=== PATIENT | female | born 1960 | race Caucasian/White ===

== ENCOUNTER 2019-11-20 07:00 | Outpatient (RCR) | payer OTHER, SELFPAY ==
--- NOTE | 2019-10-24 08:01 | PTOPEVAL ---
PHYSICAL THERAPY EVALUATION AND PLAN OF CARE 10-24-2019 The PT evaluation was completed for the diagnosis of L shoulder/bicep tendonitis. The plan of treatment is for 1-2 x/week for 4 weeks. Thank you for referring Mrs. Mars to [facility]. Please review, sign, date and return this plan of care OSVALDO. I agree with and certify that the following plan of care is medically necessary. Referring Physician Date Attending Provider: Joey Wilder MD *PT Outpatient Evaluation Start: 10/24/19 07:07 Document 10/24/19 07:00 JESUS (Rec: 10/24/19 07:55 JESUS [id number]) Assessment Status Evaluation Outpatient Past Medical History Neurological History Hx Other Neurological Disorders Yes: vertigo Cardiovascular History Hx Hypertension Yes: med control Hx Other Cardiac Disorders Yes: Mitchell Parkinson syndrome Respiratory History Hx Respiratory Disorders No Significant History Gastrointestinal History Hx Gastrointestinal Disorders No Significant History Genitourinary History Hx Genitourinary Disorders No Significant History Musculoskeletal History Hx Back Pain Yes: have had injections Hx Joint Replacement Yes: L TKR Hx Other Musculoskeletal Disorders Yes: surgical repair of hammertoe B Hematological History Hx Anemia Yes: take iron Endocrine History Hx Diabetes Yes: med control HEENT History Hx Other HEENT Disorders Yes: wear glasses Integumentary History Hx Skin Disorders No Significant History Evaluation Information Problem Diagnosis L shoulder tendonitis Onset Jul 2019 Subjective Information gradual increase in shoulder Query Text:As Reported By Patient/ pain, no trauma or injury to Family shoulder; also have stiff neck; had injection 10-14-19, has helped with less pain and more motion Diagnostic Tests X-Rays For This Problem Yes: per pt- negative Previous Treatments Previous Treatments For This Problem no treatment for shoulder Prior Level of Function Activity Level (Last 3 Months) 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
--- NOTE | 2019-11-20 07:33 | PTOPEVAL ---
PHYSICAL THERAPY DISCHARGE 11-20-2019 Mrs. Mars has received 9 Physical Therapy sessions, from October 24 to today for the diagnosis of L shoulder tendonitis. Jenna has improved since evaluation: decreased pain in L shoulder; increased cervical and L shoulder ROM and strength; indep with home exercises and good posture awareness. The goals have been achieved, therefore, she will be discharged from PT services. Thank you for referring this patient to [facility]. Please review, sign, date and return this discharge summary OSVALDO. I agree with and certify that the following plan of care is medically necessary. Referring Physician Date Attending Provider: Jeoy Wilder MD *PT Outpatient Discharge Document 11/20/19 07:09 JESUS (Rec: 11/20/19 07:33 JESUS [id number]) Subjective Information Jenna reports: therapy has Query Text:As Reported By Patient/ helped shoulder--have more Family range of movement and not as much pain; doing exercises and agrees to discharge from PT services. Pain Assessment Pain Scale Pain Scale Used Numeric (1 - 10) Self Report Pain Assessment Left Shoulder(s) Reported Pain Level 0 Pain Frequency Acute Current Pain Intensity 0 Lowest Pain Intensity 0 Greatest Pain Intensity 2 Pain Level Goal 0 Other Pain Aggravating Factors lifting and carrying heavy things with L arm only Pain Relief Interventions Used By Inactivity/Rest Patient Other Alleviating Interventions rub front of shoulder; take arthritis tylenol for overall body pain Additional Pain Comments doing all home & work tasks; can lie on L side 5-10 min; Pain Score Pain Score 0: Self Report Cervical and Lumbar ROM Cervical ROM Cervical ROM Comments cervical rotation to R pain with end range of motion; WNL ~ 70' cervical rotation R and L; Upper Extremity Muscle Strength Testing General Upper Extremity Strength Gross Upper Extremity Strength Comments B UE Lift box floor/waist: 23# x 3 reps; with correct technique standing L shoulder- full ROM: flex 5# x 10; abduction 5# x 10 reps; elbow flex 5# x 10 reps; doing shoulder exercises at home, bought a foam roller; cont to do HEP; have yellow and red theraband for strengthening Palpation Assessment
== END 2019-11-20 09:48 | disposition home or self-care (01) ==
LOC: ANHPT 07:00
PROVIDERS: Visit Provider Orthopaedic Surgery
DX: M75.82 Other shoulder lesions, left shoulder (principal); M25.512 Pain in left shoulder
CPT/HCPCS: 97110; 97140; 97161

== ENCOUNTER 2019-12-17 09:46 | Outpatient (CLI) | payer OTHER, SELFPAY ==
[2019-12-17 10:16] LABS: Total Protein Urine Random 48 mg/dL
[2019-12-17 10:18] LABS: Albumin Level 4.7 g/dL (3.5-5.1); Blood Urea Nitrogen 29 mg/dL (7-17); Calcium 9.7 mg/dL (8.4-10.2); Carbon Dioxide 22 mmol/L (22-30); Chloride 99 mmol/L (98-107); Estimated Glomerular Filt Rate 38; Glucose 150 mg/dL (65-105); Phosphorus 3.7 mg/dL (2.5-4.5); Potassium 4.9 mmol/L (3.4-5.0); Sodium 138 mmol/L (137-145)
== END 2019-12-17 09:47 | disposition home or self-care (01) ==
LOC: ANHLAB 09:48
PROVIDERS: Visit Provider Internal Medicine Nephrology
DX: N18.3 Chronic kidney disease, stage 3 (moderate) (principal); I10 Essential (primary) hypertension
CPT/HCPCS: 36415; 80069; 82570; 84156

== ENCOUNTER 2020-01-03 07:07 | Outpatient (CLI) | payer OTHER, SELFPAY ==
[2020-01-03 07:49] LABS: Albumin Level 4.5 g/dL (3.5-5.1); Blood Urea Nitrogen 27 mg/dL (7-17); Calcium 9.9 mg/dL (8.4-10.2); Carbon Dioxide 25 mmol/L (22-30); Chloride 103 mmol/L (98-107); Estimated Glomerular Filt Rate 35; Glucose 259 mg/dL (65-105); Phosphorus 3.8 mg/dL (2.5-4.5); Potassium 4.6 mmol/L (3.4-5.0); Sodium 135 mmol/L (137-145)
== END 2020-01-03 07:08 | disposition home or self-care (01) ==
PROVIDERS: Visit Provider Internal Medicine Nephrology
DX: N18.3 Chronic kidney disease, stage 3 (moderate) (principal)
CPT/HCPCS: 36415; 80069

== ENCOUNTER 2020-01-21 08:17 | Outpatient (CLI) | payer OTHER, SELFPAY ==
--- NOTE | 2020-01-21 | EST_ITS ---
Patient Info Name: Jenna Mars Age: 59 years : 1960 Gender: Female Ht: 64 in Wt: 190 lbs BSA: 2.01 m2 Exam Date: 01/21/2020 8:59 AM Exam Location: [facility] Patient Status: Outpatient Admit Date: 01/21/2020 Staff Ordering Physician: Kevin Metcalf MD Legal Writing Professor: Jadon Choi RDCS, RT Attending Provider: CARLITOS COTTO Referring Physician: Dixon DOMINGUEZ; Exercise Technologist: Jadon Choi RDCS, RT Nurse: [facility] Sheth AN[facility], [facility] Exam Type: CA stress echo Study Info Indications I10 - Essential (primary) hypertension Treadmill exercise stress echocardiogram is performed. Summary 1. Inconclusive stress test for ischemia. Patient was unable to achieve target heart rate. 2. Patient complained of midsternal burning at peak exercise. 3. No ischemic EKG changes with exercise. 4. Normal left ventricular function at rest with improvement of LV contractility with exercise and no focal wall motion abnormalities at this level of exercise. Ejection fraction 60% at rest. 5. Mildly thickened mitral valve with redundant chordae. Stress Echo Findings Left Ventricle Normal left venticular systolic function with no regional wall motion abnormalities noted at rest. Overall global left ventricular systolic function Improved post stress. Left Ventricle Left ventricular chamber dimension is normal. Left ventricular systolic function is Empty with an estimated ejection fraction of Empty. There is no increased left ventricular wall thickness. Left ventricular septal wall motion is normal. The left ventricular diastolic function is normal. Right Ventricle Right ventricular chamber dimension is normal. Right ventricular systolic function is normal. Left Atria Left atrial chamber dimension is normal. Right Atria Right atrial chamber dimension is normal. Aortic Valve The aortic valve is trileaflet. There is no aortic valve sclerosis. There is no aortic valve stenosis. There is no aortic valve regurgitation. Pulmonary Valve The pulmonic valve is normal. There is no pulmonic valve stenosis. There is no pulmonic regurgitation. Mitral Valve The mitral valve has normal leaflets. There is no mitral valve stenosis. There is no mitral valve regurgitation. Tricuspid Valve The tricuspid valve leaflets are normal. There is no significant tricuspid valve stenosis. There is no tricuspid valve regurgitation. No pulmonary hypertension, estimated pulmonary arterial systolic pressure is Empty. Pericardium The pericardium appears normal. There is no pericardial effusion. Inferior Vena Cava Normal inferior vena cava with <50% collapse upon inspiration consistent with Empty right atrial pressure, Empty. Aorta The aortic root size at the sinus of Valsalva is normal. The prox ascending aorta size is normal. Protocol: Priyank Stress ECG Details Stage: REST Duration (min): 6 min : 20 sec Speed (mph): 0.0 Grade (%): 0 HR (bpm): 70 SBP (mmHg): 138 DBP (mmHg): 95 METS: --- Stage: REST Duration (min): 33 min : 37 sec Speed (mph): 0.0 Grade (%): 0 HR (bpm): 66 SBP (mmHg): 138 DBP (mmHg): 95 METS: --- Stage: STAGE 1 Duration (min): 1 min : 0 sec Speed (mph): 1.7 Grade (%): 10 HR (bpm): 82 SBP (mmHg): 138 DBP (mmHg):
== END 2020-01-21 08:18 | disposition home or self-care (01) ==
PROVIDERS: Visit Provider Internal Medicine Cardiovascular Disease
DX: E11.59 Type 2 diabetes mellitus with other circulatory complications (principal); I10 Essential (primary) hypertension; I49.3 Ventricular premature depolarization
CPT/HCPCS: 93351

== ENCOUNTER 2020-03-22 07:33 | Outpatient (CLI) | payer OTHER, SELFPAY ==
[2020-03-22 08:37] LABS: Albumin Level 4.5 g/dL (3.5-5.1); Blood Urea Nitrogen 31 mg/dL (7-17); Calcium 9.8 mg/dL (8.4-10.2); Carbon Dioxide 24 mmol/L (22-30); Chloride 97 mmol/L (98-107); Estimated Glomerular Filt Rate 31; Glucose 160 mg/dL (65-105); Phosphorus 4.8 mg/dL (2.5-4.5); Potassium 4.5 mmol/L (3.4-5.0); Sodium 131 mmol/L (137-145)
[2020-03-22 08:53] LABS: Parathyroid Intact 17.9 pg/mL (7.5-53.5)
[2020-03-22 09:23] LABS: Vitamin D 25 Hydroxy 60.9 ng/mL
[2020-03-22 09:32] LABS: Creatinine Urine 47.9 mg/dL; Total Protein Urine Random 26 mg/dL
== END 2020-03-22 07:34 | disposition home or self-care (01) ==
PROVIDERS: Referring Provider Family Medicine; Visit Provider Internal Medicine Nephrology
DX: N18.3 Chronic kidney disease, stage 3 (moderate) (principal)
CPT/HCPCS: 36415; 80069; 82306; 82570; 83970; 84156

== ENCOUNTER 2020-04-08 12:24 | Outpatient (CLI) | payer OTHER, SELFPAY ==
[2020-04-08 13:00] LABS: Albumin Level 4.7 g/dL (3.5-5.1); Blood Urea Nitrogen 36 mg/dL (7-17); Calcium 9.5 mg/dL (8.4-10.2); Carbon Dioxide 24 mmol/L (22-30); Chloride 102 mmol/L (98-107); Estimated Glomerular Filt Rate 33; Glucose 249 mg/dL (65-105); Phosphorus 3.7 mg/dL (2.5-4.5); Potassium 4.4 mmol/L (3.4-5.0); Sodium 136 mmol/L (137-145)
== END 2020-04-08 12:25 | disposition home or self-care (01) ==
PROVIDERS: Visit Provider Internal Medicine Nephrology
DX: N18.3 Chronic kidney disease, stage 3 (moderate) (principal)
CPT/HCPCS: 36415; 80069

== ENCOUNTER 2020-05-20 15:02 | Outpatient (CLI) | payer OTHER, SELFPAY ==
--- NOTE | ~2020-05-20 | US_ITS ---
EXAMINATION: US carotid duplex BI DATE: 05/20/2020 15:48 INDICATION: Left carotid bruit TECHNIQUE: Grayscale, color Doppler, and pulsed Doppler images of the cervical carotid arteries were obtained. The degree of vessel stenosis is placed in one of the following categories: normal, <50%, 5 0-69%, >=70% but less than near-occlusion, near-occlusion, or total occlusion. Note that percent sten osis relative to normal distal artery lumen diameter is indirectly measured from velocity measurement s as described by Roe, et al. Radiology 2003; 229:340-346. Notes: Normal: Peak systolic velocity <125 centimeters/sec and no plaque <50%. Peak systolic velocity <125 ( EDV <40; ICA/CCA PSV ratio <2.0; used these factors only a tandem lesions or low cardiac output or co ntralateral disease) 50-69 %: PSV 125-230 (EDV 40-100; ratio 2-4) >= 70% but less than near occlusion: PSV greater than 230 (EDV > 100; ratio> 4.0) Near Occlusion: PSV that is variable; markedly narrowed lumen Occlusion: Absent flow on color/spectral Doppler and no lumen on correa scale. COMPARISON: None. FINDINGS: RIGHT: The right common carotid artery (CCA) peak systolic velocity (PSV) is 64 cm/s. The right internal car otid artery (ICA) PSV is 76 cm/s. The right ICA end-diastolic velocity (EDV) is 23 cm/s. The right IC A/CCA PSV ratio is 1.2. The external carotid artery (ECA) PSV is 54 cm/s. There is antegrade flow in the right vertebral artery. LEFT: The left CCA PSV is 80 cm/s. The left ICA PSV is 65 cm/s. The left ICA EDV is 23 cm/s. The left ICA/C CA PSV ratio is 0.8. The ECA PSV is 46 cm/s. There is antegrade flow in the left vertebral artery. IMPRESSION: 1. Less than 50% stenosis in the right internal carotid artery by sonographic criteria. 2. Less than 50% stenosis in the left internal carotid artery by sonographic criteria. Reviewed, dictated and finalized at location A. IMPRESSION: 1. Less than 50% stenosis in the right internal carotid artery by sonographic orly graham. 2. Less than 50% stenosis in the left internal carotid artery by sonographic bertin thomas.
== END 2020-05-20 15:03 | disposition home or self-care (01) ==
LOC: ANHIMG 15:03
PROVIDERS: Visit Provider Internal Medicine Cardiovascular Disease
DX: R09.89 Other specified symptoms and signs involving the circulatory and respiratory systems (principal); I65.23 Occlusion and stenosis of bilateral carotid arteries
CPT/HCPCS: 93880

== ENCOUNTER 2020-06-01 07:33 | Outpatient (CLI) | payer OTHER, SELFPAY ==
--- NOTE | 2020-06-01 | ECHO_ITS ---
Patient Info Name: Jenna Mars Age: 59 years : 1960 Gender: Female Ht: 64 in Wt: 193 lbs BSA: 2.02 m2 HR: 70 bpm BP: 190 / 99 mmHg Heart Rhythm: Sinus Rhythm Technical Quality: Good Exam Date: 06/01/2020 7:55 AM Exam Location: [facility] Patient Status: Outpatient Admit Date: 06/01/2020 Staff Ordering Physician: Kevin Metcalf MD Placement Coordinator: Jadon Choi RDCS, RT Attending Provider: Kevin Metcalf MD Referring Physician: Dixon DOMINGUEZ; Exam Type: CA echo doppler color flow Study Info Indications I35.0 - Nonrheumatic aortic (valve) stenosis Complete two-dimensional, color flow and Doppler transthoracic echocardiogram is performed. Summary 1. Left ventricular chamber dimension is normal. 2. Left ventricular systolic function is normal, estimated at 65-70%. 3. There is mildly increased left ventricular wall thickness. 4. Left ventricular septal wall motion is normal. 5. The left ventricular diastolic function is grade II diastolic dysfunction. 6. Global longitudinal strain is normal at -17 %. 7. Left atrial chamber dimension is mildly enlarged. 8. There is mild aortic valve stenosis with a peak velocity of 214 cm/s, mean gradient of 8 mmHg, and aortic valve area of 1.2 cm2. 9. There is moderate aortic valve sclerosis. 10. There is moderate mitral valve regurgitation. 11. There is mild tricuspid valve regurgitation. 12. Mild pulmonary hypertension, estimated pulmonary arterial systolic pressure is 36 mmHg. 13. The aortic valve gradients are no different than previous. The LVOT is measured differently from previous echo thus resulting in the difference and a calculated ELVIS. If visibly looks like a mildly stenotic valve. Left Ventricle Left ventricular chamber dimension is normal. Left ventricular systolic function is normal, estimated at 65-70%. There is mildly increased left ventricular wall thickness. Left ventricular septal wall motion is normal. The left ventricular diastolic function is grade II diastolic dysfunction. Global longitudinal strain is normal at -17 %. Right Ventricle Right ventricular chamber dimension is normal. Right ventricular systolic function is normal. Left Atria Left atrial chamber dimension is mildly enlarged. Right Atria Right atrial chamber dimension is normal. Atrial Septum Intact interatrial septum visualized by color flow imaging. Aortic Valve The aortic valve is trileaflet. There is moderate aortic valve sclerosis. There is mild aortic valve stenosis with a peak velocity of 214 cm/s, mean gradient of 8 mmHg, and aortic valve area of 1.2 cm2. There is trace aortic valve regurgitation. The aortic valve gradients are no different than previous. The LVOT is measured differently from previous echo thus resulting in the difference and a calculated ELVIS. If visibly looks like a mildly stenotic valve. Pulmonic Valve The pulmonic valve is normal. There is no pulmonic valve stenosis. There is trace pulmonic regurgitation. Mitral Valve The mitral valve has thickened leaflets. There is no mitral valve stenosis. There is moderate mitral valve regurgitation. Tricuspid Valve The tricuspid valve leaflets are normal. There is no significant tricuspid valve stenosis. There is mild tricuspid valve regurgitation. Mild pulmonary hypertension, estimated pulmonary arterial systolic pressure is 36 mmHg. Pericardium/Pleural The pericardium appears normal. There is no pericardial effusion.
--- NOTE | 2020-06-01 | EST_ITS ---
Patient Info Name: Jenna Mars Age: 59 years : 1960 Gender: Female Ht: 64 in Wt: 193 lbs BSA: 2.02 m2 Exam Date: 06/01/2020 10:11 AM Exam Location: [facility] Stress Patient Status: Outpatient Admit Date: 06/01/2020 Staff Ordering Physician: Kevin Metcalf MD Attending Provider: Kevin Metcalf MD Exercise Technologist: Roselia Joe RDCS Exam Type: CA stress jerome w NM Study Info Indications E11.69 - HYPERLIPIDEMIA ASSOCIATED WITH TYPE 2 DIABETES MELLITUS A regadenoson stress test was performed. Summary 1. Please correlate with nuclear medicine images, reported separately. 2. No abnormal ST-T wave changes with lexiscan. Protocol: Lexiscan Stress ECG Details Stage: REST Duration (min): 2 min : 9 sec HR (bpm): 66 SBP (mmHg): 156 DBP (mmHg): 88 Stage: REST Duration (min): 12 min : 3 sec HR (bpm): 69 SBP (mmHg): 156 DBP (mmHg): 88 Stage: STAGE 1 Duration (min): 1 min : 0 sec HR (bpm): 81 SBP (mmHg): 156 DBP (mmHg): 88 Stage: RECOVERY Duration (min): 1 min : 0 sec HR (bpm): 89 SBP (mmHg): 135 DBP (mmHg): 51 Stage: RECOVERY Duration (min): 2 min : 0 sec HR (bpm): 89 SBP (mmHg): 135 DBP (mmHg): 51 Stage: RECOVERY Duration (min): 3 min : 0 sec HR (bpm): 88 SBP (mmHg): 141 DBP (mmHg): 56 Stage: RECOVERY Duration (min): 4 min : 0 sec HR (bpm): 89 SBP (mmHg): 141 DBP (mmHg): 56 Stage: RECOVERY Duration (min): 5 min : 0 sec HR (bpm): 87 SBP (mmHg): 141 DBP (mmHg): 56 Stage: RECOVERY Duration (min): 6 min : 0 sec HR (bpm): 87 SBP (mmHg): 141 DBP (mmHg): 56 Stage: RECOVERY Duration (min): 7 min : 0 sec HR (bpm): 84 SBP (mmHg): 159 DBP (mmHg): 78 Stage: RECOVERY Duration (min): 7 min : 6 sec HR (bpm): 86 SBP (mmHg): 159 DBP (mmHg): 78 Rest HR: 69 bpm Peak HR: 92 bpm Rest Sys BP: 156 mmHg Peak Sys BP: 159 mmHg Max Pred HR: 159 bpm % Max Pred HR: 58 % Target HR: 135 bpm Max RPP: 14,628 bpm*mmHg Target HR Summary: Hemodynamic response to exercise was normal BP Response: Normal blood pressure response Termination Reason: Completed protocol Cardiac Symptoms: None Total Time: 1 min : 0 sec Rest [place] BP: 88 mmHg Peak [place] BP: 78 mmHg Total Dose: 0.4 mg Resting ECG Normal sinus rhythm. IVCD. Stress ECG No abnormal ST/T wave changes with exercise. Arrhythmias Occasional PVCs. Report Signatures
--- NOTE | ~2020-06-01 | NM_ITS ---
EXAMINATION: NM jerome stress w perfusion DATE: 06/01/2020 11:54 INDICATION: Hyperlipidemia. Nontraumatic cardiac valve stenosis. Hypertension. PVC. TECHNIQUE: Rest images were obtained following intravenous administration of 9 mCi Tc99m tetrofosmin (Myoview). The patient was infused intravenously with Lexiscan (Regadenoson). Then, 27.5 mCi Tc99m te trofosmin (Myoview) was administered intravenously, and stress images were obtained. Data was reconst ructed into short axis and horizontal and vertical long axis SPECT images. Gated SPECT images were al so obtained. COMPARISON: None. FINDINGS: There is no definite reversible or fixed perfusion abnormality to suggest ischemia or infar ction. There is normal left ventricular chamber size, wall motion and ejection fraction. Left ventr icular ejection fraction measures 70%. IMPRESSION: 1. Normal myocardial perfusion at rest and during stress. 2. Left ventricular ejection fraction measuring 70%. Reviewed, dictated and finalized at location A.
== END 2020-06-01 07:34 | disposition home or self-care (01) ==
LOC: ANHCARD 07:36
PROVIDERS: Visit Provider Internal Medicine Cardiovascular Disease
DX: I35.0 Nonrheumatic aortic (valve) stenosis (principal); E11.65 Type 2 diabetes mellitus with hyperglycemia; E78.5 Hyperlipidemia, unspecified; E11.59 Type 2 diabetes mellitus with other circulatory complications; I49.3 Ventricular premature depolarization; I70.1 Atherosclerosis of renal artery
CPT/HCPCS: 78452; 93017; 93306; A9502; J2785

== ENCOUNTER 2020-06-17 08:21 | Outpatient (CLI) | payer OTHER, SELFPAY ==
--- NOTE | ~2020-06-17 | XR_ITS ---
EXAMINATION: XR knee RT 3V DATE: 06/17/2020 08:45 INDICATION: Right knee pain. TECHNIQUE: 3 views of right knee on 4 radiographs were obtained. COMPARISON: None. FINDINGS: Bone alignment is normal. No fracture. There is moderate osteoarthritis of medial compartme nt and mild osteoarthritis of lateral and patellofemoral compartments. There is chondrocalcinosis of the menisci. There is a small knee joint effusion. IMPRESSION: 1. Moderate right knee osteoarthritis. 2. Small right knee joint effusion. Reviewed, dictated and finalized at location B.
[2020-06-17 09:28] LABS: Hematocrit 34.7 % (37.0-47.0); Hemoglobin 11.5 g/dL (12.0-15.0); Mean Corpuscular HGB Conc 33.1 g/dl (32-36); Mean Corpuscular Hemoglobin 30.3 pg (26-34); Mean Corpuscular Volume 91.6 fl (80-100); Mean Platelet Volume 9.5 fl (7.4-10.4); Platelet Count Result 410 k/mm3 (150-375); Red Blood Count 3.79 M/mm3 (4.2-5.4); Red Cell Distribution Width 12.8 % (11.5-14.5); White Blood Count 7.6 K/mm3 (4.5-10.0)
[2020-06-17 09:45] LABS: Albumin Level 4.6 g/dL (3.5-5.1); Anion Gap 12 mmol/L (8-16); Blood Urea Nitrogen 31 mg/dL (7-17); Calcium 9.5 mg/dL (8.4-10.2); Carbon Dioxide 21 mmol/L (22-30); Chloride 101 mmol/L (98-107); Estimated Glomerular Filt Rate 35; Glucose 315 mg/dL (65-105); Phosphorus 4.2 mg/dL (2.5-4.5); Potassium 4.9 mmol/L (3.4-5.0); Sodium 134 mmol/L (137-145)
[2020-06-17 09:54] LABS: Parathyroid Intact 20.1 pg/mL (7.5-53.5)
[2020-06-17 10:23] LABS: Creatinine Urine 92.1 mg/dL; Total Protein Urine Random 39 mg/dL
== END 2020-06-17 08:22 | disposition home or self-care (01) ==
LOC: ANHLAB 08:23
PROVIDERS: Visit Provider Internal Medicine Nephrology
DX: N18.3 Chronic kidney disease, stage 3 (moderate) (principal); M17.11 Unilateral primary osteoarthritis, right knee; M25.461 Effusion, right knee
CPT/HCPCS: 36415; 73562; 80069; 82306; 82570; 83970; 84156; 85027

== ENCOUNTER 2020-07-07 16:03 | Outpatient (CLI) | payer OTHER, SELFPAY ==
[2020-07-07 16:26] LABS: Hemoglobin A1C 7.1 % (<5.7)
== END 2020-07-07 16:04 | disposition home or self-care (01) ==
LOC: ANHLAB 16:05
PROVIDERS: Visit Provider Family Medicine
DX: E13.40 Other specified diabetes mellitus with diabetic neuropathy, unspecified (principal)
CPT/HCPCS: 36415; 83036

== ENCOUNTER 2020-08-12 11:00 | Outpatient (RCR) | payer OTHER, SELFPAY ==
--- NOTE | 2020-07-07 16:09 | PTOPEVAL ---
Thank you for referring Jenna Mars to [facility].? The patient is scheduled to be seen for therapy? ____x/week for ___ weeks. Please review, sign, date and return this plan of care OSVALDO. I agree with and certify that the following plan of care is medically necessary. Referring Physician Date Admitting Provider: Attending Provider: Joey Wilder MD Referring Provider: *PT Outpatient Evaluation Start: 07/07/20 14:34 Freq: Status: Active Protocol: Document 07/07/20 14:51 LAY (Rec: 07/07/20 16:07 LAY [id number]) Therapy Assessment Status Assessment Status Assessment Status Evaluation Outpatient Past Medical History Past Medical History Source of Past Medical History Recalled from Previous Visit, Confirmed with Patient/Family Neurological History Hx Other Neurological Disorders Yes: vertigo Cardiovascular History Hx Hypertension Yes: med control Hx Other Cardiac Disorders Yes: Mitchell Parkinson syndrome Respiratory History Hx Respiratory Disorders No Significant History Gastrointestinal History Hx Cholecystectomy Yes Genitourinary History Hx Genitourinary Disorders No Significant History Musculoskeletal History Hx Back Pain Yes: have had injections Hx Joint Replacement Yes: L TKR Hx Other Musculoskeletal Disorders Yes: surgical repair of hammertoe B Hematological History Hx Anemia Yes: take iron Endocrine History Hx Diabetes Yes: med control HEENT History Hx Other HEENT Disorders Yes: wear glasses Integumentary History Hx Skin Disorders No Significant History Reproductive History Hx Hysterectomy Yes: 1997 Evaluation Information Problem Diagnosis right primary OA Onset 4-6months Subjective Information Began to have medial and Query Text:As Reported By Patient/ lateral knee joint pain, will Family also have a shooting pain in knee, lots of cracks, pops,etc . Had injection yesterday - feels significantly better. Occasionally pain will awaken her from sleep. Usually painful in morning. Avoided stairs - worked in draw station - to avoid increase walking Pain Assessment Timing of Pain Assessment Timing of Pain Assessment Assessment Pain Scale Pain Scale Used Numeric (1 - 10) Self Report Pain Assessment Right Knee(s) Reported Pain Level 3 Pain Description Aching,Dull,Sharp Lowest Michell
--- NOTE | 2020-07-07 16:24 | PTOPEVAL ---
INITIAL PHYSICAL THERAPY EVALUATION and PLAN OF CARE Thank you for referring Jenna Masr to [facility].? Jenna is scheduled to be seen for physical therapy? 2x/week for 5 weeks. Please review, sign, date and return this plan of care OSVALDO. I agree with and certify that the following plan of care is medically necessary. Referring Physician Date Admitting Provider: Attending Provider: Joey Wilder MD Referring Provider: *PT Outpatient Evaluation Start: 07/07/20 14:34 Freq: Status: Active Protocol: Document 07/07/20 14:51 LAY (Rec: 07/07/20 16:07 LAY [id number]) Therapy Assessment Status Assessment Status Assessment Status Evaluation Outpatient Past Medical History Past Medical History Source of Past Medical History Recalled from Previous Visit, Confirmed with Patient/Family Neurological History Hx Other Neurological Disorders Yes: vertigo Cardiovascular History Hx Hypercholesterolemia Yes Hx Hypertension Yes: med control Hx Other Cardiac Disorders Yes: Mitchell Parkinson syndrome Respiratory History Hx Respiratory Disorders No Significant History Gastrointestinal History Hx Cholecystectomy Yes Genitourinary History Hx Genitourinary Disorders No Significant History Musculoskeletal History Hx Back Pain Yes: have had injections Hx Joint Replacement Yes: L TKR Hx Other Musculoskeletal Disorders Yes: surgical repair of hammertoe B Hematological History Hx Anemia Yes: take iron Endocrine History Hx Diabetes Yes: med control HEENT History Hx Other HEENT Disorders Yes: wear glasses Integumentary History Hx Skin Disorders No Significant History Reproductive History Hx Hysterectomy Yes: 1997 Evaluation Information Problem Diagnosis right primary OA Onset ~4-6months Subjective Information Began to have medial and Query Text:As Reported By Patient/ lateral knee joint pain, will Family also have a shooting pain in knee, lots of cracks, pops,etc . Had injection yesterday - feels significantly better. Occasionally pain will awaken her from sleep. Usually painful in morning. 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
--- NOTE | 2020-08-12 17:08 | PTOPEVAL ---
PHYSICAL THERAPY DISCHARGE SUMMARY Thank you for referring Jenna Mars to [facility].? Jenna has been seen in PT x 11 visits. Goals have been met - she is to continue with her HEP. She is ready for discharge from PT. I agree with Jenna's discharge from PT. Referring Physician Date Admitting Provider: Attending Provider: Joey Wilder MD Referring Provider: *PT Outpatient Evaluation Start: 07/07/20 14:34 Freq: Status: Active Protocol: Document 08/12/20 11:05 LAY (Rec: 08/12/20 12:00 LAY [id number]) Therapy Assessment Status Assessment Status Assessment Status Discharge Evaluation Information Problem Subjective Information Jenna states that she feels Query Text:As Reported By Patient/ the shot is wearing off - Family beginning to feel more knee pain. Will have episodes of catching/pop sensation - sharp pain for awhile - then will go back to 3/10 baseline pain. KinesioTaping really helps. Level ground ambulation has improved ~35%, stair ambulation at least 50% improvement. Does HEP on a regular basis - does take 1 day off per week. Pain Assessment Timing of Pain Assessment Timing of Pain Assessment Assessment Pain Scale Pain Scale Used Numeric (1 - 10) Self Report Pain Assessment Right Knee(s) Reported Pain Level 3 Lowest Pain Intensity 3 Greatest Pain Intensity 5 Pain Score Pain Score 3: Self Report Interventions Used Interventions Used By Clinicians Exercise Lower Extremity Range of Motion Knee Range of Motion Right Knee Flexion Range of Motion - Passive 130 Knee Range of Motion Comments 2 deg hyperextension Lower Extremity Muscle Strength Testing Hip Strength Bilateral Hip Strength Comments R hip abduction - 4+/5 Muscle Length Testing Muscle Length Testing Left Hamstring Length 10 Query Text:(90 - 90 Position) Right Hamstring Length 15 Query Text:(90 - 90 Position) Muscle Length Testing Comments gastroc - with knee extended 10 deg bilat General Exercise General Exercises Side Right,Bilateral Exercise Location LE Exercise Type Active,Stretching Exercise Description - discussed using foam at home Query Text:Record Sets, Reps, to continue to work on Resistance, and Position balance - standing green theraband hip
== END 2020-08-13 12:20 | disposition home or self-care (01) ==
LOC: ANHPT 11:00
PROVIDERS: Visit Provider Orthopaedic Surgery
DX: M17.11 Unilateral primary osteoarthritis, right knee (principal)
CPT/HCPCS: 97014; 97110; 97161; G0283

== ENCOUNTER 2020-09-17 09:08 | Outpatient (CLI) | payer OTHER, SELFPAY ==
[2020-09-17 09:48] LABS: Alanine Aminotransferase 28 U/L (4-35); Albumin Level 4.3 g/dL (3.5-5.1); Anion Gap 12 mmol/L (8-16); Blood Urea Nitrogen 29 mg/dL (7-17); Calcium 9.5 mg/dL (8.4-10.2); Carbon Dioxide 25 mmol/L (22-30); Chloride 100 mmol/L (98-107); Cholesterol 159 mg/dL (0-200); Estimated Glomerular Filt Rate 42; Glucose 195 mg/dL (65-105); HDL Direct 35 mg/dL; Hemoglobin 11.5 g/dL (12.0-15.0); Mean Corpuscular HGB Conc 32.9 g/dl (32-36); Mean Corpuscular Hemoglobin 29.8 pg (26-34); Mean Corpuscular Volume 90.7 fl (80-100); Mean Platelet Volume 9.6 fl (7.4-10.4); Phosphorus 3.5 mg/dL (2.5-4.5); Platelet Count Result 395 k/mm3 (150-375); Potassium 4.6 mmol/L (3.4-5.0); Red Blood Count 3.86 M/mm3 (4.2-5.4); Red Cell Distribution Width 12.9 % (11.5-14.5); Sodium 137 mmol/L (137-145); Triglycerides 219 mg/dL (<150); White Blood Count 8.1 K/mm3 (4.5-10.0)
[2020-09-17 09:58] LABS: LDL Cholesterol Direct 92 mg/dL; Parathyroid Intact 16.6 pg/mL (7.5-53.5)
[2020-09-17 10:25] LABS: Vitamin D 25 Hydroxy 57.1 ng/mL
== END 2020-09-17 09:09 | disposition home or self-care (01) ==
PROVIDERS: PCP Family Medicine; Referring Provider Family Medicine; Visit Provider Internal Medicine Nephrology
DX: N18.30 Chronic kidney disease, stage 3 unspecified (principal); I12.9 Hypertensive chronic kidney disease with stage 1 through stage 4 chronic kidney disease, or unspecified chronic kidney disease; E78.5 Hyperlipidemia, unspecified
CPT/HCPCS: 36415; 80061; 80069; 82306; 83970; 84460; 85027

== ENCOUNTER 2020-09-24 07:05 | Outpatient (NON) | payer OTHER, SELFPAY ==
[2020-09-24 19:10] LABS: SARS-CoV-2 RNA PCR Negative
== END 2020-09-24 07:06 ==
LOC: ANHCOVIDDT 07:19
PROVIDERS: PCP Family Medicine; Visit Provider Physician Assistant
DX: J02.9 Acute pharyngitis, unspecified (principal); Z20.828 Contact with and (suspected) exposure to other viral communicable diseases
CPT/HCPCS: 87635; C9803; U0003

== ENCOUNTER 2020-09-29 07:45 | Outpatient (CLI) | payer OTHER, SELFPAY ==
--- NOTE | ~2020-09-29 | CT_ITS ---
EXAMINATION: CTA abdomen DATE: 09/29/2020 08:19 INDICATION: Hypertension. Renal artery stenosis. TECHNIQUE: Computed tomographic angiography (CTA) of the abdomen was performed with 100 mL Omnipaque- 350 intravenous contrast. Automated exposure control and iterative reconstruction technique were empl oyed. The dose-length product was 357.92 mGy-cm. Maximum intensity projection 3D-reconstructions of t he aorta and other arteries were constructed by the technologist on a separate workstation. COMPARISON: CT abdomen 09/08/2019 FINDINGS: The visualized portions of the lung bases demonstrates mild atelectasis. No pleural effusio n. The heart size is normal. No pericardial effusion. The liver is normal. There are changes of anisha cystectomy. The spleen, pancreas, and adrenal glands are normal. There is cortical thinning of the ki dneys. There are cysts in the kidneys measuring up to 1.5 cm on the right. There are no dilated loops of bowel. There are no pathologically enlarged lymph nodes. There is no free intraperitoneal fluid. There is mild aortic atherosclerosis. There is moderate stenosis of celiac axis. There is no signific ant stenosis of superior mesenteric artery or inferior mesenteric artery. There is moderate stenosis of mid right renal artery. There is no significant stenosis of left renal artery. There is mild chron ic anterior wedging of T11, T12, and L1 vertebral bodies. There is severe degenerative disc disease a t T11-T12. There are chronic bilateral L5 pars defects. IMPRESSION: 1. Moderate stenosis of mid right renal artery. Reviewed, dictated and finalized at location B. 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
== END 2020-09-29 07:46 | disposition home or self-care (01) ==
PROVIDERS: PCP Family Medicine; Visit Provider Internal Medicine Nephrology
DX: I70.1 Atherosclerosis of renal artery (principal); I10 Essential (primary) hypertension
CPT/HCPCS: 74175; Q9967

== ENCOUNTER 2020-12-20 09:54 | Outpatient (CLI) | payer OTHER, SELFPAY ==
[2020-12-20 20:00] LABS: Albumin Level 4.5 g/dL (3.5-5.1); Anion Gap 11 mmol/L (8-16); Blood Urea Nitrogen 27 mg/dL (7-17); Calcium 10.4 mg/dL (8.4-10.2); Carbon Dioxide 24 mmol/L (22-30); Chloride 99 mmol/L (98-107); Estimated Glomerular Filt Rate 38; Glucose 161 mg/dL (65-105); Phosphorus 4.2 mg/dL (2.5-4.5); Potassium 4.7 mmol/L (3.4-5.0); Sodium 134 mmol/L (137-145)
[2020-12-20 20:03] LABS: Creatinine Urine 86.2 mg/dL; Total Protein Urine Random 17 mg/dL
== END 2020-12-20 09:55 | disposition home or self-care (01) ==
PROVIDERS: PCP Family Medicine; Referring Provider Internal Medicine Cardiovascular Disease; Visit Provider Internal Medicine Nephrology
DX: N18.31 Chronic kidney disease, stage 3a (principal)
CPT/HCPCS: 36415; 80069; 82570; 84156

== ENCOUNTER 2020-12-28 08:48 | Outpatient (CLI) | payer OTHER, SELFPAY | END 2020-12-28 08:49 | disposition home or self-care (01) | LOC: ANHCOVIDVC 08:48 | PROVIDERS: PCP Family Medicine | DX: Z23 Encounter for immunization (principal) | CPT/HCPCS: 0001A; 91300 ==

== ENCOUNTER 2021-01-12 08:05 | Outpatient (CLI) | payer OTHER, SELFPAY ==
--- NOTE | 2021-01-12 08:54 | ECG_ITS ---
Measurements Intervals [place] Rate: 67 P: 58 AL: 240 QRS: 6 QRSD: 113 T: 37 QT: 413 QTc: 439 Interpretive Statements SINUS RHYTHM WITH FIRST DEGREE AV BLOCK INTRAVENTRICULAR CONDUCTION DELAY VOLTAGE CRITERIA FOR LVH ABNORMAL ECG Electronically Signed On 01-12-2021 9:17:11 CDT by Grant Ribera D.O.
[2021-01-12 09:25] LABS: Basophils Percent Auto 0.5 % (0.2-1.2); Eosinophils Absolute Auto 0.1 K/mm3 (0-0.3); Hematocrit 36.7 % (37.0-47.0); Hemoglobin 12.1 g/dL (12.0-15.0); Immature Granulocyte Absolute 0.06 K/mm3 (0.00-0.031); Immature Granulocyte Percent A 0.7 % (0-0.5); Lymphocytes Absolute Auto 2.22 K/mm3 (0.9-3.2); Lymphocytes Percent Auto 25.2 % (18.3-44.2); Mean Corpuscular Volume 91.1 fl (80-100); Mean Platelet Volume 9.3 fl (7.4-10.4); Monocytes Absolute Auto 0.8 K/mm3 (0.1-0.6); Monocytes Percent Auto 9.1 % (2.6-8.5); Neutrophils Absolute Auto 5.6 K/mm3 (1.3-6.7); Neutrophils Percent Auto 63.5 % (45.5-73.1); Platelet Count Result 431 k/mm3 (150-375); Red Blood Count 4.03 M/mm3 (4.2-5.4); Red Cell Distribution Width 12.7 % (11.5-14.5); White Blood Count 8.8 K/mm3 (4.5-10.0)
[2021-01-12 09:37] LABS: Urine Cotinine NEGATIVE
[2021-01-12 10:02] LABS: Hemoglobin A1C 7.5 % (<5.7)
== END 2021-01-12 08:06 | disposition home or self-care (01) ==
LOC: ANHSURGERY 08:08
PROVIDERS: PCP Family Medicine; Visit Provider Orthopaedic Surgery
DX: M17.11 Unilateral primary osteoarthritis, right knee (principal); Z01.818 Encounter for other preprocedural examination; I44.0 Atrioventricular block, first degree; I45.9 Conduction disorder, unspecified
CPT/HCPCS: 80307; 83036; 85025; 86850; 86900; 86901; 87081; 93005

== ENCOUNTER 2021-01-18 08:47 | Outpatient (CLI) | payer OTHER, SELFPAY | END 2021-01-18 08:48 | disposition home or self-care (01) | LOC: ANHCOVIDVC 08:47 | PROVIDERS: PCP Family Medicine | DX: Z23 Encounter for immunization (principal) | CPT/HCPCS: 0002A; 91300 ==

== ENCOUNTER → 2021-01-21 05:01 | Outpatient (CLI) | payer OTHER, SELFPAY ==
[2021-01-21 19:22] LABS: SARS-CoV-2 RNA PCR Negative
== END ==
PROVIDERS: PCP Family Medicine; Visit Provider Orthopaedic Surgery
DX: Z01.812 Encounter for preprocedural laboratory examination (principal); Z20.822 Contact with and (suspected) exposure to COVID-19
CPT/HCPCS: C9803; U0003; U0005

== ENCOUNTER 2021-01-24 01:35 | Day surgery (SDC) | payer OTHER, SELFPAY ==
[2021-01-12 08:16] VITALS: BMI 34.0
[2021-01-12 08:56] VITALS: BP 178/81; PULSE 72; RESP 16; TEMP 36.7; O2SAT 100
[2021-01-24] VITALS (14 sets, daily range): BP systolic 120–166; BP diastolic 50–70; PULSE 71–93; RESP 10–19; TEMP 36.4–37.2; O2SAT 92–100; BMI 33.3
--- NOTE | ~2021-01-24 | XR_ITS ---
EXAMINATION: XR knee RT 2V DATE: 01/24/2021 10:19 INDICATION: Postoperative evaluation following right total knee arthroplasty. TECHNIQUE: Anteroposterior and lateral views of the right knee were obtained. COMPARISON: 06/17/2020 FINDINGS: Right total knee arthroplasty with patellar resurfacing appears well seated and in near anatomic alig nment. No fractures identified. Expected postoperative subcutaneous and intra-articular gas. IMPRESSION: 1. Right total knee arthroplasty, negative for postoperative purposes. Reviewed, dictated and finalized at location B.
[2021-01-24 06:45] LABS: Glucose Point of Care 162 (65-105)
[2021-01-24] MEDS: LACTATED RINGERS 1,000 ML 30 ML IV CONT ×2 (06:45→10:05)
[2021-01-24] MEDS: ACETAMINOPHEN 500 MG TABLET 1000 MG PO ×2 (06:51→18:54)
[2021-01-24] MEDS: TRANEXAMIC ACID 1,000MG/ISO100 1,000 MG/100 ML BAG 200 MG IVPB (06:51)
--- NOTE | 2021-01-24 07:11 | WPDANESEPPF ---
Anes - Initial Pre Proc Eval Procedure: Operation Date: 01/24/21 07:30 Proposed Procedures p Right Total Knee Arthroplasty - Joey Wilder MD Date/Time: 01/24/21 07:11 Surgeon: Joey Wilder MD Pre Op Diagnosis: Right Knee OA Patient Data Age: 60 Gender: F Height: 5 ft 4 in Weight: 90 kg Last Vital Signs Temp 36.7 C 01/12/21 08:56 Pulse 72 01/12/21 08:56 Resp 16 01/12/21 08:56 BP 178/81 H 01/12/21 08:56 Pulse Ox 100 01/12/21 08:56 Allergies Allergy/AdvReac Type Severity Reaction Status Date / Time amoxicillin Allergy Unknown Rash Verified 01/12/21 08:17 diclofenac Allergy Unknown LIP Verified 01/12/21 08:18 SWELLING dicloxacillin Allergy Unknown lips swell Verified 01/12/21 08:17 lisinopril Allergy Unknown Cough Verified 01/12/21 08:18 naproxen Allergy Unknown LIP Verified 01/12/21 08:18 SWELLING Penicillins Allergy Unknown HIVES Verified 01/12/21 08:17 piroxicam [Feldene] Allergy Unknown lips swell Verified 01/12/21 08:17 Home Medications Medication Instructions Recorded Confirmed Type blood sugar diagnostic #100 each 11/04/19 01/24/21 Rx glyburide 5 mg tablet 5 mg PO DAILY #90 tablet 11/04/19 01/24/21 Rx solifenacin 5 mg tablet 5 mg PO DAILY #90 tablet 11/04/19 01/24/21 Rx acetaminophen 650 mg 650 mg PO Q8H 07/06/20 01/24/21 History tablet,extended release aspirin 325 mg tablet 325 mg PO DAILY 07/06/20 01/24/21 History diphenhydramine HCl 25 mg tablet 50 mg PO Q6H PRN 07/06/20 01/24/21 History famotidine 20 mg tablet 20 mg PO BID 07/06/20 01/24/21 History multivitamin 1 tablet PO DAILY 07/06/20 01/24/21 History irbesartan 300 mg tablet 300 mg PO DAILY #90 tablet 07/13/20 01/24/21 Rx hydralazine 100 mg tablet 100 mg PO TID #90 tablet 07/20/20 01/24/21 Rx fenofibrate micronized 134 mg 134 mg PO QPM #90 cap 08/25/20 01/24/21 Rx capsule amlodipine 5 mg tablet 5 mg PO DAILY 10/27/20 01/24/21 History metformin 1,000 mg tablet See Rx Instructions .ROUTE 11/29/20 01/24/21 Rx .COMPLEX #180 tablet canagliflozin 300 mg tablet 300 mg PO DAILY #30 tablet 12/29/20 01/24/21 Rx semaglutide 1 mg/dose (4 mg/3 mL) 1 mg SUBCUT WEEKLY #3 ml 12/29/20 01/24/21 Rx subcutaneous pen injector cholecalciferol (vitamin D3) 25 mcg PO DAILY 01/12/21 01/24/21 History estradiol 0.5 mg PO DAILY 01/12/21 01/24/21 History ferrous gluconate 225 mg PO BID 01/12/21 01/24/21 History glucos sul [id number]-[id number]-Mn 1 cap PO BID 01/12/21 01/24/21 History [Glucosamine Chondroitin] magnesium 250 mg PO HS 01/12/21 01/24/21 History nebivolol [Bystolic] 5 mg PO DAILY 01/12/21 01/24/21 History pravastatin 40 mg PO HS 01/12/21 01/24/21 History spironolactone 25 mg PO DAILY 01/12/21 01/24/21 History rivaroxaban 10 mg tablet 10 mg PO DAILY #14 tablet 01/18/21 01/24/21 Rx Laboratory Tests 01/24/21 06:29 POC Capillary Glucose 162 mg/dl H mg/dl (65-105) Patient hx anesthesia problems: none Family hx anesthesia problems: none PMFSH Past Medical History Medical History BMI 33.0-33.9,adult Essential (primary) hypertension Hemoglobin A1C between 7% and 9% indicating borderline diabetic control last A1c 7.5 Mixed hyperlipidemia due to type 2 diabetes mellitus Osteoarthritis of right knee Other specified diabetes mellitus with diabetic neuropathy, unspecified Renal insufficiency WPW (Wezjs-Golhfvvgz-Sziki syndrome) Surgical History Surgical History History of knee replacement left total knee, august 2018, Dr. [place] Family History Family History Father Diabetes mellitus Family history of cardiovascular disease Acute myocardial infarction Mother Depression Family history of cardiovascular disease Acute myocardial infarction, Onset Age: 76 Family history of chronic obstructive pulmonary disease Chanel
--- NOTE | 2021-01-24 07:16 | WPDHPUPDATE1 ---
History and Physical Update Update Date/Time: 01/24/21 07:16 History and Physical has been reviewed, including an updated exam of the patient. There are NO changes in the patient's condition. Risks, benefits, and alternatives have been discussed and questions answered. Patient agrees to proceed with procedure.
--- NOTE | 2021-01-24 07:36 | WPDANESPNB ---
Anes - Peripheral Nerve Block Date/Time: 01/24/21 07:36 I have discussed with the patient/family/POA the placement of a peripheral nerve block for post-operative pain management, including associated risks, benefits, complications, and side effects. Alternative methods of post-operative analgesia were detailed. Questions were solicited and answers provided to the satisfaction of the patient/family/POA. Time-Out: A pre-procedural Time-Out was completed immediately before starting the procedure and confirmed: Patient Identification, Site, Procedure, Patient Position and the Availability of Requisite Equipment. Clinical Indications: Acute post-operative pain management requested by the operative surgeon. Nerve Block Insertion Note Anes-nerve block: adductor canal right Patient position: supine Skin prep: chlorhexidine Needle: 22 gauge, stimulating, insulated echogenic needle. Needle length: 80 mm Technique: ultrasound Injectate: bupivacaine 0.5% with epi 5 mcg/ml (30ml) Observations: tolerated well Complications: none Procedure start time:: 721 Procedure end time:: 729
[2021-01-24] MEDS: TRANEXAMIC ACID 1,000 MG/10 ML AMPUL 1000 MG TOPICAL (08:10)
[2021-01-24] MEDS: BUPIVACAINE/EPINEPHRINE 0.25% 50 ML VIAL INFILTRATE (08:11)
--- NOTE | 2021-01-24 10:10 | P.OP_ITS ---
Procedure Note - Detailed Date of procedure: 01/24/21 Pre-op diagnosis: Right Knee OA Post-op diagnosis: same Procedure performed: Right total knee replacement Description of procedure: The patient was identified and proper site identified. In the preop holding area the anesthesia team performed a right lower extremity sub sartorial block after which the patient was taken to the operating room and transferred to the OR table positioning supine taking care to pad the torso and extremities. After general anesthetic induction and intubation a nonsterile tourniquet was placed high on the right thigh. The right lower extremity was prepped and draped in the usual sterile fashion. The extremity was exsanguinated and with the knee flexed tourniquet was inflated to 300 mmHg remaining up for approximately 65 minutes. An anterior midline incision was made and a modified medial parapatellar approach was used. Infra and suprapatellar fat pads were excised. Patella was resected leaving 15 mm thickness and prepared for the 31 round three peg component. Using the intramedullary guide the distal femur was cut in the proper orientation for the size 65 femoral component. Using the extramedullary guide the tibia was cut pe rpendicular to the long axis protecting collateral ligaments and popliteal structures. It was sized to a 67. Flexion and extension gaps were balanced. Trial reduction was undertaken and the weight-bearing line was noted to passed through the center of the joint. Proximal tibia was drilled and punched in the proper orientation for the real component. Trial components were removed. The bone surfaces were washed with pulsatile lavage and dried. The real components were cemented simultaneously. The knee was held in extension and the patella held clamped until the cement had cured. Excess cement was removed from the joint. After trialing it was determined that the 12 mm insert gave full range of motion from 0-115 degrees of flexion and the patella tracked in the femoral groove with no lift-off. After final lavage the joint the real size 12 insert was placed and secured with a locking bar. A Betadine and saline wash was placed into the wound and allowed to sit for approximately 3 minutes and then evacuated. Periarticular tissues were infiltrated with 60 cc of the arthroplasty solution. 1 g of tranexamic acid was left in the wound. The extensor mechanism was repaired with #2 Vicryl suture and 0 looped PDS suture. Subcu was reapproximated with #2 Vicryl, three 0 Monocryl, and two 0 strata fix with tissue adhesive for the skin. A sterile dressing was applied. she tolerated the procedure well, was awakened and extubated, transferred to the bed and was taken to recovery area in stable condition. There were no known intraoperative complications. Perioperative antibiotics were administered. Anesthesia: GLMA and regional Surgeon: Joey Wilder MD Stacking Machine Operator: Thalia Trejo Estimated blood loss (mL): 100 Tourniquet time (min): 65 Drains: No Packing: No Pathology: none sent Complications: No immediate complications Condition: stable Disposition: PACU
[2021-01-24] MEDS: fentaNYL CITRATE INJ (*CRX) 100 MCG/2 ML VIAL 25 MCG IV PUSH ×7 (10:18→11:05)
[2021-01-24 10:41] LABS: Glucose Point of Care 225 (65-105)
[2021-01-24] MEDS: ONDANSETRON INJ 4 MG/2 ML VIAL IV PUSH (10:50)
--- NOTE | 2021-01-24 11:16 | ADMGEN ---
This patient, Jenna Mars, was admitted to -. Patient/family oriented to hospital policies and general routines including ID bracelet, bed and alarms, visiting hours, pain management, procedures, bathroom and other care routines, personal items, smoking policy, room service/diet, and visiting hours. Information on how to activate the Rapid Response Team has been discussed. Patient/Family are encouraged to report perceived risks to care and to ask questions if they do not understand what they are told or what they should do.
[2021-01-24] MEDS: oxyCODONE HCL (*CRX) 5 MG TAB IR PO ×6 (11:38→22:40)
[2021-01-24] MEDS: SODIUM CHLORIDE 0.9% IV 1,000 ML 125 ML IV CONT (11:39)
[2021-01-24] MEDS: CANAGLIFLOZIN 100 MG TABLET 300 MG PO (13:56)
[2021-01-24] MEDS: glyBURIDE 5 MG TABLET PO (13:56)
[2021-01-24] MEDS: hydrALAZINE HCL 50 MG TABLET 100 MG PO ×2 (13:56→20:04)
[2021-01-24] MEDS: DOCUSATE SODIUM 100 MG CAPSULE PO (18:10)
[2021-01-24] MEDS: FAMOTIDINE 20 MG TABLET PO (18:11)
[2021-01-24] MEDS: BENZOCAINE/MENTHOL (*BKC) 18 EA LOZENGE 1 LOZENGE PO (19:35)
[2021-01-24] MEDS: PRAVASTATIN SODIUM 20 MG TABLET 40 MG PO (20:03)
[2021-01-24] MEDS: metFORMIN HCL 500 MG TABLET 1000 MG PO (20:03)
[2021-01-24] MEDS: MAGNESIUM 13.5 MG TABLET (250 MG MAG GLUCONATE) PO (20:03)
[2021-01-25] MEDS: oxyCODONE HCL (*CRX) 5 MG TAB IR PO ×7 (00:15→11:58)
[2021-01-25] MEDS: BENZOCAINE/MENTHOL (*BKC) 18 EA LOZENGE 1 LOZENGE PO (00:36)
[2021-01-25 01:57] VITALS: BP 154/66; PULSE 85; RESP 18; TEMP 36.8; O2SAT 96
[2021-01-25] MEDS: ACETAMINOPHEN 500 MG TABLET 1000 MG PO ×2 (02:08→10:52)
[2021-01-25] MEDS: hydrALAZINE HCL 50 MG TABLET 100 MG PO (05:17)
[2021-01-25 05:44] LABS: Basophils Percent Auto 0.3 % (0.2-1.2); Hematocrit 32.3 % (37.0-47.0); Hemoglobin 10.8 g/dL (12.0-15.0); Immature Granulocyte Absolute 0.08 K/mm3 (0.00-0.031); Immature Granulocyte Percent A 0.5 % (0-0.5); Lymphocytes Absolute Auto 2.33 K/mm3 (0.9-3.2); Lymphocytes Percent Auto 14.7 % (18.3-44.2); Mean Corpuscular HGB Conc 33.4 g/dl (32-36); Mean Corpuscular Hemoglobin 29.9 pg (26-34); Mean Corpuscular Volume 89.5 fl (80-100); Mean Platelet Volume 9.3 fl (7.4-10.4); Monocytes Absolute Auto 1.8 K/mm3 (0.1-0.6); Monocytes Percent Auto 11.4 % (2.6-8.5); Neutrophils Absolute Auto 11.6 K/mm3 (1.3-6.7); Neutrophils Percent Auto 73.1 % (45.5-73.1); Platelet Count Result 422 k/mm3 (150-375); Red Blood Count 3.61 M/mm3 (4.2-5.4); Red Cell Distribution Width 12.5 % (11.5-14.5); White Blood Count 15.8 K/mm3 (4.5-10.0)
[2021-01-25 05:49] LABS: Anion Gap 12 mmol/L (8-16); Blood Urea Nitrogen 22 mg/dL (7-17); Calcium 9.2 mg/dL (8.4-10.2); Carbon Dioxide 23 mmol/L (22-30); Chloride 102 mmol/L (98-107); Estimated CRCL calculation 33 ml/min; Estimated Glomerular Filt Rate 30; Glucose 121 mg/dL (65-105); Potassium 4.4 mmol/L (3.4-5.0); Sodium 137 mmol/L (137-145)
[2021-01-25 06:56] VITALS: BP 156/63; PULSE 80; RESP 16; TEMP 36.5; O2SAT 96
--- NOTE | 2021-01-25 07:35 | PM.DS ---
DS: Admitting Diagnosis Admitting Diagnosis Admitting Diagnosis: Osteoarthritis right knee DS: Discharge Diagnosis Discharge Diagnosis (1) History of knee replacement: Qualifiers: Laterality: right Qualified Code(s): Z96.651 - Presence of right artificial knee joint Code(s): Z96.659 - Presence of unspecified artificial knee joint Status: Acute Assessment and Plan: 60-year-old female who is postop day one right total knee replacement. Overall did well. Going to be discharged home today after therapy. DS: Summary Hospital Course Reason for hospitalization: Observation following outpatient procedure. Hospital Course: Postoperatively the patient was admitted to the floor. Therapy was begun. Did well overnight and will be discharged home today. He GFR dropped a little bit however this has happened to her in the past. She was encouraged to make sure she stays well hydrated. Blood sugar overnight was reasonable. Status at Discharge Functional status at discharge: uses cane/walker Time Spent with Patient Time attestation: Total time spent providing and/or coordinating discharge services: Exam Const: General: cooperative, comfortable and no acute distress Nutritional Appearance: obese (BMI 33.4) GI: Inspection: obesity (Nondistended) Extrem: Other: Right knee wound dressing dry. Minimal swelling. No bruising appreciated nor any erythema. Grossly motor and sensory function right lower extremity is intact. Calves negative. DS: Data Data Completed and Pending Labs on day of discharge: Labs from last 24 hours 01/25/21 01/25/21 01/24/21 05:18 05:18 10:11 WBC 15.8 H RBC 3.61 L Hgb 10.8 L Hct 32.3 L MCV 89.5 MCH 29.9 MCHC 33.4 RDW 12.5 Plt Count 422 H MPV 9.3 Immature Gran % (Auto) 0.5 Neut % (Auto) 73.1 Lymph % (Auto) 14.7 L [place] % (Auto) 11.4 H Eos % (Auto) 0.0 Baso % (Auto) 0.3 Lymph # (Auto) 2.33 [place] # (Auto) 1.8 H Eos # (Auto) 0.0 Baso # (Auto) 0.0 Abs Immat Gran (auto) 0.08 H Absolute Neuts (auto) 11.6 H Absolute Nucleated RBC 0.0 Nucleated RBC % 0.0 Sodium 137 Potassium 4.4 Chloride 102 Carbon Dioxide 23 Anion Gap 12 BUN 22 H Creatinine 1.70 H Estim Creat Clear Calc 33 Estimated GFR 30 L Glucose 121 H POC Capillary Glucose 225 H Calcium 9.2 Discharge Plan Discharge Patient Disposition: Home, Self-Care Discharge Instructions: 3 times daily for 20 minutes each time, reclining in bed with ice packs over the incision and a pillow underneath the calf of the affected leg, not under the knee. Your wound is glued so it is okay to get into the shower and get the wound wet in two days. Be sure to read through all the information that came from a my office and the hospital. Most of the answers you will need can be found that material. Call the office with any questions that you cannot find answers to, or concerns you may have. After the Xarelto is completed, start taking one coated 325 mg aspirin daily and do this for four more weeks. Please call [facility] at as soon as possible to verify your follow-up appointment to be seen in to weeks. Also, call the office with any orthopedic/surgical related questions prior to follow-up. Be sure to get up and move around several times daily but do not overdo it. Take the arthritis formula Tylenol 650 mg tablet on an 8 hour schedule. A good 8 hour schedule is: 6:00 a.m., 2:00 p.m., 10:00 p.m. you may take the prescribed pain medication along with the Tylenol; it is not to be taken instead of the Tylenol. I would like for you to take the Tylenol on a schedule for 2-3 weeks. After the first pain medicine prescription has been completed, please call the office for a tramadol prescription. Drink plenty of fluid to stay hydrated. This will help your kidney function as well as nausea. Patient I
--- NOTE | 2021-01-25 07:38 | P.PNAN_ITS ---
Anes - Prog Note Post-Op Date/Time: 01/25/21 07:38 Cardiovascular status: normal Respiratory status: normal Airway patency: baseline Mental status: baseline Post-Op hydration status: normal Vital Signs: Last Vital Signs Temp 36.5 C 01/25/21 06:56 Pulse 80 01/25/21 06:56 Resp 16 01/25/21 06:56 BP 156/63 H 01/25/21 06:56 Pulse Ox 96 01/25/21 06:56 Pain Score (VAS): Patient describes self reported pain scale of 8-9/10 which subsides to 6/10 with PRN pain meds. Patient resting in bed at time of assessment, appears comfortable. I/O: Intake & Output 01/24/21 01/24/21 01/25/21 15:59 23:59 07:59 Intake Total 450 1690 250 Output Total 600 Balance 450 1090 250 Laboratory Tests 01/25/21 05:18 01/25/21 05:18 01/24/21 01/25/21 01/25/21 10:11 05:18 05:18 WBC 15.8 H RBC 3.61 L Hgb 10.8 L Hct 32.3 L MCV 89.5 MCH 29.9 MCHC 33.4 RDW 12.5 Plt Count 422 H MPV 9.3 Immature Gran % (Auto) 0.5 Neut % (Auto) 73.1 Lymph % (Auto) 14.7 L [place] % (Auto) 11.4 H Eos % (Auto) 0.0 Baso % (Auto) 0.3 Lymph # (Auto) 2.33 [place] # (Auto) 1.8 H Eos # (Auto) 0.0 Baso # (Auto) 0.0 Abs Immat Gran (auto) 0.08 H Absolute Neuts (auto) 11.6 H Absolute Nucleated RBC 0.0 Nucleated RBC % 0.0 Sodium 137 Potassium 4.4 Chloride 102 Carbon Dioxide 23 Anion Gap 12 BUN 22 H Creatinine 1.70 H Estim Creat Clear Calc 33 Estimated GFR 30 L Glucose 121 H POC Capillary Glucose 225 H Calcium 9.2 Post-procedural complaints: none Patient Feedback: Patient satisfied with anesthetic care.
[2021-01-25 07:55] LABS: Glucose Point of Care 140 (65-105)
--- NOTE | 2021-01-25 08:45 | PCOTNOTE ---
Attempted to see patient for OT, patient declined any ADL or functional mobility needs and declined OT. Patient verbalized she has been through this type of procedure before and is familiar with OT concepts related to her surgery. Patient not seen by OT for this reason.
[2021-01-25] MEDS: metFORMIN HCL 500 MG TABLET 1000 MG PO (09:01)
[2021-01-25] MEDS: CHOLECALCIFEROL 1,000 UNITS TABLET 1000 UNITS PO (09:02)
[2021-01-25] MEDS: DOCUSATE SODIUM 100 MG CAPSULE PO (09:02)
[2021-01-25] MEDS: FAMOTIDINE 20 MG TABLET PO (09:02)
[2021-01-25] MEDS: glyBURIDE 5 MG TABLET PO (09:02)
[2021-01-25] MEDS: CANAGLIFLOZIN 100 MG TABLET 300 MG PO (09:02)
[2021-01-25 09:03] VITALS: PULSE 84
[2021-01-25] MEDS: RIVAROXABAN 10 MG TABLET PO (09:03)
[2021-01-25] MEDS: MULTIVITAMINS THERAPEUTIC TAB (*BKC) 1 TABLET PO (09:03)
[2021-01-25] MEDS: SPIRONOLACTONE 25 MG TABLET PO (09:03)
[2021-01-25] MEDS: IRBESARTAN 150 MG TABLET 300 MG PO (09:03)
[2021-01-25] MEDS: SOLIFENACIN 5 MG TABLET PO (09:03)
[2021-01-25] MEDS: NEBIVOLOL HCL 5 MG TABLET PO (09:03)
[2021-01-25 10:00] VITALS: BP 173/80; PULSE 84; RESP 16; TEMP 36.3; O2SAT 99
== END 2021-01-25 12:30 | disposition home or self-care (01) ==
LOC: ANHSURGERY 05:48 → ANH2MED 11:18
PROVIDERS: PCP Family Medicine; Visit Provider Orthopaedic Surgery
PROC: (CPT 27447; principal; 2021-01-24 07:30)
DX: M17.11 Unilateral primary osteoarthritis, right knee (principal); I10 Essential (primary) hypertension; E11.9 Type 2 diabetes mellitus without complications; E78.2 Mixed hyperlipidemia; E11.40 Type 2 diabetes mellitus with diabetic neuropathy, unspecified; I45.6 Pre-excitation syndrome; N28.9 Disorder of kidney and ureter, unspecified; G89.18 Other acute postprocedural pain; Z79.84 Long term (current) use of oral hypoglycemic drugs; Z79.82 Long term (current) use of aspirin; Z79.01 Long term (current) use of anticoagulants; E66.9 Obesity, unspecified; Z68.33 Body mass index [BMI] 33.0-33.9, adult
CPT/HCPCS: 27447; 64447; 36415; 73560; 80048; 85025; 97110; 97116; 97161; 97165; A9270; C1713; C1776; J1100; J1170; J2250; J2370; J2405; J2704; J3010; J3370; J7030; J7120

== ENCOUNTER 2021-03-16 09:50 | Outpatient (CLI) | payer OTHER, SELFPAY ==
--- NOTE | ~2021-03-16 | XR_ITS ---
EXAMINATION: XR knee RT 3V DATE: 03/16/2021 10:05 INDICATION: Right knee arthroplasty. Postop. TECHNIQUE: 3 views of right knee were obtained. COMPARISON: Right knee radiographs 01/24/2021 FINDINGS: There is a total right knee arthroplasty with patellar resurfacing in near-anatomic alignme nt. No periprosthetic lucency to suggest loosening or infection. No fracture. There is a small knee j oint effusion. IMPRESSION: 1. Total right knee arthroplasty in near-anatomic alignment. 2. Small right knee joint effusion. Reviewed, dictated and finalized at location B.
== END 2021-03-16 09:51 | disposition home or self-care (01) ==
PROVIDERS: PCP Family Medicine; Visit Provider Orthopaedic Surgery
DX: Z96.651 Presence of right artificial knee joint (principal); M25.461 Effusion, right knee
CPT/HCPCS: 73562

== ENCOUNTER 2021-04-06 11:00 | Outpatient (RCR) | payer OTHER, SELFPAY ==
--- NOTE | 2021-01-31 12:00 | PTOPEVAL ---
Thank you for referring Jenna Mars to [facility].? The patient is scheduled to be seen for therapy? 2 x/week for 5 weeks. Please review, sign, date and return this plan of care OSVALDO. I agree with and certify that the following plan of care is medically necessary. Referring Physician Date Attending Provider: Joey Wilder MD Physical Therapy Evaluation Diagnosis right TKR Onset 01/24/21 Cause OA of knee Additional Evaluation Detail She fell down the steps 2 1/2 yrs ago. She is not working. Subjective Information She reports limitations with Query Text:As Reported By Patient/ all daily activities of Family standing, walking and getting out of the chair or lower surfaces. She is limited with her ability to perform daily task, steps and ADL's. She reports limitations with right knee motion with increased swelling. Prior to surgery she was able to perform binding folder machine, community mobility, negotiating steps. She did not use a AD. Pain Assessment Timing of Pain Assessment Timing of Pain Assessment Re-assessment Pain Scale Pain Scale Used Numeric (1 - 10) Self Report Pain Assessment Right Knee(s) Reported Pain Level 6 Pain Description Aching,Incisional,Soreness, Tender on Palpation,Tightness Pain Frequency Acute,Continuous Lowest Pain Intensity 4 Greatest Pain Intensity 8 Pain Aggravating Factors ADL's,Bending,Exercise/ Activity,Stair Climbing, Walking,Weight Bearing/ Standing Pain Score Pain Score 6: Self Report Interventions Used Interventions Used By Clinicians Education,Exercise,Ice Pain Relief Interventions Used By Exercise,Medication Patient Lower Extremity Range of Motion Knee Range of Motion Left Knee Flexion Range of Motion - Active 120 Knee Extension Range of Motion - Active 0 Query Text: Right Knee Flexion Range of Motion - Active 50 Knee Flexion Range of Motion - Passive 73 Knee Extension Range of Motion - Active -10 Query Text: Knee Range of Motion Limitations Edema,Muscle Weakness,Pain, Soft Tissue Restriction Lower Extremity Muscle Strength Testing Hip Strength Left Hip Flexion Strength
--- NOTE | 2021-03-03 12:00 | PTOPEVAL ---
Thank you for referring Jenna Mars to [facility].? Jenna has received 10 therapy visits to address knee limitations following knee surgery. She is progressing towards her therapy goals. See summary below for objective measures. The patient is scheduled to be seen for therapy? 2x//week for 4 weeks. Please review, sign, date and return this plan of care OSVALDO. I agree with and certify that the following plan of care is medically necessary. Referring Physician Date Attending Provider: Joey Wilder MD Physical Therapy Progress Note Diagnosis right TKR Onset 01/24/21 Cause OA of knee Additional Evaluation Detail She fell down the steps 2 1/2 yrs ago. She is not working. Subjective Information She reports her knee pain has Query Text:As Reported By Patient/ increased activities. She Family reports limitations with heavier task at home, getting off lower surfaces, walking longer distance, prolonged standing. She has been walking with her quad cane at home/community. She is able to get in/out of bed without assisting the leg motion with her hands. She reports improved knee swelling of with improved right knee motion. Pain Assessment Self Report Pain Assessment Right Knee(s) Reported Pain Level 3 Pain Description Aching,Sharp,Shooting,Tender on Palpation Pain Frequency Acute Lowest Pain Intensity 1 Greatest Pain Intensity 6 Lower Extremity Range of Motion Knee Range of Motion Right Knee Flexion Range of Motion - Active 114 Knee Extension Range of Motion - Active -5 Knee Range of Motion Limitations Edema,Pain Lower Extremity Muscle Strength Testing Hip Strength Left Hip Flexion Strength 4 Good Hip Extension Strength 3+ Fair + Hip Abduction Strength 3 Fair Hip Adduction Strength 3 Fair Right Hip Flexion Strength 4- Good - Hip Extension Strength 3 Fair Hip Abduction Strength 3 Fair Hip Adduction Strength 3 Fair Knee Strength Left Knee Flexion Strength 4+ Good + Knee Extension Strength 5 Normal Knee Strength Comments hamstring tested supine Right Knee Flexion Strength 3+ Fair + Knee Extension Strength 4- Good - Palpation Assessment Palpation mild tenderness of right knee
--- NOTE | 2021-04-06 11:47 | PTOPEVAL ---
Thank you for referring Jenna Mars to [facility].? Pt has received 18 therapy visits to address knee limitations following TKR. She has achieved her therapy goals at this time and demonstrates indep with her HEP. Will DC skilled therapy services at this time. Please review, sign, date and return this plan of care OSVALDO. I agree with and certify that the following plan of care is medically necessary. Referring Physician Date Attending Provider: Joey Wilder MD Physical Therapy Discharge Note Diagnosis right TKR Onset 01/24/21 Cause OA of knee Additional Evaluation Detail She fell down the steps 2 1/2 yrs ago. Subjective Information She reports improved tolerance Query Text:As Reported By Patient/ with standing, walking and Family daily activities. She is able to walk 2 blocks without limitations. She is able to get off lower surfaces with improved tolerance. She is tolerating steps better. She reports improved knee swelling of with improved right knee motion. Reports she is performing her HEP without difficulty. Pain Assessment Self Report Pain Assessment Right Knee(s) Reported Pain Level 0 Pain Frequency Intermittent Lowest Pain Intensity 0 Greatest Pain Intensity 3 Pain Aggravating Factors Walking Lower Extremity Range of Motion Knee Range of Motion Right Knee Flexion Range of Motion - Active 122 Knee Extension Range of Motion - Active -4 Lower Extremity Muscle Strength Testing Right Hip Flexion Strength 4+ Good + Hip Extension Strength 3+ Fair + Hip Abduction Strength 3+ Fair + Hip Adduction Strength 3 Fair Knee Strength Right Knee Flexion Strength 4+ Good + Knee Extension Strength 4+ Good + Extremity Circumference Assessment Location Right Body Part Knee Site Descriptor (De Graff) tibial tuberosity Circumference (cm) 46 Noninvolved Side Circumference (cm) 46 Stair Climbing Assessment Stair Climbing Assistive Devices None,Railings Number of Steps Climbed (Steps) 4 Number of Repetitions (Repetitions) 3 Technique Alternating Steps Stair Climbing Direction Both Up and Down Stair Climbing Ability Independent Stair Climbing Comments improved LE control with reciprical pattern without pain. General Exercise Exercise Description reviewed HEP with progression
== END 2021-04-18 10:17 | disposition home or self-care (01) ==
LOC: ANHPT 11:00
PROVIDERS: PCP Family Medicine; Visit Provider Orthopaedic Surgery
DX: Z96.651 Presence of right artificial knee joint (principal)
CPT/HCPCS: 29581; 97014; 97016; 97110; 97140; 97162; 97530; G0283

== ENCOUNTER 2021-05-10 10:59 | Outpatient (CLI) | payer OTHER, SELFPAY ==
[2021-05-10 11:38] LABS: Basophils Percent Auto 0.5 % (0.2-1.2); Eosinophils Absolute Auto 0.1 K/mm3 (0-0.3); Hematocrit 37.4 % (37.0-47.0); Hemoglobin 12.2 g/dL (12.0-15.0); Immature Granulocyte Absolute 0.07 K/mm3 (0.00-0.031); Lymphocytes Absolute Auto 1.83 K/mm3 (0.9-3.2); Lymphocytes Percent Auto 25.1 % (18.3-44.2); Mean Corpuscular HGB Conc 32.6 g/dl (32-36); Mean Corpuscular Hemoglobin 28.8 pg (26-34); Mean Corpuscular Volume 88.4 fl (80-100); Mean Platelet Volume 9.2 fl (7.4-10.4); Monocytes Absolute Auto 0.8 K/mm3 (0.1-0.6); Monocytes Percent Auto 10.9 % (2.6-8.5); Neutrophils Absolute Auto 4.5 K/mm3 (1.3-6.7); Neutrophils Percent Auto 61.5 % (45.5-73.1); Platelet Count Result 431 k/mm3 (150-375); Red Blood Count 4.23 M/mm3 (4.2-5.4); Red Cell Distribution Width 13.8 % (11.5-14.5); White Blood Count 7.3 K/mm3 (4.5-10.0)
[2021-05-10 11:48] LABS: Hemoglobin A1C 7.4 % (<5.7)
[2021-05-10 11:55] LABS: Alanine Aminotransferase 37 U/L (4-35); Albumin Level 4.9 g/dL (3.5-5.1); Alkaline Phosphatase 45 U/L (38-126); Anion Gap 12 mmol/L (8-16); Aspartate Amino Transferase 39 U/L (14-36); Bilirubin,Total 0.4 mg/dL (0.2-1.3); Blood Urea Nitrogen 35 mg/dL (7-17); Calcium 10.8 mg/dL (8.4-10.2); Carbon Dioxide 27 mmol/L (22-30); Chloride 99 mmol/L (98-107); Estimated Glomerular Filt Rate 29; Glucose 183 mg/dL (65-110); Potassium 4.4 mmol/L (3.4-5.0); Sodium 138 mmol/L (137-145)
== END 2021-05-10 11:00 | disposition home or self-care (01) ==
PROVIDERS: PCP Family Medicine; Referring Provider Internal Medicine Nephrology; Visit Provider Family Medicine
DX: R60.9 Edema, unspecified (principal); R00.2 Palpitations; I10 Essential (primary) hypertension; E11.9 Type 2 diabetes mellitus without complications; Z79.899 Other long term (current) drug therapy
CPT/HCPCS: 36415; 80053; 83036; 85025

== ENCOUNTER 2021-05-30 08:53 | Outpatient (CLI) | payer OTHER, SELFPAY ==
[2021-05-30 10:45] LABS: Albumin Level 4.3 g/dL (3.5-5.1); Anion Gap 12 mmol/L (8-16); Blood Urea Nitrogen 26 mg/dL (7-17); Calcium 9.8 mg/dL (8.4-10.2); Carbon Dioxide 21 mmol/L (22-30); Chloride 96 mmol/L (98-107); Estimated Glomerular Filt Rate 35; Glucose 183 mg/dL (65-110); Phosphorus 3.7 mg/dL (2.5-4.5); Potassium 4.5 mmol/L (3.4-5.0); Sodium 129 mmol/L (137-145)
[2021-05-30 11:22] LABS: Sodium Urine Random 43 meq/L
== END 2021-05-30 08:54 | disposition home or self-care (01) ==
PROVIDERS: PCP Family Medicine; Visit Provider Internal Medicine Nephrology
DX: N18.32 Chronic kidney disease, stage 3b (principal)
CPT/HCPCS: 36415; 80069; 82570; 84300

== ENCOUNTER 2021-06-08 12:40 | Outpatient (CLI) | payer OTHER, SELFPAY ==
--- NOTE | 2021-06-08 | ECHO_ITS ---
Patient Info Name: Jenna Mars Age: 60 years : 1960 Gender: Female Ht: 64 in Wt: 184 lbs BSA: 1.97 m2 HR: 76 bpm BP: 139 / 78 mmHg Heart Rhythm: Sinus Rhythm Exam Date: 06/08/2021 1:07 PM Exam Location: [facility] Patient Status: Outpatient Admit Date: 06/08/2021 Staff Ordering Physician: Kevin Metcalf MD Manufacturing Controls Engineer: Jadon Choi RDCS, RT Attending Provider: Kevin Metcalf MD Referring Physician: Dixon DOMINGUEZ; Exam Type: CA echo doppler color flow Study Info Indications I35.0 - Nonrheumatic aortic (valve) stenosis Complete two-dimensional, color flow and Doppler transthoracic echocardiogram is performed. Strain analysis performed. Summary 1. Complete two-dimensional, color flow and Doppler transthoracic echocardiogram is performed. 2. Normal left ventricular size with moderate concentric hypertrophy. Good systolic function of all segments, ejection fraction 65-70%, with no focal wall motion abnormalities. Global longitudinal strain was mildly diminished at -16% consistent a degree of systolic dysfunction. Grade 2 diastolic dysfunction is present. 3. Mild to moderate aortic stenosis. Moderately calcified aortic valve with a peak velocity of 2.2 m/sec, mean gradient of 10 mmHg and a calculated valve area 1.1 cm2 by Doppler, 1.2 cm2 by planimetry. 4. Mild mitral regurgitation. 5. Mild pulmonary hypertension, RVSP 37 mmHg. 6. Normal sinus rhythm. Left Ventricular Outflow Tract Name Value Normal LVOT 2D LVOT Diameter 2.0 cm LVOT Doppler LVOT Peak Gradient 2 mmHg LVOT Mean Gradient 1 mmHg LVOT VTI 20 cm LVOT VTI/AV VTI Ratio 0.4 LVOT Stroke Volume 60 ml LVOT CO 4.0 l/min LVOT CI 2.0 l/min/m2 Mitral Valve Name Value Normal MV Doppler MV Decel [place] 441 cm/s2 MV PHT 75 ms MV Area (PHT) 2.9 cm2 4.0-5.0 MV Diastolic Function MV E Peak Velocity 114 cm/s MV A Peak Velocity 103 cm/s MV E/A 1.1 MV Decel Time 259 ms MV Annular TDI MV E/e' (Septal) 19.2 <=8.0 MV E/e' (Lateral) 10.1 <=8.0 MV E/e' (Average) 14.6 Tricuspid Valve Name Value Normal
== END 2021-06-08 12:41 | disposition home or self-care (01) ==
PROVIDERS: PCP Family Medicine; Visit Provider Internal Medicine Cardiovascular Disease
DX: I08.3 Combined rheumatic disorders of mitral, aortic and tricuspid valves (principal)
CPT/HCPCS: 93306

== ENCOUNTER 2021-07-05 07:39 | Outpatient (CLI) | payer OTHER, SELFPAY ==
[2021-07-05 08:12] LABS: Hematocrit 36.1 % (37.0-47.0); Hemoglobin 11.8 g/dL (12.0-15.0); Mean Corpuscular HGB Conc 32.7 g/dl (32-36); Mean Corpuscular Hemoglobin 29.4 pg (26-34); Mean Corpuscular Volume 89.8 fl (80-100); Mean Platelet Volume 9.2 fl (7.4-10.4); Platelet Count Result 427 k/mm3 (150-375); Red Blood Count 4.02 M/mm3 (4.2-5.4); Red Cell Distribution Width 13.2 % (11.5-14.5); White Blood Count 8.2 K/mm3 (4.5-10.0)
[2021-07-05 08:25] LABS: Albumin Level 4.7 g/dL (3.5-5.1); Anion Gap 14 mmol/L (8-16); Blood Urea Nitrogen 31 mg/dL (7-17); Calcium 9.9 mg/dL (8.4-10.2); Carbon Dioxide 23 mmol/L (22-30); Chloride 100 mmol/L (98-107); Estimated Glomerular Filt Rate 38; Glucose 171 mg/dL (65-110); Phosphorus 4.1 mg/dL (2.5-4.5); Potassium 4.7 mmol/L (3.4-5.0); Sodium 137 mmol/L (137-145)
[2021-07-05 08:34] LABS: Creatinine Urine 79.3 mg/dL; Total Protein Urine Random 14 mg/dL; Ur Ttl Prot Creatinine Ratio 0.18 mg/mg (0-0.20)
[2021-07-05 08:35] LABS: Parathyroid Intact 27.1 pg/mL (7.5-53.5)
== END 2021-07-05 07:40 | disposition home or self-care (01) ==
PROVIDERS: PCP Family Medicine; Referring Provider Internal Medicine Cardiovascular Disease; Visit Provider Internal Medicine Nephrology
DX: I12.9 Hypertensive chronic kidney disease with stage 1 through stage 4 chronic kidney disease, or unspecified chronic kidney disease (principal); N18.32 Chronic kidney disease, stage 3b
CPT/HCPCS: 36415; 80069; 82570; 83970; 84156; 85027

== ENCOUNTER 2021-07-11 13:40 | Outpatient (CLI) | payer OTHER, SELFPAY ==
--- NOTE | ~2021-07-11 | MR_ITS ---
EXAMINATION: MR cervical spine wo con DATE: 07/11/2021 14:51 INDICATION: Neck pain. TECHNIQUE: Magnetic resonance imaging (MRI) of the cervical spine was performed without intravenous c ontrast. Sequences included sagittal T2-weighted FSE, sagittal T2-weighted FS FSE, sagittal T1-weight ed FSE, axial MERGE, and axial T2-weighted FSE. COMPARISON: None FINDINGS: There is 6 degrees levocurvature of cervical spine. There is 2 mm anterolisthesis of C4 on C5 and 3 mm anterolisthesis of C5 on C6. There is 2 mm retrolisthesis of C6 on C7. Vertebral body hei ghts are normal. There is mildly decreased disc height at C5-C6 and severely decreased disc height at C6-C7. The spinal cord signal intensity is normal. The following disc levels are specifically discus sed: C2-C3: There is a central protrusion. There is mild left uncovertebral joint osteoarthritis. There is severe bilateral facet joint osteoarthritis. There is no neural foraminal stenosis. There is no cent ral canal stenosis. C3-C4: The disc does not extend beyond the endplate margin. There is mild bilateral uncovertebral bertha nt osteoarthritis. There is mild right and moderate left facet joint osteoarthritis. There is mild le ft neural foraminal stenosis. There is no central canal stenosis. C4-C5: The disc is bulging. There is moderate bilateral uncovertebral joint osteoarthritis. There is severe bilateral facet joint osteoarthritis. There is mild bilateral neural foraminal stenosis. There is mild central canal stenosis with ventral indentation of the spinal cord. C5-C6: The disc is bulging. There is severe bilateral uncovertebral joint osteoarthritis. There is se mercedes right and moderate left facet joint osteoarthritis. There is mild bilateral neural foraminal berta nosis. There is mild central canal stenosis with ventral indentation of the spinal cord. C6-C7: The disc is bulging. There is severe bilateral uncovertebral joint osteoarthritis. There is se mercedes bilateral facet joint osteoarthritis. There is mild bilateral neural foraminal stenosis. There i s mild central canal stenosis with ventral indentation of the spinal cord. C7-T1: The disc does not extend beyond the endplate margin. There is no uncovertebral joint osteoarth ritis. There is mild right and severe left facet joint osteoarthritis. There is mild bilateral neural foraminal stenosis. There is no central canal stenosis. IMPRESSION: 1. Severe cervical spondylosis. Reviewed, dictated and finalized at location A.
--- NOTE | ~2021-07-11 | MR_ITS ---
EXAMINATION: MR lumbar spine wo con DATE: 07/11/2021 14:51 INDICATION: Lumbar radiculopathy. TECHNIQUE: Magnetic resonance imaging (MRI) of the lumbar spine was performed without intravenous con trast. Sequences included sagittal T2-weighted FSE, sagittal T2-weighted FS FSE, sagittal T1-weighted FSE, and axial T2-weighted FSE. COMPARISON: Lumbar spine MRI 01/02/2008, chest 2 views 07/19/2019 FINDINGS: There is 5 degrees dextrocurvature of lumbar spine. There are chronic bilateral L5 pars def ects. There is 5 mm anterolisthesis of L5 on S1. There are Schmorl's nodes at multiple levels. There is mild chronic height loss of T11, T12, L1, and L5 vertebral bodies. There is severely decreased dis c height at T11-T12, moderately decreased disc height at T12-L1 and L1-L2, and severely decreased dis c height at L5-S1 with endplate remodeling. The distal spinal cord signal intensity is normal. The co nus medullaris is at T12-L1. The following disc levels are specifically discussed: L1-L2: The disc is bulging. There is mild bilateral facet joint osteoarthritis. There is no neural fo raminal stenosis. There is mild central canal stenosis. L2-L3: The disc does not extend beyond the endplate margins. There is mild right and moderate left fa cet joint osteoarthritis. There is no neural foraminal stenosis. There is no central canal stenosis. L3-L4: The disc is mildly bulging. There is mild bilateral facet joint osteoarthritis. There is mild bilateral neural foraminal stenosis. There is no central canal stenosis. L4-L5: The disc is bulging and has an annular fissure. There is severe bilateral facet joint osteoart hritis. There is mild bilateral neural foraminal stenosis. There is mild central canal stenosis. L5-S1: The disc is bulging and has an annular fissure. There is severe bilateral facet joint osteoart hritis. There is moderate bilateral neural foraminal stenosis. There is mild central canal stenosis. IMPRESSION: 1. Severe lumbar spondylosis, worsened from 01/02/2008. 2. Chronic bilateral L5 pars defects with grade 1 anterolisthesis of L5 on S1. Reviewed, dictated and finalized at location A.
== END 2021-07-11 13:41 | disposition home or self-care (01) ==
PROVIDERS: PCP Family Medicine; Visit Provider Nurse Practitioner Family
DX: M47.26 Other spondylosis with radiculopathy, lumbar region (principal); M47.892 Other spondylosis, cervical region
CPT/HCPCS: 72141; 72148

== ENCOUNTER → 2021-09-16 00:46 | Outpatient (CLI) | payer OTHER, SELFPAY ==
[2021-09-16 17:10] LABS: SARS-CoV-2 RNA PCR Negative
== END ==
PROVIDERS: PCP Family Medicine; Visit Provider Family Medicine
DX: R05.9 Cough, unspecified (principal); R19.7 Diarrhea, unspecified; J02.9 Acute pharyngitis, unspecified; J34.89 Other specified disorders of nose and nasal sinuses; Z20.822 Contact with and (suspected) exposure to COVID-19
CPT/HCPCS: C9803; U0003; U0005

== ENCOUNTER 2021-10-18 09:43 | Outpatient (CLI) | payer OTHER, SELFPAY ==
[2021-10-18 10:26] LABS: Creatinine Urine 68.5 mg/dL; Total Protein Urine Random 13 mg/dL; Ur Ttl Prot Creatinine Ratio 0.19 mg/mg (0-0.20)
[2021-10-18 10:31] LABS: Basophils Absolute Auto 0.1 K/mm3 (0.0-0.1); Basophils Percent Auto 0.6 % (0.2-1.2); Eosinophils Absolute Auto 0.1 K/mm3 (0-0.3); Eosinophils Percent Auto 1.1 % (0-4.4); Immature Granulocyte Absolute 0.12 K/mm3 (0.00-0.031); Immature Granulocyte Percent A 1.3 % (0-0.5); Lymphocytes Absolute Auto 2.16 K/mm3 (0.9-3.2); Lymphocytes Percent Auto 23.2 % (18.3-44.2); Mean Corpuscular HGB Conc 32.4 g/dl (32-36); Mean Corpuscular Hemoglobin 29.6 pg (26-34); Mean Corpuscular Volume 91.4 fl (80-100); Mean Platelet Volume 9.8 fl (7.4-10.4); Monocytes Absolute Auto 0.8 K/mm3 (0.1-0.6); Monocytes Percent Auto 8.3 % (2.6-8.5); Neutrophils Absolute Auto 6.1 K/mm3 (1.3-6.7); Neutrophils Percent Auto 65.5 % (45.5-73.1); Platelet Count Result 417 k/mm3 (150-375); Red Blood Count 3.72 M/mm3 (4.2-5.4); Red Cell Distribution Width 12.9 % (11.5-14.5); White Blood Count 9.3 K/mm3 (4.5-10.0)
[2021-10-18 10:32] LABS: Albumin Level 4.5 g/dL (3.5-5.1); Anion Gap 6 mmol/L (8-16); Blood Urea Nitrogen 25 mg/dL (7-17); Calcium 9.4 mg/dL (8.4-10.2); Carbon Dioxide 24 mmol/L (22-30); Chloride 100 mmol/L (98-107); Estimated Glomerular Filt Rate 42; Glucose 145 mg/dL (65-110); Hemoglobin A1C 8.5 % (<5.7); Sodium 130 mmol/L (137-145)
[2021-10-18 10:33] LABS: Alanine Aminotransferase 31 U/L (4-35); Albumin Level 4.5 g/dL (3.5-5.1); Alkaline Phosphatase 45 U/L (38-126); Anion Gap 7 mmol/L (8-16); Aspartate Amino Transferase 36 U/L (14-36); Bilirubin,Total 0.3 mg/dL (0.2-1.3); Blood Urea Nitrogen 25 mg/dL (7-17); Calcium 9.4 mg/dL (8.4-10.2); Carbon Dioxide 24 mmol/L (22-30); Chloride 100 mmol/L (98-107); Estimated Glomerular Filt Rate 42; Glucose 144 mg/dL (65-110); Potassium 4.1 mmol/L (3.4-5.0); Sodium 131 mmol/L (137-145)
[2021-10-18 12:02] LABS: Parathyroid Intact 19.8 pg/mL (7.5-53.5)
== END 2021-10-18 09:44 | disposition home or self-care (01) ==
PROVIDERS: PCP Family Medicine; Referring Provider Internal Medicine Nephrology; Visit Provider Family Medicine
DX: R60.9 Edema, unspecified (principal); E11.9 Type 2 diabetes mellitus without complications; E66.9 Obesity, unspecified; I35.0 Nonrheumatic aortic (valve) stenosis; Z79.899 Other long term (current) drug therapy; I12.9 Hypertensive chronic kidney disease with stage 1 through stage 4 chronic kidney disease, or unspecified chronic kidney disease; N18.32 Chronic kidney disease, stage 3b
CPT/HCPCS: 36415; 80053; 80069; 82570; 83036; 83970; 84156; 85025

== ENCOUNTER 2021-10-26 12:00 | Outpatient (CLI) | payer OTHER, SELFPAY ==
--- NOTE | ~2021-10-26 | XR_ITS ---
XR ankle RT 2V DATE: 10/26/2021 12:11 INDICATION: Right ankle pain TECHNIQUE: AP and lateral views COMPARISON: None FINDINGS: Mild plantar calcaneal enthesopathy. No fracture or dislocation of the ankle or disruption of the ankle mortise. No periosteal reaction or bone destruction. IMPRESSION: Mild plantar calcaneal enthesopathy Reviewed, dictated and finalized at location A. SAFETY SPECIALIST
== END 2021-10-26 12:01 | disposition home or self-care (01) ==
PROVIDERS: PCP Family Medicine; Visit Provider Family Medicine
DX: M25.571 Pain in right ankle and joints of right foot (principal); M77.31 Calcaneal spur, right foot
CPT/HCPCS: 73600

== ENCOUNTER 2021-12-13 12:23 | Emergency (ER) | payer OTHER, SELFPAY ==
--- NOTE | 2021-12-13 12:29 | ED.URI ---
HPI - URI/Sore Throat General Chief Complaint: Upper Respiratory Infection Stated Complaint: flu symptoms Time Seen by Provider: 12/13/21 12:29 Source: patient, family and RN notes reviewed History of Present Illness HPI Narrative: Patient is 60-year-old female presents the urgent care with her with complaints of sore throat, ear pain, cough and sinus congestion. Patient states that it started yesterday and she recently got back from [place]. States that she is use Benadryl, Tylenol, Sudafed without much symptom relief. Patient denies any known fevers, nausea, vomiting. Denies of any ill contacts. Patient has had the COVID vaccine and has not had COVID. No one else in the home has been ill. No other acute complaints. No acute distress noted. Patient read the plan of care. Some parts of this dictation were generated by voice recognition software and may contain typographical and/or grammatical inaccuracies. Related Data Home Medications Medication Instructions Recorded Confirmed acetaminophen 650 mg 650 mg PO Q8H 07/06/20 12/13/21 tablet,extended release aspirin 325 mg tablet 325 mg PO DAILY 07/06/20 12/13/21 diphenhydramine HCl 25 mg tablet 50 mg PO Q6H PRN 07/06/20 12/13/21 multivitamin 1 tablet PO DAILY 07/06/20 12/13/21 amlodipine 5 mg tablet 5 mg PO DAILY 10/27/20 12/13/21 Glucosamine Chondroitin 1 cap PO BID 01/12/21 12/13/21 cholecalciferol (vitamin D3) 25 mcg PO DAILY 01/12/21 12/13/21 ferrous gluconate 225 mg PO BID 01/12/21 12/13/21 magnesium 250 mg PO HS 01/12/21 12/13/21 Allergies Allergy/AdvReac Type Severity Reaction Status Date / Time amoxicillin Allergy Unknown Rash Verified 12/13/21 12:45 diclofenac Allergy Unknown LIP Verified 12/13/21 12:45 SWELLING dicloxacillin Allergy Unknown lips swell Verified 12/13/21 12:45 lisinopril Allergy Unknown Cough Verified 12/13/21 12:45 naproxen Allergy Unknown LIP Verified 12/13/21 12:45 SWELLING Penicillins Allergy Unknown HIVES Verified 12/13/21 12:45 piroxicam [Feldene] Allergy Unknown lips swell Verified 12/13/21 12:45 Review of Systems Review of Systems: CONSTITUTIONAL: Denies fever, chills, or sweats. EYES: Denies visual changes, redness, or discharge. ENT: Reports of rhinorrhea, sore throat, sinus congestion and otalgia CARDIOVASCULAR: Denies chest pain, palpitations, or edema. RESPIRATORY: Reports of cough without dyspnea GASTROINTESTINAL: Denies abdominal pain, nausea, vomiting, or diarrhea. GENITOURINARY: Denies dysuria or hematuria. SKIN: Denies rash or itching. MUSCULOSKELETAL: Denies back pain, joint pain, or myalgia. NEUROLOGIC: Denies headache, numbness, or weakness. All other systems reviewed are negative, except as documented in HPI. [facility] Past Medical History Medical History BMI 33.0-33.9,adult Essential (primary) hypertension Hemoglobin A1C between 7% and 9% indicating borderline diabetic control last A1c 7.5 Mixed hyperlipidemia due to type 2 diabetes mellitus Other specified diabetes mellitus with diabetic neuropathy, unspecified Renal insufficiency WPW (Rgnaw-Xfrcuiqqi-Jrepm syndrome) Surgical History Surgical History History of knee replacement left total knee, august 2018 Right total knee January 2021 Family History Family History Father Diabetes mellitus Family history of cardiovascular disease Acute myocardial infarction Mother Depression Family history of cardiovascular disease Acute myocardial infarction, Onset Age: 76 Family history of chronic obstructive pulmonary disease Social History Social History (Updated 10/31/21 @ 13:37 by Nancy Jaffe CMA) Additional smoking assessment comments: DENIES ANY FORM OF TOBACCO USE Alcohol intake: never Substance use: current Substance use type: does not use Spiritual care concern
[2021-12-13 12:37] VITALS: BP 150/67; PULSE 76; RESP 18; TEMP 37.2; O2SAT 98
== END 2021-12-13 13:15 | disposition home or self-care (01) ==
PROVIDERS: Emergency Provider Nurse Practitioner Family; PCP Family Medicine
DX: J40 Bronchitis, not specified as acute or chronic (principal); J32.9 Chronic sinusitis, unspecified; I10 Essential (primary) hypertension; E78.2 Mixed hyperlipidemia; E11.9 Type 2 diabetes mellitus without complications; I45.6 Pre-excitation syndrome; Z96.653 Presence of artificial knee joint, bilateral
CPT/HCPCS: 87081; 87804; 87880; 99213; G0463

== ENCOUNTER 2022-02-04 06:49 | Outpatient (CLI) | payer OTHER, SELFPAY ==
[2022-02-04 07:39] LABS: Basophils Absolute Auto 0.1 K/mm3 (0.0-0.1); Basophils Percent Auto 0.8 % (0.2-1.2); Eosinophils Absolute Auto 0.1 K/mm3 (0-0.3); Eosinophils Percent Auto 1.2 % (0-4.4); Hematocrit 34.8 % (37.0-47.0); Hemoglobin 11.4 g/dL (12.0-15.0); Immature Granulocyte Absolute 0.05 K/mm3 (0.00-0.031); Immature Granulocyte Percent A 0.7 % (0-0.5); Lymphocytes Absolute Auto 1.83 K/mm3 (0.9-3.2); Lymphocytes Percent Auto 25.3 % (18.3-44.2); Mean Corpuscular HGB Conc 32.8 g/dl (32-36); Mean Corpuscular Hemoglobin 29.7 pg (26-34); Mean Corpuscular Volume 90.6 fl (80-100); Monocytes Absolute Auto 0.9 K/mm3 (0.1-0.6); Monocytes Percent Auto 12.2 % (2.6-8.5); Neutrophils Absolute Auto 4.3 K/mm3 (1.3-6.7); Neutrophils Percent Auto 59.8 % (45.5-73.1); Platelet Count Result 380 k/mm3 (150-375); Red Blood Count 3.84 M/mm3 (4.2-5.4); Red Cell Distribution Width 13.1 % (11.5-14.5); White Blood Count 7.2 K/mm3 (4.5-10.0)
[2022-02-04 07:44] LABS: Hemoglobin A1C 8.5 % (<5.7)
[2022-02-04 07:46] LABS: Alanine Aminotransferase 22 U/L (4-35); Albumin Level 4.5 g/dL (3.5-5.1); Alkaline Phosphatase 40 U/L (38-126); Anion Gap 7 mmol/L (8-16); Aspartate Amino Transferase 26 U/L (14-36); Bilirubin,Total 0.2 mg/dL (0.2-1.3); Blood Urea Nitrogen 35 mg/dL (7-17); Carbon Dioxide 25 mmol/L (22-30); Chloride 103 mmol/L (98-107); Cholesterol 142 mg/dL (0-200); Estimated Glomerular Filt Rate 41; Glucose 187 mg/dL (65-110); HDL Direct 30 mg/dL; Potassium 4.4 mmol/L (3.4-5.0); Sodium 135 mmol/L (137-145); Triglycerides 207 mg/dL (<150)
[2022-02-04 07:57] LABS: LDL Cholesterol Direct 82 mg/dL
[2022-02-04 08:45] LABS: Iron 57 ug/dL (37-170)
[2022-02-04 08:58] LABS: Percent Iron Saturation 12 % (20-50)
== END 2022-02-04 06:50 | disposition home or self-care (01) ==
LOC: ANHLAB 06:53
PROVIDERS: PCP Family Medicine; Referring Provider Internal Medicine Cardiovascular Disease; Visit Provider Physician Assistant
DX: D50.8 Other iron deficiency anemias (principal); E13.21 Other specified diabetes mellitus with diabetic nephropathy; E66.09 Other obesity due to excess calories; E87.1 Hypo-osmolality and hyponatremia; I10 Essential (primary) hypertension; Z68.32 Body mass index [BMI] 32.0-32.9, adult; Z79.899 Other long term (current) drug therapy
CPT/HCPCS: 36415; 80053; 80061; 82728; 83036; 83540; 83550; 84443; 85025

== ENCOUNTER 2022-02-06 08:18 | Outpatient (CLI) | payer OTHER, SELFPAY ==
[2022-02-09 15:01] LABS: Microalbumin, Urine 42.2 mcg/min (<20); Microalbumin, Urine 60.8 mg/24 h (<30)
== END 2022-02-06 08:19 | disposition home or self-care (01) ==
LOC: ANHLAB 08:23
PROVIDERS: PCP Family Medicine; Visit Provider Physician Assistant
DX: E87.1 Hypo-osmolality and hyponatremia (principal); E66.9 Obesity, unspecified; E13.21 Other specified diabetes mellitus with diabetic nephropathy; E66.09 Other obesity due to excess calories; Z68.32 Body mass index [BMI] 32.0-32.9, adult; D50.8 Other iron deficiency anemias; I10 Essential (primary) hypertension; Z79.899 Other long term (current) drug therapy
CPT/HCPCS: 82043

== ENCOUNTER 2022-03-21 09:50 | Outpatient (CLI) | payer OTHER, SELFPAY ==
--- NOTE | ~2022-03-21 | XR_ITS ---
XR knee RT min 4V 03/21/2022 10:39 Indication: Right knee pain Procedure: 4 views right knee Comparison: 03/16/2021 Findings: There is a right total knee arthroplasty. Prosthesis well seated. No fracture or traumatic malalignment. No significant joint effusion. Impression: 1: No acute bone or joint abnormality. Reviewed, dictated and finalized at location A. Impression: 1: No acute bone or joint abnormality.
--- NOTE | ~2022-03-21 | XR_ITS ---
XR knee LT min 4V 03/21/2022 10:39 Indication: Left knee pain Procedure: 4 views left knee Comparison: 09/29/2020 Findings: There is a left total knee arthroplasty. Prosthesis well seated without evidence for loosen ing. No fracture or traumatic malalignment. No significant joint effusion. No foreign bodies. Impression: 1: No acute bone or joint abnormality. Reviewed, dictated and finalized at location A. Impression: 1: No acute bone or joint abnormality.
== END 2022-03-21 09:51 | disposition home or self-care (01) ==
PROVIDERS: PCP Family Medicine; Visit Provider Orthopaedic Surgery
DX: Z96.659 Presence of unspecified artificial knee joint (principal); Z96.652 Presence of left artificial knee joint
CPT/HCPCS: 73564

== ENCOUNTER 2022-04-06 12:06 | Outpatient (CLI) | payer OTHER, SELFPAY ==
[2022-04-06 12:44] LABS: Basophils Percent Auto 0.6 % (0.2-1.2); Eosinophils Absolute Auto 0.1 K/mm3 (0-0.3); Eosinophils Percent Auto 0.8 % (0-4.4); Hematocrit 51.5 % (37.0-47.0); Hemoglobin 16.8 g/dL (12.0-15.0); Immature Granulocyte Absolute 0.04 K/mm3 (0.00-0.031); Immature Granulocyte Percent A 0.6 % (0-0.5); Lymphocytes Absolute Auto 1.59 K/mm3 (0.9-3.2); Lymphocytes Percent Auto 25.1 % (18.3-44.2); Mean Corpuscular HGB Conc 32.6 g/dl (32-36); Mean Corpuscular Hemoglobin 29.3 pg (26-34); Mean Corpuscular Volume 89.7 fl (80-100); Mean Platelet Volume 9.5 fl (7.4-10.4); Monocytes Absolute Auto 0.4 K/mm3 (0.1-0.6); Monocytes Percent Auto 6.8 % (2.6-8.5); Neutrophils Absolute Auto 4.2 K/mm3 (1.3-6.7); Neutrophils Percent Auto 66.1 % (45.5-73.1); Platelet Count Result 303 k/mm3 (150-375); Red Blood Count 5.74 M/mm3 (4.2-5.4); Red Cell Distribution Width 12.9 % (11.5-14.5); White Blood Count 6.3 K/mm3 (4.5-10.0)
[2022-04-06 12:47] LABS: Blood Urea Nitrogen 34 mg/dL (8-26); Carbon Dioxide 25 mmol/L (22-30); Chloride 104 mmol/L (98-109); Estimated Glomerular Filt Rate 30; Glucose 163 mg/dL (70-105); Ionized Calcium (POC) 1.32 mmol/L (1.11-1.31); Sodium 138 mmol/L (138-146)
[2022-04-06 20:18] LABS: Iron 84 ug/dL (37-170)
[2022-04-06 20:24] LABS: Alanine Aminotransferase 34 U/L (6-35); Albumin Level 5.1 g/dL (3.5-5.1); Alkaline Phosphatase 54 U/L (38-126); Anion Gap 13 mmol/L (8-16); Aspartate Amino Transferase 35 U/L (14-36); Bilirubin,Total < 0.1 mg/dL (0.2-1.3); Blood Urea Nitrogen 36 mg/dL (7-17); Calcium 10.5 mg/dL (8.4-10.2); Carbon Dioxide 23 mmol/L (22-30); Chloride 103 mmol/L (98-107); Estimated Glomerular Filt Rate 33; Glucose 158 mg/dL (65-110); Sodium 139 mmol/L (137-145)
[2022-04-06 20:27] LABS: Percent Iron Saturation 15 % (20-50)
[2022-04-06 21:30] LABS: Folic Acid > 20.0 ng/mL (2.76->20)
== END 2022-04-06 12:07 | disposition home or self-care (01) ==
LOC: ANHLAB 12:08
PROVIDERS: PCP Family Medicine; Visit Provider Internal Medicine Hematology & Oncology
DX: D64.9 Anemia, unspecified (principal)
CPT/HCPCS: 36415; 80047; 80053; 82607; 82728; 82746; 83540; 83550; 85025

== ENCOUNTER 2022-04-20 08:53 | Outpatient (CLI) | payer OTHER, SELFPAY ==
[2022-04-20 18:25] LABS: Hematocrit 35.8 % (37.0-47.0); Hemoglobin 11.2 g/dL (12.0-15.0); Mean Corpuscular HGB Conc 31.3 g/dl (32-36); Mean Corpuscular Hemoglobin 29.6 pg (26-34); Mean Corpuscular Volume 94.5 fl (80-100); Platelet Count Result 423 k/mm3 (150-375); Red Blood Count 3.79 M/mm3 (4.2-5.4); Red Cell Distribution Width 13.1 % (11.5-14.5); White Blood Count 6.1 K/mm3 (4.5-10.0)
[2022-04-20 18:27] LABS: Albumin Level 4.5 g/dL (3.5-5.1); Anion Gap 9 mmol/L (8-16); Blood Urea Nitrogen 32 mg/dL (7-17); Calcium 9.4 mg/dL (8.4-10.2); Carbon Dioxide 23 mmol/L (22-30); Chloride 103 mmol/L (98-107); Estimated Glomerular Filt Rate 35; Glucose 329 mg/dL (65-110); Phosphorus 4.4 mg/dL (2.5-4.5); Potassium 4.7 mmol/L (3.4-5.0); Sodium 135 mmol/L (137-145)
[2022-04-20 18:34] LABS: Creatinine Urine 49.7 mg/dL; Total Protein Urine Random 11 mg/dL; Ur Ttl Prot Creatinine Ratio 0.22 mg/mg (0-0.20)
[2022-04-20 18:37] LABS: Parathyroid Intact 15.2 pg/mL (7.5-53.5)
== END 2022-04-20 08:54 | disposition home or self-care (01) ==
LOC: ANHBWCLAB 08:55
PROVIDERS: PCP Family Medicine; Visit Provider Internal Medicine Nephrology
DX: N18.32 Chronic kidney disease, stage 3b (principal)
CPT/HCPCS: 36415; 80069; 82570; 83970; 84156; 85027

== ENCOUNTER 2022-06-06 11:09 | Outpatient (CLI) | payer OTHER, SELFPAY ==
[2022-06-06 11:43] LABS: Basophils Percent Auto 0.5 % (0.2-1.2); Eosinophils Absolute Auto 0.1 K/mm3 (0-0.3); Eosinophils Percent Auto 0.9 % (0-4.4); Hematocrit 35.1 % (37.0-47.0); Hemoglobin 11.3 g/dL (12.0-15.0); Immature Granulocyte Absolute 0.07 K/mm3 (0.00-0.031); Immature Granulocyte Percent A 0.9 % (0-0.5); Lymphocytes Absolute Auto 1.93 K/mm3 (0.9-3.2); Lymphocytes Percent Auto 24.8 % (18.3-44.2); Mean Corpuscular HGB Conc 32.2 g/dl (32-36); Mean Corpuscular Hemoglobin 29.1 pg (26-34); Mean Corpuscular Volume 90.5 fl (80-100); Mean Platelet Volume 9.5 fl (7.4-10.4); Monocytes Absolute Auto 0.7 K/mm3 (0.1-0.6); Monocytes Percent Auto 9.1 % (2.6-8.5); Neutrophils Percent Auto 63.8 % (45.5-73.1); Platelet Count Result 409 k/mm3 (150-375); Red Blood Count 3.88 M/mm3 (4.2-5.4); Red Cell Distribution Width 12.9 % (11.5-14.5); White Blood Count 7.8 K/mm3 (4.5-10.0)
[2022-06-06 11:54] LABS: Alanine Aminotransferase 27 U/L (6-35); Albumin Level 4.7 g/dL (3.5-5.1); Alkaline Phosphatase 37 U/L (38-126); Anion Gap 12 mmol/L (8-16); Aspartate Amino Transferase 31 U/L (14-36); Bilirubin,Total 0.3 mg/dL (0.2-1.3); Blood Urea Nitrogen 33 mg/dL (7-17); Calcium 9.9 mg/dL (8.4-10.2); Carbon Dioxide 24 mmol/L (22-30); Chloride 100 mmol/L (98-107); Cholesterol 169 mg/dL (0-200); Estimated Glomerular Filt Rate 38; Glucose 281 mg/dL (65-110); HDL Direct 40 mg/dL; Potassium 4.4 mmol/L (3.4-5.0); Sodium 136 mmol/L (137-145); Triglycerides 197 mg/dL (<150)
[2022-06-06 12:05] LABS: LDL Cholesterol Direct 89 mg/dL
[2022-06-06 12:21] LABS: Hemoglobin A1C 8.7 % (<5.7)
== END 2022-06-06 11:10 | disposition home or self-care (01) ==
PROVIDERS: PCP Family Medicine; Visit Provider Physician Assistant
DX: D50.8 Other iron deficiency anemias (principal); E11.9 Type 2 diabetes mellitus without complications; E66.09 Other obesity due to excess calories; I10 Essential (primary) hypertension; Z68.32 Body mass index [BMI] 32.0-32.9, adult; Z79.899 Other long term (current) drug therapy
CPT/HCPCS: 36415; 80053; 80061; 83036; 84443; 85025

== ENCOUNTER 2022-06-12 10:14 | Outpatient (CLI) | payer OTHER, SELFPAY ==
[2022-06-12 19:37] LABS: Hematocrit 36.4 % (37.0-47.0); Hemoglobin 11.6 g/dL (12.0-15.0); Mean Corpuscular HGB Conc 31.9 g/dl (32-36); Mean Corpuscular Hemoglobin 29.4 pg (26-34); Mean Corpuscular Volume 92.2 fl (80-100); Mean Platelet Volume 10.1 fl (7.4-10.4); Platelet Count Result 391 k/mm3 (150-375); Red Blood Count 3.95 M/mm3 (4.2-5.4); White Blood Count 5.1 K/mm3 (4.5-10.0)
[2022-06-12 19:59] LABS: Iron 67 ug/dL (37-170)
[2022-06-12 20:07] LABS: Alanine Aminotransferase 43 U/L (6-35); Albumin Level 4.6 g/dL (3.5-5.1); Alkaline Phosphatase 47 U/L (38-126); Anion Gap 14 mmol/L (8-16); Aspartate Amino Transferase 41 U/L (14-36); Bilirubin,Total 0.3 mg/dL (0.2-1.3); Blood Urea Nitrogen 30 mg/dL (7-17); Calcium 9.8 mg/dL (8.4-10.2); Carbon Dioxide 24 mmol/L (22-30); Chloride 96 mmol/L (98-107); Estimated Glomerular Filt Rate 38; Glucose 314 mg/dL (65-110); Potassium 4.1 mmol/L (3.4-5.0); Sodium 134 mmol/L (137-145)
[2022-06-12 20:12] LABS: Percent Iron Saturation 14 % (20-50)
[2022-06-12 21:20] LABS: Folic Acid > 20.0 ng/mL (2.76->20)
== END 2022-06-12 10:15 | disposition home or self-care (01) ==
PROVIDERS: PCP Family Medicine; Visit Provider Internal Medicine Hematology & Oncology
DX: D64.9 Anemia, unspecified (principal)
CPT/HCPCS: 36415; 80053; 82607; 82728; 82746; 83540; 83550; 85027

== ENCOUNTER 2022-07-06 07:40 | Outpatient (CLI) | payer OTHER, SELFPAY ==
--- NOTE | 2022-07-06 | ECHO_ITS ---
Patient Info Name: Jenna Mars Age: 61 years : 1960 Gender: Female Ht: 64 in Wt: 189 lbs BSA: 2.00 m2 HR: 83 bpm BP: 160 / 85 mmHg Heart Rhythm: Sinus Rhythm Technical Quality: Good Exam Date: 07/06/2022 8:07 AM Exam Location: [facility] Patient Status: Outpatient Admit Date: 07/06/2022 Staff Ordering Physician: Kevin Metcalf MD [employer] Marine Engineer: Roselia Joe RDCS Attending Provider: Kevin Metcalf MD Referring Physician: Dixon DOIMNGUEZ; Exam Type: CA echo doppler color flow Study Info Indications I35.0 - Nonrheumatic aortic (valve) stenosis I27.0 - Primary pulmonary hypertension Complete two-dimensional, color flow and Doppler transthoracic echocardiogram is performed. Summary 1. Complete two-dimensional, color flow and Doppler transthoracic echocardiogram is performed. 2. Normal left venticular systolic function with no regional wall motion abnormalities. 3. There is mild tethering of the anterior leaflet motion. 4. There is mild aortic valve stenosis with a peak velocity of 248 cm/s, mean gradient of 13 mmHg, and aortic valve area of 1.7 cm2. Left Ventricle Normal left venticular systolic function with no regional wall motion abnormalities. Left ventricular chamber dimension is normal. Left ventricular systolic function is normal, estimated at >70%. There is no increased left ventricular wall thickness. Right Ventricle Right ventricular chamber dimension is normal. Right ventricular systolic function is normal. Left Atria Left atrial chamber dimension is normal. Right Atria Right atrial chamber dimension is normal. Atrial Septum Intact interatrial septum visualized by color flow imaging. Aortic Valve The aortic valve is not well visualized. There is mild aortic valve stenosis with a peak velocity of 248 cm/s, mean gradient of 13 mmHg, and aortic valve area of 1.7 cm2. There is no aortic valve regurgitation. There is mild aortic valve calcification. Pulmonic Valve The pulmonic valve is not well visualized. Mitral Valve There is mild tethering of the anterior leaflet motion. There is no mitral valve stenosis. There is mild mitral valve regurgitation. The mitral valve annulus is mildly calcified. Tricuspid Valve The tricuspid valve leaflets are not well visualized. There is no significant tricuspid valve stenosis. There is trace tricuspid valve regurgitation. Pericardium/Pleural There is no pericardial effusion. Inferior Vena Cava Normal inferior vena cava with >50% collapse upon inspiration consistent with Empty right atrial pressure, 3 mmHg. Aorta The aortic root size at the sinus of Valsalva is normal. The prox ascending aorta size is normal. Left Ventricular Outflow Tract Name Value Normal LVOT 2D LVOT Diameter 2.0 cm LVOT Doppler LVOT Peak Gradient 3 mmHg LVOT Mean Gradient 2 mmHg LVOT VTI 34 cm LVOT VTI/AV VTI Ratio 0.6 LVOT Stroke Volume 107 ml LVOT CO
== END 2022-07-06 07:41 | disposition home or self-care (01) ==
LOC: ANHCARD 07:41
PROVIDERS: PCP Family Medicine; Visit Provider Internal Medicine Cardiovascular Disease
DX: I35.0 Nonrheumatic aortic (valve) stenosis (principal); E11.59 Type 2 diabetes mellitus with other circulatory complications; I15.2 Hypertension secondary to endocrine disorders
CPT/HCPCS: 93306

== ENCOUNTER 2022-09-02 08:40 | Inpatient (IN) | payer OTHER, SELFPAY ==
[2022-09-02] VITALS (27 sets, daily range): BP systolic 109–138; BP diastolic 52–94; PULSE 81–89; RESP 13–26; TEMP 36.1–36.8; O2SAT 99–100; BMI 31.6
--- NOTE | ~2022-09-02 | CT_ITS ---
EXAMINATION: CT abdomen pelvis wo con DATE: 09/02/2022 11:13 INDICATION: Upper abdominal pain TECHNIQUE: Computed tomography (CT) of the abdomen and pelvis was performed without intravenous contr ast. The dose-length product (DLP) was 639.76 mGy-cm. Automated exposure control and iterative recons truction technique were employed. COMPARISON: 09/29/2020 FINDINGS: The lung bases are clear. The heart size is normal. The gallbladder is surgically absent. T he liver, spleen, pancreas, and adrenal glands are normal. There is a 1.3 cm cyst of the right kidney . The left kidney is unremarkable. The stomach is mildly distended. No pathologically enlarged abdomi nal or pelvic lymph nodes are identified. There is no free intraperitoneal gas or evidence of bowel o bstruction. There is liquid stool throughout the colon to the level of the rectum. There are bilatera l L5 pars defects with chronic grade 1 anterolisthesis of L5 on S1. There is calcified atherosclerosi s of the aorta and many of the other arteries. IMPRESSION: 1. Liquid stool throughout the colon suggestive of diarrhea. Mild distention of the stomach. Reviewed, dictated and finalized at location A. ANCE DIRECTOR
--- NOTE | 2022-09-02 09:18 | ED.NAVMDI ---
HPI - Nausea/Vomiting/Diarrhea General Chief complaint: Nausea/Vomiting/Diarrhea Stated complaint: Diarrhea, decreased PO intake, weakness, fall Time Seen by Provider: 09/02/22 09:02 History of Present Illness HPI Narrative: 61-year-old female history of chronic kidney disease aortic stenosis, anemia presents to the emergency room for evaluation of generalized weakness and diarrhea for 1 week. Patient reports multiple nonmelanotic nonbloody loose stools for 7 days. Patient also reports a new onset of upper abdominal pain. Patient reports she has been, increasingly weak which caused her to fall last night. Patient denies any injury associated with the fall. Patient states that she has been able to maintain oral hydration. Related Data Home Medications Medication Instructions Recorded Confirmed acetaminophen 650 mg 650 mg PO Q8H 07/06/20 06/13/22 tablet,extended release (Tylenol Arthritis Pain) aspirin 325 mg tablet 325 mg PO DAILY 07/06/20 06/13/22 diphenhydramine HCl 25 mg tablet 50 mg PO Q6H PRN Insomnia 07/06/20 06/13/22 (Diphen) multivitamin (Daily Multi-Vitamin 1 tablet PO DAILY 07/06/20 06/13/22 tablet) amlodipine 5 mg tablet 5 mg PO DAILY 10/27/20 06/13/22 cholecalciferol (vitamin D3) 25 25 mcg PO DAILY 01/12/21 06/13/22 mcg (1,000 unit) tablet ferrous gluconate 225 mg (27 mg 225 mg PO BID 01/12/21 06/13/22 iron) tablet glucosamine sulf dipot 1 cap PO BID 01/12/21 06/13/22 chlr,msm,chond 550 mg-C 30 mg-katie 1 mg capsule (Glucosamine Chondroitin) magnesium 250 mg tablet 250 mg PO HS 01/12/21 06/13/22 fenofibrate micronized 134 mg 134 mg PO QPM 03/22/22 06/13/22 capsule omeprazole 20 mg capsule,delayed 20 mg PO DAILY 03/22/22 06/13/22 release Allergies Allergy/AdvReac Type Severity Reaction Status Date / Time amoxicillin Allergy Unknown Rash Verified 06/09/22 14:28 diclofenac Allergy Unknown LIP Verified 06/09/22 14:28 SWELLING dicloxacillin Allergy Unknown lips swell Verified 06/09/22 14:28 lisinopril Allergy Unknown Cough Verified 06/09/22 14:28 naproxen Allergy Unknown LIP Verified 06/09/22 14:28 SWELLING Penicillins Allergy Unknown HIVES Verified 06/09/22 14:28 piroxicam [Feldene] Allergy Unknown lips swell Verified 06/09/22 14:28 Review of Systems Review of Systems: CONSTITUTIONAL: Denies fever, chills, or sweats. EYES: Denies visual changes, redness, or discharge. ENT: Denies rhinorrhea, congestion, sore throat, or otalgia. CARDIOVASCULAR: Denies chest pain, palpitations, or edema. RESPIRATORY: Denies cough or dyspnea. GASTROINTESTINAL: Upper abdominal pain, diarrhea GENITOURINARY: Denies dysuria or hematuria. SKIN: Denies rash or itching. MUSCULOSKELETAL: Denies back pain, joint pain, or myalgia. NEUROLOGIC: Denies headache, numbness, dizziness, or weakness. PSYCHIATRIC: Denies anxiety or depression. [facility] Past Medical History Medical History BMI 33.0-33.9,adult Essential (primary) hypertension Hemoglobin A1C between 7% and 9% indicating borderline diabetic control last A1c 7.5 Mixed hyperlipidemia due to type 2 diabetes mellitus Other specified diabetes mellitus with diabetic neuropathy, unspecified Renal insufficiency WPW (Enudq-Qqsgbhmoo-Odexj syndrome) Surgical History Surgical History History of knee replacement left total knee, august 2018 Right total knee January 2021 Family History Family History Father Diabetes mellitus Family history of cardiovascular disease Acute myocardial infarction Mother Depression Family history of cardiovascular disease Acute myocardial infarction, Onset Age: 76 Family history of chronic obstructive pulmonary disease Social History Social History Smoking status: Never smoker Additi
[2022-09-02 09:51] LABS: Hematocrit 44.6 % (37.0-47.0); Hemoglobin 14.4 g/dL (12.0-15.0); Mean Corpuscular HGB Conc 32.3 g/dl (32-36); Mean Corpuscular Hemoglobin 29.7 pg (26-34); Mean Platelet Volume 9.3 fl (7.4-10.4); Platelet Count Result 581 k/mm3 (150-375); Red Blood Count 4.85 M/mm3 (4.2-5.4); Red Cell Distribution Width 13.5 % (11.5-14.5); White Blood Count 12.8 K/mm3 (4.5-10.0)
[2022-09-02 10:02] LABS: Alanine Aminotransferase 17 U/L (6-35); Albumin Level 4.2 g/dL (3.5-5.1); Alkaline Phosphatase 62 U/L (38-126); Anion Gap 16 mmol/L (8-16); Aspartate Amino Transferase 17 U/L (14-36); Bilirubin,Total 0.2 mg/dL (0.2-1.3); Blood Urea Nitrogen 47 mg/dL (7-17); Calcium 8.3 mg/dL (8.4-10.2); Carbon Dioxide 12 mmol/L (22-30); Chloride 106 mmol/L (98-107); Estimated CRCL calculation 20 ml/min; Estimated Glomerular Filt Rate 17; Glucose 255 mg/dL (65-110); Lipase 185 U/L (23-300); Potassium 5.1 mmol/L (3.4-5.0); Sodium 134 mmol/L (137-145)
[2022-09-02] MEDS: SODIUM CHLORIDE 0.9% IV 1,000 ML 999 ML IV CONT (10:02)
[2022-09-02] MEDS: DICYCLOMINE HCL INJ 20 MG/2 ML VIAL IM (10:02)
[2022-09-02 10:28] LABS: Influenza A QL RT-PCR Negative (Negative); Influenza B QL RT-PCR Negative (Negative); RSV RNA, RT-PCR Negative (Negative); SARS-CoV-2 RNA PCR Negative
[2022-09-02 10:31] LABS: Band Neutrophils Percent 12 % (0-6); Eosinophils Absolute Manual 0.76 K/mm3 (0.02-0.5); Eosinophils Percent Manual 6 % (0-4); Lymphocytes Absolute Manual 2.04 K/mm3 (1.1-4.5); Monocytes Absolute Manual 0.64 K/mm3 (0.1-0.90); Monocytes Percent Manual 5 % (3-9); Neutrophils Absolute Manual 9.34 K/mm3 (1.7-7.2); Neutrophils Percent Manual 61 % (46-73); Total Cells Counted 100
[2022-09-02 10:32] LABS: Platelet Estimate Increased (Adequate)
[2022-09-02 10:33] LABS: Poikilocytosis 1+ (NORMAL); Schistocytes None Seen (NORMAL)
[2022-09-02] MEDS: SODIUM CHLORIDE 0.9% IV 1,000 ML 125 ML IV CONT ×2 (11:03→15:11)
[2022-09-02 11:07] LABS: Toxigenic C. Diff NEGATIVE (NEGATIVE)
[2022-09-02 13:18] LABS: Appearance Urine Clear (Clear); Bilirubin Urine 1+ (Negative); Blood Urine Negative (Negative); Color Urine Yellow (Yellow); Glucose Urine UA Negative (Negative); Ketones Urine Trace mg/dL (Negative); Leukocyte Esterase Ur Negative LEU/UL (Negative); Nitrate Urine Negative (Negative); Protein Urine Negative (Negative); Urobilinogen Urine 0.2 mg/dL (<2.0)
[2022-09-02 13:24] LABS: Bacteria Urine Trace /hpf; Hyaline Casts Urine 20-29 /lpf; Mucus Urine Rare /lpf; Squamous Epithelial Cell Urine Few /hpf (Few); WBC Urine 0-3 /hpf
[2022-09-02 13:27] LABS: Add Urine Microscopic? YES
--- NOTE | 2022-09-02 13:47 | ECG_ITS ---
Measurements Intervals [place] Rate: 81 P: 55 OK: 206 QRS: 20 QRSD: 95 T: 56 QT: 372 QTc: 432 Interpretive Statements SINUS RHYTHM BORDERLINE AV CONDUCTION DELAY BASELINE WANDER- I, II, AVR, AVL, AVF, V4 BORDERLINE ECG COMPARED TO ECG 01/12/2021 09:39:23 NO SIGNIFICANT CHANGES Electronically Signed On 09-02-2022 15:02:51 UTILITY MAINTENANCE WORKER by Grant Ribera D.O.
--- NOTE | 2022-09-02 14:30 | ADMGEN ---
This patient, Jenna Mars, was admitted to Medical Room 261-01. Patient/family oriented to hospital policies and general routines including ID bracelet, bed and alarms, visiting hours, pain management, procedures, bathroom and other care routines, personal items, smoking policy, room service/diet, and visiting hours. Information on how to activate the Rapid Response Team has been discussed. Patient/Family are encouraged to report perceived risks to care and to ask questions if they do not understand what they are told or what they should do.
[2022-09-02] MEDS: ENOXAPARIN 30 MG/0.3 ML SYRINGE SUB-Q (15:10)
--- NOTE | 2022-09-02 16:15 | PM.IMHP ---
H&P: HPI History of Present Illness Date/Time: 09/02/22 16:15 Chief Complaint: Weakness and diarrhea. Narrative: This is a pleasant 61-year-old female with chronic kidney disease, type 2 diabetes mellitus, hypertension, hyperlipidemia, aortic stenosis, Uumvt-Kofxjndbs-Enovo syndrome, and GERD who presented to the emergency department from home for evaluation of weakness and diarrhea. She has had diarrhea off and on for nearly a month however it has gotten much worse in the past week or so. She is having nonbloody, watery stools almost every hour for the past 5 days and she has lost 5 pounds in the last 1 week. The last few days she has not eaten much to see if that would help the diarrhea but unfortunately it has not. Imodium did not slow down the stools either. Her stools are urgent and last evening while she was racing to the bathroom she tripped and fell forward, striking her head on the toilet. Luckily she sustained no injuries or loss of consciousness. She reports that the fall was purely mechanical but she goes on to say that she has gotten increasingly more weak due to the diarrhea though she does not think she fell because of weakness. Yesterday she started to have some nausea and she had an episode of emesis after having soup for dinner. Since that time she has had some burning discomfort in the epigastrium but that seems to be improving and in fact she is hungry at the time of my evaluation. She typically suffers from constipation though she is not on a bowel regimen at home. She and her were in [place] last week but he has not had similar symptoms and she has no known sick contacts. She denies recent antibiotic use. She has not had fever, chills, or sweats. Aside from burning in the epigastrium she has not had any abdominal pain. In ER her vital signs were normal on arrival. Labs showed leukocytosis with a white blood cell count of 12.8 with 12 bands noted on manual differential. BUN and creatinine were both elevated from baseline at 47 and 2.80 respectively and she had some electrolyte abnormalities including a sodium of 134 and a potassium of 5.1. Serum bicarb was 12 with an anion gap of 16. Urine microscopy showed 20 to 29 hyaline casts with a specific gravity of 1.020. CT of the abdomen and pelvis showed liquid stool throughout the colon mild distention of the stomach. She is currently being hydrated with IV fluids and she has been started on empiric antibiotics. Review of Systems Review of Systems: Twelve systems were reviewed. No fever, chills, or sweats. No cold or flu symptoms. No joint pain or rashes. She had hives last week on her neck and chest and those improved within a day or 2 with Benadryl. Hives are not necessarily new for her. She has noticed a decrease in urine output. She has not had any urinary symptoms. Her glucose has been running higher the last couple of days which is frustrating to her as she has not been eating much. Except as documented, all other systems were reviewed and are negative. [facility] Past Medical History Medical History (Updated 09/02/22 @ 13:42 by Keyona Almazan PA-C) Chronic anemia Chronic kidney disease, stage 3 Diabetic peripheral neuropathy Essential hypertension Gastroesophageal reflux disease Mixed hyperlipidemia Nonrheumatic aortic valve stenosis Osteoarthritis Overactive bladder Type 2 diabetes mellitus Vitamin B12 deficiency Yljhc-Nexmwaxhu-Dzbwi syndrome Surgical History Surgical History (Updated 09/02/22 @ 13:38 by Keyona Almazan PA-C) History of arthroplasty of left knee (08/2018) History of arthroplasty of right knee (01/2021) History of arthroscopy of left knee (01/2018) History of hammertoe correction (08/2007) History of hysterectomy History of laparoscopic cholecystectomy (01/2009) History of tubal ligation (1987) Family History Family History Father Diabetes mellitus Family history of cardiovascu
[2022-09-02 16:27] LABS: Anion Gap 12 mmol/L (8-16); Blood Urea Nitrogen 48 mg/dL (7-17); Calcium 7.5 mg/dL (8.4-10.2); Carbon Dioxide 13 mmol/L (22-30); Chloride 110 mmol/L (98-107); Estimated CRCL calculation 25 ml/min; Estimated Glomerular Filt Rate 23; Glucose 147 mg/dL (65-110); Magnesium 1.5 mg/dL (1.6-2.3); Phosphorus 3.9 mg/dL (2.5-4.5); Potassium 4.4 mmol/L (3.4-5.0); Sodium 135 mmol/L (137-145)
[2022-09-02 16:34] LABS: Glucose Point of Care 156 mg/dl (65-105)
[2022-09-02] MEDS: LACTATED RINGERS 1,000 ML 100 ML IV CONT (17:09)
[2022-09-02] MEDS: metroNIDAZOLE 500 MG/ISO 100ML 500 MG/100 ML BAG 100 MG IVPB ×2 (17:09→21:10)
[2022-09-02] MEDS: MAGNESIUM SULF 2 GM/WATER 50ML 2 GM/50 ML BAG IVPB (19:56)
[2022-09-02 21:20] LABS: Glucose Point of Care 117 mg/dl (65-105)
[2022-09-02 23:36] LABS: Anion Gap 11 mmol/L (8-16); Blood Urea Nitrogen 41 mg/dL (7-17); Calcium 7.7 mg/dL (8.4-10.2); Carbon Dioxide 10 mmol/L (22-30); Chloride 113 mmol/L (98-107); Estimated CRCL calculation 29 ml/min; Estimated Glomerular Filt Rate 27; Glucose 97 mg/dL (65-110); Magnesium 2.4 mg/dL (1.6-2.3); Potassium 4.3 mmol/L (3.4-5.0); Sodium 134 mmol/L (137-145)
[2022-09-03 00:21] LABS: Fractional Inspired Oxygen 21 %; HCO3 VBG 12.4 mEq/l (24.0-30.0); PO2 VBG 103.3 mmHg (35.0-45.0)
[2022-09-03 00:24] LABS: pH VBG 7.235 (7.300-7.400)
[2022-09-03 00:25] LABS: Device ROOM AIR
[2022-09-03] MEDS: SODIUM BICARBONATE 8.4% 150 MEQ in DEXTROSE 5% 1,000 ML 950 ML 100 MEQ IV CONT ×2 (01:03→12:58)
[2022-09-03] MEDS: SODIUM BICARBONATE 8.4% 50 MEQ/50 ML SYRINGE IV PUSH ×2 (01:05→01:08)
[2022-09-03] MEDS: metroNIDAZOLE 500 MG/ISO 100ML 500 MG/100 ML BAG 100 MG IVPB ×4 (02:34→20:39)
[2022-09-03] MEDS: hydrALAZINE HCL 50 MG TABLET 100 MG PO ×3 (05:11→20:39)
[2022-09-03 05:39] VITALS: BP 141/64; PULSE 90; RESP 20; TEMP 36.9; O2SAT 99
[2022-09-03 05:42] LABS: Hematocrit 37.3 % (37.0-47.0); Hemoglobin 12.4 g/dL (12.0-15.0); Mean Corpuscular HGB Conc 33.2 g/dl (32-36); Mean Corpuscular Hemoglobin 30.1 pg (26-34); Mean Corpuscular Volume 90.5 fl (80-100); Mean Platelet Volume 9.5 fl (7.4-10.4); Platelet Count Result 428 k/mm3 (150-375); Red Blood Count 4.12 M/mm3 (4.2-5.4); Red Cell Distribution Width 13.6 % (11.5-14.5); White Blood Count 8.6 K/mm3 (4.5-10.0)
[2022-09-03 05:53] LABS: Alanine Aminotransferase 14 U/L (6-35); Albumin Level 3.4 g/dL (3.5-5.1); Alkaline Phosphatase 56 U/L (38-126); Anion Gap 15 mmol/L (8-16); Aspartate Amino Transferase 18 U/L (14-36); Bilirubin,Total 0.1 mg/dL (0.2-1.3); Blood Urea Nitrogen 36 mg/dL (7-17); Calcium 7.9 mg/dL (8.4-10.2); Carbon Dioxide 16 mmol/L (22-30); Chloride 107 mmol/L (98-107); Estimated CRCL calculation 30 ml/min; Estimated Glomerular Filt Rate 28; Glucose 174 mg/dL (65-110); Phosphorus 3.4 mg/dL (2.5-4.5); Sodium 138 mmol/L (137-145)
[2022-09-03 06:35] LABS: Band Neutrophils Percent 5 % (0-6); Eosinophils Absolute Manual 0.68 K/mm3 (0.02-0.5); Eosinophils Percent Manual 8 % (0-4); Metamyelocytes Percent 1 %; Monocytes Absolute Manual 0.34 K/mm3 (0.1-0.90); Monocytes Percent Manual 4 % (3-9); Neutrophils Absolute Manual 5.07 K/mm3 (1.7-7.2); Neutrophils Percent Manual 54 % (46-73); Platelet Estimate Increased (Adequate); Schistocytes None Seen (NORMAL); Total Cells Counted 100
[2022-09-03 06:39] LABS: Atypical Lymphocytes Present
[2022-09-03] MEDS: VITAMIN B COMPLEX CAPSULE 1 CAP PO (08:14)
[2022-09-03] MEDS: MULTIVITAMINS THERAPEUTIC TAB (*BKC) 1 TABLET PO (08:15)
[2022-09-03] MEDS: amLODIPine BESYLATE 5 MG TABLET PO (08:15)
[2022-09-03] MEDS: ASPIRIN 325 MG TABLET PO (08:15)
[2022-09-03] MEDS: PANTOPRAZOLE 40 MG TABLET PO (08:15)
[2022-09-03] MEDS: CHOLECALCIFEROL 1,000 UNITS TABLET 1000 UNITS PO (08:15)
[2022-09-03] MEDS: SOLIFENACIN 5 MG TABLET BY MOUTH (08:15)
[2022-09-03 08:16] VITALS: PULSE 84
[2022-09-03] MEDS: estradioL 1 MG TABLET BY MOUTH (08:16)
[2022-09-03] MEDS: NEBIVOLOL HCL 5 MG TABLET 10 MG PO (08:16)
[2022-09-03 09:29] LABS: Glucose Point of Care 203 mg/dl (65-105)
[2022-09-03] MEDS: INSULIN ASPART (*BKC) 100 UNITS/ML SUB-Q ×2 (09:59→12:00)
[2022-09-03 11:40] LABS: Glucose Point of Care 207 mg/dl (65-105)
--- NOTE | 2022-09-03 12:26 | PHAR ---
HOME MEDICATIONS VERIFIED BY PHARMACY: FENOFIBRATE 134MG CAPSULES TAKE 1 CAP PO QPM RX#[id number] IRON 27MG (FERROUS GLUCONATE)
--- NOTE | 2022-09-03 13:03 | WPDGICN ---
Assessment and Plan Assessment and plan (1) Diarrhea: Code(s): R19.7 - Diarrhea, unspecified Status: Acute Assessment and Plan: for few weeks but worsened lately will do colonoscopy with biopsies, assess if ibd, microscopic colitis, etc pending stool samples get esr, crp and serology for celiac disease (2) Acute on chronic renal failure: Code(s): N17.9 - Acute kidney failure, unspecified; N18.9 - Chronic kidney disease, unspecified Status: Acute Assessment and Plan: from diarrhea and dehydration better with medical treatment (3) Metabolic acidosis: Code(s): E87.20 - Acidosis, unspecified Status: Acute Assessment and Plan: monitor, from diarrhea (4) Dehydration: Code(s): E86.0 - Dehydration Status: Acute Assessment and Plan: improving with fluid hydration GI Consult Note Consult date/time: 09/03/22 13:03 Reason for consult: diarrhea, dehydration HPI: Jenan Mars is a 61 year old female with chronic kidney disease, type 2 diabetes mellitus, hypertension, hyperlipidemia, aortic stenosis, Nvevc-Vqmhtehsh-Qoftg syndrome, and GERD who came to the emergency department from home for evaluation of weakness and diarrhea. She has been dealing with diarrhea for about 1 month but lately much frequent and several times a day, lost about 5 lbs, Imodium and liquid diet did not slow down the diarrhea, also had some urgency. She has been feeling weaker and tired and even had a fall. Denies fever, chills, or sweats. ER showed leukocytosis with a white blood cell count of 12.8 with 12 bands noted on manual differential. BUN and creatinine were both elevated from baseline at 47 and 2.80, sodium of 134 and a potassium of 5.1. Serum bicarb was 12 with an anion gap of 16, normal liver enzymes. CT of the abdomen and pelvis showed liquid stool throughout the colon mild distention of the stomach. Started on fluids and empirically on abx. Stool studies pending but c diff negative. Had colonoscopy but years ago. Review of Systems Review of Systems: CONSTITUTIONAL: Denies fever, chills, or sweats. + weight loss EYES: Denies visual changes, redness, or discharge. ENT: Denies rhinorrhea, congestion, sore throat, or otalgia. CARDIOVASCULAR: Denies chest pain, palpitations, or edema. RESPIRATORY: Denies cough or dyspnea. GASTROINTESTINAL: Upper abdominal pain, diarrhea GENITOURINARY: Denies dysuria or hematuria. SKIN: Denies rash or itching. MUSCULOSKELETAL: Denies back pain, joint pain, or myalgia. NEUROLOGIC: Denies headache, numbness, dizziness, + generalized weakness. PSYCHIATRIC: Denies anxiety or depression. [facility] Past Medical History Medical History (Updated 09/02/22 @ 13:42 by Keyona Almazan PA-C) Chronic anemia Chronic kidney disease, stage 3 Diabetic peripheral neuropathy Essential hypertension Gastroesophageal reflux disease Mixed hyperlipidemia Nonrheumatic aortic valve stenosis Osteoarthritis Overactive bladder Type 2 diabetes mellitus Vitamin B12 deficiency Anmpl-Hkxvxadiz-Rouqh syndrome Surgical History Surgical History (Updated 09/02/22 @ 13:38 by Keyona Almazan PA-C) History of arthroplasty of left knee (08/2018) History of arthroplasty of right knee (01/2021) History of arthroscopy of left knee (01/2018) History of hammertoe correction (08/2007) History of hysterectomy History of laparoscopic cholecystectomy (01/2009) History of tubal ligation (1987) Family History Family History Father Diabetes mellitus Family history of cardiovascular disease Acute myocardial infarction Mother Depression Family history of cardiovascular disease Acute myocardial infarction, Onset Age: 76 Family history of chronic obstructive pulmonary disease Social History Social History (Updated 09/02/22 @ 13:39 by Keyona Almazan PA-C) Social History: Surrogate medical decision maker:
--- NOTE | 2022-09-03 13:28 | PM.CNNEP ---
Assessment and Plan Assessment and plan (1) MEREDITH (acute kidney injury): Code(s): N17.9 - Acute kidney failure, unspecified Status: Acute Assessment and Plan: presumably due to volume depletion and diminished oral intake use of ARB therapy and spironolactone may be contributing factors - these medications are on hold improvement already noted with IVF resuscitation follow trend of repeat labs and UOP (2) Stage 3b chronic kidney disease: Code(s): N18.32 - Chronic kidney disease, stage 3b Status: Chronic Assessment and Plan: baseline creatinine runs ~ 1.3 - 1.7mg/dl in the last few years presumably secondary to HTN, DM, vascular disease, and age. (3) Metabolic acidosis: Code(s): E87.20 - Acidosis, unspecified Status: Acute Assessment and Plan: due to MEREDITH/ARF and ongoing diarrhea improvement with use of bicarbonate IVFs follow trend (4) Diarrhea: Code(s): R19.7 - Diarrhea, unspecified Status: Acute Assessment and Plan: etiology? medication related versus infection (?) Gastroenterology recommendations noted - colonoscopy tomorrow (5) Essential hypertension: Code(s): I10 - Essential (primary) hypertension Status: Chronic Assessment and Plan: reasonable control at this time follow trend of hemodynamics (6) Type 2 diabetes mellitus: Code(s): E11.9 - Type 2 diabetes mellitus without complications Status: Acute Assessment and Plan: follow accucheks glycemic control Will continue to follow. History of Present Illness Reason for Consult Consult date: 09/03/22 Reason for consult: acute renal failure (on chronic kidney disease) Chief Complaint Chief complaint: MEREDITH History of Present Illness Narrative: The patient is a 61-year-old female with a past medical history as outlined below who presented to [facility] Emergency room for further evaluation of weakness in association with diarrhea. The patient reports that she has been having diet on off for the last month but it seems to be acutely worsened in the last week. She has describes the diarrhea as nonbloody and watery and apparently occurs almost every hour for last 5-7 days. She reports a weight loss of about 5 lb during that time. Furthermore, she reports poor oral intake as she had hoped that limiting this would help with the diarrhea but unfortunately, and has not done so. Pwje-sqw-xqjlmop medication/conservative therapy to help with the diarrhea has not been effective. Given the ongoing diarrhea, she was reports by the development of ongoing weakness as well. She did suffer a fall while trying to go to the bathroom to the urgency of the diarrhea but she feels this is more from I can occult issue rather than related to her weakness. No reported recent sick contacts, antibiotic use, fevers, chills, but she does report some on off issues with nausea. Given the ongoing symptoms as mentioned, she presented to the ER for further assessment. Workup and evaluation emergency room demonstrated the patient to be hemodynamically stable and routine blood test demonstrated a mildly elevated white blood cell count with some bandemia and her renal function was noted to be higher than baseline in association with mild hyponatremia and mild hyperkalemia in association with a metabolic acidosis. CT scan of the abdomen pelvis was done which demonstrated liquid stool throughout the colon and mild distention of the stomach but no other acute intra-abdominal pathology. She was started on IV fluids and appropriate cultures were obtained and she was started on empiric antibiotics with subsequent admission to the hospital. Since her admission, her acidosis and renal function seem to be improving with IVs fluid support. She has already been seen by Gastroenterology with a tentative plan for colonoscopy tomorrow for further evaluation of her ongoing diarr
--- NOTE | 2022-09-03 15:10 | PM.IMPN ---
Progress Note: A&P Assessment and Plan (1) Diarrhea: Code(s): R19.7 - Diarrhea, unspecified Status: Acute Assessment and Plan: Patient endorses 12 liquid stool so far this morning. Has had diarrhea ongoing for about [address] of the abdomen/pelvis showed liquid stool throughout the colon mild distention of the some, no additional acute findings. Appreciate GI consultation. Plan for colonoscopy with biopsies tomorrow. Clear liquid diet, NPO at midnight. Stool cultures are pending. Laboratory evaluation including ESR, CRP, and serology pending. Continue IV Levaquin and Flagyl given leukocytosis and bandemia, which has resolved today (2) Acute on chronic renal failure: Code(s): N17.9 - Acute kidney failure, unspecified; N18.9 - Chronic kidney disease, unspecified Status: Acute Assessment and Plan: Baseline creatinine appears to be around 1.3-1.6. Creatinine elevated up to 2.8 on presentation, suspect secondary to dehydration. Slow improvement in creatinine with IV fluids to 1.8 today. Continue to monitor renal function closely. Avoid nephrotoxins. Appreciate Nephrology consult. Consider renal ultrasound if worsening. (3) Metabolic acidosis: Code(s): E87.20 - Acidosis, unspecified Status: Acute Assessment and Plan: Likely secondary to diarrhea. Continue with sodium bicarb drip. Appreciate Nephrology recommendations. (4) Electrolyte abnormality: Code(s): E87.8 - Other disorders of electrolyte and fluid balance, not elsewhere classified Status: Acute Assessment and Plan: Potassium elevated at 5.1 on admission, likely due to dehydration, has normalized with IV fluids. Magnesium 1.5 on admission, improved with supplementation. 2.0 today. Calcium levels normal when corrected for albumin (5) Dehydration: Code(s): E86.0 - Dehydration Status: Acute Assessment and Plan: As above. Continue with IV fluids until diarrhea has improved (6) Essential hypertension: Code(s): I10 - Essential (primary) hypertension Status: Acute Assessment and Plan: Blood pressure stable today. Last BP 141/64. Continue home amlodipine, hydralazine, nebivolol. Spironolactone on hold. Resume when appropriate (7) Type 2 diabetes mellitus: Code(s): E11.9 - Type 2 diabetes mellitus without complications Status: Acute Assessment and Plan: Last A1c in May 2022 was 8.7. Continue Accu-Cheks, sliding scale insulin, and hypoglycemic protocol. Ozempic and glimepiride on hold. 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 Jenna reports 12 liquid stools since 7:00 a.m. this morning. She has been keeping a tele on the white board in her room. States her stools are greenish in color. States there watery with flakes of stool. She denies abdominal pain. No nausea, vomiting, fevers, chills, dizziness, lightheadedness. She has been able to tolerate some liquids today. No shortness of breath or chest pain. She has been able to ambulate without difficulty. She endorses sinus drainage today. Review of Systems Review of Systems: All systems reviewed & are unremarkable except as noted in HPI and below Exam Narrative: General: Well-nourished, well-appearing 61-year-old female, sitting up in bed, comfortable, NARD Neuro: awake, alert and oriented x4, speech clear, no focal neuro deficits noted HEENMT: normocephalic, atraumatic, EOMI, sclerae anicteric Respiratory: clear to auscultation bilaterally, nonlabored breathing Cardio: regular rate, regular rhythm with S1-S2 Abdomen: nondistended, normoactive
[2022-09-03 15:22] VITALS: BP 133/57; PULSE 82; RESP 16; TEMP 36.5; O2SAT 98
[2022-09-03 17:16] LABS: Glucose Point of Care 124 mg/dl (65-105)
[2022-09-03] MEDS: BISACODYL 5 MG TABLET EC 20 MG PO (18:10)
[2022-09-03] MEDS: polyethylene glycoL 3350 238 GM BOTTLE PO (18:11)
[2022-09-03] MEDS: MAGNESIUM 13.5 MG TABLET (250 MG MAG GLUCONATE) PO (20:38)
[2022-09-03] MEDS: PRAVASTATIN SODIUM 20 MG TABLET 40 MG BY MOUTH (20:38)
[2022-09-03 21:28] LABS: Glucose Point of Care 386 mg/dl (65-105)
[2022-09-03] MEDS: SODIUM BICARBONATE 8.4% 150 MEQ in WATER, STERILE FOR INJECTION 950 ML 85 MEQ IV CONT (21:28)
[2022-09-03] MEDS: INSULIN ASPART (*BKC) 100 UNITS/ML 6 UNITS SUB-Q (21:28)
[2022-09-03 22:38] VITALS: BP 116/93; PULSE 91; RESP 18; TEMP 36.2; O2SAT 97
[2022-09-04] VITALS (10 sets, daily range): BP systolic 115–163; BP diastolic 56–76; PULSE 77–91; RESP 17–22; TEMP 36.1–36.9; O2SAT 96–100
[2022-09-04] MEDS: metroNIDAZOLE 500 MG/ISO 100ML 500 MG/100 ML BAG 100 MG IVPB ×4 (02:12→20:07)
[2022-09-04] MEDS: ONDANSETRON INJ 4 MG/2 ML VIAL IV PUSH ×2 (04:08→10:04)
[2022-09-04] MEDS: hydrALAZINE HCL 50 MG TABLET 100 MG PO ×3 (05:25→20:05)
[2022-09-04 06:45] LABS: Hematocrit 33.9 % (37.0-47.0); Hemoglobin 11.5 g/dL (12.0-15.0); Mean Corpuscular HGB Conc 33.9 g/dl (32-36); Mean Corpuscular Hemoglobin 29.9 pg (26-34); Mean Corpuscular Volume 88.3 fl (80-100); Mean Platelet Volume 9.2 fl (7.4-10.4); Platelet Count Result 394 k/mm3 (150-375); Red Blood Count 3.84 M/mm3 (4.2-5.4); Red Cell Distribution Width 13.5 % (11.5-14.5)
[2022-09-04 07:35] LABS: Anion Gap 11 mmol/L (8-16); Blood Urea Nitrogen 31 mg/dL (7-17); CRP 1.2 mg/dL (<1.0); Calcium 8.1 mg/dL (8.4-10.2); Carbon Dioxide 25 mmol/L (22-30); Chloride 98 mmol/L (98-107); Estimated CRCL calculation 34 ml/min; Estimated Glomerular Filt Rate 33; Glucose 212 mg/dL (65-110); Magnesium 1.7 mg/dL (1.6-2.3); Potassium 3.2 mmol/L (3.4-5.0); Sodium 134 mmol/L (137-145)
[2022-09-04 08:56] LABS: Glucose Point of Care 202 mg/dl (65-105)
[2022-09-04] MEDS: LACTATED RINGERS 1,000 ML 150 ML IV CONT (09:02)
--- NOTE | 2022-09-04 09:05 | WPDANESEPPF ---
Anes - Initial Pre Proc Eval Procedure: Operation Date: 09/04/22 15:00 Proposed Procedures p Colonoscopy - Kevan Renae MD Date/Time: 09/04/22 09:05 Surgeon: Laly Wilson PA-C Pre Op Diagnosis: MEREDITH Patient Data Age: 61 Gender: F Height: 1.63 m Weight: 87.3 kg Last Vital Signs Temp 96.9 F L 09/04/22 08:58 Pulse 84 09/04/22 08:58 Resp 17 09/04/22 08:58 BP 163/76 H 09/04/22 08:58 Pulse Ox 97 09/04/22 08:58 O2 Del Method Room Air 09/04/22 08:58 Allergies Allergy/AdvReac Type Severity Reaction Status Date / Time amoxicillin Allergy Unknown Rash Verified 06/09/22 14:28 diclofenac Allergy Unknown LIP Verified 06/09/22 14:28 SWELLING dicloxacillin Allergy Unknown lips swell Verified 06/09/22 14:28 lisinopril Allergy Unknown Cough Verified 06/09/22 14:28 naproxen Allergy Unknown LIP Verified 06/09/22 14:28 SWELLING Penicillins Allergy Unknown HIVES Verified 06/09/22 14:28 piroxicam [Feldene] Allergy Unknown lips swell Verified 06/09/22 14:28 Home Medications Medication Instructions Recorded Confirmed Type blood sugar diagnostic #100 ea 11/04/19 09/02/22 Rx acetaminophen 650 mg 650 mg PO Q8H 07/06/20 09/02/22 History tablet,extended release (Tylenol Arthritis Pain) aspirin 325 mg tablet 325 mg PO DAILY 07/06/20 09/02/22 History diphenhydramine HCl 25 mg tablet 50 mg PO Q6H PRN Insomnia 07/06/20 09/02/22 History (Diphen) multivitamin (Daily Multi-Vitamin 1 tablet PO DAILY 07/06/20 09/02/22 History tablet) amlodipine 5 mg tablet 5 mg PO DAILY 10/27/20 09/02/22 History cholecalciferol (vitamin D3) 25 25 mcg PO DAILY 01/12/21 09/02/22 History mcg (1,000 unit) tablet ferrous gluconate 225 mg (27 mg 225 mg PO BID 01/12/21 09/02/22 History iron) tablet glucosamine sulf dipot 1 cap PO BID 01/12/21 09/02/22 History chlr,msm,chond 550 mg-C 30 mg-katie 1 mg capsule (Glucosamine Chondroitin) magnesium 250 mg tablet 250 mg PO HS 01/12/21 09/02/22 History vitamin B complex (B 1 tablet PO DAILY #90 tabs 07/19/21 09/02/22 Rx Complex-Vitamin B12 tablet) nebivolol 5 mg tablet (Bystolic) 10 mg PO DAILY #90 tabs 10/31/21 09/02/22 Rx fenofibrate micronized 134 mg 134 mg PO QPM 03/22/22 09/02/22 History capsule omeprazole 20 mg capsule,delayed 20 mg PO DAILY 03/22/22 09/02/22 History release solifenacin 5 mg tablet See Rx Instructions .Route 04/06/22 09/02/22 Rx .COMPLEX #90 tabs blood sugar diagnostic (Contour #100 ea 05/12/22 09/02/22 Rx Next Test Strips) glimepiride 2 mg tablet 4 mg PO QAM #180 tabs 06/07/22 09/02/22 Rx semaglutide 2 mg/dose (8 mg/3 mL) 2 mg (0.75 mL) subcut WEEKLY 90 06/12/22 09/02/22 Rx subcutaneous pen injector (Ozempic) days #9.75 mL estradiol 1 mg tablet See Rx Instructions .Route 07/11/22 09/02/22 Rx .COMPLEX #90 tabs hydralazine 100 mg tablet 100 mg PO TID #270 tabs 07/11/22 09/02/22 Rx irbesartan 300 mg tablet See Rx Instructions .Route 07/11/22 09/02/22 Rx .COMPLEX #90 tabs metformin 1,000 mg tablet See Rx Instructions .Route 07/11/22 09/02/22 Rx .COMPLEX #180 tabs pravastatin 40 mg tablet See Rx Instructions .Route 07/11/22 09/03/22 Rx .COMPLEX #90 tabs spironolactone 25 mg tablet See Rx Instructions .Route 07/11/22 09/02/22 Rx .COMPLEX #180 tabs Laboratory Tests 09/03/22 09/03/22 09/03/22 08:42 11:37 17:10 WBC RBC Hgb Hct MCV MCH MCHC RDW Plt Count MPV ESR Sodium Potassium Chloride Carbon Dioxide Anion Gap BUN Creatinine Estim Creat Clear Calc Estimated GFR Glucose POC Capillary Glucose 203 mg/dl H mg/dl 207 mg/dl H mg/dl 124 mg/dl H mg/dl (65-105) (65-105) (65-105) Calcium Magnesium
--- NOTE | 2022-09-04 09:50 | SUR.OPER ---
Only [address] Caldwell notified.
[2022-09-04 10:29] LABS: Glucose Point of Care 179 mg/dl (65-105)
[2022-09-04] MEDS: SODIUM CHLORIDE 0.9% IV 1,000 ML 50 ML IV CONT (10:45)
[2022-09-04] MEDS: ACETAMINOPHEN 325 MG TABLET 650 MG PO ×2 (10:46→20:04)
[2022-09-04] MEDS: ASPIRIN 325 MG TABLET PO (10:47)
[2022-09-04] MEDS: amLODIPine BESYLATE 5 MG TABLET PO (10:47)
[2022-09-04] MEDS: MULTIVITAMINS THERAPEUTIC TAB (*BKC) 1 TABLET PO (10:48)
[2022-09-04] MEDS: PANTOPRAZOLE 40 MG TABLET PO (10:48)
[2022-09-04] MEDS: CHOLECALCIFEROL 1,000 UNITS TABLET 1000 UNITS PO (10:48)
[2022-09-04] MEDS: estradioL 1 MG TABLET BY MOUTH (10:48)
[2022-09-04] MEDS: VITAMIN B COMPLEX CAPSULE 1 CAP PO (10:48)
[2022-09-04] MEDS: NEBIVOLOL HCL 5 MG TABLET 10 MG PO (10:49)
[2022-09-04] MEDS: SOLIFENACIN 5 MG TABLET BY MOUTH (10:50)
[2022-09-04 11:01] LABS: Erythrocyte Sedimentation Rate 21 mm/hr (0-20)
[2022-09-04 12:21] LABS: Glucose Point of Care 231 mg/dl (65-105)
[2022-09-04] MEDS: INSULIN ASPART (*BKC) 100 UNITS/ML SUB-Q (12:23)
[2022-09-04] MEDS: POTASSIUM CHLORIDE 20 MEQ PACKET (FOR LIQUID) 40 MEQ PO (12:24)
[2022-09-04] MEDS: CHOLESTYRAMINE LIGHT 4 GM POWD.PACK PO (12:24)
--- NOTE | 2022-09-04 14:07 | PM.PNNEP ---
Progress Note: A&P Assessment and Plan (1) MEREDITH (acute kidney injury): Code(s): N17.9 - Acute kidney failure, unspecified Status: Acute Assessment and Plan: presumably due to volume depletion and diminished oral intake use of ARB therapy and spironolactone may be contributing factors - these medications are on hold improvement already noted with IVF resuscitation follow trend of repeat labs and UOP (2) Stage 3b chronic kidney disease: Code(s): N18.32 - Chronic kidney disease, stage 3b Status: Chronic Assessment and Plan: baseline creatinine runs ~ 1.3 - 1.7mg/dl in the last few years presumably secondary to HTN, DM, vascular disease, and age. (3) Metabolic acidosis: Code(s): E87.20 - Acidosis, unspecified Status: Resolved Assessment and Plan: due to MEREDITH/ARF and ongoing diarrhea improvement with use of bicarbonate IVFs follow trend (4) Diarrhea: Code(s): R19.7 - Diarrhea, unspecified Status: Acute Assessment and Plan: etiology? medication related versus infection (?) Gastroenterology recommendations noted - s/p colonoscopy with results noted (5) Essential hypertension: Code(s): I10 - Essential (primary) hypertension Status: Chronic Assessment and Plan: reasonable control at this time follow trend of hemodynamics (6) Type 2 diabetes mellitus: Code(s): E11.9 - Type 2 diabetes mellitus without complications Status: Acute Assessment and Plan: follow accucheks glycemic control Will continue to follow. Subjective Date/time seen: 09/04/22 14:07 S/P colonoscopy earlier today and tolerated the procedure -- no significant findings noted; just ate lunch and has not had any further diarrhea since; no other apparent issues noted at this time; no distress voiced at the time of my visit. Exam Narrative: General: WD/WN female in NAD Heart: normal S1 and S2; no rub Lungs: clear to auscultation Abdomen: soft, nontender, nondistended, positive bowel sounds Extremities: no cyanosis or clubbing; no edema Skin: warm and dry Objective Data Vital Signs Vital Signs: Vital Signs Temp Pulse Resp BP Pulse Ox O2 Del Method 09/04/22 10:49 77 09/04/22 10:09 77 20 121/67 100 Room Air 09/04/22 09:59 82 20 137/67 100 Room Air 09/04/22 09:49 84 22 H 132/56 L 100 Room Air 09/04/22 08:58 36.1 C L 84 17 163/76 H 97 Room Air 09/04/22 06:10 36.5 C 91 20 115/64 98 09/04/22 06:05 36.2 C L 80 18 124/59 L 97 09/04/22 06:00 36.2 C L 83 18 127/57 L 97 09/04/22 06:00 36.2 C L 83 18 127/57 L 97 09/03/22 22:38 36.2 C L 91 18 116/93 H 97 Intake/Output Intake/Output: Intake & Output 09/01/22 09/02/22 09/03/22 09/04/22 23:59 23:59 23:59 23:59 Intake Total 2099 1989 622 Balance 2099 1989 622 Meds/Results Medications: Active Medications Generic Name Dose Route Start Last Admin Trade Name Freq PRN Reason Stop Dose Admin Acetaminophen 650 mg 09/02/22 19:20 09/04/22 10:46 Acetaminophen 325 Mg Tablet PO 650 mg Q8H PRN Administration pain or fever Amlodipine Besylate 5 mg 09/03/22 09:00 09/04/22 10:47 Amlodipine Besylate 5 Mg Tablet PO 5 mg DAILY KIMI Administration Aspirin 325 mg 09/03/22 09:00 09/04/22 10:47 Aspirin 325 Mg Tablet PO 325 mg DAILY KIMI Administration Cholestyramine Resin 4 gm 09/04/22 10:13 09/04/22 12:24 Cholestyramine Light 4 Gm Powd.Pack PO 4 gm QAM@1000 KIMI Administration Dextrose 12.5 gm 09/02/22 13:42 Dextrose 50% 25 Gm/50 Ml Syringe IV PUSH PRN PRN Hypoglycemia Protocol Diphenhydramine HCl 50 mg 09/02/22 19:20 Diphenhydramine Hcl Cap 25 Mg Capsule PO HS PRN Insomnia Estradiol 1 mg 09/03/22 09:00 09/04/22 10:48 Estradiol 1 Mg Tablet BY MOUTH 1 mg DAILY KIMI Administration Glucagon 1 m
--- NOTE | 2022-09-04 16:22 | PM.IMPN ---
Progress Note: A&P Assessment and Plan (1) Diarrhea: Code(s): R19.7 - Diarrhea, unspecified Status: Acute Assessment and Plan: Has had diarrhea ongoing for about [address] of the abdomen/pelvis showed liquid stool throughout the colon mild distention of the some, no additional acute findings. Appreciate GI consultation. Colonoscopy today revealed colon polyps with no evidence of obvious colitis or any other findings to explain diarrhea. Biopsies were taken to evaluate for microscopic colitis. Stool cultures are pending. Continue Levaquin and Flagyl while awaiting stool cultures. C diff negative. (2) Acute on chronic renal failure: Code(s): N17.9 - Acute kidney failure, unspecified; N18.9 - Chronic kidney disease, unspecified Status: Acute Assessment and Plan: Baseline creatinine appears to be around 1.3-1.6. Creatinine elevated up to 2.8 on presentation, suspect secondary to dehydration. Slow improvement in creatinine with IV fluids to 1.6 today. Continue to monitor renal function closely. Avoid nephrotoxins. Appreciate Nephrology consult. Continue gentle IV fluids at 50 mL/hour per Nephrology recommendation (3) Metabolic acidosis: Code(s): E87.20 - Acidosis, unspecified Status: Resolved Assessment and Plan: Likely secondary to diarrhea. resolved with bicarb drip. (4) Electrolyte abnormality: Code(s): E87.8 - Other disorders of electrolyte and fluid balance, not elsewhere classified Status: Acute Assessment and Plan: Potassium elevated at 5.1 on admission, likely due to dehydration, has normalized with IV fluids. Magnesium 1.5 on admission, improved with supplementation. 2.0 today. Calcium levels normal when corrected for albumin (5) Dehydration: Code(s): E86.0 - Dehydration Status: Acute Assessment and Plan: As above. Continue with gentle IV fluid (6) Essential hypertension: Code(s): I10 - Essential (primary) hypertension Status: Chronic Assessment and Plan: Blood pressures stable, low end of normal. Last BP 121/67ontinue home amlodipine, hydralazine, nebivolol. Spironolactone on hold. Resume when appropriate per nephrology recommendation (7) Type 2 diabetes mellitus: Code(s): E11.9 - Type 2 diabetes mellitus without complications Status: Acute Assessment and Plan: Last A1c in May 2022 was 8.7. Continue Accu-Cheks, sliding scale insulin, and hypoglycemic protocol. Ozempic and glimepiride on hold. 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 she had colonoscopy today and tolerated this well. She does still endorse some crampy abdominal discomfort. She has had less frequent bowel movements and has not had any stool since she returned from her colonoscopy. She does feel a bit unsteady when she is walking and feels dizzy and lightheaded with standing. States she did get some rest last night and felt better after this. She had 1 episode of clear emesis today. She also complains of postnasal drip. She has a poor appetite. Review of Systems Review of Systems: All systems reviewed & are unremarkable except as noted in HPI and below Exam Narrative: General: Well-nourished, well-appearing 61-year-old female, sitting up in bed, comfortable, NARD Neuro: awake, alert and oriented x4, speech clear, no focal neuro deficits noted HEENMT: normocephalic, atraumatic, EOMI, sclerae anicteric Respiratory: clear to auscultation bilaterally, nonlabored breathing Cardio: regular rate, regular rhythm with S1-S2 Abdomen: nondistended, normoactive bowel sounds
[2022-09-04 17:56] LABS: Glucose Point of Care 118 mg/dl (65-105)
[2022-09-04] MEDS: diphenhydrAMINE HCl CAP 25 MG CAPSULE 50 MG PO (20:04)
[2022-09-04] MEDS: MAGNESIUM 13.5 MG TABLET (250 MG MAG GLUCONATE) PO (20:05)
[2022-09-04] MEDS: PRAVASTATIN SODIUM 20 MG TABLET 40 MG BY MOUTH (20:05)
[2022-09-04 20:09] LABS: Glucose Point of Care 155 mg/dl (65-105)
[2022-09-05] MEDS: metroNIDAZOLE 500 MG/ISO 100ML 500 MG/100 ML BAG 100 MG IVPB ×2 (02:08→08:52)
[2022-09-05] MEDS: hydrALAZINE HCL 50 MG TABLET 100 MG PO (05:03)
[2022-09-05 05:38] VITALS: BP 147/60; PULSE 73; RESP 20; TEMP 36.8; O2SAT 94
[2022-09-05 05:59] LABS: Anion Gap 13 mmol/L (8-16); Blood Urea Nitrogen 18 mg/dL (7-17); Calcium 9.2 mg/dL (8.4-10.2); Carbon Dioxide 25 mmol/L (22-30); Chloride 103 mmol/L (98-107); Estimated CRCL calculation 39 ml/min; Estimated Glomerular Filt Rate 38; Glucose 178 mg/dL (65-110); Magnesium 1.5 mg/dL (1.6-2.3); Potassium 3.8 mmol/L (3.4-5.0); Sodium 141 mmol/L (137-145)
[2022-09-05 06:23] LABS: Hematocrit 34.6 % (37.0-47.0); Hemoglobin 11.2 g/dL (12.0-15.0); Mean Corpuscular HGB Conc 32.4 g/dl (32-36); Mean Corpuscular Hemoglobin 29.6 pg (26-34); Mean Corpuscular Volume 91.5 fl (80-100); Mean Platelet Volume 9.7 fl (7.4-10.4); Platelet Count Result 419 k/mm3 (150-375); Red Blood Count 3.78 M/mm3 (4.2-5.4); Red Cell Distribution Width 13.5 % (11.5-14.5); White Blood Count 8.8 K/mm3 (4.5-10.0)
[2022-09-05] MEDS: VITAMIN B COMPLEX CAPSULE 1 CAP PO (08:50)
[2022-09-05] MEDS: ASPIRIN 325 MG TABLET PO (08:50)
[2022-09-05] MEDS: NEBIVOLOL HCL 5 MG TABLET 10 MG PO (08:50)
[2022-09-05] MEDS: SOLIFENACIN 5 MG TABLET BY MOUTH (08:50)
[2022-09-05] MEDS: amLODIPine BESYLATE 5 MG TABLET PO (08:50)
[2022-09-05 08:51] LABS: Glucose Point of Care 243 mg/dl (65-105)
[2022-09-05] MEDS: CHOLECALCIFEROL 1,000 UNITS TABLET 1000 UNITS PO (08:51)
[2022-09-05] MEDS: estradioL 1 MG TABLET BY MOUTH (08:51)
[2022-09-05] MEDS: MULTIVITAMINS THERAPEUTIC TAB (*BKC) 1 TABLET PO (08:51)
[2022-09-05] MEDS: PANTOPRAZOLE 40 MG TABLET PO (08:51)
[2022-09-05] MEDS: INSULIN ASPART (*BKC) 100 UNITS/ML SUB-Q ×2 (08:59→12:31)
[2022-09-05] MEDS: CHOLESTYRAMINE LIGHT 4 GM POWD.PACK PO (10:58)
[2022-09-05] MEDS: MAGNESIUM SULF 2 GM/WATER 50ML 2 GM/50 ML BAG IVPB (10:58)
--- NOTE | 2022-09-05 11:28 | PM.DS ---
DS: Admitting Diagnosis Discharge Date 09/05/2022 Admitting Diagnosis diarrhea DS: Discharge Diagnosis Discharge Diagnosis (1) Diarrhea: Code(s): R19.7 - Diarrhea, unspecified Status: Acute Assessment and Plan: Presented with diarrhea ongoing for about [address] of the abdomen/pelvis showed liquid stool throughout the colon, mild distention of the stomach, no additional acute findings. She was seen in consultation by GI. Underwent colonoscopy which revealed colon polyps with no evidence of obvious colitis or any other findings to explain diarrhea. Biopsies were taken to evaluate for microscopic colitis. Stool cultures, including C diff, or negative. Treated with IV Levaquin and Flagyl and will continue to complete antibiotic course as an outpatient. (2) Acute on chronic renal failure: Code(s): N17.9 - Acute kidney failure, unspecified; N18.9 - Chronic kidney disease, unspecified Status: Acute Assessment and Plan: Baseline creatinine appears to be around 1.3-1.6. Creatinine elevated up to 2.8 on presentation, suspect secondary to dehydration. Slow improvement in creatinine follow-up IV fluid rehydration back to baseline. Patient was seen in consultation by nephrology during admission and will continue with outpatient follow-up (3) Metabolic acidosis: Code(s): E87.20 - Acidosis, unspecified Status: Resolved Assessment and Plan: Likely secondary to diarrhea. resolved with bicarb drip. (4) Electrolyte abnormality: Code(s): E87.8 - Other disorders of electrolyte and fluid balance, not elsewhere classified Status: Acute Assessment and Plan: Potassium elevated at 5.1 on admission, likely due to dehydration, and normalized with IV fluids. Magnesium 1.5 on admission, improved with supplementation. Continue home magnesium supplementation, increased to b.i.d. Calcium levels normal when corrected for albumin. Recheck magnesium levels in 1 week to ensure remaining stable with improvement in diarrhea (5) Dehydration: Code(s): E86.0 - Dehydration Status: Acute Assessment and Plan: As above. She was appropriately rehydrated and was able to tolerate adequate p.o. intake (6) Essential hypertension: Code(s): I10 - Essential (primary) hypertension Status: Chronic Assessment and Plan: Blood pressures remained stable. Continue home amlodipine, hydralazine, nebivolol, and spironolactone. (7) Type 2 diabetes mellitus: Code(s): E11.9 - Type 2 diabetes mellitus without complications Status: Acute Assessment and Plan: Last A1c in May 2022 was 8.7. Continue home Ozempic, metformin, glimepiride DS: Summary Hospital Course Hospital Course: Date of admission: 09/02/2022 Date of discharge: 09/05/2022 Jenna Mars is a 61-year-old female with a history of chronic anemia, CKD, hypertension, GERD, hyperlipidemia, aortic stenosis, type 2 diabetes mellitus, vitamin B12 deficiency, and Anjelica Parkinson White syndrome who presented to the emergency department on 09/02/2022 with complaints of ongoing diarrhea for 1 week. On presentation to the ED, her vital signs were stable, she was afebrile, WBC 12.8, platelets 581, potassium 5.1, creatinine 2.8, lactic 1.0, C diff negative, CT of the abdomen/pelvis showed liquid stool throughout the colon. She was admitted to the hospitalist service for further evaluation and management was seen in consultation by GI. Please see above for further details. She underwent colonoscopy and biopsies were collected. She was treated with antibiotics during admission which she will continue as an outpatient to complete full course. Diarrhea did improve and patient had overall symptomatic improvement. Her stools were becoming formed and she felt comfortable with plans for return home. She will follow-up with GI as an outpatient for further monitoring and will se
[2022-09-05 12:22] LABS: Glucose Point of Care 229 mg/dl (65-105)
[2022-09-09 20:03] LABS: Tissue Transglutaminase IgA Ab 2.3 U/mL (<15.0)
[2022-09-10 14:30] LABS: Tissue Transglutaminase IgG Ab <1.0 U/mL (<15.0)
== END 2022-09-05 13:40 | disposition home or self-care (01) | DRG 683 ==
LOC: ANHED 12:01 → ANH2MED 13:10
PROVIDERS: Emergency Medicine; Internal Medicine Gastroenterology; Physician Assistant; Admitting Provider Internal Medicine; Emergency Provider Nurse Practitioner Family; PCP Family Medicine; Visit Provider Family Medicine
PROC: 0DJD8ZZ Inspection of Lower Intestinal Tract, Via Natural or Artificial Opening Endoscopic (ICD-10-PCS; CPT 45378; principal; 2022-09-04 15:00)
DX: N17.9 Acute kidney failure, unspecified (principal); E87.21 Acute metabolic acidosis; E86.0 Dehydration; R19.7 Diarrhea, unspecified; E11.22 Type 2 diabetes mellitus with diabetic chronic kidney disease; I12.9 Hypertensive chronic kidney disease with stage 1 through stage 4 chronic kidney disease, or unspecified chronic kidney disease; E11.42 Type 2 diabetes mellitus with diabetic polyneuropathy; N18.32 Chronic kidney disease, stage 3b; K63.5 Polyp of colon; K64.8 Other hemorrhoids; K21.9 Gastro-esophageal reflux disease without esophagitis; E78.2 Mixed hyperlipidemia; I45.6 Pre-excitation syndrome; Z96.653 Presence of artificial knee joint, bilateral; Z83.3 Family history of diabetes mellitus; Z82.49 Family history of ischemic heart disease and other diseases of the circulatory system; Z79.82 Long term (current) use of aspirin; Z79.84 Long term (current) use of oral hypoglycemic drugs; Z79.899 Other long term (current) drug therapy; Z88.0 Allergy status to penicillin; Z88.8 Allergy status to other drugs, medicaments and biological substances; Z20.822 Contact with and (suspected) exposure to COVID-19
CPT/HCPCS: 36415; 74176; 80048; 80053; 81001; 82803; 82948; 83516; 83605; 83690; 83735; 84100; 85025; 85027; 85652; 86140; 87040; 87045; 87177; 87209; 87269; 87272; 87427; 87493; 87637; 88305; 89055; 93005; 96365; 96366; 96367; 96372; 99285; A9270; G0378; J0500; J1650; J1815; J1956; J2405; J2704; J3475; J7030; J7070; J7120

== ENCOUNTER 2022-09-13 11:02 | Outpatient (CLI) | payer OTHER, SELFPAY ==
[2022-09-13 11:42] LABS: Magnesium 1.6 mg/dL (1.6-2.3)
== END 2022-09-13 11:03 | disposition home or self-care (01) ==
PROVIDERS: PCP Family Medicine; Visit Provider Physician Assistant
DX: E87.8 Other disorders of electrolyte and fluid balance, not elsewhere classified (principal)
CPT/HCPCS: 36415; 83735

== ENCOUNTER 2022-09-13 16:38 | Outpatient (CLI) | payer OTHER, SELFPAY ==
[2022-09-13 16:53] LABS: Hematocrit 33.9 % (37.0-47.0); Hemoglobin 11.1 g/dL (12.0-15.0); Mean Corpuscular HGB Conc 32.7 g/dl (32-36); Mean Corpuscular Hemoglobin 30.4 pg (26-34); Mean Corpuscular Volume 92.9 fl (80-100); Mean Platelet Volume 9.5 fl (7.4-10.4); Platelet Count Result 402 k/mm3 (150-375); Red Blood Count 3.65 M/mm3 (4.2-5.4); Red Cell Distribution Width 13.5 % (11.5-14.5); White Blood Count 15.6 K/mm3 (4.5-10.0)
[2022-09-13 17:09] LABS: Alanine Aminotransferase 19 U/L (6-35); Albumin Level 4.2 g/dL (3.5-5.1); Alkaline Phosphatase 48 U/L (38-126); Anion Gap 9 mmol/L (8-16); Aspartate Amino Transferase 42 U/L (14-36); Bilirubin,Total 0.2 mg/dL (0.2-1.3); Blood Urea Nitrogen 25 mg/dL (7-17); Calcium 9.3 mg/dL (8.4-10.2); Carbon Dioxide 23 mmol/L (22-30); Chloride 104 mmol/L (98-107); Estimated Glomerular Filt Rate 38; Glucose 114 mg/dL (65-110); Potassium 4.8 mmol/L (3.4-5.0); Sodium 136 mmol/L (137-145)
== END 2022-09-13 16:39 | disposition home or self-care (01) ==
PROVIDERS: PCP Family Medicine; Visit Provider Nurse Practitioner
DX: N17.9 Acute kidney failure, unspecified (principal); N18.9 Chronic kidney disease, unspecified; N18.32 Chronic kidney disease, stage 3b
CPT/HCPCS: 36415; 80053; 85027

== ENCOUNTER 2022-09-20 09:43 | Outpatient (CLI) | payer OTHER, SELFPAY ==
[2022-09-20 12:36] LABS: Toxigenic C. Diff NEGATIVE (NEGATIVE)
== END 2022-09-20 09:44 | disposition home or self-care (01) ==
LOC: ANHLAB 09:45
PROVIDERS: PCP Family Medicine; Visit Provider Nurse Practitioner
DX: R19.7 Diarrhea, unspecified (principal)
CPT/HCPCS: 87045; 87427; 87493

== ENCOUNTER 2022-11-02 11:31 | Outpatient (CLI) | payer OTHER, SELFPAY ==
[2022-11-02 12:10] LABS: Hematocrit 35.6 % (37.0-47.0); Hemoglobin 11.4 g/dL (12.0-15.0); Mean Corpuscular Volume 93.7 fl (80-100); Mean Platelet Volume 9.5 fl (7.4-10.4); Platelet Count Result 408 k/mm3 (150-375); Red Cell Distribution Width 12.8 % (11.5-14.5); White Blood Count 7.5 K/mm3 (4.5-10.0)
[2022-11-02 12:23] LABS: Chloride 98 mmol/L (98-107)
[2022-11-02 12:26] LABS: Albumin Level 4.5 g/dL (3.5-5.1); Anion Gap 5 mmol/L (8-16); Blood Urea Nitrogen 25 mg/dL (7-17); Calcium 8.9 mg/dL (8.4-10.2); Carbon Dioxide 29 mmol/L (22-30); Estimated Glomerular Filt Rate 41; Glucose 268 mg/dL (65-110); Phosphorus 3.1 mg/dL (2.5-4.5); Potassium 4.1 mmol/L (3.4-5.0); Sodium 132 mmol/L (137-145)
[2022-11-02 12:27] LABS: Creatinine Urine 105.4 mg/dL; Total Protein Urine Random 19 mg/dL; Ur Ttl Prot Creatinine Ratio 0.18 mg/mg (0-0.20)
[2022-11-02 12:28] LABS: Hemoglobin A1C 7.5 % (<5.7)
[2022-11-02 12:38] LABS: Parathyroid Intact 22.1 pg/mL (7.5-53.5)
== END 2022-11-02 11:32 | disposition home or self-care (01) ==
LOC: ANHLAB 11:35
PROVIDERS: PCP Family Medicine; Visit Provider Internal Medicine Nephrology
DX: N18.32 Chronic kidney disease, stage 3b (principal); E11.9 Type 2 diabetes mellitus without complications
CPT/HCPCS: 36415; 80069; 82570; 83036; 83970; 84156; 85027

== ENCOUNTER 2023-02-15 11:54 | Outpatient (CLI) | payer OTHER, SELFPAY ==
[2023-02-15 19:11] LABS: Cholesterol 173 mg/dL (0-200); HDL Direct 39 mg/dL; Triglycerides 276 mg/dL (<150)
[2023-02-15 19:22] LABS: LDL Cholesterol Direct 99 mg/dL
[2023-02-15 19:44] LABS: Creatinine Urine 161.8 mg/dL
[2023-02-15 20:03] LABS: Hemoglobin A1C 8.5 % (<5.7)
[2023-02-15 20:07] LABS: MALB Creatinine Ratio 252.2 mg/g (0-30); Microalbumin Urine Random 408.1 mg/L (0-16.7)
== END 2023-02-15 11:55 | disposition home or self-care (01) ==
PROVIDERS: PCP Family Medicine; Visit Provider Family Medicine
DX: E11.9 Type 2 diabetes mellitus without complications (principal)
CPT/HCPCS: 36415; 80061; 82043; 83036

== ENCOUNTER 2023-03-14 08:59 | Outpatient (CLI) | payer OTHER, SELFPAY ==
--- NOTE | ~2023-03-14 | XR_ITS ---
EXAM: XR knee RT 3V, XR knee LT 3V DATE: 03/14/2023 09:32 HISTORY: Z96.653 - Presence of artificial knee joint, bilateral . COMPARISON: X-ray bilateral knees 03/21/2022. FINDINGS: Bilateral knee arthroplasties. Decreased mineralization. No fracture or dislocation. No ly tic or blastic lesion. Joint spaces are maintained. No erosion or periosteal change. Soft tissues wit hin normal limits. Moderate volume joint fluid bilaterally. IMPRESSION: No acute osseous finding in either knee. No radiographic evidence hardware related compli cation in the left or right knees. Reviewed, dictated and finalized at location K. IMPRESSION: No acute osseous finding in either knee. No radiographic evidence h ardware related complication in the left or right knees.
== END 2023-03-14 09:00 | disposition home or self-care (01) ==
LOC: ANHBWCIMG 09:21
PROVIDERS: PCP Family Medicine; Visit Provider Orthopaedic Surgery
DX: Z96.653 Presence of artificial knee joint, bilateral (principal)
CPT/HCPCS: 73562

== ENCOUNTER 2023-04-26 10:31 | Outpatient (CLI) | payer OTHER, SELFPAY ==
[2023-04-26 18:56] LABS: Creatinine Urine 74.2 mg/dL; Total Protein Urine Random 11 mg/dL; Ur Ttl Prot Creatinine Ratio 0.15 mg/mg (0-0.20)
[2023-04-26 19:28] LABS: Albumin Level 4.6 g/dL (3.5-5.1); Anion Gap 12 mmol/L (8-16); Blood Urea Nitrogen 25 mg/dL (7-17); Calcium 9.8 mg/dL (8.4-10.2); Carbon Dioxide 24 mmol/L (22-30); Chloride 100 mmol/L (98-107); Estimated Glomerular Filt Rate 38; Glucose 207 mg/dL (65-110); Phosphorus 4.1 mg/dL (2.5-4.5); Potassium 4.6 mmol/L (3.4-5.0); Sodium 136 mmol/L (137-145)
== END 2023-04-26 10:32 | disposition home or self-care (01) ==
PROVIDERS: PCP Family Medicine; Visit Provider Internal Medicine Nephrology
DX: N18.31 Chronic kidney disease, stage 3a (principal)
CPT/HCPCS: 36415; 80069; 82570; 84156

== ENCOUNTER 2023-05-10 21:27 | Emergency (ER) | payer OTHER, SELFPAY ==
[2023-05-10] VITALS (8 sets, daily range): BP systolic 152–162; BP diastolic 58–73; PULSE 88–95; RESP 16–18; TEMP 37.7; O2SAT 94–96
--- NOTE | ~2023-05-10 | XR_ITS ---
EXAMINATION: XR chest 2V Exam Date/Time: 05/10/2023 21:39 CDT HISTORY: shortness of breath, COUGH AND FEVER FOR 3 DAYS Comparison: 07/19/2019. RESULT: Lines, tubes, and devices: Cholecystomy clips. Lungs and pleura: Patchy, somewhat nodular appearing segmental opacities in the left mid and lower l alida. Cardiomediastinal silhouette: Stable. Other: No acute osseous or upper abdominal finding. IMPRESSION: Left lung opacities may represent multifocal pneumonia in appropriate clinical context. Recommend joelle rt-term follow-up after appropriate therapy to ensure resolution. Reviewed, dictated and finalized at location K. IMPRESSION: Left lung opacities may represent multifocal pneumonia in appropriate clinical context. Recommend short-term follow-up after appropriate therapy to ensure res olution.
[2023-05-10 22:24] LABS: Influenza A QL RT-PCR Negative (Negative); Influenza B QL RT-PCR Negative (Negative); RSV RNA, RT-PCR Negative (Negative); SARS-CoV-2 RNA PCR Negative (Negative)
--- NOTE | 2023-05-10 23:08 | PC.NURSE ---
This RN assumed care of patient.
--- NOTE | 2023-05-10 23:47 | ED.GENADULT ---
HPI - General Adult General Chief complaint: Upper Respiratory Infection Stated complaint: cough, fever Time Seen by Provider: 05/10/23 23:34 History of Present Illness HPI narrative: Is a 62-year-old female who presents emerged part with chief complaint of cough. Patient reports for the last several days she has had a productive cough reports that worsen if she lays flat and reports that is worse on the right side. The patient reports that she had a low-grade temperature at home reports that tonight they noticed that when she was laying flat her oxygen saturation may have drifted so to come to the emergency department for evaluation. Patient reports no prior history of COPD reports no prior history of heart failure Related Data Home Medications Medication Instructions Recorded Confirmed acetaminophen 650 mg 650 mg PO Q8H 07/06/20 04/30/23 tablet,extended release (Tylenol Arthritis Pain) cholecalciferol (vitamin D3) 25 25 mcg PO DAILY 01/12/21 04/30/23 mcg (1,000 unit) tablet ferrous gluconate 225 mg (27 mg 225 mg PO BID 01/12/21 04/30/23 iron) tablet omeprazole 20 mg capsule,delayed 20 mg PO DAILY 03/22/22 04/30/23 release mecobalamin (vitamin B12) 1,000 1,000 mcg PO DAILY 11/01/22 04/30/23 mcg chewable tablet aspirin 81 mg tablet,delayed 81 mg PO DAILY 02/22/23 04/30/23 release (Adult Aspirin Regimen) magnesium 250 mg tablet 400 mg PO BID 03/21/23 04/30/23 Allergies Allergy/AdvReac Type Severity Reaction Status Date / Time amoxicillin Allergy Unknown Rash Verified 05/10/23 21:33 diclofenac Allergy Unknown LIP Verified 05/10/23 21:33 SWELLING dicloxacillin Allergy Unknown lips swell Verified 05/10/23 21:33 lisinopril Allergy Unknown Cough Verified 05/10/23 21:33 naproxen Allergy Unknown LIP Verified 05/10/23 21:33 SWELLING Penicillins Allergy Unknown HIVES Verified 05/10/23 21:33 piroxicam [Feldene] Allergy Unknown lips swell Verified 05/10/23 21:33 Review of Systems Review of Systems: A 10 system review of systems was completed on the patient and is negative except for what is stated in the HPI. Nursing and ancillary documentation was reviewed. [facility] Past Medical History Medical History Adenomatous colon polyp Chronic anemia Chronic kidney disease, stage 3 Diabetic peripheral neuropathy Essential hypertension Gastroesophageal reflux disease Hypertension Mixed hyperlipidemia Nonrheumatic aortic valve stenosis Osteoarthritis Overactive bladder Type 2 diabetes mellitus Vitamin B12 deficiency Eaqag-Jvkunwdka-Sulmk syndrome Surgical History Surgical History History of arthroplasty of left knee (08/2018) History of arthroplasty of right knee (01/2021) History of arthroscopy of left knee (01/2018) History of hammertoe correction (08/2007) History of hysterectomy History of laparoscopic cholecystectomy (01/2009) History of tubal ligation (1987) Family History Family History Father Diabetes mellitus Family history of cardiovascular disease Acute myocardial infarction Mother Depression Family history of cardiovascular disease Acute myocardial infarction, Onset Age: 76 Family history of chronic obstructive pulmonary disease Social History Social History Social History: Surrogate medical decision maker: Maurilio Mars, spouse. Code status: Full code. Smoking status: Never smoker Alcohol intake: never Substance use: never Substance use type: does not use Lack of Transportation: No Lack of Food: Never True Current Housing: I Have Housing Concerned About Future Housing: No Difficulty Paying Gas/Electric Bills: No Difficulty Paying for Meds: No Currently Unemployed: No Education: Trade/Vocation
--- NOTE | 2023-05-10 23:48 | PC.NURSE ---
RN walked with patient per EDP protocol. O2 saturation stayed about 93%. EDP made aware. Pt walked without assistance with a fair gait.
[2023-05-10] MEDS: BENZONATATE 100 MG CAPSULE 200 MG PO (23:54)
[2023-05-10] MEDS: AZITHROMYCIN 250 MG TABLET 500 MG PO (23:55)
[2023-05-11] MEDS: ALBUTEROL SULFATE (*SP) INHALER 2 PUFF INHALATION (00:25)
[2023-05-11 00:29] VITALS: RESP 20
[2023-05-11] MEDS: CEFDINIR 300 MG CAPSULE PO (00:36)
[2023-05-11 00:47] VITALS: BP 146/62; PULSE 87; RESP 12; O2SAT 93
== END 2023-05-11 00:49 | disposition home or self-care (01) ==
PROVIDERS: Emergency Medicine; Emergency Provider Emergency Medicine; PCP Family Medicine
DX: J18.9 Pneumonia, unspecified organism (principal); Z20.822 Contact with and (suspected) exposure to COVID-19; E11.22 Type 2 diabetes mellitus with diabetic chronic kidney disease; I12.9 Hypertensive chronic kidney disease with stage 1 through stage 4 chronic kidney disease, or unspecified chronic kidney disease; N18.30 Chronic kidney disease, stage 3 unspecified; D64.9 Anemia, unspecified; K21.9 Gastro-esophageal reflux disease without esophagitis; E78.2 Mixed hyperlipidemia; N32.81 Overactive bladder; E53.8 Deficiency of other specified B group vitamins; Z96.653 Presence of artificial knee joint, bilateral; Z90.49 Acquired absence of other specified parts of digestive tract; Z90.710 Acquired absence of both cervix and uterus; I45.6 Pre-excitation syndrome; Z86.010 Personal history of colon polyps; Z79.82 Long term (current) use of aspirin; Z79.85 Long-term (current) use of injectable non-insulin antidiabetic drugs; Z79.84 Long term (current) use of oral hypoglycemic drugs
CPT/HCPCS: 71046; 87637; 94640; 94664; 99283; A9270

== ENCOUNTER 2023-05-24 08:08 | Outpatient (CLI) | payer OTHER, SELFPAY ==
[2023-05-24 19:02] LABS: Alanine Aminotransferase 27 U/L (6-35); Albumin Level 4.6 g/dL (3.5-5.1); Alkaline Phosphatase 44 U/L (38-126); Anion Gap 15 mmol/L (8-16); Aspartate Amino Transferase 95 U/L (14-36); Bilirubin,Total 0.4 mg/dL (0.2-1.3); Blood Urea Nitrogen 34 mg/dL (7-17); Calcium 9.6 mg/dL (8.4-10.2); Carbon Dioxide 16 mmol/L (22-30); Chloride 106 mmol/L (98-107); Estimated Glomerular Filt Rate 35; Glucose 130 mg/dL (65-110); Sodium 137 mmol/L (137-145)
[2023-05-24 19:35] LABS: Hemoglobin A1C 8.8 % (<5.7)
== END 2023-05-24 08:09 | disposition home or self-care (01) ==
PROVIDERS: PCP Family Medicine; Visit Provider Family Medicine
DX: E11.9 Type 2 diabetes mellitus without complications (principal)
CPT/HCPCS: 36415; 80053; 83036

== ENCOUNTER 2023-06-27 07:23 | Outpatient (CLI) | payer OTHER, SELFPAY ==
--- NOTE | 2023-06-27 | ECHO_ITS ---
Patient Info Name: Jenna Mars Age: 62 years : 1960 Gender: Female Ht: 64 in Wt: 193 lbs BSA: 2.02 m2 HR: 81 bpm BP: 150 / 76 mmHg Heart Rhythm: Sinus Rhythm Exam Date: 06/27/2023 7:59 AM Exam Location: [facility] Patient Status: Outpatient Admit Date: 06/27/2023 Staff Ordering Physician: Kevin Metcalf MD Remote Control Assembler: Betsy Kramer RDCS Attending Provider: Kevin Metcalf MD Referring Physician: Dixon DOMINGUEZ; Exam Type: CA echo doppler color flow Study Info Indications - MURMUR Complete two-dimensional, color flow and Doppler transthoracic echocardiogram is performed. Summary 1. Left ventricular chamber dimension is normal. 2. Left ventricular systolic function is normal, estimated at 60-65%. 3. There is mild asymmetric septal increased left ventricular wall thickness. 4. The left ventricular diastolic function is grade I diastolic dysfunction. 5. 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 6. There is mild mitral valve stenosis. 7. There is mild mitral valve regurgitation. 8. The mitral valve annulus is mildly calcified. 9. The aortic valve is probable trileaflet. 10. There is severe aortic valve calcification. 11. There is moderate to severe aortic valve stenosis with a peak velocity of 321 cm/s, mean gradient of 19 mmHg, and aortic valve area of 0.8 cm2. 12. There is no aortic valve regurgitation. 13. Mild pulmonary hypertension, estimated pulmonary arterial systolic pressure is 40 mmHg. 14. There is trace tricuspid valve regurgitation. Left Ventricle Left ventricular chamber dimension is normal. Left ventricular systolic function is normal, estimated at 60-65%. There is mild asymmetric septal increased left ventricular wall thickness. The left ventricular diastolic function is grade I diastolic dysfunction. Right Ventricle Right ventricular chamber dimension is normal. Right ventricular systolic function is normal. Left Atria Left atrial chamber dimension is mildly enlarged. Right Atria Right atrial chamber dimension is mildly enlarged. Aortic Valve There is severe aortic valve calcification. The aortic valve is probable trileaflet. There is moderate to severe aortic valve stenosis with a peak velocity of 321 cm/s, mean gradient of 19 mmHg, and aortic valve area of 0.8 cm2. There is no aortic valve regurgitation. Pulmonic Valve The pulmonic valve is not well visualized. There is trace pulmonic regurgitation. Mitral Valve The mitral valve has myxomatous leaflets with heavier calcification of the anterior leaflet extending in to sub mitral apparatus with calcification of chordae tendinae.. There is mild mitral valve stenosis. There is mild mitral valve regurgitation. The mitral valve annulus is mildly calcified. Tricuspid Valve The tricuspid valve leaflets are normal. There is trace tricuspid valve regurgitation. Mild pulmonary hypertension, estimated pulmonary arterial systolic pressure is 40 mmHg. Pericardium/Pleural The pericardium appears normal. There is trivial pericardial effusion. Inferior Vena Cava Normal inferior vena cava with <50% collapse upon inspiration consistent with elevated right atrial pressure, 10 mmHg. Aorta The aortic root size at the sinus of Valsalva is normal. There is mild aortic atherosclerosis. Left Ventricular Outflow Tract Name Value Norm
== END 2023-06-27 07:24 | disposition home or self-care (01) ==
LOC: ANHCARD 07:25
PROVIDERS: PCP Family Medicine; Visit Provider Internal Medicine Cardiovascular Disease
DX: E11.59 Type 2 diabetes mellitus with other circulatory complications (principal); I15.2 Hypertension secondary to endocrine disorders; E11.69 Type 2 diabetes mellitus with other specified complication; E78.5 Hyperlipidemia, unspecified; I49.3 Ventricular premature depolarization; I08.3 Combined rheumatic disorders of mitral, aortic and tricuspid valves
CPT/HCPCS: 93306

== ENCOUNTER 2023-07-12 00:50 | Day surgery (SDC) | payer OTHER, SELFPAY ==
[2023-07-11 15:12] VITALS: BMI 33.3
[2023-07-12] VITALS (9 sets, daily range): BP systolic 141–195; BP diastolic 68–112; PULSE 74–86; RESP 12–18; TEMP 36.8; O2SAT 96–99; BMI 33.8
--- NOTE | 2023-07-12 10:47 | WPDMODSED ---
Moderate Sedation Note-Pt Data Patient Data Diagnosis: Aortic stenosis Present Complaint: Aortic stenosis Procedure to be performed/Plan: 1. Moderate sedation 2. Transesophageal echocardiogram with color-flow pulse-wave Doppler Allergies Allergy/AdvReac Type Severity Reaction Status Date / Time amoxicillin Allergy Unknown Rash Verified 07/12/23 10:10 diclofenac Allergy Unknown LIP Verified 07/12/23 10:10 SWELLING dicloxacillin Allergy Unknown lips swell Verified 07/12/23 10:10 lisinopril Allergy Unknown Cough Verified 07/12/23 10:10 naproxen Allergy Unknown LIP Verified 07/12/23 10:10 SWELLING Penicillins Allergy Unknown HIVES Verified 07/12/23 10:10 piroxicam [Feldene] Allergy Unknown lips swell Verified 07/12/23 10:10 Home Medications Medication Instructions Recorded Confirmed Type blood sugar diagnostic #100 ea 11/04/19 03/21/23 Rx acetaminophen 650 mg 650 mg PO Q8H PRN Pain 07/06/20 07/12/23 History tablet,extended release (Tylenol Arthritis Pain) cholecalciferol (vitamin D3) 25 25 mcg PO DAILY 01/12/21 07/11/23 History mcg (1,000 unit) tablet vitamin B complex (B 1 tablet PO DAILY #90 tabs 07/19/21 07/11/23 Rx Complex-Vitamin B12 tablet) omeprazole 20 mg capsule,delayed 20 mg PO DAILY 03/22/22 07/12/23 History release hydroxyzine HCl 50 mg tablet 50 mg PO QID PRN itching #120 tabs 11/01/22 04/30/23 Rx mecobalamin (vitamin B12) 1,000 1,000 mcg PO DAILY 11/01/22 07/11/23 History mcg chewable tablet aspirin 81 mg tablet,delayed 81 mg PO DAILY 02/22/23 07/11/23 History release (Adult Aspirin Regimen) amlodipine 2.5 mg tablet 2.5 mg PO DAILY #90 tabs 02/26/23 07/12/23 Rx estradiol 1 mg tablet 0.5 mg PO DAILY #30 tabs 03/06/23 07/11/23 Rx gabapentin 300 mg capsule 300 mg PO TID #270 caps 04/13/23 07/12/23 Rx sitagliptin phosphate 100 mg 100 mg PO DAILY #90 tabs 04/13/23 07/11/23 Rx tablet (Januvia) fenofibrate micronized 134 mg 134 mg PO QPM #90 caps 06/08/23 07/11/23 Rx capsule metoprolol tartrate 50 mg tablet 50 mg PO BID #180 tabs 06/08/23 07/12/23 Rx ferrous gluconate 225 mg (27 mg 225 mg PO TID 06/21/23 07/11/23 History iron) tablet magnesium 250 mg tablet 400 mg PO QHS 06/21/23 07/11/23 History solifenacin 5 mg tablet 5 mg PO DAILY #90 tabs 06/21/23 07/11/23 Rx blood sugar diagnostic (Contour #100 ea 06/29/23 Rx Next Test Strips) dulaglutide 4.5 mg/0.5 mL 4.5 mg (0.5 mL) subcut WEEKLY 90 07/09/23 07/11/23 Rx subcutaneous pen injector days #6.5 mL (Trulicity) diphenhydramine HCl 50 mg tablet 50 mg PO HS PRN Insomnia 07/11/23 07/11/23 History glimepiride 2 mg tablet 4 mg PO QAM 07/11/23 07/11/23 History hydralazine 100 mg tablet 100 mg PO TID 07/11/23 07/12/23 History hydroxyzine HCl 50 mg tablet 50 mg PO QID PRN Itching 07/11/23 07/11/23 History irbesartan 300 mg tablet 300 mg PO DAILY 07/11/23 07/11/23 History metformin 1,000 mg tablet 1,000 mg PO BID 07/11/23 07/11/23 History pravastatin 40 mg tablet 40 mg PO HS 07/11/23 07/11/23 History spironolactone 25 mg tablet 25 mg PO DAILY 07/11/23 07/12/23 History Sedation/Anesthesia: No previous sedation/anesthesia problems (including family history). [facility] Past Medical History Medical History Adenomatous colon polyp Chronic anemia Chronic kidney disease, stage 3 Diabetic peripheral neuropathy Essential hypertension Gastroesophageal reflux disease Hypertension Mixed hyperlipidemia Nonrheumatic aortic valve stenosis Osteoarthritis Overactive bladder Type 2 diabetes mellitus Vitamin B12 deficiency Pucrj-Wdklklhya-Fbwsp syndrome Surgical History Surgical History History of arthroplasty of left knee (08/2018) History of arthroplasty of right knee (01/2021) History of arthroscopy of left knee (01/2018) History of hammertoe correction (08/2007) History of hysterectomy History of laparoscopic cholecys
--- NOTE | 2023-07-12 11:15 | WPDTEECHO ---
JESSIE TransEsophageal Echocardiogram Date of procedure: 07/12/23 Procedure Type: Transesophageal echocardiogram with agitated saline study, pulse-wave Doppler and color wave Doppler Moderate sedation Diagnosis: Aortic stenosis Indications: Aortic stenosis Image Quality: Good Findings: After discussing risks, benefits alternatives of procedure patient agreeable via verbal and written informed consent. Risks discussed included esophageal perforation, , need for surgery, bleeding, pain, infection, sore throat, adverse reaction to anesthesia. After establishing continuous quality assurance monitor body, pulse oxygenation and serial blood pressure assessments, time-out was taken procedure was initiated. Procedure start time 10:50 a.m. Procedure stop time 11:03 a.m. Medications were administered patient was monitored by Skye Castillo A total of 4 mg Versed and 75 mcg of fentanyl were given in divided dosages. Her cane spray the hypopharynx x2 for topical anesthetic. Findings: Normal left ventricular size and function ejection with ejection fraction 60 65%. Mild left atrial enlargement. Normal right atrial size. Normal right ventricular size and function. The mitral valve does have some mitral annular calcification. Ebem-lk-wcqyjnyw mitral regurgitation. Aortic valve is trileaflet and moderately calcified. Planimetry aortic valve area of 1.0, 0.7, 0.9 centimeters squared with an average 0.87 centimeter squared. There is trivial aortic insufficiency. Tricuspid valve is normal mild tricuspid regurgitation. Pulmonic valve is normal with no significant pulmonic insufficiency. There is no pericardial effusion. Aortic root measures 2.4-2.5 centimeter squared. Atrial septum is intact without agitated saline or color flow evidence of shunting. Left atrial appendage is normal without mass or thrombus. Velocities of 70 centimeters/second. Conclusions: 1. Normal left ventricular size and function ejection fraction at 60-65% 2. Mild left atrial enlargement 3. Severe aortic stenosis with averaged planimetry heard aortic valve area of 0.87 centimeters squared with trivial aortic insufficiency 4. Whjg-lz-zsaxhpdb mitral regurgitation 5. Negative agitated saline study 6. Mild tricuspid regurgitation 7. Moderate sedation
== END 2023-07-12 12:14 | disposition home or self-care (01) ==
PROVIDERS: PCP Family Medicine; Visit Provider Internal Medicine Cardiovascular Disease
PROC: (CPT 93312; principal; 2023-07-12 11:00)
DX: I08.3 Combined rheumatic disorders of mitral, aortic and tricuspid valves (principal); I12.9 Hypertensive chronic kidney disease with stage 1 through stage 4 chronic kidney disease, or unspecified chronic kidney disease; E11.22 Type 2 diabetes mellitus with diabetic chronic kidney disease; N18.30 Chronic kidney disease, stage 3 unspecified; E11.42 Type 2 diabetes mellitus with diabetic polyneuropathy; D64.9 Anemia, unspecified; K21.9 Gastro-esophageal reflux disease without esophagitis; E78.2 Mixed hyperlipidemia; E53.8 Deficiency of other specified B group vitamins; Z79.84 Long term (current) use of oral hypoglycemic drugs; Z79.82 Long term (current) use of aspirin; Z79.85 Long-term (current) use of injectable non-insulin antidiabetic drugs
CPT/HCPCS: 93312; 93320; 93325; J2250; J3010; J7040

== ENCOUNTER 2023-07-17 08:00 | Outpatient (CLI) | payer OTHER, SELFPAY ==
--- NOTE | ~2023-07-17 | XR_ITS ---
EXAMINATION: XR hip LT min 2V, XR hip RT min 2V DATE: 07/17/2023 10:18 INDICATION: Bilateral hip pain TECHNIQUE: 1. Anteroposterior and frog-leg lateral views of the left hip were obtained. 2. Anteroposterior view of the pelvis and anteroposterior and frog-leg lateral views of the right hip were obtained. COMPARISON: CT abdomen and pelvis dated 09/02/2022 FINDINGS: Normal alignment at both hips. No fracture or suspected osteonecrosis. Lateral hip joint spaces appea r normal on the provided projections although mild osteoarthritis is evident at both hips the prior C T. There is mild bilateral sacroiliac osteoarthritis. Soft tissues are unremarkable. IMPRESSION: 1. Mild bilateral hip and sacroiliac osteoarthritis. Reviewed, dictated and finalized at location A. IMPRESSION: 1. Mild bilateral hip and sacroiliac osteoarthritis.
[2023-07-17 18:31] LABS: Basophils Absolute Auto 0.1 K/mm3 (0.0-0.1); Basophils Percent Auto 0.8 % (0.2-1.2); Eosinophils Absolute Auto 0.1 K/mm3 (0-0.3); Eosinophils Percent Auto 1.3 % (0-4.4); Hematocrit 39.2 % (37.0-47.0); Hemoglobin 12.3 g/dL (12.0-15.0); Immature Granulocyte Absolute 0.07 K/mm3 (0.00-0.031); Lymphocytes Absolute Auto 2.09 K/mm3 (0.9-3.2); Lymphocytes Percent Auto 29.2 % (18.3-44.2); Mean Corpuscular HGB Conc 31.4 g/dl (32-36); Mean Corpuscular Volume 92.5 fl (80-100); Mean Platelet Volume 10.6 fl (7.4-10.4); Monocytes Absolute Auto 0.6 K/mm3 (0.1-0.6); Monocytes Percent Auto 8.8 % (2.6-8.5); Neutrophils Absolute Auto 4.2 K/mm3 (1.3-6.7); Neutrophils Percent Auto 58.9 % (45.5-73.1); Platelet Count Result 399 k/mm3 (150-375); Red Blood Count 4.24 M/mm3 (4.2-5.4); Red Cell Distribution Width 13.4 % (11.5-14.5); White Blood Count 7.2 K/mm3 (4.5-10.0)
[2023-07-17 18:45] LABS: Anion Gap 14 mmol/L (8-16); Blood Urea Nitrogen 31 mg/dL (7-17); Carbon Dioxide 25 mmol/L (22-30); Chloride 99 mmol/L (98-107); Estimated Glomerular Filt Rate 41; Glucose 210 mg/dL (65-110); Potassium 4.3 mmol/L (3.4-5.0); Sodium 138 mmol/L (137-145)
== END 2023-07-17 08:01 | disposition home or self-care (01) ==
PROVIDERS: PCP Family Medicine; Visit Provider Nurse Practitioner Family
DX: I35.0 Nonrheumatic aortic (valve) stenosis (principal); M16.0 Bilateral primary osteoarthritis of hip; M53.3 Sacrococcygeal disorders, not elsewhere classified
CPT/HCPCS: 36415; 73502; 80048; 85025

== ENCOUNTER 2023-07-22 13:09 | Outpatient (CLI) | payer OTHER, SELFPAY ==
--- NOTE | ~2023-07-22 | MR_ITS ---
EXAMINATION: MR lumbar spine wo con DATE: 07/22/2023 13:45 INDICATION: Low back pain. TECHNIQUE: Magnetic resonance imaging (MRI) of the lumbar spine was performed without intravenous con trast. Sequences included sagittal T2-weighted FSE, sagittal T2-weighted FS FSE, sagittal T1-weighted FSE, and axial T2-weighted FSE. COMPARISON: Lumbar spine MRI 08/10/2021 FINDINGS: There is 10 degrees dextroscoliosis of lumbar spine. There are chronic bilateral L5 pars de fects. There is 4 mm anterolisthesis of L5 on S1. There is mild chronic anterior wedging of T10-L1 ve rtebral bodies. There are Schmorl's nodes at many levels. There is mildly decreased disc height at L1 -L2 and severely decreased disc height at L5-S1. The distal spinal cord signal intensity is normal. T he conus medullaris is at L1. The following disc levels are specifically discussed: L1-L2: The disc is bulging. There is mild bilateral facet joint osteoarthritis. There is no neural fo raminal stenosis. There is mild central canal stenosis. L2-L3: The disc does not extend beyond the endplate margin. There is mild right and moderate left fac et joint osteoarthritis. There is no neural foraminal stenosis. There is no central canal stenosis. L3-L4: The disc is mildly bulging. There is mild bilateral facet joint osteoarthritis. There is mild bilateral neural foraminal stenosis. There is no central canal stenosis. L4-L5: The disc is bulging. There is severe bilateral facet joint osteoarthritis. There is moderate r ight and mild left neural foraminal stenosis. There is mild central canal stenosis. There is moderate stenosis of right lateral recess. L5-S1: The disc does not extend beyond the endplate margin. There is severe bilateral facet joint ost eoarthritis. There is mild bilateral neural foraminal stenosis. There is mild central canal stenosis. IMPRESSION: 1. Severe lumbar spondylosis, stable from 07/11/2021 2. Chronic bilateral L5 pars defects with grade 1 anterolisthesis of L5 on S1. Reviewed, dictated and finalized at location E.
== END 2023-07-22 13:10 | disposition home or self-care (01) ==
PROVIDERS: PCP Family Medicine; Visit Provider Nurse Practitioner Family
DX: M43.17 Spondylolisthesis, lumbosacral region (principal); M51.86 Other intervertebral disc disorders, lumbar region; R09.89 Other specified symptoms and signs involving the circulatory and respiratory systems
CPT/HCPCS: 72148

== ENCOUNTER 2023-07-23 09:54 | Outpatient (CLI) | payer OTHER, SELFPAY ==
--- NOTE | ~2023-07-23 | US_ITS ---
EXAMINATION: US carotid duplex BI DATE: 07/23/2023 10:31 INDICATION: Left carotid bruit TECHNIQUE: Grayscale, color Doppler, and pulsed Doppler images of the cervical carotid arteries were obtained. The degree of vessel stenosis is placed in one of the following categories: normal, <50%, 5 0-69%, >=70% but less than near-occlusion, near-occlusion, or total occlusion. Note that percent sten osis relative to normal distal artery lumen diameter is indirectly measured from velocity measurement s as described by Roe, et al. Radiology 2003; 229:340-346. COMPARISON: 05/20/2020 FINDINGS: RIGHT: The right common carotid artery (CCA) peak systolic velocity (PSV) is 68 cm/s. The right internal car otid artery (ICA) PSV is 66 cm/s. The right ICA end-diastolic velocity (EDV) is 22 cm/s. The right IC A/CCA PSV ratio is 1.0. Grayscale and color Doppler images yield an estimate of <50% diameter reducti on from plaque in the ICA. The external carotid artery (ECA) PSV is 56 cm/s. There is antegrade flow in the right vertebral artery. LEFT: The left CCA PSV is 68 cm/s. The left ICA PSV is 79 cm/s. The left ICA EDV is 31 cm/s. The left ICA/C CA PSV ratio is 1.2. Grayscale and color Doppler images yield an estimate of <50% diameter reduction from plaque in the ICA. The ECA PSV is 53 cm/s. There is antegrade flow in the left vertebral artery. IMPRESSION: 1. <50% stenosis in the right internal carotid artery. 2. <50% stenosis in the left internal carotid artery. Reviewed, dictated and finalized at location A.
== END 2023-07-23 09:55 | disposition home or self-care (01) ==
PROVIDERS: PCP Family Medicine; Visit Provider Internal Medicine Cardiovascular Disease
DX: R09.89 Other specified symptoms and signs involving the circulatory and respiratory systems (principal); I65.23 Occlusion and stenosis of bilateral carotid arteries
CPT/HCPCS: 93880

== ENCOUNTER 2023-10-06 08:46 | Outpatient (CLI) | payer OTHER, SELFPAY ==
[2023-10-06 09:56] LABS: Basophils Absolute Auto 0.1 K/mm3 (0.0-0.1); Basophils Percent Auto 0.8 % (0.2-1.2); Eosinophils Absolute Auto 0.6 K/mm3 (0-0.3); Eosinophils Percent Auto 7.3 % (0-4.4); Hematocrit 36.4 % (37.0-47.0); Immature Granulocyte Absolute 0.03 K/mm3 (0.00-0.031); Immature Granulocyte Percent A 0.4 % (0-0.5); Lymphocytes Absolute Auto 2.37 K/mm3 (0.9-3.2); Lymphocytes Percent Auto 31.6 % (18.3-44.2); Mean Corpuscular HGB Conc 30.2 g/dl (32-36); Mean Corpuscular Hemoglobin 27.8 pg (26-34); Mean Corpuscular Volume 92.2 fl (80-100); Mean Platelet Volume 9.9 fl (7.4-10.4); Monocytes Absolute Auto 0.8 K/mm3 (0.1-0.6); Monocytes Percent Auto 10.8 % (2.6-8.5); Neutrophils Absolute Auto 3.7 K/mm3 (1.3-6.7); Neutrophils Percent Auto 49.1 % (45.5-73.1); Platelet Count Result 450 k/mm3 (150-375); Red Blood Count 3.95 M/mm3 (4.2-5.4); Red Cell Distribution Width 13.6 % (11.5-14.5); White Blood Count 7.5 K/mm3 (4.5-10.0)
[2023-10-06 10:12] LABS: Transferrin 393 mg/dL (206-381)
[2023-10-06 10:48] LABS: Iron 62 ug/dL (37-170)
[2023-10-06 10:57] LABS: Percent Iron Saturation 13 % (20-50)
== END 2023-10-06 08:47 | disposition home or self-care (01) ==
LOC: ANHLAB 08:49
PROVIDERS: PCP Family Medicine; Visit Provider Family Medicine
DX: D64.9 Anemia, unspecified (principal)
CPT/HCPCS: 36415; 82607; 82728; 83540; 83550; 84466; 85025

== ENCOUNTER 2023-11-19 12:16 | Outpatient (CLI) | payer OTHER, SELFPAY ==
[2023-11-19 13:06] LABS: Hematocrit 38.5 % (37.0-47.0); Hemoglobin 11.7 g/dL (12.0-15.0); Mean Corpuscular HGB Conc 30.4 g/dl (32-36); Mean Corpuscular Hemoglobin 27.3 pg (26-34); Mean Platelet Volume 9.6 fl (7.4-10.4); Platelet Count Result 433 k/mm3 (150-375); Red Blood Count 4.28 M/mm3 (4.2-5.4); Red Cell Distribution Width 14.4 % (11.5-14.5); White Blood Count 7.2 K/mm3 (4.5-10.0)
[2023-11-19 13:17] LABS: Alanine Aminotransferase 33 U/L (6-35); Albumin Level 4.6 g/dL (3.5-5.1); Alkaline Phosphatase 47 U/L (38-126); Anion Gap 10 mmol/L (8-16); Aspartate Amino Transferase 36 U/L (14-36); Bilirubin,Total 0.5 mg/dL (0.2-1.3); Blood Urea Nitrogen 46 mg/dL (7-17); Calcium 10.1 mg/dL (8.4-10.2); Carbon Dioxide 27 mmol/L (22-30); Chloride 98 mmol/L (98-107); Estimated Glomerular Filt Rate 32; Glucose 121 mg/dL (65-110); Phosphorus 3.9 mg/dL (2.5-4.5); Potassium 3.8 mmol/L (3.4-5.0); Sodium 135 mmol/L (137-145)
[2023-11-19 13:20] LABS: Creatinine Urine 37.1 mg/dL; Total Protein Urine Random 9 mg/dL; Ur Ttl Prot Creatinine Ratio 0.24 mg/mg (0-0.20)
[2023-11-19 13:24] LABS: MALB Creatinine Ratio 38.8 mg/g (0-30); Microalbumin Urine Random 14.4 mg/L (0-16.7)
[2023-11-19 13:28] LABS: Parathyroid Intact 15.8 pg/mL (7.5-53.5)
[2023-11-20 11:43] LABS: Hemoglobin A1C 6.9 % (<5.7)
== END 2023-11-19 12:17 | disposition home or self-care (01) ==
PROVIDERS: PCP Family Medicine; Visit Provider Internal Medicine Nephrology
DX: N18.31 Chronic kidney disease, stage 3a (principal); E11.59 Type 2 diabetes mellitus with other circulatory complications; I15.2 Hypertension secondary to endocrine disorders; E11.65 Type 2 diabetes mellitus with hyperglycemia
CPT/HCPCS: 36415; 80053; 82043; 82570; 83036; 83970; 84100; 84156; 85027

== ENCOUNTER 2023-12-22 16:54 | Emergency (ER) | payer MEDICARE, OTHER, SELFPAY ==
--- NOTE | ~2023-12-22 | XR_ITS ---
EXAMINATION: XR chest 2V Exam Date/Time: 12/22/2023 17:58 BLASTING MINER HISTORY: COUGH, FEVER, HX OPEN HEART AND BIPASS Comparison: 05/10/2023. RESULT: Lines, tubes, and devices: Cardiac valve replacement. Intact sternotomy wires. Mediastinal and right upper quadrant surgical clips. Lungs and pleura: Segmental right upper lobe airspace disease. Cardiomediastinal silhouette: Stable. Other: No acute osseous or upper abdominal finding. IMPRESSION: Right upper lobe pneumonia. Reviewed, dictated and finalized at location K. TING MINER IMPRESSION: Right upper lobe pneumonia.
[2023-12-22 17:04] VITALS: BP 130/75; PULSE 78; RESP 16; TEMP 36.3; O2SAT 98
--- NOTE | 2023-12-22 17:54 | ED.GENADULT ---
HPI - General Adult General Chief complaint: Upper Respiratory Infection Stated complaint: Fever/Sore Throat/Vomiting/Diarrhea Source: patient Mode of arrival: ambulatory Limitations: no limitations History of Present Illness HPI narrative: Patient presents for evaluation of sick symptoms. Symptom onset yesterday. She reports fever, cough, sinus congestion, sore throat, generalized body aches, fatigue, pruritis of the eyes and bilateral otalgia. She had some wheezing when she woke from sleep this morning, but that has resolved. She denies SOB. She denies any recent sick contacts. She just returned from a trip to [place]. She is not taking any medication to assist with her symptoms. She does not smoke. Related Data Home Medications Medication Instructions Recorded Confirmed acetaminophen 650 mg 650 mg PO Q8H PRN Pain 07/06/20 12/07/23 tablet,extended release (Tylenol Arthritis Pain) cholecalciferol (vitamin D3) 25 25 mcg PO DAILY 01/12/21 12/07/23 mcg (1,000 unit) tablet mecobalamin (vitamin B12) 1,000 1,000 mcg PO DAILY 11/01/22 12/07/23 mcg chewable tablet ferrous gluconate 225 mg (27 mg 225 mg PO TID 06/21/23 12/07/23 iron) tablet magnesium 250 mg tablet 400 mg PO QHS 06/21/23 12/07/23 hydralazine 100 mg tablet 100 mg PO TID 07/11/23 12/07/23 hydroxyzine HCl 50 mg tablet 50 mg PO QID PRN Itching 07/11/23 12/07/23 Arthrozene PO 09/20/23 12/07/23 Garrett Guard- Turmic PO 09/20/23 09/20/23 atorvastatin 80 mg tablet 80 mg PO QHS 09/20/23 12/07/23 insulin lispro 100 unit/mL 1 sliding scale dose subcut 09/20/23 12/07/23 subcutaneous pen USEASDIRECTD irbesartan 300 mg tablet 75 mg PO DAILY 09/20/23 12/07/23 metoprolol tartrate 50 mg tablet 100 mg PO BID 09/20/23 12/07/23 omeprazole 20 mg capsule,delayed 20 mg PO DAILY 09/20/23 12/07/23 release furosemide 20 mg tablet 20 mg PO QAM 12/04/23 12/07/23 insulin glargine 100 unit/mL (3 25 unit subcut QAM 12/04/23 12/07/23 mL) subcutaneous pen (Lantus Solostar U-100 Insulin) Allergies Allergy/AdvReac Type Severity Reaction Status Date / Time amoxicillin Allergy Unknown Rash Verified 12/10/23 14:08 diclofenac Allergy Unknown LIP Verified 12/10/23 14:08 SWELLING dicloxacillin Allergy Unknown lips swell Verified 12/10/23 14:08 lisinopril Allergy Unknown Cough Verified 12/10/23 14:08 naproxen Allergy Unknown LIP Verified 12/10/23 14:08 SWELLING Penicillins Allergy Unknown HIVES Verified 12/10/23 14:08 piroxicam [Feldene] Allergy Unknown lips swell Verified 12/10/23 14:08 Review of Systems Review of Systems: CONSTITUTIONAL: Reports fever and fatigue. Denies chills, or sweats. EYES: Reports itching of the eyes. Denies visual changes, redness, or discharge. ENT: Reports sore throat, bilateral otalgia and sinus congestion. CARDIOVASCULAR: Denies chest pain, palpitations, or edema. RESPIRATORY: Reports cough. Denies SOB. GASTROINTESTINAL: Denies abdominal pain, nausea, vomiting, or diarrhea. GENITOURINARY: Denies dysuria or hematuria. SKIN: Denies rash or itching. MUSCULOSKELETAL: Reports generalized body aches. NEUROLOGIC: Denies headache, numbness, dizziness, or weakness. PSYCHIATRIC: Denies anxiety or depression. [facility] Past Medical History Medical History (Updated 12/22/23 @ 18:34 by Kevin Puri, PEEWEE, ) Adenomatous colon polyp Chronic anemia Chronic kidney disease, stage 3 Diabetic peripheral neuropathy Essential hypertension Gastroesophageal reflux disease Hypertension Mixed hyperlipidemia Nonrheumatic aortic valve stenosis Osteoarthritis Overactive bladder Type 2 diabetes mellitus Vitamin B12 deficiency Fhxjo-Lcjzzovcg-Qmyzf syndrome Surgical History Surgical History (Updated 12/22/23 @ 18:34 by Kevin Puri, PEEWEE, ) H/O heart bypass surgery History of arthroplasty of left knee (08/2018) History of arthroplasty of right knee (01/2021) History of arthroscopy of left knee (01/2018) History of hammertoe correctio
== END 2023-12-22 18:30 | disposition home or self-care (01) ==
PROVIDERS: Emergency Provider Nurse Practitioner; PCP Family Medicine
DX: J18.1 Lobar pneumonia, unspecified organism (principal); Z20.822 Contact with and (suspected) exposure to COVID-19; I12.9 Hypertensive chronic kidney disease with stage 1 through stage 4 chronic kidney disease, or unspecified chronic kidney disease; E11.22 Type 2 diabetes mellitus with diabetic chronic kidney disease; N18.30 Chronic kidney disease, stage 3 unspecified; Z79.4 Long term (current) use of insulin; E11.42 Type 2 diabetes mellitus with diabetic polyneuropathy; K21.9 Gastro-esophageal reflux disease without esophagitis; E78.2 Mixed hyperlipidemia; I35.0 Nonrheumatic aortic (valve) stenosis; M19.90 Unspecified osteoarthritis, unspecified site; I45.6 Pre-excitation syndrome; E53.8 Deficiency of other specified B group vitamins; D64.9 Anemia, unspecified; Z95.5 Presence of coronary angioplasty implant and graft; Z96.653 Presence of artificial knee joint, bilateral
CPT/HCPCS: 71046; 87081; 87426; 87804; 87880; 99213; G0463

== ENCOUNTER 2024-01-15 10:53 | Outpatient (CLI) | payer MEDICARE, OTHER, SELFPAY ==
--- NOTE | 2024-01-23 15:13 | WPDSLEEPSTUD ---
Sleep Study Date of Study: 01/15/24 Ordering Provider: Camryn Chao DO Interpreting Physician: Camryn Chao DO Sleep Study Type: Split Polysomnogram Height: 1.63 m Weight: 88.451 kg Body Mass Index: 33.5 Neck Circumference (inches): 14 Media: 17 Reason for Sleep Study Snoring, difficulty falling and staying asleep Sleep History The patient is a 63-year-old female with type 2 diabetes, hypertension, hyperlipidemia, aortic valve stenosis status post valve replacement therapy, peripheral neuropathy, history of single vessel bypass, stage 3 chronic kidney disease, GERD, overactive bladder and history of Gspmm-Oyarpqjrj-Ihjgs syndrome that had a sleep study ordered for evaluation of sleep apnea. The patient frequently awakens from sleep short of breath. She occasionally awakens at night with heartburn, belching or cough. She constantly snores and is frequently loud enough that others complain. She frequently has trouble sleeping when she has a cold. She occasionally wakes up gasping for air throughout the night. She rarely sweats excessively at night. She occasionally has heart palpitations or irregular heartbeats during the night. She frequently falls asleep during the day but never while driving. She denies sleep paralysis and cataplexy. She frequently has trouble at school or work due to sleepiness. She frequently experiences vivid dreamlike scenes upon awakening or falling asleep. She denies feeling afraid of going to sleep. She occasionally has nightmares. She occasionally remembers her dreams. She frequently has thoughts racing through her mind. She occasionally feels sad, depressed and anxious. She frequently has muscular tension. She occasionally notices parts of her body jerk. She denies having crawling and aching feelings in her legs but frequently has leg pain during the night. She frequently grinds her teeth during sleep rarely awakens with morning jaw pain. She is frequently bothered by pain during the day and occasionally awakened by pain during the night. She frequently wakes up feeling stiff in the morning. She occasionally wakes up with sore or achy muscles. She constantly wakes up with pain in the neck, spine and other joints. She goes to bed between 11:30 p.m. to 12:00 a.m. on both weekdays and weekends. It can take her 30-60 minutes to fall asleep. She wakes up at least once throughout the night to urinate and a can take up to an hour to fall back asleep. He wakes up at 7:00 a.m. on weekdays and at 7:30 a.m. on the weekends. She typically gets 5-6 hours of sleep per night. She will stay in bed for less than 10 minutes after waking up in the morning. She currently lives with her . She denies consuming any caffeinated beverages within 2 hours of bedtime. She denies engaging in physical exercise before bedtime. She denies reading and watching television before falling asleep. She will take on intentional naps during the afternoon or the evening and they are refreshing. She denies consuming any caffeinated beverages throughout the day. She denies tobacco, alcohol and recreational drug use. [facility] Past Medical History Medical History Adenomatous colon polyp Chronic anemia Chronic kidney disease, stage 3 Diabetic peripheral neuropathy Essential hypertension Gastroesophageal reflux disease Hypertension Mixed hyperlipidemia Nonrheumatic aortic valve stenosis Osteoarthritis Overactive bladder Type 2 diabetes mellitus Vitamin B12 deficiency Fdghr-Jrsxntygt-Atozw syndrome Surgical History Surgical History H/O heart bypass surgery History of arthroplasty of left knee (08/2018) History of arthroplasty of right knee (01/2021) History of arthroscopy of left knee (01/2018) History of hammertoe correction (08/2007) History of hysterectomy History of laparoscopic cholecyste
[2024-01-23 15:16] VITALS: BMI 33.5
== END 2024-01-16 08:06 | disposition home or self-care (01) ==
LOC: ANHCSM 10:57
PROVIDERS: PCP Family Medicine; Visit Provider Family Medicine
DX: G47.10 Hypersomnia, unspecified (principal); G47.33 Obstructive sleep apnea (adult) (pediatric)
CPT/HCPCS: 95811

== ENCOUNTER 2024-01-30 11:00 | Outpatient (RCR) | payer MEDICARE, OTHER, SELFPAY ==
[2023-10-30 08:19] VITALS: BP 130/68; PULSE 89; RESP 16; O2SAT 96
[2023-10-30 09:12] VITALS: PULSE 88
[2023-12-13 12:36] LABS: Glucose Point of Care 90 mg/dl (65-105)
[2024-01-07 12:37] LABS: Glucose Point of Care 80 mg/dl (65-105)
== END 2024-01-30 15:16 | disposition home or self-care (01) ==
LOC: ANHCPREHAB 11:00
PROVIDERS: PCP Family Medicine; Visit Provider Internal Medicine Cardiovascular Disease
DX: Z95.2 Presence of prosthetic heart valve (principal); Z95.1 Presence of aortocoronary bypass graft
CPT/HCPCS: 93798

== ENCOUNTER 2024-03-03 07:58 | Outpatient (CLI) | payer MEDICARE, OTHER, SELFPAY ==
[2024-03-03 09:10] LABS: Alanine Aminotransferase 33 U/L (6-35); Albumin Level 4.8 g/dL (3.5-5.1); Alkaline Phosphatase 48 U/L (38-126); Anion Gap 11 mmol/L (4-12); Aspartate Amino Transferase 37 U/L (14-36); Bilirubin,Total 0.5 mg/dL (0.2-1.3); Blood Urea Nitrogen 42 mg/dL (7-17); Calcium 10.1 mg/dL (8.4-10.2); Carbon Dioxide 26 mmol/L (22-30); Chloride 97 mmol/L (98-107); Estimated Glomerular Filt Rate 25; Glucose 194 mg/dL (65-110); Potassium 3.8 mmol/L (3.4-5.0); Sodium 134 mmol/L (137-145)
[2024-03-03 09:20] LABS: Creatinine Urine 65.2 mg/dL
[2024-03-03 09:23] LABS: MALB Creatinine Ratio 14.4 mg/g (0-30); Microalbumin Urine Random 9.4 mg/L (0-16.7)
[2024-03-03 10:34] LABS: Hemoglobin A1C 6.7 % (<5.7)
== END 2024-03-03 07:59 | disposition home or self-care (01) ==
PROVIDERS: PCP Family Medicine
DX: E11.65 Type 2 diabetes mellitus with hyperglycemia (principal)
CPT/HCPCS: 36415; 80053; 82043; 83036

== ENCOUNTER 2024-04-08 08:23 | Outpatient (CLI) | payer MEDICARE, OTHER, SELFPAY ==
[2024-04-08 09:34] LABS: Anion Gap 6 mmol/L (4-12); Blood Urea Nitrogen 37 mg/dL (7-17); Calcium 9.7 mg/dL (8.4-10.2); Carbon Dioxide 30 mmol/L (22-30); Chloride 104 mmol/L (98-107); Estimated Glomerular Filt Rate 30; Glucose 238 mg/dL (65-110); Potassium 4.4 mmol/L (3.4-5.0); Sodium 140 mmol/L (137-145)
== END 2024-04-08 08:24 | disposition home or self-care (01) ==
PROVIDERS: PCP Family Medicine; Visit Provider Internal Medicine Cardiovascular Disease
DX: E11.59 Type 2 diabetes mellitus with other circulatory complications (principal); I15.2 Hypertension secondary to endocrine disorders
CPT/HCPCS: 36415; 80048

== ENCOUNTER 2024-04-10 13:29 | Emergency (ER) | payer MEDICARE, OTHER, SELFPAY ==
[2024-04-10] VITALS (28 sets, daily range): BP systolic 146–196; BP diastolic 60–85; PULSE 53–62; RESP 12–29; TEMP 36.4; O2SAT 94–100
--- NOTE | ~2024-04-10 | XR_ITS ---
XR chest 2V 04/10/2024 16:00 Indication: Shortness of breath Procedure: 2 view chest Comparison: Comparison to multiple prior studies sequentially, with oldest reviewed study dated 07/19. Findings: Status post median sternotomy for CABG. There is a prosthetic heart valve. Cardiomegaly. Mi ld pulmonary vascular congestion. No focal pneumonia, pleural effusion or pneumothorax. Moderate thoracic spondylosis. There are cholecystectomy clips. Impression: 1: Cardiomegaly with mild pulmonary vascular congestion. Reviewed, dictated and finalized at location B. Impression: 1: Cardiomegaly with mild pulmonary vascular congestion.
--- NOTE | 2024-04-10 14:57 | ECG_ITS ---
Test Date: 2024-04-10 15:04:55 Measurements Intervals [place]am[place] Rate: 55 P: 41 WV: 183 QRS: 21 QRSD: 103 T: 72 QT: 483 QTc: 463 Interpretive Statements SINUS BRADYCARDIA NONSPECIFIC ST & T-WAVE ABNORMALITY PROLONGED QT INTERVAL ABNORMAL ECG No previous ECG available for comparison Electronically Signed On 04-10-2024 16:35:58 CDT by Kevin Metcalf M.D.
--- NOTE | 2024-04-10 14:58 | ED.SOB ---
HPI - SOB/Dyspnea General Chief Complaint: Shortness of Breath/Dyspnea <Trish Borrero PA-C - Last Filed: 04/15/24 09:59> Stated Complaint: sob, fatigue <Trish Borrero PA-C - Last Filed: 04/15/24 09:59> Time Seen by Provider: 04/10/24 14:58 <Trish Borrero PA-C - Last Filed: 04/15/24 09:59> Focused HPI: This is a 63 year old female that presents to the ER for shortness of breath. Worsening over the last couple of days. Reports recently being taken off of her diuretic due to her kidney function. Also reports worsening swelling in her lower extremities. Denies any current chest pain. GENERAL: Well-appearing, well-nourished, and in no acute distress. HEAD: Normocephalic, atraumatic. CHEST: Clear to auscultation. ?No respiratory distress. HEART: Regular rate and rhythm.? NEURO: ?Alert and oriented x3. Patient screened in triage and initial orders placed.? ?Additional care and disposition to be based upon?diagnostic testing and treatment. <Trish Borrero PA-C - Last Filed: 04/15/24 09:59> History of Present Illness HPI Narrative: 63-year-old female with history of LYDIA, 1 vessel CABG and aortic valve replacement in August of 2023 at [facility], CHF, CKD, insulin-dependent diabetes, WPW, GERD, hypertension presents to the emergency department with her at bedside for shortness of breath worsening over the past few weeks. Patient states for the past 3 weeks she has gained approximately 9 lb and feels like her body is more swollen, especially in her legs. She states that her cob sawyer, Dr. Metcalf, recently discontinued her Lasix due to her worsening creatinine. 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 She is reporting shortness of breath with exertion, especially when doing water aerobics. States approximately 5 days ago she had a sneezing episode and had approximately 2-3 days of chest pain following that, otherwise denies exertional chest pain. She reports a nonproductive cough but denies fever. Last JESISE Echo on 07/12/23 shows: Conclusions: 1. Normal left ventricular size and function ejection fraction at 60-65% 2. Mild left atrial enlargement 3. Severe aortic stenosis with averaged planimetry heard aortic valve area of 0.87 centimeters squared with trivial aortic insufficiency 4. Hgkl-ci-eelfxciu mitral regurgitation 5. Negative agitated saline study 6. Mild tricuspid regurgitation 7. Moderate sedation <Lexi Lei PA-C - Last Filed: 04/10/24 21:42> Related Data Home Medications: Home Medications Medication Instructions Recorded Confirmed acetaminophen 650 mg 650 mg PO Q8H PRN Pain 07/06/20 03/20/24 tablet,extended release (Tylenol Arthritis Pain) cholecalciferol (vitamin D3) 25 25 mcg PO DAILY 01/12/21 03/20/24 mcg (1,000 unit) tablet mecobalamin (vitamin B12) 1,000 1,000 mcg PO DAILY 11/01/22 03/20/24 mcg chewable tablet ferrous gluconate 225 mg (27 mg 225 mg PO TID 06/21/23 03/20/24 iron) tablet magnesium 250 mg tablet 400 mg PO QHS 06/21/23 03/20/24 hydralazine 100 mg tablet 100 mg PO TID 07/11/23 03/20/24 hydroxyzine HCl 50 mg tablet 50 mg PO QID PRN Itching 07/11/23 03/20/24 Arthrozene PO 09/20/23 03/20/24 Garrett Guard- Turmic PO 09/20/23 03/20/24 atorvastatin 80 mg tablet 80 mg PO QHS 09/20/23 03/20/24 irbesartan 300 mg tablet 75 mg PO DAILY 09/20/23 03/20/24 metoprolol tartrate 50 mg tablet 100 mg PO BID 09/20/23 03/20/24 omeprazole 20 mg capsule,delayed 20 mg PO DAILY 09/20/23 03/20/24 release furosemide 20 mg tablet 20 mg PO QAM 12/04/23 03/20/24 insulin glargine 100 unit/mL (3 20 unit subcut QAM 03/13/24 03/20/24 mL) subcutaneous pen (Lantus Solostar U-100 Insulin) insulin lispro 100 unit/mL 7 unit subcut USEASDIRECTD 03/13/24 03/20/24 subcutaneous pen <Trish Borrero PA-C - Last Filed: 04/15/24 09:59> Allergies/Adverse Reactions: Allergies Allergy/AdvReac Type Severity Reaction Status Date / Time amoxicillin Allergy
[2024-04-10 17:17] LABS: Basophils Percent Auto 0.5 % (0.2-1.2); Eosinophils Absolute Auto 0.1 K/mm3 (0-0.3); Hematocrit 35.1 % (37.0-47.0); Immature Granulocyte Absolute 0.03 K/mm3 (0.00-0.031); Immature Granulocyte Percent A 0.3 % (0-0.5); Lymphocytes Absolute Auto 2.23 K/mm3 (0.9-3.2); Lymphocytes Percent Auto 25.4 % (18.3-44.2); Mean Corpuscular HGB Conc 31.3 g/dl (32-36); Mean Corpuscular Volume 92.6 fl (80-100); Mean Platelet Volume 10.6 fl (7.4-10.4); Monocytes Absolute Auto 0.8 K/mm3 (0.1-0.6); Monocytes Percent Auto 9.6 % (2.6-8.5); Neutrophils Absolute Auto 5.6 K/mm3 (1.3-6.7); Neutrophils Percent Auto 63.2 % (45.5-73.1); Platelet Count Result 341 k/mm3 (150-375); Red Blood Count 3.79 M/mm3 (4.2-5.4); White Blood Count 8.8 K/mm3 (4.5-10.0)
[2024-04-10 17:27] LABS: Alanine Aminotransferase 94 U/L (6-35); Albumin Level 4.8 g/dL (3.5-5.1); Alkaline Phosphatase 56 U/L (38-126); Anion Gap 10 mmol/L (4-12); Aspartate Amino Transferase 106 U/L (14-36); Bilirubin,Total 0.5 mg/dL (0.2-1.3); Blood Urea Nitrogen 36 mg/dL (7-17); Calcium 9.6 mg/dL (8.4-10.2); Carbon Dioxide 26 mmol/L (22-30); Chloride 105 mmol/L (98-107); Estimated CRCL calculation 32 ml/min; Estimated Glomerular Filt Rate 28; Glucose 223 mg/dL (65-110); Potassium 4.2 mmol/L (3.4-5.0); Sodium 141 mmol/L (137-145)
[2024-04-10 17:33] LABS: INR 0.9
[2024-04-10 17:34] LABS: Partial Thromboplastin Time 31.8 Seconds (22.3-36.8)
[2024-04-10 17:41] LABS: NT Pro B Type Natriuretic Pept 2080 pg/mL (19.9-100); Troponin I 0.017 ng/mL (0.000-0.034)
[2024-04-10 19:13] LABS: Influenza A QL RT-PCR Negative (Negative); Influenza B QL RT-PCR Negative (Negative); RSV RNA, RT-PCR Negative (Negative); SARS-CoV-2 RNA PCR Negative (Negative)
[2024-04-10] MEDS: FUROSEMIDE INJ 40 MG/4 ML VIAL IV PUSH (19:23)
--- NOTE | 2024-04-10 19:33 | PC.NURSE ---
this rn assumed care of patient. this rn took patient report from WADE Solares.
[2024-04-10 20:59] LABS: Troponin I 0.016 ng/mL (0.000-0.034)
--- NOTE | 2024-04-10 21:12 | ECG_ITS ---
Test Date: 2024-04-10 21:21:21 Measurements Intervals [place] Rate: 56 P: 50 HI: 216 QRS: 10 QRSD: 102 T: 61 QT: 486 QTc: 472 Interpretive Statements SINUS BRADYCARDIA WITH FIRST DEGREE AV BLOCK LEFT VENTRICULAR HYPERTROPHY AND ST-T CHANGE [VOLTAGE CRITERIA PLUS ST/T ABNORMALITY] ABNORMAL ECG Compared to ECG 04/10/2024 15:04:55 First degree AV block now present Left ventricular hypertrophy now present ST (T wave) deviation now present T-wave abnormality no longer present Prolonged QT interval no longer present Electronically Signed On 04-11-2024 10:53:22 CDT by Kevin Metcalf M.D.
== END 2024-04-10 22:40 | disposition home or self-care (01) ==
PROVIDERS: Physician Assistant; Emergency Provider Physician Assistant; PCP Family Medicine
DX: E87.70 Fluid overload, unspecified (principal); R06.00 Dyspnea, unspecified; I13.0 Hypertensive heart and chronic kidney disease with heart failure and stage 1 through stage 4 chronic kidney disease, or unspecified chronic kidney disease; E11.22 Type 2 diabetes mellitus with diabetic chronic kidney disease; N18.30 Chronic kidney disease, stage 3 unspecified; I50.9 Heart failure, unspecified; E78.2 Mixed hyperlipidemia; Z20.822 Contact with and (suspected) exposure to COVID-19
CPT/HCPCS: 36415; 71046; 80053; 83880; 84484; 85025; 85610; 85730; 87637; 93005; 96374; 99284; J1940

== ENCOUNTER 2024-04-21 07:37 | Outpatient (CLI) | payer MEDICARE, OTHER, SELFPAY ==
--- NOTE | ~2024-04-21 | MM_ITS ---
EXAMINATION: MM screening [facility] BI w dean HISTORY: Screening mammogram TECHNIQUE: Craniocaudal and mediolateral oblique 3-D tomosynthesis images were obtained and synthetic 2-D images were generated. CAD analysis was submitted and interpreted. COMPARISON: 01/08/2019, 12/04/2017 BREAST PARENCHYMAL COMPOSITION:Dense: The breasts are heterogeneously dense, which may obscure small masses. FINDINGS: No suspicious mass, calcification, or architectural distortion are identified in either melinda ast to suggest malignancy. There has been no suspicious interval change. IMPRESSION: No mammographic evidence of malignancy. Recommend routine screening mammography in one year. BI-RADS Category 1: Negative Reviewed, dictated and finalized at location .
--- NOTE | ~2024-04-21 | DEXA_ITS ---
Bone Density Report Name: JULY OLVERA Age: 63 Sex: Female Ethnicity: White Date of : 1960 Indication: postmenopausal; screening for osteoporosis; hysterectomy; Referring Provider: KULWINDER KAMINSKI Study: Bone densitometry was performed. Exam Date: April 21, 2024 Accession number: [id number] Bone Density: Region BMD T-score Z-score Classification AP Spine(L1-L4) 1.488 4.0 5.8 Normal Femoral Neck (Left) 0.932 0.7 2.3 Normal Total Hip (Left) 1.167 1.8 3.1 Normal Femoral Neck (Right) 1.013 1.5 3.0 Normal Total Hip (Right) 1.160 1.8 3.0 Normal Total Hip Mean 1.164 1.8 3.1 Normal World Health Organization criteria for BMD impression classify patients as: Normal (T-score at or above -1.0), Osteopenia (T-score between -1.0 and -2.5), or Osteoporosis (T-score at or below -2.5). 10-year Fracture Risk: FRAX not reported because: All T-scores for Spine Total, Hip Total, Femoral Neck at or above -1.0 Clinical Information Provided by Patient: Has used the following medications: Vitamin D Has the following medical conditions: Hysterectomy Patient maximum height was 64 No regular weight bearing exercise Onset of menses at age 9 Number of children 3 Impression: The patient has normal bone mass. Discussion: LOW RISK OF FRACTURE; BONE DENSITY IS WELL ABOVE THE MINIMUM DESIRABLE LEVEL AND ABOVE AVERAGE FOR AGE AND SEX AT ALL SKELETAL SITES TESTED. This person's bone density is above expected limits for age and sex. This is rarely clinically significant, but should be pursued if there are significant musculoskeletal complaints. The patient should follow a healthful lifestyle (good nutrition with adequate calcium and vitamin D, and appropriate weight-bearing exercise). Follow-Up: Consider repeating this study in 5 years or sooner if there is some new clinical indication. Reported by: ANN on 04/21/2024 8:30:00 AM. Reviewed, dictated and finalized at location APradip CARTER
== END 2024-04-21 07:38 | disposition home or self-care (01) ==
PROVIDERS: PCP Family Medicine; Visit Provider Clinical Nurse Specialist
DX: Z12.31 Encounter for screening mammogram for malignant neoplasm of breast (principal); Z78.0 Asymptomatic menopausal state
CPT/HCPCS: 77063; 77067; 77080

== ENCOUNTER 2024-04-25 13:24 | Outpatient (CLI) | payer MEDICARE, OTHER, SELFPAY ==
[2024-04-25 14:23] LABS: Albumin Level 4.9 g/dL (3.5-5.1); Anion Gap 12 mmol/L (4-12); Blood Urea Nitrogen 68 mg/dL (7-17); Calcium 10.1 mg/dL (8.4-10.2); Carbon Dioxide 26 mmol/L (22-30); Chloride 102 mmol/L (98-107); Estimated Glomerular Filt Rate 22; Glucose 98 mg/dL (65-110); Phosphorus 4.7 mg/dL (2.5-4.5); Potassium 4.2 mmol/L (3.4-5.0); Sodium 140 mmol/L (137-145)
[2024-04-25 14:54] LABS: Thyroid Stimulating Hormone 0.662 uIU/mL (0.465-4.680)
== END 2024-04-25 13:25 | disposition home or self-care (01) ==
PROVIDERS: PCP Family Medicine; Visit Provider Internal Medicine Nephrology
DX: I12.9 Hypertensive chronic kidney disease with stage 1 through stage 4 chronic kidney disease, or unspecified chronic kidney disease (principal); N18.31 Chronic kidney disease, stage 3a; R53.83 Other fatigue
CPT/HCPCS: 36415; 80069; 84443

== ENCOUNTER 2024-05-07 11:08 | Outpatient (CLI) | payer MEDICARE, OTHER, SELFPAY ==
[2024-05-07 11:40] LABS: Appearance Urine Clear (Clear); Bacteria Urine None Seen /hpf; Bilirubin Urine Negative (Negative); Blood Urine Negative (Negative); Color Urine Yellow (Yellow); Glucose Urine UA 3+ mg/dL (Negative); Ketones Urine Negative (Negative); Leukocyte Esterase Ur 1+ LEU/UL (Negative); Nitrate Urine Negative (Negative); Non Pathogenic Casts 0-2; Protein Urine Negative (Negative); RBC Urine 0-2 /hpf (0-2); Specific Grav Ur 1.014 (1.001-1.035); Squamous Epithelial Cell Urine None Seen /hpf (Few); Urobilinogen Urine 0.2 mg/dL (<2.0); WBC Urine 21-50 /hpf (0-3); pH Urine 7.5 (5.0-9.0)
[2024-05-07 11:41] LABS: Add Urine Microscopic? YES
== END 2024-05-07 11:09 | disposition home or self-care (01) ==
LOC: ANHLAB 11:10
PROVIDERS: PCP Family Medicine; Visit Provider Internal Medicine Nephrology
DX: N18.32 Chronic kidney disease, stage 3b (principal)
CPT/HCPCS: 81001

== ENCOUNTER 2024-05-09 16:26 | Outpatient (CLI) | payer MEDICARE, OTHER, SELFPAY | END 2024-05-09 16:27 | disposition home or self-care (01) | LOC: ANHLAB 16:28 | PROVIDERS: PCP Family Medicine; Visit Provider Internal Medicine Nephrology | DX: R73.03 Prediabetes (principal); R82.81 Pyuria | CPT/HCPCS: 87077; 87086; 87088; 87186 ==

== ENCOUNTER 2024-05-29 16:22 | Outpatient (CLI) | payer MEDICARE, OTHER, SELFPAY ==
[2024-05-29 16:52] LABS: Hematocrit 35.4 % (37.0-47.0); Hemoglobin 11.4 g/dL (12.0-15.0); Mean Corpuscular HGB Conc 32.2 g/dl (32-36); Mean Corpuscular Hemoglobin 29.1 pg (26-34); Mean Corpuscular Volume 90.3 fl (80-100); Mean Platelet Volume 10.2 fl (7.4-10.4); Platelet Count Result 394 k/mm3 (150-375); Red Blood Count 3.92 M/mm3 (4.2-5.4); Red Cell Distribution Width 14.2 % (11.5-14.5)
[2024-05-29 17:03] LABS: Creatinine Urine 58.5 mg/dL; Total Protein Urine Random 6 mg/dL
[2024-05-29 17:03] LABS: Albumin Level 4.5 g/dL (3.5-5.1); Anion Gap 15 mmol/L (4-12); Blood Urea Nitrogen 62 mg/dL (7-17); Calcium 9.7 mg/dL (8.4-10.2); Carbon Dioxide 22 mmol/L (22-30); Chloride 99 mmol/L (98-107); Estimated Glomerular Filt Rate 22; Glucose 227 mg/dL (65-110); Phosphorus 4.2 mg/dL (2.5-4.5); Potassium 4.4 mmol/L (3.4-5.0); Sodium 136 mmol/L (137-145)
[2024-05-29 17:44] LABS: Parathyroid Intact 37.2 pg/mL (7.5-53.5)
== END 2024-05-29 16:23 | disposition home or self-care (01) ==
LOC: ANHLAB 16:25
PROVIDERS: PCP Family Medicine; Visit Provider Internal Medicine Nephrology
DX: I12.9 Hypertensive chronic kidney disease with stage 1 through stage 4 chronic kidney disease, or unspecified chronic kidney disease (principal); N18.31 Chronic kidney disease, stage 3a
CPT/HCPCS: 36415; 80069; 82570; 83970; 84156; 85027

== ENCOUNTER 2024-06-10 06:48 | Outpatient (CLI) | payer MEDICARE, OTHER, SELFPAY ==
[2024-06-10 10:10] LABS: Hemoglobin A1C 8.1 % (<5.7)
== END 2024-06-10 06:49 | disposition home or self-care (01) ==
PROVIDERS: PCP Family Medicine
DX: E11.65 Type 2 diabetes mellitus with hyperglycemia (principal)
CPT/HCPCS: 36415; 83036

== ENCOUNTER 2024-06-13 15:33 | Outpatient (CLI) | payer MEDICARE, OTHER, SELFPAY ==
--- NOTE | ~2024-06-13 | US_ITS ---
EXAMINATION: US renal BI DATE: 06/13/2024 16:13 INDICATION: Stage IIIB chronic kidney disease TECHNIQUE: Multiple ultrasound grayscale images of the kidneys were obtained. COMPARISON: None. FINDINGS: The right kidney measures 8.5 x 3.9 x 4.2 cm. The left kidney measures 9.5 x 5.4 x 3.7 cm. The kidney s demonstrate normal echogenicity. 2.1 cm anechoic cyst at the mid right kidney. There is no hydronep hrosis in either kidney. No stones identified. The bladder appears normal but is partially decompres sed which mildly limits evaluation. Bilateral ureteral jets identified in the bladder on color Dopple r.. IMPRESSION: 1. 2.1 cm right renal cyst. Otherwise normal kidneys without hydronephrosis. Reviewed, dictated and finalized at location A.
== END 2024-06-13 15:34 | disposition home or self-care (01) ==
PROVIDERS: PCP Family Medicine; Visit Provider Internal Medicine Nephrology
DX: N18.32 Chronic kidney disease, stage 3b (principal); N28.1 Cyst of kidney, acquired
CPT/HCPCS: 76775

== ENCOUNTER 2024-06-24 09:04 | Outpatient (CLI) | payer MEDICARE, OTHER, SELFPAY ==
--- NOTE | 2024-07-17 09:15 | WPDSLEEPSTUD ---
Sleep Study Date of Study: 06/24/24 Ordering Provider: Camryn Chao DO Interpreting Physician: Camryn Chao DO Sleep Study Type: BiPAP Titration Height: 1.63 m Weight: 91.626 kg Body Mass Index: 34.7 Neck Circumference (inches): 14 [place]: 17 Reason for Sleep Study Difficulty tolerating CPAP. Elevated residual AHI on compliance report. Sleep History The patient is a 63-year-old female with type 2 diabetes, hypertension, hyperlipidemia, aortic valve stenosis status post valve replacement therapy, peripheral neuropathy, history of single vessel bypass, stage 3 chronic kidney disease, GERD, overactive bladder and history of Zwpfb-Inoyglzuj-Rmykl syndrome that had a sleep study ordered for evaluation of sleep apnea. The patient frequently awakens from sleep short of breath. She occasionally awakens at night with heartburn, belching or cough. She constantly snores and is frequently loud enough that others complain. She frequently has trouble sleeping when she has a cold. She occasionally wakes up gasping for air throughout the night. She rarely sweats excessively at night. She occasionally has heart palpitations or irregular heartbeats during the night. She frequently falls asleep during the day but never while driving. She denies sleep paralysis and cataplexy. She frequently has trouble at school or work due to sleepiness. She frequently experiences vivid dreamlike scenes upon awakening or falling asleep. She denies feeling afraid of going to sleep. She occasionally has nightmares. She occasionally remembers her dreams. She frequently has thoughts racing through her mind. She occasionally feels sad, depressed and anxious. She frequently has muscular tension. She occasionally notices parts of her body jerk. She denies having crawling and aching feelings in her legs but frequently has leg pain during the night. She frequently grinds her teeth during sleep rarely awakens with morning jaw pain. She is frequently bothered by pain during the day and occasionally awakened by pain during the night. She frequently wakes up feeling stiff in the morning. She occasionally wakes up with sore or achy muscles. She constantly wakes up with pain in the neck, spine and other joints. She goes to bed between 11:30 p.m. to 12:00 a.m. on both weekdays and weekends. It can take her 30-60 minutes to fall asleep. She wakes up at least once throughout the night to urinate and a can take up to an hour to fall back asleep. He wakes up at 7:00 a.m. on weekdays and at 7:30 a.m. on the weekends. She typically gets 5-6 hours of sleep per night. She will stay in bed for less than 10 minutes after waking up in the morning. She currently lives with her . She denies consuming any caffeinated beverages within 2 hours of bedtime. She denies engaging in physical exercise before bedtime. She denies reading and watching television before falling asleep. She will take on intentional naps during the afternoon or the evening and they are refreshing. She denies consuming any caffeinated beverages throughout the day. She denies tobacco, alcohol and recreational drug use. FORMERLY [facility], [facility] Past Medical History Medical History Adenomatous colon polyp Chronic anemia Chronic kidney disease, stage 3 Diabetic peripheral neuropathy Essential hypertension Gastroesophageal reflux disease Hypertension Mixed hyperlipidemia Nonrheumatic aortic valve stenosis Osteoarthritis Overactive bladder Type 2 diabetes mellitus Vitamin B12 deficiency Dwpki-Mepxwrjnf-Xrcmv syndrome Surgical History Surgical History H/O heart bypass surgery History of arthroplasty of left knee (08/2018) History of arthroplasty of right knee (01/2021) History of arthroscopy of left knee (01/2018) History of hammertoe correction (08/2007) History of hysterectomy History of la
[2024-07-17 09:20] VITALS: BMI 34.7
== END 2024-06-25 07:00 | disposition home or self-care (01) ==
LOC: ANHCSM 09:05
PROVIDERS: PCP Family Medicine; Visit Provider Family Medicine
DX: G47.33 Obstructive sleep apnea (adult) (pediatric) (principal); I10 Essential (primary) hypertension
CPT/HCPCS: 95811

== ENCOUNTER 2024-07-22 12:46 | Outpatient (CLI) | payer MEDICARE, OTHER, SELFPAY ==
[2024-07-22 13:32] LABS: Anion Gap 11 mmol/L (4-12); Blood Urea Nitrogen 58 mg/dL (7-17); Calcium 9.9 mg/dL (8.4-10.2); Carbon Dioxide 30 mmol/L (22-30); Chloride 97 mmol/L (98-107); Estimated Glomerular Filt Rate 22; Glucose 123 mg/dL (65-110); Potassium 4.8 mmol/L (3.4-5.0); Sodium 138 mmol/L (137-145)
== END 2024-07-22 12:47 | disposition home or self-care (01) ==
PROVIDERS: PCP Family Medicine; Visit Provider Internal Medicine Nephrology
DX: N18.32 Chronic kidney disease, stage 3b (principal)
CPT/HCPCS: 36415; 80048

== ENCOUNTER 2024-08-28 14:53 | Outpatient (CLI) | payer MEDICARE, OTHER, SELFPAY ==
[2024-08-28 16:51] LABS: Hemoglobin A1C 7.5 % (<5.7)
== END 2024-08-28 14:54 | disposition home or self-care (01) ==
PROVIDERS: PCP Family Medicine
DX: E11.65 Type 2 diabetes mellitus with hyperglycemia (principal)
CPT/HCPCS: 36415; 83036

== ENCOUNTER 2024-10-02 15:24 | Outpatient (NON) | payer MEDICARE, OTHER, SELFPAY ==
[2024-10-02 20:36] LABS: Add Urine Microscopic? YES; Appearance Urine Cloudy (Clear); Bilirubin Urine Negative (Negative); Blood Urine Negative (Negative); Color Urine Yellow (Yellow); Glucose Urine UA 3+ mg/dL (Negative); Ketones Urine Negative (Negative); Leukocyte Esterase Ur Negative LEU/UL (Negative); Nitrate Urine Negative (Negative); Protein Urine Negative (Negative); Specific Grav Ur 1.012 (1.001-1.035); Urobilinogen Urine 0.2 mg/dL (<2.0); pH Urine 5.5 (5.0-9.0)
[2024-10-02 20:48] LABS: Need Manual Microscopic Yes; RBC Urine 0-2 /hpf (0-2); WBC Urine 0-5 /hpf (0-3)
[2024-10-02 20:51] LABS: Mucus Urine Present /lpf
== END 2024-10-02 15:25 | disposition home or self-care (01) ==
LOC: ANHGOSHLAB 15:25
PROVIDERS: PCP Family Medicine; Visit Provider Family Medicine
DX: R30.0 Dysuria (principal)
CPT/HCPCS: 81001

== ENCOUNTER 2024-10-06 12:36 | Outpatient (CLI) | payer MEDICARE, OTHER, SELFPAY ==
[2024-10-06 12:57] LABS: Hematocrit 43.5 % (37.0-47.0); Hemoglobin 13.6 g/dL (12.0-15.0); Mean Corpuscular HGB Conc 31.3 g/dl (32-36); Mean Corpuscular Hemoglobin 29.8 pg (26-34); Mean Corpuscular Volume 95.4 fl (80-100); Mean Platelet Volume 9.7 fl (7.4-10.4); Platelet Count Result 400 k/mm3 (150-375); Red Blood Count 4.56 M/mm3 (4.2-5.4); Red Cell Distribution Width 13.9 % (11.5-14.5); White Blood Count 9.6 K/mm3 (4.5-10.0)
[2024-10-06 13:17] LABS: Albumin Level 4.7 g/dL (3.5-5.1); Anion Gap 12 mmol/L (4-12); Blood Urea Nitrogen 55 mg/dL (7-17); Calcium 9.9 mg/dL (8.4-10.2); Carbon Dioxide 24 mmol/L (22-30); Chloride 103 mmol/L (98-107); Estimated Glomerular Filt Rate 20; Glucose 219 mg/dL (65-110); Phosphorus 4.6 mg/dL (2.5-4.5); Potassium 4.1 mmol/L (3.4-5.0); Sodium 139 mmol/L (137-145)
[2024-10-06 13:58] LABS: Creatinine Urine 30.9 mg/dL; Total Protein Urine Random 9 mg/dL; Ur Ttl Prot Creatinine Ratio 0.29 mg/mg (0-0.20)
[2024-10-06 14:06] LABS: Parathyroid Intact 35.6 pg/mL (14.5-75.2)
== END 2024-10-06 12:37 | disposition home or self-care (01) ==
PROVIDERS: PCP Family Medicine; Visit Provider Internal Medicine Nephrology
DX: N18.32 Chronic kidney disease, stage 3b (principal); I35.0 Nonrheumatic aortic (valve) stenosis
CPT/HCPCS: 36415; 80069; 82570; 83970; 84156; 85027

== ENCOUNTER 2024-12-05 11:35 | Outpatient (CLI) | payer MEDICARE, OTHER, SELFPAY ==
--- OUTSIDE RECORDS SUMMARY | 2024-12-05 11:42 | XMS_ITS | Clinical Summary ---
Author Organization [facility] Address [address] [place] [address] Care Team Providers Care Financial Services Assistant Name Role Phone Samantha Banks MD Primary Care Provider [phone] Source Comments [facility],non-[facility] Affiliates and Associated Physician Practices is amultiple site organization consisting of ambulatory clinics and hospital sitesin [place], [place], [place] and [place]. This disclosure is being madepursuant to the Care Everywhere program and may not contain all information available regarding this patient. Last updated 18.[facility] [employer] Social History Tobacco Use Types Packs/Day Years Used Date Smoking Tobacco: Never Assessed Sex and Gender Information Value Date Recorded Sex Assigned at Not on file Gender Identity Not on file Sexual Orientation Not on file Plan of Treatment Health Maintenance Due Date Last Done Comments BONE DENSITY TESTING 1960 COLOGUARD (AGES 45-75) - COL ON CA SCREENING 1960 COLON MONITORING 1960 COLONOSCOPY - COLON CA SCREENING 1960 CT COLONOGRAPHY - COLON CA SCREENING 1960 Colorectal Cancer Screening 1960 FIT - COLON CA SCREENING 1960 FLEX SIG - COLON CA SCREENING 1960 LIPID TESTING 1960 MAMMOGRAM 1960 PAP SMEAR 1960 HIV SCREENING 1973 HEPATITIS C SCREENING 12/12/1976 DTAP/TDAP/TD VACCINES (1 - Tdap) 1977 PNEUMOCOCCAL VACCINE 50+ (1 of 1 - PCV) 2008 ZOSTER VACCINE (1 of 2) 2008 COVID-19 VACCINE (1 - 2024-2 5 season) 2024 INFLUENZA VACCINE (#1) 2024 DEPRESSION SCREENING 10/22/2024 Respiratory Syncytial Virus (RSV) Vaccine Pt: or over 60 yrs (1 - 1-dose 75+ series) 2033 HEPATITIS B VACCINE Aged Out No longe r eligible based on patient's age to complete this topic HIB VACCINE Aged Out No longer eligi ble based on patient's age to complete this topic HPV VACCINE Aged Out No longer eligi ble based on patient's age to complete this topic MENINGOCOCCAL (Group B) VACCINE Aged Out No longer eligible based on patient's age to complete this topic MENINGOCOCCAL VACCINE Aged Out No cedric charlei eligible based on patient's age to complete this topic Care Teams Financial Services Assistant Relationship Specialty Start Date End Date Samantha Banks MD [address] [place] [address] PCP - General Family Medicine 07/18/16
--- OUTSIDE RECORDS SUMMARY | 2024-12-05 11:42 | XMS_ITS | Continuity of Care Document ---
Author Organization [facility] Address [address] [place] [address] Phone Care Team Providers Care Historical Interpreter Name Role Phone Lio Maharaj Unavailable Unavailable Procedures Procedure Date Office/outpatient Visit, Est Office/outpatient Visit, Est Eye Exam & Treatment Advance Directives Directive Yes / No Effective Date File Name No Information Encounters Encounter Description Practice Location Reason(s) For Visit Diagnoses Date Provider Providers Copied on Encounter [place] [facility] [address], [place], [place], [id number], [place] tel:[phone] [facility] No Information 4-201 0 Krishnasamy Lio. [address] [address], [place], [place], [facility], [place]. tel:[phone] Office/[place]pat [place], [facility] [place] [address], [place], [place], [id number], [place] tel:[phone] [facility] No Information 5-200 9 Krishnasamy Lio. [address], [place], [address], [place]. tel:[phone] [facility], [address], [place], [place], [id number], [place] tel:[phone] [facility] No Information Dec- 0-200 8 Carol Ann Vaca. [address] [employer] [address], [address], [place]. tel:[phone] Family History Family Member Type Diagnosis Age [...]
--- OUTSIDE RECORDS SUMMARY | 2024-12-05 11:42 | XMS_ITS | Patient Health Summary ---
Author Organization [facility] [employer] Address [address] [place] [address] Care Team Providers Care Chief Sustainability Officer Name Role Phone Samantha Banks MD Primary Care Provider [phone] Note from [facility],non-owned Affiliates and Associated Physician Practices is amultiple site organization consisting of ambulatory clinics and hospital sitesin [place], [place], [place]. This disclosure is being madepursuant to the Care Everywhere program and may not contain all information available regarding this patient. Last updated 18.[facility] [employer] Social History Tobacco Use Types Packs/Day Years Used Date Smoking Tobacco: Never Assessed Sex and Gender Information Value Date Recorded Sex Assigned at Not on file Gender Identity Not on file Sexual Orientation Not on file Procedures * SKIN TEST PPD - POINT OF CARE(Performed 07/20/2016) Performed for Encounter for screening for respiratory tuberculosis Results * SKIN TEST PPD - POINT OF CARE (07/20/2016 12:23 PM CDT) PPD 0mm MISCELLANEOUS SAMPLE S / Unknown 07/20/2016 12:23 PM CDT Jodi Lagos APRN-ANIMAL CARE TAKER [facility] - POINT OF CARE ORDERABLES Care Teams Chief Sustainability Officer Relationship Specialty Start Date End Date Samantha Banks MD [address] [place] [address] PCP - General Family Medicine 07/18/16
--- OUTSIDE RECORDS SUMMARY | 2024-12-05 11:42 | XMS_ITS | Referral Summary ---
Author Organization [facility] [address] Address [address] [place] [address] Care Team Providers Care Mechanical Adjuster Name Role Phone Camryn Chao Terra MAURO Primary Care Provider + Kevin Metcalf MD Unavailable Cortez Huerta MD Unavailable Soha Vega MD Unavailable [phone] Allergies Active Allergy Reactions Criticality Noted Date Comments Diltiazem Other (See comments) Low 07/25/2019 AV block Lisinopril Cough Low 07/07/2019 Naproxen Angioedema High 02/03/2019 Penicillin G Rash Medium 02/03/2019 Medications metFORMIN (GLUCOPHAGE) 1,000 mg tablet Take by mouth 2 (two) times a day 11/13/19 19 Active fenofibrate micronized (LOFIBRA) 134 mg capsule Take 1 capsule (134 mg total) by mouth bedtime 01/06/20 19 Active VESICARE 5 mg tablet Take 1 tablet (5 mg total) by mouth bedtime 01/06/20 19 Active aspirin 325 mg enteric coated tablet Take by mouth daily 11/13/19 19 Active acetaminophen ER (TYLENOL) 650 mg 8 hr tablet Take 1 tablet (650 mg total) by mouth every 8 (eight) hours as needed for pain Active ferrous gluconate (FERGON) 240 mg (27 mg of elemental iron) tabletIndicatio ns:Iron Deficiency Anemia Take 1 tablet (240 mg total) by mouth 3 (three) times a day with meals Active magnesium oxide (MAG-OX) 400 mg (241.3 mg elemental magnesium) tabletIndicatio ns:hypomagnesem ia Take 1 tablet (400 mg total) by mouth daily Active hydrALAZINE (APRESOLINE) 100 mg tablet Take 1 tablet (100 mg total) by mouth 3 (three) times a day 06/24/20 20 028 Active gabapentin (NEURONTIN) 300 mg capsule 3 (three) times a day 300mg in morning and at 2pm, 600mg at night 06/30/20 23 Active empagliflozin (Jardiance) 10 mg tablet Take 1 tablet (10 mg total) by mouth daily 07/25/20 23 Active hydrOXYzine (ATARAX) 50 mg tablet Take 1 tablet (50 mg total) by mouth 4 (four) times a day as needed for itching Active omeprazole (PriLOSEC) 20 mg capsule Take 1 capsule (20 mg total) by mouth daily Active vitamin b complex tablet Take 1 tablet by mouth daily Active UNABLE TO FIND Take 1 each by mouth daily Med Name: ARTHROZENE Active cholecalciferol , vitamin D3, (VITAMIN D3 ORAL) Take 1,000 Int'l Units by mouth daily Active cyanocobalamin (vitamin B-12) 1,000 mcg tabletIndicatio ns:Prevention of Vitamin B12 Deficiency Take 1 tablet (1,000 mcg total) by mouth every evening Active pfjbg-E-qjqarcm sidase (BEANO ORAL) Take 1 tablet by mouth 2 (two) times a day Active UNABLE TO FIND Take 1 each by mouth daily Med Name: Garrett Guard Turmeric Active insulin glargine (LANTUS) 100 unit/mL (3 mL) pen for injection Inject 30 Units under the skin every morning 9 mL 1 09/08/20 Active pen needle, diabetic (Pen Needle) 32 gauge x 32 needle Use as directed once a day. 100 each 09/08/20 23 Active Contour Next Test Strips strip Use as directed up to four times a day. 100 each 1 09/08/20 Active insulin lispro (HumaLOG) 100 unit/mL pen for injection Inject 22 Units under the skin 3 (three) times a day with meals PLUS blood glucose mg/dL 150-199: 2 units, 200-249: 4 units, 250-299: 6 units, 300-349: 8 units, 350 or greater: 10 units. Notify provider for blood glucose greater than 299 mg/dL. Refer to After Visit Summary for Sliding Scale Insulin Instructions. 30 mL 1 09/08/20 23 Active spironolactone (ALDACTONE) 25 mg tablet Take 1 tablet (25 mg total) by mouth daily 09/21/20 23 Active atorvastatin (LIPITOR) 80 mg tablet TAKE 1 TABLET BY MOUTH EVERY NIGHT 90 tablet 3 07/07/20 24 Active irbesartan (AVAPRO) 75 mg tablet TAKE 1 TABLET BY MOUTH DAILY 90 tablet 3 07/07/20 24 Active Ozempic 1 mg/dose (4 mg/3 mL) pen injector injection 06/25/20 24 Active metoprolol (LOPRESSOR) 100 mg tablet TAKE 1 TABLET BY MOUTH TWICE DAILY 180 tablet 3 09/01/20 24 Active furosemide (LASIX) 20 mg tabletIndicatio ns:Status post aortic valve replacement TAKE 1 TABLET(20 MG) BY MOUTH DAILY 90 tablet 3 12/01/19 25 Active furosemide (LASIX) 20 mg tabletIndicatio ns:Status post aortic valve replacement Take 1 tablet (20 mg total) by mouth daily 90 tablet 3 10/18/20 23 025 Discontinued Active Problems Problem Noted Date Diagnosed Date Diastolic congestive heart failure (CMS/HCC) 05/2024 Heart failure with preserved ejection fraction ( CMS/HCC) 04/28/2024 LYDIA (obstructive sleep apnea) 01/31/2024 Aftercare following surgery of the circulatory s te 10/10/2023 Status post aortic valve replacement 10/10/2023 Status post coronary artery bypass grafting 09/22 Aortic stenosis, severe 09/04/2023 Coronary artery disease invo lving [place] coronary artery of [place] heart without angina pectoris 08/28/2023 Left carotid bruit 05/07/2020 Nonrheumatic aortic valve stenosis 05/07/2020 Renal artery stenosis 02/12/2020 Chronic kidney disease 07/25/2019 Family history of coronary artery disease 2018 AV block 07/25/2019 Frequent PVCs 07/25/2019 Hypertension associated with diabetes 07/25/2019 Hyperlipidemia associated with type 2 diabetes chelle solis 07/25/2019 Social History Tobacco Use Types Packs/Day Years Used Date Smoking Tobacco: Never Cigarettes Smokeless Tobacco: Never Tobacco Cessation:Counseling Given: Not Answered Alcohol Use Standard Drinks/Week Comments Not Currently 0 (1 standard drink = 0.6 oz pur e alcohol) OASIS D0700: Social Isolation Answer Da te Recorded Frequency of experiencing loneliness or isolatio n Never 10/09/2023 OASIS A1250: Transportation Answer Date Recorded Lack of Transportation (Medical) No 10/09/2023 Lack of Transportation (Non-Medical) No 10/09/2023 Patient Unable or Declines to Respond No 10/09/2023 OASIS B1300: Health Literacy Answer Alfredo e Recorded Frequency of needing help to read materials from doctor or pharmacy Never 10/09/2023 [facility] Utilities Answer Date Recorded In the past 12 months has th e [employer], gas, oil, or water [employer] threatened to shut off services in your home? No 09/06/2023 Social Connection and Isolat ion Panel [NHANES] Answer Date Recorded In a typical week, how many times do you talk on the phone with family, friends, or neighbors? More than three times a week 09/06/2023 How often do you get togethe r with friends or relatives? More than three times a week 09/06/2023 How often do you attend chur ch or taoist services? 1 to 4 times per year 09/06/2023 Do you belong to any clubs o r organizations such as moravian groups, unions, fraternal or athletic groups, or school groups? No 09/06/2023 How often do you attend meet ings of the clubs or organizations you belong to? Never 09/06/2023 Are you , , di vorced, , never , or living with a partner? 09/06/2023 AUDIT-C Answer Date Recorded Q1: How often do you have a drink containing alcohol? Never 09/04/2023 Q2: How many drinks containi ng alcohol do you have on a typical day when you are drinking? Patient does not drink Q3: How often do you have si x or more drinks on one occasion? Never 09/04/2023 Overall Financial Resource Strain (CARDIA) Answe r Date Recorded How hard is it for you to pa y for the very basics like food, housing, medical care, and heating? Not very hard 09/06/2023 Hunger Vital Sign Answer Date Recorded Within the past 12 months, y ou worried that your food would run out before you got the money to buy more. Never true 09/06/20 23 Within the past 12 months, t he food you bought just didn't last and you didn't have money to get more. Never true 09/06/2023 PRAPARE - Transportation Answer Date Re corded In the past 12 months, has l ack of transportation kept you from medical appointments or from getting medications? No 08/22 In the past 12 months, has l ack of transportation kept you from meetings, work, or from getting things needed for daily living? No 09/06/2023 Housing Stability Vital Sign Answer Alfredo e Recorded In the last 12 months, was t here a time when you were not able to pay the mortgage or rent on time? No 09/06/2023 In the last 12 months, how many places have you lived? 1 09/06/2023 In the last 12 months, was t here a time when you did not have a steady place to sleep or slept in a fpc (including now)? No 09/06/2023 Personal Safety Answer Date Recorded Have you ever been in or are you currently in a harmful physical or emotional relationship or is someone making you feel afraid or unsafe? Denies 09/04/2023 Comments No Sex and Gender Information Value Date Recorded Sex Assigned at Not on file Legal Sex Female 9:23 AM HYDROELECTRIC STATION OPERATOR CHIEF Gender Identity Not on file Sexual Orientation Not on file Last Filed Vital Signs Vital Sign Reading Time Taken Comments Blood Pressure 134/72 08/28/2024 1:59 PM HYDROELECTRIC STATION OPERATOR CHIEF Pulse 74 08/28/2024 1:59 PM HYDROELECTRIC STATION OPERATOR CHIEF Temperature 36.7 C (98 F) 10/09/2023 11:29 AM HYDROELECTRIC STATION OPERATOR CHIEF Respiratory Rate 18 10/10/2023 9:21 AM HYDROELECTRIC STATION OPERATOR CHIEF Oxygen Saturation 96% 08/28/2024 1:59 PM HYDROELECTRIC STATION OPERATOR CHIEF Inhaled Oxygen Concentration - - Weight 93 kg (205 lb) 08/28/2024 1:59 PM HYDROELECTRIC STATION OPERATOR CHIEF Height 162.6 cm (5' 4 ) 08/28/2024 1:59 PM HYDROELECTRIC STATION OPERATOR CHIEF Body Mass Index 35.19 08/28/2024 1:59 PM HYDROELECTRIC STATION OPERATOR CHIEF Plan of Treatment Not on file Medical Devices Implanted Type Area Metal Weigher Device Identifier Shelf Expiration Date Model / Serial / Lot [employer] Inspiris Resilia Leaflet Aortic Valve 23mm [id number] - [id number] - [id number] Implanted:Qty: 1 on 09/04/2023 by Cortez Huerta MD at [facility] Prosthetic Valve N/A: Aortic Valve [employer] 04/29/2027 [id number] / [id number] / [employer]ang V[employer] Device Clsr Perclose Prostyle Sut-Mediatd Closure-Repair Sys [id number] - S0 - [id number] Implanted:Qty: 1 on 08/01/2023 by Alireza Negron MD at [facility] Vascular Closure Device [employer] 04/20/2025 [id number] / [id number] / [id number] Bard Peripheral Vascular Bard .25x.25in Reading Thk1.65mm Square P[place]get Cardiovascular Ptfe [id number] - [id number] Implanted:Qty: 1 on 09/04/2023 by Cortez Huerta MD at [facility] N/A: Chest [employer] Peripheral Vascular [id number] / / [employer] Device Closure Fibertape Sternal Cerclage Blunt Needle Ar-[id number] - [id number] Implanted:Qty: 1 on 09/04/2023 by Cortez Huerta MD at [facility] N/A: Sternum [employer] 05/21/2028 [id number] / / [id number] [employer] Device Closure Fibertape Sternal Cerclage Blunt Needle Ar-7289 - [id number] Implanted:Qty: 1 on 09/04/2023 by Cortez Huerta MD at [facility] N/A: Sternum [employer] 09/20/2026 AR-7289 / / [id number] Procedures Procedure Name Priority Date/Time Associated Diagnosis Comments POCT LIPID PANEL Routine 04/28/2024 8:18 AM CDT Lipid screening BASIC METABOLIC PANEL Routine 04/08/2024 Hypertension associated with diabetes (HCC) HEMOGLOBIN A1C STAT 09/04/2023 9:48 AM HYDROELECTRIC STATION OPERATOR CHIEF from Last 3 Months or Most Recently Relevant to Health Maintenance Results * POCT lipid panel (04/28/2024 8:18 AM CDT) Pathologist [facility] Cholesterol, POC 127 mg/dL HDL, POC 41 mg/dL Triglycerides, POC 94 mg/dL LDL Cholesterol POC 68 mg/dL Chol/HDL Ratio, POC 1.7 Non-HDL Cholesterol, POC 86 mg/dL Cholesterol Total, POC 127 mg/dL Capillary blood 04/28/2024 8 :18 AM CDT Denise Santiaog NP POINT OF CARE TEST ORDERABLE S Edited Result - Final * (ABNORMAL) Basic metabolic panel (04/08/2024) Pathologist [facility] SCRIBED Sodium 140 137 - 145 mmol/L EXTERNAL LAB SCRIBED Potassium 4.4 3.4 - 5.0 mmol/L EXTERNAL LAB SCRIBED Chloride 104 98 - 107 mmol/L EXTERNAL LAB SCRIBED Carbon Dioxide 30 22 - 30 mmol/L EXTERNAL LAB SCRIBED Anion Gap 6 4 - 12 mmol/L EXTERNAL LAB SCRIBED Urea Nitrogen (BUN) 37(A) 7 - 17 mg/dl EXTERNAL LAB SCRIBED Creatinine 1.70(A) 0.7 - 1.0 mg/dl EXTERNAL LAB SCRIBED Glucose 238(A) 65 - 110 mg/dl EXTERNAL LAB SCRIBED Calcium 9.7 8.4 - 10.2 mg/dl EXTERNAL LAB SCRIBED eGFR in N/A N/A EXTERNAL LAB SCRIBED eGFR in NonAfrican [place] 30 > or = 60 EXTERNAL LAB Blood 04/08/2024 Kevin Metcalf MD LAB BLOOD ORDERABLES Ashley black Result EXTERNAL LAB * (ABNORMAL) Hemoglobin A1c (09/04/2023 9:48 AM HYDROELECTRIC STATION OPERATOR CHIEF) Pathologist [facility] Hgb A1C 9.2(H) 4.0 - 5.6 % [facility] Estimated Average Glucose 217 mg/dL [facility] Comment: The ADA recommends reporting an estimated Average Glucose (eAG) with all Hemoglobin A1c results using the equation derived from a study of 507 normal and diabetic adults. Minority populations were underrepresented and children were not included. (Diabetes Care 31:8143-5300, 2008). The eAG is not equivalent to a fasting glucose. Blood 09/04/2023 9:48 AM HYDROELECTRIC STATION OPERATOR CHIEF 09/04/2023 9:59 AM HYDROELECTRIC STATION OPERATOR CHIEF us Terra Gilmore NP LAB BLOOD ORDERABLES Final Resul t [facility] [address] Department [place] [address] from Last 3 Months or Most Recently Relevant to Health Maintenance Insurance [facility] MEDICARE [facility] Advance Directives For more information, please contact: [phone] * Full Code (Latest Code Status on File) Date Activated Date Inactivated Comments 09/04/2023 2:59 PM 09/09/2023 3:12 PM Care Teams Mechanical Adjuster Relationship Specialty Start Date End Date Camryn Chao DO PCP - General Family Medicine 01/18/23 Kevin Metcalf MD [address] [facility] [address] [place] [address] Referring Physician Cardiology 08/02/23 Cortez Huerta MD [address] [facility] [address] [place] [address] Consulting Physician Cardiothoracic Surgery 08/02/23 Soha Vega MD [facility] [facility] [facility] [address] [place] [address] Endocrinology Diabetes & Metabolism 09/08/23
--- OUTSIDE RECORDS SUMMARY | 2024-12-05 11:42 | XMS_ITS | Referral Summary ---
Author Organization [facility] Address [address] [address] [place] [address] Care Team Providers Care Ribbon Hanking Machine Operator Name Role Phone Samantha Banks MD Primary Care Provider [phone] Source Comments [facility] and [facility]ician Practices is amultiple site organization consisting of ambulatory clinics and hospital sitesin [place], [place], [place] and [place]. This disclosure is being madepursuant to the Care Everywhere program and may not contain all information available regarding this patient. Last updated 18.[facility] Social History Tobacco Use Types Packs/Day Years Used Date Smoking Tobacco: Never Assessed Sex and Gender Information Value Date Recorded Sex Assigned at Not on file Gender Identity Not on file Sexual Orientation Not on file Plan of Treatment Not on file Administered Medications Care Teams Ribbon Hanking Machine Operator Relationship Specialty Start Date End Date Samantha Banks MD [address] [place] [address] PCP - General Family Medicine 07/18/16
--- OUTSIDE RECORDS SUMMARY | 2024-12-05 11:42 | XMS_ITS | Clinical Summary ---
Author Organization [facility] [address] Address [address] [place] [address] Care Team Providers Care Peoplesoft Crm Developer Name Role Phone Camryn Chao Terra MAURO Primary Care Provider + Kevin Metcalf MD Unavailable Cortez Huerta MD Unavailable Soha Vega MD Unavailable [phone] Allergies Active Allergy Reactions Criticality Noted Date [...] mcg total) by mouth every evening Active ulsra-J-lztnipg sidase (BEANO ORAL) Take 1 tablet by [...] Aftercare following surgery of the circulatory s yste 10/10/2023 Status post aortic valve replacement 10/10/2023 Status post coronary artery bypass grafting 09/22 Aortic stenosis, severe 09/04/2023 Coronary artery disease invo lving hopi coronary artery of hopi heart without angina pectoris 08/28/2023 Left carotid bruit 05/07/2020 Nonrheumatic aortic valve stenosis 05/07/2020 Renal artery stenosis 02/12/2020 Chronic kidney disease 07/25/2019 Family history of coronary artery disease 2018 AV block 07/25/2019 Frequent PVCs 07/25/2019 Hypertension associated with diabetes 07/25/2019 Hyperlipidemia associated with type 2 diabetes chelle solis 07/25/2019 Surgical History Surgery Date Site/Laterality Comments HYSTERECTOMY 10/22/1997 - 10/21/1998 CORRECTION HAMMER TOE 10/22/2006 - 10/21/2007 CHOLECYSTECTOMY 10/22/2009 - 10/21/2010 TOTAL KNEE ARTHROPLASTY 08/22/2018 - 09/20/2018 Left CORONARY ARTERY BYPASS GRAFT 09/04/2023 left radial to circumflex AORTIC VALVE REPLACEMENT 09/04/2023 JOINT REPLACEMENT Lt knee 2017, Rt knee 2020 Medical History Medical History Date Comments Hypertension Hyperlipidemia Diabetes mellitus (HCC) Osteoarthritis Cataract Anemia WPW (Xahht-Sbpiwyofc-Vlwsp syndrome) GERD (gastroesophageal reflu x disease) Vertigo Aortic stenosis CKD (chronic kidney disease) stage 3, GFR 30-59 ml/min ([facility]) baseline creat 1.3-1.4 Coronary artery disease Neuromuscular disorder (HCC) Degenerativ e disc disease, Neuropathy. Family History Medical History Relation Name Comments No Known Problems Brother 1 No Known Problems Brother 2 Bladder Cancer Father 90 Cancer Father 90 Heart attack Father 90 Hypertension Father 90 Heart attack Mother 76 fatal [place] Sudden Mother 76 COPD Sister 64 Relation Name Status Comments Brother 1 Alive Brother 2 Alive Father 90 Alive Mother 76 Sister 64 Alive Social History Tobacco Use Types Packs/Day Years [...] materials from doctor or pharmacy Never 10/09/2023 [facility] Utilities Answer Date Recorded In the past 12 months has th e [employer], gas, oil, or water company threatened to shut off services in your [...] often do you attend chur ch or zoroastrian services? 1 to 4 times per year 09/06/2023 Do you belong to any clubs o r organizations such as restoration groups, unions, fraternal or athletic groups, or [...] place to sleep or slept in a fci (including now)? No 09/06/2023 Personal Safety Answer Date Recorded Have you ever been in or are you currently in a harmful physical or emotional relationship or is someone making you feel afraid or unsafe? Denies 09/04/2023 Comments No Sex and Gender Information Value Date Recorded Sex Assigned at Not on file Legal Sex Female 9:23 AM PRESIDENTIAL HELICOPTER CREW CHIEF Gender Identity Not on file Sexual Orientation Not on file Obstetrics History Last Filed Vital Signs Vital Sign Reading Time Taken Comments Blood Pressure 134/72 08/28/2024 1:59 PM PRESIDENTIAL HELICOPTER CREW CHIEF Pulse 74 08/28/2024 1:59 PM PRESIDENTIAL HELICOPTER CREW CHIEF Temperature 36.7 C (98 F) 10/09/2023 11:29 AM PRESIDENTIAL HELICOPTER CREW CHIEF Respiratory Rate 18 10/10/2023 9:21 AM PRESIDENTIAL HELICOPTER CREW CHIEF Oxygen Saturation 96% 08/28/2024 1:59 PM PRESIDENTIAL HELICOPTER CREW CHIEF Inhaled Oxygen Concentration - - Weight 93 kg (205 lb) 08/28/2024 1:59 PM PRESIDENTIAL HELICOPTER CREW CHIEF Height 162.6 cm (5' 4 ) 08/28/2024 1:59 PM PRESIDENTIAL HELICOPTER CREW CHIEF Body Mass Index 35.19 08/28/2024 1:59 PM PRESIDENTIAL HELICOPTER CREW CHIEF Plan of Treatment Health Maintenance Due Date Last Done Comments Albumin Creatinine Ratio, Urine 1958 Breast Cancer Screening-Mammogram 1958 Colon Cancer Screening-Colonoscopy 1958 Depression Screening 1958 Hepatitis C Screening 1958 Osteoporosis Screening-Bone Density Scan 1958 Dilated Eye Exam 1958 Foot Exam 1958 Zoster Vaccine (2 of 3) 06/14/2012 04/19/2012 Pneumococcal vaccine 65+ (2 of 2 - PPSV23 or PCV20) 09/14/2020 07/20/2020, 11/11/2014, 03/15/2010 DTaP/Tdap/Td Vaccine (2 - Td or Tdap) 04/19/2022 04/19/2012, 06/17/2002 Well Visit 65+ 2023 Hemoglobin A1C 03/04/2024 09/04/2023 Influenza Vaccine (#1) 2024 , 07/20/2020, 08/11/2019, Additional history exists Fall Risk Assessment 09/09/2024 09/09/2023 eGFR 04/08/2025 04/08/2024, 09/21, 09/09/2023, Additional history exists Lipid Panel 04/28/2025 04/28/2024, 06/22, 06/06/2022, Additional history exists Hepatitis B Screening Completed 10/17/2016 , 07/18/2016, 06/15/2016 Medical Devices Implanted Type Area Flexographic Press Operator Device Identifier Shelf Expiration Date Model / Serial / Lot Lux Lifesciences Inspiris Resilia Leaflet Aortic Valve 23mm [id number] - [id number] - [id number] Implanted:Qty: 1 on 09/04/2023 by Cortez Huerta MD at [facility] Prosthetic Valve N/A: Aortic Valve Lux [employer]iences 04/29/2027 [id number] / [id number] / Giang V[employer] Device Clsr Perclose Prostyle Sut-Mediatd Closure-Repair Sys 11409-08 - S0 - [id number] Implanted:Qty: 1 on 08/01/2023 by Alireza Negron MD at [facility] Vascular Closure Device [employer] 04/20/2025 [id number] / [id number] / [id number] Bard Peripheral Vascular Bard .25x.25in [place]eford Thk1.65mm Square Pledget Cardiovascular Ptfe [id number] - [id number] Implanted:Qty: 1 on 09/04/2023 by Cortez Huerta MD at [facility] N/A: Chest Bard Peripheral Vascular [id number] / / [employer] Device Closure Fibertape Sternal Cerclage Blunt Needle Ar-[id number] - [id number] Implanted:Qty: 1 on 09/04/2023 by Cortez Huerta MD at [facility] N/A: Sternum [employer] Inc 05/21/2028 [id number] / / [id number] [employer] Device Closure Fibertape Sternal Cerclage Blunt Needle Ar-[id number] - [id number] Implanted:Qty: 1 on 09/04/2023 by Cortez Huerta MD at [facility] N/A: Sternum [employer] 09/20/2026 AR-[id number] / / [id number] Procedures Procedure Name Priority Date/Time Associated Diagnosis Comments POCT LIPID PANEL Routine 04/28/2024 8:18 AM CDT Lipid screening BASIC METABOLIC PANEL Routine 04/08/2024 Hypertension associated with diabetes (HCC) HEMOGLOBIN A1C STAT 09/04/2023 9:48 AM PRESIDENTIAL HELICOPTER CREW CHIEF from Last 3 Months or Most Recently Relevant to Health Maintenance Results * POCT lipid panel (04/28/2024 8:18 AM CDT) Cholesterol, POC 127 mg/dL HDL, POC 41 mg/dL Triglycerides, POC 94 mg/dL LDL Cholesterol POC 68 mg/dL Chol/HDL Ratio, POC 1.7 Non-HDL Cholesterol, POC 86 mg/dL Cholesterol Total, POC 127 mg/dL Capillary blood 04/28/2024 8 :18 AM CDT Denise Santiago NP POINT OF CARE TEST ORDERABLE S Edited Result - Final * (ABNORMAL) Basic metabolic panel (04/08/2024) SCRIBED Sodium 140 137 - 145 mmol/L [...] N/A EXTERNAL LAB SCRIBED eGFR in NonAfrican Nepalese 30 > or = 60 EXTERNAL LAB Blood 04/08/2024 us Kevin Metcalf MD LAB BLOOD ORDERABLES Ashley l Result EXTERNAL LAB * (ABNORMAL) Hemoglobin A1c (09/04/2023 9:48 AM PRESIDENTIAL HELICOPTER CREW CHIEF) Hgb A1C 9.2(H) 4.0 - 5.6 % [facility] Estimated Average Glucose 217 mg/dL [facility] Comment: The ADA recommends reporting an estimated Average Glucose (eAG) with all Hemoglobin A1c results using the equation derived from a study of 507 normal and diabetic adults. Minority populations were underrepresented and children were not included. (Diabetes Care 31:0270-7682, 2008). The eAG is not equivalent to a fasting glucose. Blood 09/04/2023 9:48 AM PRESIDENTIAL HELICOPTER CREW CHIEF 09/04/2023 9:59 AM PRESIDENTIAL HELICOPTER CREW CHIEF Terra Gilmore NP LAB BLOOD ORDERABLES Final Resul t [facility] [address] Department [place] [address] from Last 3 Months or Most Recently Relevant to Health Maintenance Insurance [facility] MEDICARE [facility] Advance Directives For more information, please contact: [phone] * Full Code (Latest Code Status on File) Date Activated Date Inactivated Comments 09/04/2023 2:59 PM 09/09/2023 3:12 PM Care Teams Peoplesoft Crm Developer Relationship Specialty Start Date End Date ChaoCamryn dahl DO Terra PCP - General Family Medicine 01/18/23 Kevin Metcalf MD [address] [facility] [address] [place] [address] Referring Physician Cardiology 08/02/23 Cortez Huerta MD [address] [facility] [address] [place] [address] Consulting Physician Cardiothoracic Surgery 08/02/23 Soha Vega MD [facility] [facility] [address] [place] [address] Endocrinology Diabetes & Metabolism 09/08/23
--- OUTSIDE RECORDS SUMMARY | 2024-12-05 11:42 | XMS_ITS | Encounter Summary ---
Author Organization [facility] Address [address] [place] [address] Care Team Providers Care Pyrometer Mechanic Name Role Phone Camryn Chao DO Primary Care Provider + Kevin Metcalf MD Unavailable [phone] Cortez Huerta MD Unavailable [phone] Soha Vega MD Unavailable [phone] Encounter Details Date Type Department Care Team (Late st Contact Info) Description 01/15/2024 Orders Only [facility] Health Information Management [address] [place] [address] Scanning, Provider Social History Tobacco Use Types Packs/Day Years Used Date Smoking Tobacco: Never Smokeless Tobacco: Never Alcohol Use Standard Drinks/Week Comments Not Currently [...] materials from doctor or pharmacy Never 10/09/2023 [facility] Utilities Answer Date Recorded In the past 12 months has [employer], gas, oil, or water [employer] threatened to shut off services in your [...] often do you attend chur ch or anabaptism services? 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 Gender Identity Not on file Sexual Orientation Not on file documented as of this encounter Plan of Treatment Not on file documented as of this encounter Procedures Procedure Name Priority Date/Time Associated Diagnosis Comments SLEEP LAB/STUDY - RESULT 01/15/2024 documented in this encounter Results * SLEEP LAB/STUDY - RESULT (01/15/2024) us Provider Scanning Final Result documented in this encounter Visit Diagnoses Not on filedocumented in this encounter Care Teams Pyrometer Mechanic Relationship Specialty Start Date End Date Camryn Chao DO PCP - General Family Medicine 01/18/23 Kevin Metcalf MD [address] [facility] [address] [place] [id number] Referring Physician Cardiology 08/02/23 Cortez Huerta MD [address] [facility] [address] [place] [place] [id number] Consulting Physician Cardiothoracic Surgery 08/02/23 Shoa Vega MD [facility] [facility] [address] [place] [address] Endocrinology Diabetes & Metabolism 09/08/23 documented as of this encounter
--- OUTSIDE RECORDS SUMMARY | 2024-12-05 11:42 | XMS_ITS | Encounter Summary ---
Author Organization [facility] Healthcare Address [address] [place] [address] Care Team Providers Care Track Laying Machine Operator Name Role Phone Camryn Chao DO Primary Care Provider + Kevin Metcalf MD Unavailable [phone] Cortez Huerta MD Unavailable [phone] Soha Vega MD Unavailable [phone] Encounter Details Date Type Department Care Team (Late st Contact Info) Description 01/07/2024 Orders Only [facility] Health Information Management [address] [place] [address] Scanning, Provider Social History Tobacco Use [...] materials from doctor or pharmacy Never 10/09/2023 [facility] Utilities Answer Date Recorded In the past 12 months has [employer], gas, oil, or water [employer] threatened to shut off services in your [...] often do you attend chur ch or caodaism services? 1 to 4 times per year 09/06/2023 Do you belong to any clubs o r organizations such as congregation groups, unions, fraternal or athletic groups, or [...] No 09/06/2023 Housing Stability Vital Sign Answer Alfreod e Recorded In the last 12 months, [...] place to sleep or slept in a [place] [facility] [place] (including now)? No 09/06/2023 Personal Safety Answer Date Recorded Have you ever been in or are you currently in a harmful physical or emotional relationship or is someone making you feel afraid or unsafe? 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 Gender Identity Not on file Sexual Orientation Not on file documented as of this encounter Plan of Treatment Not on file documented as of this encounter Procedures Procedure Name Priority Date/Time Associated Diagnosis Comments SCAN - LABS 01/07/2024 documented in this encounter Results * SCAN - LABS (01/07/2024) us Provider Scanning Final Result documented in this encounter Visit Diagnoses Not on filedocumented in this encounter Care Teams Track Laying Machine Operator Relationship Specialty Start Date End Date Camryn Chao DO PCP - General Family Medicine 01/18/23 Kevin Metcalf MD [address] [facility] [address] [place] [place] [id number] Referring Physician Cardiology 08/02/23 Cortez Huerta MD [address] [facility] [address] [place] [place] [id number] Consulting Physician Cardiothoracic Surgery 08/02/23 Soha Vega MD [address] [facility] [address] [place] [address] Endocrinology Diabetes & Metabolism 09/08/23 documented as of this encounter
--- OUTSIDE RECORDS SUMMARY | 2024-12-05 11:42 | XMS_ITS | Clinical Summary ---
Author Organization [facility] Address [address] [place] [address] Phone Care Team Providers Care General Adjuster Name Role Phone Carlos Alberto Oneil Primary Care Provider [phone] Allergies Active Allergy Reactions Criticality Noted Date Comments Lisinopril 07/07/2019 Naproxen Swelling Medium 02/03/2019 Penicillin G Rash Medium 02/03/2019 Piroxicam 07/07/2019 Medications Medication Sig Dispensed Refills Start Date End Date Status aspirin EC 325 MG EC tablet 1 daily 0 11/13/2018 Active estradiol (ESTRACE) 1 MG tablet 1 daily 0 11/13/2018 Active fenofibrate micronized (LOFIBRA) 134 MG capsule 1 dialy 0 11/13/2018 Active diphenhydrAMINE (ZzzQUIL) 50 MG tablet 1qhs 0 11/13/2018 Active Multiple Vitamins-Minerals (MULTIVITAMIN ADULT) tablet 1 daily 0 11/13/2018 Active irbesartan (AVAPRO) 300 MG tablet 1 daily 0 11/13/2018 Active pravastatin (PRAVACHOL) 40 MG tablet 1 daily 4 10/11/2018 Active solifenacin (VESICARE) 5 MG tablet 1 daily 0 11/13/2018 Active magnesium oxide (MAG-OX) 400 MG tablet Take 400 mg by mouth daily Active Glucosamine Sulfate 500 MG capsule Take 2,000 mg by mouth daily Active spironolactone (ALDACTONE) 25 MG tablet Take 25 mg by mouth 1 (one) time each day Active metFORMIN (GLUCOPHAGE) 1000 MG tablet 03/29/2020 Active Ozempic, 1 MG/DOSE, 4 MG/3ML solution pen-injector INJECT 1MG UNDER THE SKIN ONCE WEEKLY 06/16/2021 Active amLODIPine (NORVASC) 2.5 MG tablet TAKE 1 TABLET BY MOUTH 1 TIME EVERY DAY 90 tablet 3 10/18/2021 Active nebivolol (BYSTOLIC) 10 MG tablet Take 1 tablet (10 mg total) by mouth 1 (one) time each day 90 tablet 3 10/26/2021 Active Ferrous Gluconate 239 (27 Fe) MG tablet 04/25/2022 Active glimepiride (AMARYL) 2 MG tablet 01/24/2022 Active B Complex Vitamins (Vitamin-B complex) 25' HALF TABLET 01/20/2022 Active Cholecalciferol (Vitamin D3) 25 MCG (1000 UT) capsule 11/22/2021 Active Omeprazole 20 MG Tablet Delayed Release Dispersible 12/20/2021 Activ e hydrALAZINE (APRESOLINE) 100 MG tablet TAKE 1 TABLET BY MOUTH 3 TIMES DAILY 270 tablet 3 07/03/2022 Active Active Problems Problem Noted Date Diagnosed Date Normocytic anemia 04/06/2022 Carotid bruit 05/07/2020 Renal artery stenosis 02/12/2020 Atrioventricular block 07/25/2019 Stage 3b chronic kidney disease 10/10/2018 Type 2 diabetes mellitus without complication Essential (primary) hypertension 07/24/2018 Proteinuria 07/24/2018 Hyperlipidemia 07/24/2018 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 Other specified arthritis, unspecified knee 12/2017 Immunizations Name Administration Dates Next Due Hepatitis B 10/17/2016,07/18/2016,06/15/2016 Influenza TIV (IM) 08/22/2021, 0,08/11/2019,08/17/2014,0 06/27/2013,07/08/2012,06/22/2011,07/20/2010,,08/31/2008,08/15/2007,08/30/2006, Moderna Sars-cov-2 Vaccination 12/28/2020 PPD Test 07/20/2016 Pneumococcal, Unspecified 11/11/2014,03/15/2010 TD Preservative Free 06/17/2002 Tdap 04/19/2012 Zoster 04/19/2012 Family History Medical History Relation Comments Malignant neoplastic disease Father Heart disease Mother Kidney disease Neg Hx Relation Status Comments Father Mother Social History Tobacco Use Types Packs/Day Years Used Date Smoking Tobacco: Never Smokeless Tobacco: Never Alcohol Use Standard Drinks/Week Comments No 0 (1 standard drink = 0.6 oz pur e alcohol) Sex and Gender Information Value Date Recorded Sex Assigned at Not on file Gender Identity Not on file Sexual Orientation Not on file Last Filed Vital Signs Vital Sign Reading Time Taken Comments Blood Pressure 122/80 04/26/2022 9:28 AM CDT Pulse 72 04/26/2022 9:28 AM CDT Temperature 36.3 C (97.4 F) 04/26/2022 9:28 AM CDT Respiratory Rate - - Oxygen Saturation - - Inhaled Oxygen Concentration - - Weight 88.9 kg (196 lb) 04/26/2022 9:28 AM CDT Height 162.6 cm (5' 4 ) 04/26/2022 9:28 AM CDT Body Mass Index 33.64 04/26/2022 9:28 AM CDT Plan of Treatment Health Maintenance Due Date Last Done Comments Pneumococcal PPSV23/PCV13 65 + Years / Low and Medium Risk (1 of 4 - PCV) 2023 COVID-19 Vaccine (2 - 2022-2 4 season) 2024 12/28/2020 Influenza Vaccine (#1) 2024 , 07/20/2020, 08/11/2019, Additional history exists Care Teams General Adjuster Relationship Specialty Start Date End Date Carlos Alberto Oneil [address] [place] [id number] PCP - General 04/26/22
--- OUTSIDE RECORDS SUMMARY | 2024-12-05 11:42 | XMS_ITS | Clinical Summary ---
Author Organization [facility]elle [facility] Address [address] [address] Care Team Providers Care Advanced Manufacturing Technician Name Role Phone Glen Banks MD Primary Care Provider Allergies Active Allergy Reactions Criticality Noted Date Comments Diltiazem Other (See Comments) Low 07/25/2019 AV block Lisinopril Cough Low 07/07/2019 Naproxen Swelling Medium 02/03/2019 Penicillin G Rash Medium 02/03/2019 Piroxicam Other (See Comments) 07/07/2019 Medications acetaminophen (TYLENOL ARTHRITIS) 650 mg Extended Release tablet Take 650 mg by mouth. Active amLODIPine (NORVASC) 2.5 mg tablet TAKE 1 TABLET BY MOUTH 1 TIME EVERY DAY 10/18/2021 Active Cholecalciferol , Vitamin D3, 250 mcg (10,000 unit) Capsule Take 10,000 Units by mouth daily. Active diphenhydrAMINE (BENADRYL) 25 mg capsule Take 25 mg by mouth. Active fenofibrate micronized (LOFIBRA) 134 mg Capsule 12/31/2021 Active ferrous gluconate 240 mg (27 mg iron) Tablet Take 240 mg by mouth. Active glimepiride (AMARYL) 2 mg tablet 01/30/2022 Active glucosamine sulfate 500 mg Capsule Take 2,000 mg by mouth daily. Active Irbesartan (AVAPRO) 300 mg tablet 12/31/2021 Active hydrALAZINE (APRESOLINE) 100 mg Tablet tablet Take 100 mg by mouth. 06/24/2020 Active metFORMIN (GLUCOPHAGE) 1,000 mg tablet 03/29/2020 Act mitzy magnesium oxide (MAG-OX) 400 mg (241.3 mg magnesium) tablet Take 400 mg by mouth daily. Active Multivitamin Capsule Take 1 Capsule by mouth daily. Active pravastatin (PRAVACHOL) 40 mg tablet 12/31/2021 Active semaglutide (Ozempic) 1 mg/dose (4 mg/3 mL) Pen Injector INJECT 1MG UNDER THE SKIN ONCE WEEKLY 06/16/2021 Active spironolactone (ALDACTONE) 25 mg tablet Take 25 mg by mouth daily. 09/16/2019 Active Active Problems Problem Noted Date Diagnosed Date Other dietary vitamin B12 deficiency anemia 03/24 Normocytic anemia 04/06/2022 Family History Medical History Relation Name Comments Cancer Father Relation Name Status Comments Brother 1 Alive Brother 2 Alive Daughter 1 Alive Daughter 2 Alive Daughter 3 Alive Father Mother Sister Alive Social History Tobacco Use Types Packs/Day Years Used Date Smoking Tobacco: Never Smokeless Tobacco: Never Alcohol Use Standard Drinks/Week Comments Never 0 (1 standard drink = 0.6 oz pur e alcohol) Comments Unknown Sex and Gender Information Value Date Recorded Sex Assigned at Not on file Legal Sex Female 9:25 AM CDT Gender Identity Not on file Sexual Orientation Not on file Last Filed Vital Signs Vital Sign Reading Time Taken Comments Blood Pressure 160/78 04/06/2022 10:50 AM CDT Pulse 79 04/06/2022 10:50 AM CDT Temperature 36.6 C (97.8 F) 04/06/2022 10:50 AM CDT Respiratory Rate - - Oxygen Saturation 96% 04/06/2022 10:50 AM CDT Inhaled Oxygen Concentration - - Weight 88.9 kg (196 lb) 04/06/2022 10:50 AM CDT Height 162.6 cm (5' 4 ) 04/06/2022 10:50 AM CDT Body Mass Index 33.64 04/06/2022 10:50 AM CDT Plan of Treatment Health Maintenance Due Date Last Done Comments DIABETES ANNUAL FOOT EXAM 1976 DIABETES ANNUAL RETINAL EXAM 1976 DIABETES HBA1C Q 6 MONTHS 1976 DIABETES MICROALBUMIN ANNUAL SCREEN 1976 LDL CHOLESTEROL ANNUAL 1976 PNEUMOCOCCAL VACCINE 65+ YEA RS (1 of 2 - PCV) 1977 11/11/2014, 03/15/2010 BREAST CANCER SCREENING 1998 COLORECTAL SCREENING 2003 Colorectal Cancer Screening 2003 FIT-DNA Q 3 years 2003 FIT/FOBT Q 1 year 2003 Flex Sig/CT Colonography Q 5 years 2003 ZOSTER VACCINE (2 of 3) 06/14/2012 04/19/2012 RSV VACCINE (60+ or ) (1 - Risk 60-74 years 1-dose series) 2018 DTAP/TDAP/TD VACCINES (2 - T d or Tdap) 04/19/2022 04/19/2012, 06/17/2002 OSTEOPOROSIS SCREENING 2023 INFLUENZA VACCINE (#1) 2024 , 07/20/2020, 08/11/2019, Additional history exists Insurance CHOICE [id number] Care Teams Advanced Manufacturing Technician Relationship Specialty Start Date End Date Glen Banks MD [address] [place] [id number] PCP - General Family Practice 04/06/22
[2024-12-05 12:17] LABS: Add Urine Microscopic? NO; Appearance Urine Clear (Clear); Bilirubin Urine Negative (Negative); Blood Urine Negative (Negative); Color Urine Yellow (Yellow); Glucose Urine UA 3+ mg/dL (Negative); Ketones Urine Negative (Negative); Leukocyte Esterase Ur Negative LEU/UL (Negative); Nitrate Urine Negative (Negative); Protein Urine Negative (Negative); Specific Grav Ur 1.014 (1.001-1.035); Urobilinogen Urine 0.2 mg/dL (<2.0); pH Urine 7.5 (5.0-9.0)
[2024-12-05 12:32] LABS: Rheumatoid Factor < 12.0 IU/ML (<12)
[2024-12-05 13:06] LABS: Erythrocyte Sedimentation Rate 127 mm/hr (0-20)
[2024-12-08 13:48] LABS: SM Antibody <1.0 NEG AI (<1.0 NEG); SM/RNP Antibody <1.0 NEG AI (<1.0 NEG)
[2024-12-08 17:37] LABS: SS-A <1.0 NEG AI (<1.0 NEG); SS-B <1.0 NEG AI (<1.0 NEG)
[2024-12-09 10:44] LABS: Anti Nuclear Antibody Pattern Nuclear, Homogeneous
== END 2024-12-05 11:36 | disposition home or self-care (01) ==
LOC: ANHLAB 11:41
PROVIDERS: PCP Family Medicine; Visit Provider Internal Medicine Nephrology
DX: R76.0 Raised antibody titer (principal); N18.4 Chronic kidney disease, stage 4 (severe)
CPT/HCPCS: 36415; 81003; 82595; 83520; 85652; 86038; 86225; 86235; 86430

== ENCOUNTER 2024-12-13 07:37 | Outpatient (CLI) | payer MEDICARE, OTHER, SELFPAY ==
--- OUTSIDE RECORDS SUMMARY | 2024-12-13 07:42 | XMS_ITS | Referral Summary ---
Author Organization [facility] Address [address] [place] [address] Care Team Providers Care Transcription Name Role Phone Samantha Banks MD Primary Care Provider [phone] Source Comments [facility] and Associated Physician Practices is amultiple site organization consisting of ambulatory clinics and hospital sitesin [place], [place], [place] and [place]. This disclosure is being madepursuant to the Care Everywhere program and may not contain all information available regarding this patient. Last updated 18.[facility] Social History Tobacco Use Types Packs/Day Years Used Date Smoking Tobacco: Never Assessed Sex and Gender Information Value Date Recorded Sex Assigned at Not on file Gender Identity Not on file Sexual Orientation Not on file Plan of Treatment Not on file Administered Medications Care Teams Transcription Relationship Specialty Start Date End Date Samantha Banks MD [address] [place] [address] PCP - General Family Medicine 07/18/16
--- OUTSIDE RECORDS SUMMARY | 2024-12-13 07:42 | XMS_ITS | Continuity of Care Document ---
Author Organization [facility] Address [address] [place] [address] Phone Care Team Providers Care Property Developer Name Role Phone Lio Maharaj Unavailable Unavailable Procedures Procedure Date Office/outpatient Visit, Est Office/outpatient Visit, Est Eye Exam & Treatment Advance Directives Directive Yes / No Effective Date File Name No Information Encounters Encounter Description Practice Location Reason(s) For Visit Diagnoses Date Provider Providers Copied on Encounter [place]pat [place] [facility] [address], [place], [place], [id number], [place] tel:[phone] [facility] No Information 4-201 0 Krishnasamy Lio. [address] [address], [place], [place], [facility], [place]. tel:[phone] Office/outpat ient Visit, [facility] [address], [place], [place], [address], [place] tel:[phone] [facility] No Information 5-200 9 Krishnasamy Lio. [address] [facility] [address], [place], [address], [place]. tel:[phone] [facility], [address], [place], [place], [address], [place] tel:[phone] [facility] No Information Dec- 0-200 8 Carol Ann Vaca. [address], [address], [place]. tel:[phone] Family History Family Member Type Diagnosis Age [...]
--- OUTSIDE RECORDS SUMMARY | 2024-12-13 07:42 | XMS_ITS | Clinical Summary ---
Author Organization [facility] Address [address] [place] [address] Phone Care Team Providers Care Catering Truck Driver Name Role Phone Carlos Alberto Oneil Primary Care Provider [phone] Allergies Active Allergy Reactions Criticality Noted Date [...] - PCV) 2023 COVID-19 Vaccine (2 - 2023-2 5 season) 2024 12/28/2020 Influenza Vaccine (#1) 2024 , 07/20/2020, 08/11/2019, Additional history exists Care Teams Catering Truck Driver Relationship Specialty Start Date End Date Carlos Alberto Oneil [address] [place] [id number] PCP - General 04/26/22
--- OUTSIDE RECORDS SUMMARY | 2024-12-13 07:42 | XMS_ITS | Encounter Summary ---
Author Organization [facility] Healthcare Address [address] [place] [address] Care Team Providers Care Gear Room Keeper Name Role Phone Camryn Chao DO Primary Care Provider + Kevin Metcalf MD Unavailable [phone] Cortez Huerta MD Unavailable [phone] Soha Vega MD Unavailable [phone] Encounter Details Date Type Department Care Team (Late st Contact Info) Description 01/07/2024 Orders Only [facility] Health Information Management [address] [place] [address] Scanning, Provider Social History Tobacco Use [...] materials from doctor or pharmacy Never 10/09/2023 [facility] Utilities Answer Date Recorded In the past 12 months has [email or web address], gas, oil, or water [employer] threatened to shut off services in your [...] often do you attend chur ch or baptist services? 1 to 4 times per year 09/06/2023 Do you belong to any clubs o r organizations such as mosque groups, unions, fraternal or athletic groups, or [...] place to sleep or slept in a detention (including now)? No 09/06/2023 Personal Safety Answer Date Recorded Have you ever been in or are you currently in a harmful physical or emotional relationship or is someone making you feel afraid or unsafe? 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 Gender Identity Not on file Sexual Orientation [...] on filedocumented in this encounter Care Teams Gear Room Keeper Relationship Specialty Start Date End Date Camryn Chao DO PCP - General Family Medicine 01/18/23 Kevin Metcalf MD [address] [facility] [address] [place] [id number] Referring Physician Cardiology 08/02/23 Cortez Huerta MD [address] [facility] [address] [place] [id number] Consulting Physician Cardiothoracic Surgery 08/02/23 Soha Vega MD [address] [place] [address] Endocrinology Diabetes & Metabolism 09/08/23 documented as of this encounter
--- OUTSIDE RECORDS SUMMARY | 2024-12-13 07:42 | XMS_ITS | Encounter Summary ---
Author Organization [facility] Healthcare Address [address] [place] [address] Care Team Providers Care Er Registrar Name Role Phone Camryn Chao DO Primary Care Provider + Kevin Metcalf MD Unavailable [phone] Cortez Huerta MD Unavailable [phone] Soha Vega MD Unavailable [phone] Encounter Details Date Type Department Care Team (Late st Contact Info) Description 01/15/2024 Orders Only [facility] Information Management [address] [place] [address] Scanning, Provider Social History Tobacco Use [...] materials from doctor or pharmacy Never 10/09/2023 [facility] Utilities Answer Date Recorded In the past 12 months has [employer], gas, oil, or water [employer] threatened to shut off services in your [...] often do you attend chur ch or druze services? 1 to 4 times per year 09/06/2023 Do you belong to any clubs o r organizations such as gnosticist groups, unions, fraternal or athletic groups, or [...] place to sleep or slept in a senior care (including now)? No 09/06/2023 Personal Safety Answer Date Recorded Have you ever been in or are you currently in a harmful physical or emotional relationship or is someone making you feel afraid or unsafe? 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 Gender Identity Not on file Sexual Orientation [...] on filedocumented in this encounter Care Teams Er Registrar Relationship Specialty Start Date End Date Camryn Chao DO PCP - General Family Medicine 01/18/23 Kevin Metcalf MD [address] [facility] [address] [place] [address] Referring Physician Cardiology 08/02/23 Cortez Huerta MD [address] [facility] [address] [place] [id number] Consulting Physician Cardiothoracic Surgery 08/02/23 Soha Vega MD [facility] [facility] [address] [place] [address] Endocrinology Diabetes & Metabolism 09/08/23 documented as of this encounter
--- OUTSIDE RECORDS SUMMARY | 2024-12-13 07:42 | XMS_ITS | Clinical Summary ---
Author Organization [facility] Address [address] [place] [address] Care Team Providers Care Packager Hand Name Role Phone Glen Banks MD Primary [...] 07/20/2020, 08/11/2019, Additional history exists Insurance [employer] [id number] [place] [address] Care Teams Packager Hand Relationship Specialty Start Date End Date Glen Banks MD [address] [place] [id number] PCP - General Family Practice 04/06/22
--- OUTSIDE RECORDS SUMMARY | 2024-12-13 07:42 | XMS_ITS | Patient Health Summary ---
Author Organization [facility] Address [address] [facility] [place] [address] Care Team Providers Care Scale Manager Name Role Phone Samantha Banks MD Primary Care Provider Note from [facility],non-owned Affiliates and Associated Physician Practices is amultiple site organization consisting of ambulatory clinics and hospital sitesin [place], [place], [place] and [place]. This disclosure is being madepursuant to the Care Everywhere program and may not contain all information available regarding this patient. Last updated 18.[facility] [employer] Social History Tobacco Use Types Packs/Day Years [...] Unknown 07/20/2016 12:23 PM CDT Jodi Lagos APRN-PHARMACY GRADUATE INTERN LAB - POINT OF CARE ORDERABLES Care Teams Scale Manager Relationship Specialty Start Date End Date Samantha Banks MD [address] [place] [address] PCP - General Family Medicine 07/18/16
--- OUTSIDE RECORDS SUMMARY | 2024-12-13 07:42 | XMS_ITS | Clinical Summary ---
Author Organization [facility] [address] Address [address] [place] [address] Care Team Providers Care Continuous Improvement Manager Name Role Phone Camryn Chao Terra MAURO Primary Care Provider + Kevin Metcalf MD Unavailable Cortez Huerta MD Unavailable Soha Vega MD Unavailable [phone] Allergies Active Allergy Reactions Criticality Noted Date [...] mcg total) by mouth every evening Active enqor-O-lfnonwa sidase (BEANO ORAL) Take 1 tablet by [...] severe 09/04/2023 Coronary artery disease invo lving assiniboine and sioux coronary artery of assiniboine and sioux heart without angina pectoris 08/28/2023 Left carotid [...] Diabetes mellitus (HCC) Osteoarthritis Cataract Anemia WPW (Kojrj-Aptamxmdf-Imfay syndrome) GERD (gastroesophageal reflu x disease) Vertigo Aortic stenosis CKD (chronic kidney disease) stage 3, GFR 30-59 ml/min ([facility]) baseline creat 1.3-1.4 Coronary artery disease Neuromuscular disorder (HCC) Degenerativ e disc disease, Neuropathy. Family History Medical History Relation Name Comments No Known Problems Brother 1 No Known Problems Brother 2 Bladder Cancer Father 90 Cancer Father 90 Heart attack Father 90 Hypertension Father 90 Heart attack Mother 76 fatal SC Sudden Mother 76 COPD Sister 64 Relation [...] materials from doctor or pharmacy Never 10/09/2023 [facility] Utilities Answer Date Recorded In the past 12 months has th e [employer]), gas, oil, or water company threatened to [...] often do you attend chur ch or scientologist services? 1 to 4 times per year 09/06/2023 Do you belong to any clubs o r organizations such as roman catholic groups, unions, fraternal or athletic groups, or [...] to sleep or slept in a senior living (including now)? No 09/06/2023 Personal Safety Answer Date Recorded Have you ever been in or are you currently in a harmful physical or emotional relationship or is someone making you feel afraid or unsafe? Denies 09/04/2023 Comments No Sex and Gender Information Value Date Recorded Sex Assigned at Not on file Legal Sex Female 9:23 AM CHIEF AIRPORT GUIDE Gender Identity Not on file Sexual Orientation Not on file Obstetrics History Last Filed Vital Signs Vital Sign Reading Time Taken Comments Blood Pressure 134/72 08/28/2024 1:59 PM CHIEF AIRPORT GUIDE Pulse 74 08/28/2024 1:59 PM CHIEF AIRPORT GUIDE Temperature 36.7 C (98 F) 10/09/2023 11:29 AM CHIEF AIRPORT GUIDE Respiratory Rate 18 10/10/2023 9:21 AM CHIEF AIRPORT GUIDE Oxygen Saturation 96% 08/28/2024 1:59 PM CHIEF AIRPORT GUIDE Inhaled Oxygen Concentration - - Weight 93 kg (205 lb) 08/28/2024 1:59 PM CHIEF AIRPORT GUIDE Height 162.6 cm (5' 4 ) 08/28/2024 1:59 PM CHIEF AIRPORT GUIDE Body Mass Index 35.19 08/28/2024 1:59 PM CHIEF AIRPORT GUIDE Plan of Treatment Health Maintenance Due Date Last Done Comments Albumin Creatinine Ratio, Urine 1960 Breast Cancer Screening-Mammogram 1958 Colon Cancer Screening-Colonoscopy 1960 Depression Screening 1960 Hepatitis C Screening 1958 Osteoporosis Screening-Bone Density Scan 1958 Dilated Eye Exam 1958 Foot Exam 1958 Zoster Vaccine (2 of 3) 06/14/2012 04/19/2012 Pneumococcal vaccine 65+ (2 of 2 - PPSV23) 09/14/2020 07/20/2020, 11/11/2014, 03/15/2010 DTaP/Tdap/Td Vaccine (2 [...] 07/18/2016, 06/15/2016 Medical Devices Implanted Type Area Powder Nipper Device Identifier Shelf Expiration Date Model / Serial / Lot Lux Lifesciences Inspiris Resilia Leaflet Aortic Valve 23mm [id number] - [id number] - [id number] Implanted:Qty: 1 on 09/04/2023 by Cortez Huerta MD at [facility] Prosthetic Valve N/A: Aortic Valve Lux Lifesciences 04/29/2027 [id number] / [id number] / Giang Vascular Device Clsr Perclose Prostyle Sut-Mediatd Closure-Repair Sys 10009-60 - S0 - [id number] Implanted:Qty: 1 on 08/01/2023 by Alireza Negron MD at [facility] Vascular Closure Device Giang V[employer] 04/20/2025 [id number] / 0 / [id number] Bard Peripheral Vascular Bard .25x.25in [place] Thk1.65mm Square Pledget Cardiovascular Ptfe [id number] - [id number] Implanted:Qty: 1 on 09/04/2023 by Cortez Huerta MD at [facility] N/A: Chest Bard Peripheral Vascular [id number] / / [employer] Device Closure Fibertape Sternal Cerclage Blunt Needle Ar-[id number] - [id number] Implanted:Qty: 1 on 09/04/2023 by Cortez Huerta MD at [facility] N/A: Sternum Ar[employer]rex Inc 05/21/2028 AR-7289 / / [id number] Arthrex Inc Device Closure Fibertape Sternal Cerclage Blunt Needle Ar-7289 - [id number] Implanted:Qty: 1 on 09/04/2023 by Cortez Huerta MD at [facility] N/A: Sternum [employer] Inc 09/20/2026 AR-7289 / / [id number] Procedures Procedure Name Priority Date/Time Associated Diagnosis Comments POCT LIPID PANEL Routine 04/28/2024 8:18 AM CDT Lipid screening BASIC METABOLIC PANEL Routine 04/08/2024 Hypertension associated with diabetes (HCC) HEMOGLOBIN A1C STAT 09/04/2023 9:48 AM CHIEF AIRPORT GUIDE from Last 3 Months or Most Recently [...] N/A EXTERNAL LAB SCRIBED eGFR in NonAfrican Czech 30 > or = 60 EXTERNAL LAB Blood 04/08/2024 us Kevin Metcalf MD LAB BLOOD ORDERABLES Ashley l Result EXTERNAL LAB * (ABNORMAL) Hemoglobin A1c (09/04/2023 9:48 AM CHIEF AIRPORT GUIDE) Hgb A1C 9.2(H) 4.0 - 5.6 % [facility] Estimated Average Glucose 217 mg/dL [facility] Comment: The ADA recommends reporting an estimated Average Glucose (eAG) with all Hemoglobin A1c results using the equation derived from a study of 507 normal and diabetic adults. Minority populations were underrepresented and children were not included. (Diabetes Care 31:0249-5835, 2008). The eAG is not equivalent to a fasting glucose. Blood 09/04/2023 9:48 AM CHIEF AIRPORT GUIDE 09/04/2023 9:59 AM CHIEF AIRPORT GUIDE Terra Gilmore NP LAB BLOOD ORDERABLES Final Resul t [facility] [address] Department [place] [address] from Last 3 Months or Most Recently Relevant to Health Maintenance Insurance [facility] MEDICARE [facility] Advance Directives For more information, please contact: [phone] * Full Code (Latest Code Status on File) Date Activated Date Inactivated Comments 09/04/2023 2:59 PM 09/09/2023 3:12 PM Care Teams Continuous Improvement Manager Relationship Specialty Start Date End Date Chao Camryn DO Terra PCP - General Family Medicine 01/18/23 Kevin Metcalf MD [address] [facility] [address] [place] [address] Referring Physician Cardiology 08/02/23 Cortez Huerta MD [address] [facility] [address] [place] [address] Consulting Physician Cardiothoracic Surgery 08/02/23 Soha Vega MD [address] [place] [address] [address] [place] [address] Endocrinology Diabetes & Metabolism 09/08/23
--- OUTSIDE RECORDS SUMMARY | 2024-12-13 07:42 | XMS_ITS | Referral Summary ---
Author Organization [facility] [address] Address [address] [place] [address] Care Team Providers Care Dustless Operator Name Role Phone Camryn Chao Terra MAURO Primary Care Provider + Kevin Metcalf MD Unavailable Cortez Huerta MD Unavailable Soha Vega MD Unavailable [phone] Allergies Active Allergy Reactions Criticality Noted Date [...] mcg total) by mouth every evening Active rzzur-V-ltaankp sidase (BEANO ORAL) Take 1 tablet by [...] severe 09/04/2023 Coronary artery disease invo lving [place] coronary artery of [place] heart without angina pectoris 08/28/2023 Left carotid [...] materials from doctor or pharmacy Never 10/09/2023 [facility] Utilities Answer Date Recorded In the past 12 months has th e [employer], gas, oil, or water [email or web address] threatened to shut off services in your [...] often do you attend chur ch or evangelical services? 1 to 4 times per year 09/06/2023 Do you belong to any clubs o r organizations such as yazdanism groups, unions, fraternal or athletic groups, or [...] place to sleep or slept in a chcf (including now)? No 09/06/2023 Personal Safety Answer Date Recorded Have you ever been in or are you currently in a harmful physical or emotional relationship or is someone making you feel afraid or unsafe? Denies 09/04/2023 Comments No Sex and Gender Information Value Date Recorded Sex Assigned at Not on file Legal Sex Female 9:23 AM CHIEF ENTERPRISE ARCHITECT Gender Identity Not on file Sexual Orientation Not on file Last Filed Vital Signs Vital Sign Reading Time Taken Comments Blood Pressure 134/72 08/28/2024 1:59 PM CHIEF ENTERPRISE ARCHITECT Pulse 74 08/28/2024 1:59 PM CHIEF ENTERPRISE ARCHITECT Temperature 36.7 C (98 F) 10/09/2023 11:29 AM CHIEF ENTERPRISE ARCHITECT Respiratory Rate 18 10/10/2023 9:21 AM CHIEF ENTERPRISE ARCHITECT Oxygen Saturation 96% 08/28/2024 1:59 PM CHIEF ENTERPRISE ARCHITECT Inhaled Oxygen Concentration - - Weight 93 kg (205 lb) 08/28/2024 1:59 PM CHIEF ENTERPRISE ARCHITECT Height 162.6 cm (5' 4 ) 08/28/2024 1:59 PM CHIEF ENTERPRISE ARCHITECT Body Mass Index 35.19 08/28/2024 1:59 PM CHIEF ENTERPRISE ARCHITECT Plan of Treatment Not on file Medical Devices Implanted Type Area Vault Attendant Device Identifier Shelf Expiration Date Model / Serial / Lot Lux Lifesciences Inspiris Resilia Leaflet Aortic Valve 23mm [id number] - [id number] - [id number] Implanted:Qty: 1 on 09/04/2023 by Cortez Huerta MD at [facility] Prosthetic Valve N/A: Aortic Valve Lux Lifesciences 04/29/2027 [id number] / [id number] / Giang Vascular Device Clsr Perclose Prostyle Sut-Mediatd Closure-Repair Sys 59390-24 - S0 - [id number] Implanted:Qty: 1 on 08/01/2023 by Alireza Negron MD at [facility] Vascular Closure Device Giang Vascular 04/20/2025 [id number] / 0 / [id number] Bard Peripheral Vascular Bard .25x.25in [place] Thk1.65mm Square Pledget Cardiovascular Ptfe [id number] - [id number] Implanted:Qty: 1 on 09/04/2023 by Cortez Huerta MD at [facility] N/A: Chest Bard Peripheral Vascular [id number] / / Ar[employer]rex [employer] Device Closure Fibertape Sternal Cerclage Blunt Needle Ar-7289 - [id number] Implanted:Qty: 1 on 09/04/2023 by Cortez Huerta MD at [facility] N/A: Sternum Arthrex Inc 05/21/2028 AR-7289 / / [id number] Arthrex Inc Device Closure Fibertape Sternal Cerclage Blunt Needle Ar-7289 - [id number] Implanted:Qty: 1 on 09/04/2023 by Cortez Huerta MD at [facility] N/A: Sternum Arthrex Inc 09/20/2026 AR-7289 / / [id number] Procedures Procedure Name Priority Date/Time Associated Diagnosis Comments POCT LIPID PANEL Routine 04/28/2024 8:18 AM CDT Lipid screening BASIC METABOLIC PANEL Routine 04/08/2024 Hypertension associated with diabetes (HCC) HEMOGLOBIN A1C STAT 09/04/2023 9:48 AM CHIEF ENTERPRISE ARCHITECT from Last 3 Months or Most Recently Relevant to Health Maintenance Results * POCT lipid panel (04/28/2024 8:18 AM CDT) Pathologist [facility] Cholesterol, POC 127 mg/dL HDL, POC 41 mg/dL Triglycerides, POC 94 mg/dL LDL Cholesterol POC 68 mg/dL Chol/HDL Ratio, POC 1.7 Non-HDL Cholesterol, POC 86 mg/dL Cholesterol Total, POC 127 mg/dL Capillary blood 04/28/2024 8 :18 AM CDT Denise Santiago NP POINT OF CARE TEST ORDERABLE S Edited Result - Final * (ABNORMAL) Basic metabolic panel (04/08/2024) Pathologist [facility] SCRIBED Sodium 140 137 - 145 mmol/L [...] N/A EXTERNAL LAB SCRIBED eGFR in NonAfrican Bangladeshi 30 > or = 60 EXTERNAL LAB Blood 04/08/2024 Kevin Metcalf MD LAB BLOOD ORDERABLES Ashley black Result EXTERNAL LAB * (ABNORMAL) Hemoglobin A1c (09/04/2023 9:48 AM CHIEF ENTERPRISE ARCHITECT) Pathologist [facility] Hgb A1C 9.2(H) 4.0 - 5.6 % [facility] Estimated Average Glucose 217 mg/dL [facility] Comment: The ADA recommends reporting an estimated Average Glucose (eAG) with all Hemoglobin A1c results using the equation derived from a study of 507 normal and diabetic adults. Minority populations were underrepresented and children were not included. (Diabetes Care 31:5561-7992, 2008). The eAG is not equivalent to a fasting glucose. Blood 09/04/2023 9:48 AM CHIEF ENTERPRISE ARCHITECT 09/04/2023 9:59 AM CHIEF ENTERPRISE ARCHITECT us Terra Gilmore NP LAB BLOOD ORDERABLES Final Resul t [facility] [address] Department [place] [address] from Last 3 Months or Most Recently Relevant to Health Maintenance Insurance [facility] H[facility]/PPO Address: [facility] [address] [place] [address] [place] [address] PHYSICIANS [facility] H[facility]/PPO Address: [facility] [address] [place] [address] Advance Directives For more information, please contact: [phone] * Full Code (Latest Code Status on File) Date Activated Date Inactivated Comments 09/04/2023 2:59 PM 09/09/2023 3:12 PM Care Teams Dustless Operator Relationship Specialty Start Date End Date Camryn Chao DO PCP - General Family Medicine 01/18/23 Kevin Metcalf MD [address] [facility] [address] [place] [address] Referring Physician Cardiology 08/02/23 Cortez Huerta MD [address] [facility] [address] [place] [address] Consulting Physician Cardiothoracic Surgery 08/02/23 Soha Vega MD [facility] [facility] [address] [place] [address] Endocrinology Diabetes & Metabolism 09/08/23
--- OUTSIDE RECORDS SUMMARY | 2024-12-13 07:42 | XMS_ITS | Clinical Summary ---
Author Organization [facility] Address [address] [place] [address] Care Team Providers Care Road Crew Member Name Role Phone Samantha Banks MD Primary Care Provider [phone] [facility] Affiliates and Associated Physician Practices is amultiple site organization consisting of ambulatory clinics and hospital sitesin [place], [place], [place] and [place]. This disclosure is being madepursuant to the Care Everywhere program and may not contain all information available regarding this patient. Last updated 18.[facility] [facility] [employer] Social History Tobacco Use Types Packs/Day Years [...] topic MENINGOCOCCAL VACCINE Aged Out No cedric charlie eligible based on patient's age to complete this topic Care Teams Road Crew Member Relationship Specialty Start Date End Date Samantha Banks MD [address] [place] [address] PCP - General Family Medicine 07/18/16
[2024-12-13 08:19] LABS: Alanine Aminotransferase 30 U/L (6-35); Albumin Level 4.6 g/dL (3.5-5.1); Alkaline Phosphatase 60 U/L (38-126); Anion Gap 10 mmol/L (4-12); Aspartate Amino Transferase 33 U/L (14-36); Bilirubin,Total 0.6 mg/dL (0.2-1.3); Blood Urea Nitrogen 43 mg/dL (7-17); Calcium 10.1 mg/dL (8.4-10.2); Carbon Dioxide 26 mmol/L (22-30); Chloride 101 mmol/L (98-107); Estimated Glomerular Filt Rate 27; Glucose 176 mg/dL (65-110); Potassium 4.3 mmol/L (3.4-5.0); Sodium 137 mmol/L (137-145)
[2024-12-14 07:28] LABS: C-Peptide 4.89 ng/mL (0.80-3.85)
== END 2024-12-13 07:38 | disposition home or self-care (01) ==
PROVIDERS: PCP Family Medicine
DX: E11.29 Type 2 diabetes mellitus with other diabetic kidney complication (principal)
CPT/HCPCS: 36415; 80053; 84681

== ENCOUNTER 2025-01-14 08:01 | Outpatient (CLI) | payer MEDICARE, OTHER, SELFPAY ==
--- NOTE | ~2025-01-14 | MR_ITS ---
EXAMINATION: MR lumbar spine wo con DATE: 01/14/2025 09:11 INDICATION: Low back pain. TECHNIQUE: Magnetic resonance imaging (MRI) of the lumbar spine was performed without intravenous con trast. Sequences included sagittal T2-weighted FSE, sagittal T2-weighted FS FSE, sagittal T1-weighted FSE, and axial T2-weighted FSE. COMPARISON: Lumbar spine MRI 07/22/2023 FINDINGS: There is 7 degrees dextrocurvature of lumbar spine. There are chronic bilateral L5 pars def ects. There is 6 mm anterolisthesis of L5 on S1. There is mild chronic anterior wedging of T10-L1 jasper tebral bodies. There are Schmorl's nodes at multiple levels. There is mildly decreased disc height at L1-L2. There is severely decreased disc height at L5-S1 with interbody fusion. The distal spinal cor d signal intensity is normal. The conus medullaris is at L1. The following disc levels are specifical ly discussed: L1-L2: There is a central extrusion. There is mild bilateral facet joint osteoarthritis. There is no neural foraminal stenosis. There is mild central canal stenosis. L2-L3: The disc does not extend beyond the endplate margin. There is mild bilateral facet joint osteo arthritis. There is no neural foraminal stenosis. There is no central canal stenosis. L3-L4: The disc is bulging. There is moderate bilateral facet joint osteoarthritis. There is mild messi ateral neural foraminal stenosis. There is no central canal stenosis. L4-L5: The disc is bulging and has an annular fissure. There is moderate right and severe left facet joint osteoarthritis. There is a 10 x 6 mm synovial cyst from left facet joint in the central spinal canal. There is mild right and moderate left neural foraminal stenosis. There is mild central canal s tenosis at the midline. There is severe stenosis of left lateral recess. L5-S1: There is severe bilateral facet joint osteoarthritis. There is moderate bilateral neural marla inal stenosis. There is mild central canal stenosis. IMPRESSION: 1. New synovial cyst at L4-L5 with severe stenosis of left lateral recess and moderate stenosis of le ft neural foramen. 2. Moderate lumbar spondylosis. 3. Interbody fusion at L5-S1. Reviewed, dictated and finalized at location A. IMPRESSION: 1. New synovial cyst at L4-L5 with severe stenosis of left lateral recess and m oderate stenosis of left neural foramen. 2. Moderate lumbar spondylosis. 3. Interbody fusion at L5-S1.
--- NOTE | ~2025-01-14 | MR_ITS ---
EXAMINATION: MR cervical spine wo con DATE: 01/14/2025 09:11 INDICATION: D TECHNIQUE: Magnetic resonance imaging (MRI) of the cervical spine was performed without intravenous c ontrast. Sequences included sagittal T2-weighted FSE, sagittal T2-weighted FS FSE, sagittal T1-weight ed FSE, axial MERGE and axial T2-weighted FSE. COMPARISON: 07/11/2021 FINDINGS: Unchanged 3 mm anterolisthesis C5 on C6. Vertebral body heights are normal. Bone marrow signal inte nsity is normal. Height loss, mild at C4-C5, moderate at C5-C6 and severe at C6-C7. Small region of i ncreased signal the midline of the posterior cord at the level of C6. There is some additional likely artifactual increased signal in varying regions of the cord which is not reproducible on more than o ne sequence. Visualized cervical soft tissues are unremarkable. The following disc levels are specifi mary discussed: C2-C3: Small central disc protrusion. There is mild right and moderate left uncovertebral joint osteo arthritis. There is are bilateral facet joint osteoarthritis. There is no neural foraminal stenosis. There is no central canal stenosis. C3-C4: Disc is bulging. There is mild bilateral uncovertebral joint osteoarthritis. There is mild rig ht and severe left facet joint osteoarthritis. There is mild left neural foraminal stenosis. There is mild central canal stenosis. C4-C5: Disc is bulging. There is right and severe left uncovertebral joint osteoarthritis. There is s evere bilateral facet joint osteoarthritis. There is moderate left and mild right neural foraminal st enosis. There is mild central canal stenosis with indentation of the ventral surface of the cord. C5-C6: Disc is bulging with annular fissure and superimposed central disc extrusion with disc materia l extending 5 mm cephalad to the level of the inferior endplate of C5. There is moderate right and se mercedes left uncovertebral joint osteoarthritis. There is moderate left and severe right facet joint ost eoarthritis. There is mild to moderate bilateral neural foraminal stenosis. There is mild to moderate central canal stenosis measuring 8 mm AP in the mid sagittal plane with indention of the ventral sharron face of the cord and effacement of the surrounding CSF signal. C6-C7: Disc is bulging. There is moderate right and severe left uncovertebral joint osteoarthritis. T here is moderate bilateral facet joint osteoarthritis. There is mild to moderate right and moderate l eft neural foraminal stenosis. There is mild central canal stenosis with indentation of the ventral s urface of the cord. C7-T1: Disc is minimally bulging. There is mild bilateral uncovertebral joint osteoarthritis. There i s mild right and severe left facet joint osteoarthritis. There is mild bilateral neural foraminal berta nosis. There is no central canal stenosis. IMPRESSION: 1. Interval progression of severe lower cervical predominant spondylosis with no mild to moderate apolinar tral canal stenosis at C5-C6. 2. Nonspecific new small focus of increased cord signal at the posterior midline at the level of C6 l ikely related to the adjacent worsening central canal stenosis. Reviewed, dictated and finalized at location B. IMPRESSION: 1. Interval progression of severe lower cervical predominant spondylosis with n o mild to moderate central canal stenosis at C5-C6. 2. Nonspecific new small focus of increased cord signal at the posterior midlin e at the level of C6 likely related to the adjacent worsening central canal berta nosis.
--- OUTSIDE RECORDS SUMMARY | 2025-01-14 08:09 | XMS_ITS | Clinical Summary ---
Author Organization [facility] Address [address] [place] [address] Phone Care Team Providers Care Lab Specialist Name Role Phone Carlos Alberto Oneil Primary Care Provider [phone] Allergies Active Allergy Reactions Criticality Noted Date [...] 07/20/2020, 08/11/2019, Additional history exists Care Teams Lab Specialist Relationship Specialty Start Date End Date Carlos Alberto Oneil [address] [place] [id number] PCP - General 04/26/22
--- OUTSIDE RECORDS SUMMARY | 2025-01-14 08:09 | XMS_ITS | Continuity of Care Document ---
Author Organization [facility] Address [address] [place] [address] Phone Care Team Providers Care Sewing Department Supervisor Name Role Phone Lio Maharaj Unavailable Unavailable Procedures Procedure Date Office/outpatient Visit, Est Office/outpatient Visit, Est Eye Exam & Treatment Advance Directives Directive Yes / No Effective Date File Name No Information Encounters Encounter Description Practice Location Reason(s) For Visit Diagnoses Date Provider Providers Copied on Encounter Office/outpat ient Visit, [facility], [address], [place], [place], [id number], [place] tel:[phone] [facility] No Information 4-201 0 Krishnasamy Lio. [address] [address], [place], [place], [facility], [place]. tel:[phone] Office/outpat ient Visit, [facility], [address], [place], [place], [id number], [place] tel:[phone] [facility] No Information 5-200 9 Krishnasamy Lio. [address] [facility] [address], [place], [address], [place]. tel:[phone] [facility], [address], [place], [place], [id number], [place] tel:[phone] [facility] No Information Dec- 0-200 8 Carol Ann Vaca. [address] [employer] [address], [address], [place]. tel:[phone] Family History Family Member Type Diagnosis Age [...]
--- OUTSIDE RECORDS SUMMARY | 2025-01-14 08:09 | XMS_ITS | Clinical Summary ---
Author Organization [facility] Address [address] [place] [address] Care Team Providers Care Restaurant Hostess Name Role Phone Samantha Banks MD Primary Care Provider [phone] Source Comments [facility] and Associated Physician Practices is amultiple site organization consisting of ambulatory clinics and hospital sitesin [place], [place], [place] and [place]. This disclosure is being madepursuant to the Care Everywhere program and may not contain all information available regarding this patient. Last updated 18.[facility] Health Encounters Date Type Department Care Team Description 12/25/2024 Telephone [facility] - Rheumatology [address], [address] [place] [address] [facility] (/) from Last 3 Months Social History Tobacco Use Types Packs/Day Years Used Date Smoking Tobacco: Never Assessed Sex and Gender Information Value Date Recorded Sex Assigned at Not on file Gender Identity Not on file Sexual Orientation Not on file Plan of Treatment Upcoming Encounters Date Type Department Care Team (Late st Contact Info) Description 01/15/2025 10:40 AM CDT Office Visit [facility] - Rheumatology [address], [address] [place] [address] Sriram Feliz DO [address] [place] [address] Health Maintenance Due Date Last Done Comments BONE DENSITY TESTING 1958 COLOGUARD (AGES 45-75) - COL ON CA SCREENING 1958 COLON MONITORING 1958 COLONOSCOPY - COLON CA SCREENING 1958 CT COLONOGRAPHY - COLON CA SCREENING 1958 Colorectal Cancer Screening 1958 FIT - COLON CA SCREENING 1958 FLEX SIG - COLON CA SCREENING 1958 LIPID TESTING 1958 MAMMOGRAM 1958 HEPATITIS C SCREENING 12/12/1976 DTAP/TDAP/TD VACCINES (1 - Tdap) 1977 PNEUMOCOCCAL VACCINE 50+ (1 of 1 - PCV) 2008 ZOSTER VACCINE (1 of 2) 2008 COVID-19 VACCINE (1 - 2023-2 5 season) 2024 INFLUENZA VACCINE (#1) 2024 [...] to complete this topic MENINGOCOCCAL (Group B) VACC INE SHARED DECISION-MAKING Aged Out No longer eligibl e based on patient's age to complete this topic MENINGOCOCCAL GROUPS A/C/Y/W VACCINE Aged Out No longer eligible b ased on patient's age to complete this topic Care Teams Restaurant Hostess Relationship Specialty Start Date End Date Samantha Banks MD [address] [place] [address] PCP - General Family Medicine 07/18/16
--- OUTSIDE RECORDS SUMMARY | 2025-01-14 08:09 | XMS_ITS | Clinical Summary ---
Author Organization [facility] Address [address] [address] Care Team Providers Care Director Speech Name Role Phone Glen Banks MD Primary [...] 1976 LDL CHOLESTEROL ANNUAL 1976 PNEUMOCOCCAL VACCINE 50+ YEA RS (1 of 2 - PCV) [...] 07/20/2020, 08/11/2019, Additional history exists Insurance CHOICE [id number] Care Teams Director Speech Relationship Specialty Start Date End Date Glen Banks MD [address] [place] [id number] PCP - General Family Practice 04/06/22
--- OUTSIDE RECORDS SUMMARY | 2025-01-14 08:10 | XMS_ITS | Encounter Summary ---
Author Organization [facility] Address [address] [place] [address] Care Team Providers Care Cryptographic Technician Name Role Phone Camryn Chao DO Primary Care Provider + Kevin Metcalf MD Unavailable [phone] Cortez Huerta MD Unavailable [phone] Soha Vega MD Unavailable [phone] Encounter Details Date Type Department Care Team (Late st Contact Info) Description 01/15/2024 Orders Only [facility] Health Information Management [address] [place] [address] Scanning, Provider Social History Tobacco Use [...] materials from doctor or pharmacy Never 10/09/2023 [facility] Utilities Answer Date Recorded In the past 12 months has [employer], gas, oil, or water [employer] threatened to shut off services in your [...] often do you attend chur ch or religion services? 1 to 4 times per year 09/06/2023 Do you belong to any clubs o r organizations such as yarsani groups, unions, fraternal or athletic groups, or [...] on file Legal Sex Female 9:23 AM IRRIGATION SPECIALIST Gender Identity Not on file Sexual Orientation [...] on filedocumented in this encounter Care Teams Cryptographic Technician Relationship Specialty Start Date End Date Camryn Chao DO PCP - General Family Medicine 01/18/23 Kevin Metcalf MD [address] [facility] [address] [place] [address] Referring Physician Cardiology 08/02/23 Cortez Huerta MD [address] [facility] [address] [place] [id number] Consulting Physician Cardiothoracic Surgery 08/02/23 Soha Vega MD [facility] [place] [address] Endocrinology Diabetes & Metabolism 09/08/23 documented as of this encounter
--- OUTSIDE RECORDS SUMMARY | 2025-01-14 08:10 | XMS_ITS | Referral Summary ---
Author Organization [facility] [address] Address [address] [place] [address] Care Team Providers Care Lab Instructor Name Role Phone ChaoCamryn dahl Terra MAURO Primary Care Provider + Kevin Metcalf MD Unavailable Cortez Huerta MD Unavailable Soha Vega MD Unavailable Allergies Active Allergy Reactions Criticality Noted Date Comments Diltiazem Other (See comments) Low 07/25/2019 AV block Lisinopril Cough Low 07/07/2019 Naproxen Angioedema High 02/03/2019 Penicillin G Rash Medium 02/03/2019 Medications metFORMIN (GLUCOPHAGE) 1,000 mg tablet Take by mouth 2 (two) times a day 9 Active fenofibrate micronized (LOFIBRA) 134 mg capsule Take 1 capsule (134 mg total) by mouth bedtime 9 Active VESICARE 5 mg tablet Take 1 tablet (5 mg total) by mouth bedtime 9 Active aspirin 325 mg enteric coated tablet Take by mouth daily 9 Active acetaminophen ER (TYLENOL) 650 mg 8 hr tablet Take 1 tablet (650 mg total) by mouth every 8 (eight) hours as needed for pain Active ferrous gluconate (FERGON) 240 mg (27 mg of elemental iron) tabletIndication s:Iron Deficiency Anemia Take 1 tablet (240 mg total) by mouth 3 (three) times a day with meals Active magnesium oxide (MAG-OX) 400 mg (241.3 mg elemental magnesium) tabletIndication s:hypomagnesemia Take 1 tablet (400 mg total) by mouth daily Active hydrALAZINE (APRESOLINE) 100 mg tablet Take 1 tablet (100 mg total) by mouth 3 (three) times a day 0 04/12/20 28 Active gabapentin (NEURONTIN) 300 mg capsule 3 (three) times a day 300mg in morning and at 2pm, 600mg at night 3 Active empagliflozin (Jardiance) 10 mg tablet Take 1 tablet (10 mg total) by mouth daily 3 Active hydrOXYzine (ATARAX) 50 mg tablet Take 1 tablet (50 mg total) by mouth 4 (four) times a day as needed for itching Active omeprazole (PriLOSEC) 20 mg capsule Take 1 capsule (20 mg total) by mouth daily Active vitamin b complex tablet Take 1 tablet by mouth daily Active UNABLE TO FIND Take 1 each by mouth daily Med Name: ARTHROZENE Active cholecalciferol, vitamin D3, (VITAMIN D3 ORAL) Take 1,000 Int'l Units by mouth daily Active cyanocobalamin (vitamin B-12) 1,000 mcg tabletIndication s:Prevention of Vitamin B12 Deficiency Take 1 tablet (1,000 mcg total) by mouth every evening Active htoqw-A-yjnhxyhl idase (BEANO ORAL) Take 1 tablet by mouth 2 (two) times a day Active UNABLE TO FIND Take 1 each by mouth daily Med Name: Garrett Guard Turmeric Active insulin glargine (LANTUS) 100 unit/mL (3 mL) pen for injection Inject 30 Units under the skin every morning 9 mL 1 3 Active pen needle, diabetic (Pen Needle) 32 gauge x 32 needle Use as directed once a day. 100 each 3 Active Contour Next Test Strips strip Use as directed up to four times a day. 100 each 1 3 Active insulin lispro (HumaLOG) 100 unit/mL pen [...] Sliding Scale Insulin Instructions. 30 mL 1 3 Active spironolactone (ALDACTONE) 25 mg tablet Take 1 tablet (25 mg total) by mouth daily 3 Active atorvastatin (LIPITOR) 80 mg tablet TAKE 1 TABLET BY MOUTH EVERY NIGHT 90 tablet 3 4 Active irbesartan (AVAPRO) 75 mg tablet TAKE 1 TABLET BY MOUTH DAILY 90 tablet 3 4 Active Ozempic 1 mg/dose (4 mg/3 mL) pen injector injection 4 Active metoprolol (LOPRESSOR) 100 mg tablet TAKE 1 TABLET BY MOUTH TWICE DAILY 180 tablet 3 4 Active furosemide (LASIX) 20 mg tabletIndication s:Status post aortic valve replacement TAKE 1 TABLET(20 MG) BY MOUTH DAILY 90 tablet 3 5 Active Active Problems Problem Noted Date Diagnosed Date Diastolic congestive heart failure 04/28/2024 Heart failure with preserved ejection fraction 0 04/28/2024 LYDIA (obstructive sleep apnea) 01/31/2024 Aftercare following surgery of the circulatory s ystem 10/10/2023 Status post aortic valve replacement 10/10/2023 Status post coronary artery bypass grafting 09/22 Aortic stenosis, severe 09/04/2023 Coronary artery disease invo lving [place] coronary artery of [place] heart without angina pectoris 08/28/2023 Left carotid [...] materials from doctor or pharmacy Never 10/09/2023 [facility] Utilities Answer Date Recorded In the past 12 months has th e [employer], oil, or water [employer] threatened to shut off services in your [...] often do you attend chur ch or shinto services? 1 to 4 times per year 09/06/2023 Do you belong to any clubs o r organizations such as anglican groups, unions, fraternal or athletic groups, or [...] on file Legal Sex Female 9:23 AM CIVIL LAWYER Gender Identity Not on file Sexual Orientation Not on file Last Filed Vital Signs Vital Sign Reading Time Taken Comments Blood Pressure 134/72 08/28/2024 1:59 PM CIVIL LAWYER Pulse 74 08/28/2024 1:59 PM CIVIL LAWYER Temperature 36.7 C (98 F) 10/09/2023 11:29 AM CIVIL LAWYER Respiratory Rate 18 10/10/2023 9:21 AM CIVIL LAWYER Oxygen Saturation 96% 08/28/2024 1:59 PM CIVIL LAWYER Inhaled Oxygen Concentration - - Weight 93 kg (205 lb) 08/28/2024 1:59 PM CIVIL LAWYER Height 162.6 cm (5' 4 ) 08/28/2024 1:59 PM CIVIL LAWYER Body Mass Index 35.19 08/28/2024 1:59 PM CIVIL LAWYER Plan of Treatment Not on file Medical Devices Implanted Type Area Computer Systems Consultant Device Identifier Shelf Expiration Date Model / Serial / Lot Lux beStylish.comciences Inspiris Resilia Leaflet Aortic Valve 23mm [id number] - [id number] - [id number] Implanted:Qty: 1 on 09/04/2023 by Cortez Huerta MD at [facility] Prosthetic Valve N/A: Aortic Valve Lux [employer] 04/29/2027 [id number] / [id number] / Giang Vascular Device Clsr Perclose Prostyle Sut-Mediatd Closure-Repair Sys 53862-35 - S0 - [id number] Implanted:Qty: 1 on 08/01/2023 by Alireza Negron MD at [facility] Vascular Closure Device [employer] V[employer] 04/20/2025 [id number] / 0 / [id number] Bard Peripheral Vascular Bard .25x.25in Sun Thk1.65mm Square Pledget Cardiovascular Ptfe [id number] - [id number] Implanted:Qty: 1 on 09/04/2023 by Cortez Huerta MD at [facility] N/A: Chest Bard Peripheral Vascular [id number] / / [employer] Device Closure Fibertape Sternal Cerclage Blunt Needle Ar-7289 - [id number] Implanted:Qty: 1 on 09/04/2023 by Cortez Huerta MD at [facility] N/A: Sternum [employer] Inc 05/21/2028 AR-7289 / / [id number] [employer] Inc Device Closure Fibertape Sternal Cerclage Blunt Needle Ar-7289 - [id number] Implanted:Qty: 1 on 09/04/2023 by Cortez Huerta MD at [facility] N/A: Sternum [employer] 09/20/2026 AR-7289 / / [id number] Procedures Procedure Name Priority Date/Time Associated Diagnosis Comments POCT LIPID PANEL Routine 04/28/2024 8:18 AM CDT Lipid screening BASIC METABOLIC PANEL Routine 04/08/2024 Hypertension associated with diabetes (HCC) HEMOGLOBIN A1C STAT 09/04/2023 9:48 AM CIVIL LAWYER from Last 3 Months or Most Recently Relevant to Health Maintenance Results * POCT lipid panel (04/28/2024 8:18 AM CDT) [facility] Cholesterol, POC 127 mg/dL HDL, POC 41 mg/dL Triglycerides, POC 94 mg/dL LDL Cholesterol POC 68 mg/dL Chol/HDL Ratio, POC 1.7 Non-HDL Cholesterol, POC 86 mg/dL Cholesterol Total, POC 127 mg/dL Capillary blood 04/28/2024 8 :18 AM CDT Denise Santiago NP POINT OF CARE TEST ORDERABLE S Edited Result - Final * (ABNORMAL) Basic metabolic panel (04/08/2024) [facility] SCRIBED Sodium 140 137 - 145 mmol/L [...] N/A EXTERNAL LAB SCRIBED eGFR in NonAfrican Stateless 30 > or = 60 EXTERNAL LAB Blood 04/08/2024 Kevin Metcalf MD LAB BLOOD ORDERABLES Ashley l Result EXTERNAL LAB * (ABNORMAL) Hemoglobin A1c (09/04/2023 9:48 AM CIVIL LAWYER) [facility] Hgb A1C 9.2(H) 4.0 - 5.6 % [facility] Estimated Average Glucose 217 mg/dL [facility] Comment: The ADA recommends reporting an estimated Average Glucose (eAG) with all Hemoglobin A1c results using the equation derived from a study of 507 normal and diabetic adults. Minority populations were underrepresented and children were not included. (Diabetes Care 31:0167-6649, 2008). The eAG is not equivalent to a fasting glucose. Blood 09/04/2023 9:48 AM CIVIL LAWYER 09/04/2023 9:59 AM CIVIL LAWYER us Terra Gilmore NP LAB BLOOD ORDERABLES Final Resul t [facility] Organization Address City/State/ZIP Co de Phone Number [facility] [address] [place] [address] from Last 3 Months or Most Recently Relevant to Health Maintenance Insurance [facility] HMO/PPO Address: [facility] [address] [place] [address] MEDICARE PHYSICIANS [employer] INS CO [facility] HMO/PPO Address: [facility] [address] [place] [address] Advance Directives For more information, please contact: [phone] * Full Code (Latest Code Status on File) Date Activated Date Inactivated Comments 09/04/2023 2:59 PM 09/09/2023 3:12 PM Care Teams Lab Instructor Relationship Specialty Start Date End Date Camryn Chao DO PCP - General Family Medicine 01/18/23 Kevin Metcalf MD [address] [address] [place] [address] Referring Physician Cardiology 08/02/23 Cortez Huerta MD [address] [facility] [address] [place] [address] Consulting Physician Cardiothoracic Surgery 08/02/23 Soha Vega MD [address] [place] [address] Endocrinology Diabetes & Metabolism 09/08/23
--- OUTSIDE RECORDS SUMMARY | 2025-01-14 08:10 | XMS_ITS | Encounter Summary ---
Author Organization [facility] Healthcare Address [address] [place] [address] Care Team Providers Care Academic Counselor Name Role Phone Camryn Chao DO Primary Care Provider + Kevin Metcalf MD Unavailable [phone] Cortez Huerta MD Unavailable [phone] Soha Vega MD Unavailable [phone] Encounter Details Date Type Department Care Team (Late st Contact Info) Description 01/07/2024 Orders Only [facility] Health Information Management [address] [place] [address] Scanning, Provider Social History Tobacco Use [...] materials from doctor or pharmacy Never 10/09/2023 [facility] Utilities Answer Date Recorded In the past 12 months has [employer], gas, oil, or water [employer] threatened to shut off services in your [...] often do you attend chur ch or jehovah's witness services? 1 to 4 times per year 09/06/2023 Do you belong to any clubs o r organizations such as confucianist groups, unions, fraternal or athletic groups, or [...] place to sleep or slept in a mcfp (including now)? No 09/06/2023 Personal Safety Answer Date Recorded Have you ever been in or are you currently in a harmful physical or emotional relationship or is someone making you feel afraid or unsafe? Denies 09/04/2023 Comments No Sex and Gender Information Value Date Recorded Sex Assigned at Not on file Legal Sex Female 9:23 AM DIRECTOR PRODUCT SAFETY Gender Identity Not on file Sexual Orientation [...] on filedocumented in this encounter Care Teams Academic Counselor Relationship Specialty Start Date End Date Camryn Chao DO PCP - General Family Medicine 01/18/23 Kevin Metcalf MD [address] [facility] [address] [place] [id number] Referring Physician Cardiology 08/02/23 Cortez Huerta MD [address] [facility] [address] [place] [id number] Consulting Physician Cardiothoracic Surgery 08/02/23 Soha Vega MD [address] [place] [address] Endocrinology Diabetes & Metabolism 09/08/23 documented as of this encounter
--- OUTSIDE RECORDS SUMMARY | 2025-01-14 08:10 | XMS_ITS | Clinical Summary ---
Author Organization [facility] [place] [address] Address [address] [place] [address] Care Team Providers Care Airfield Operations Specialist Name Role Phone ChaoCamryn dahl Terra MAURO Primary Care Provider + Kevin Metcalf MD Unavailable Cortez Huerta MD Unavailable Soha Vega MD Unavailable [phone] Allergies Active Allergy Reactions Criticality Noted Date [...] mcg total) by mouth every evening Active kkmmt-K-ndpgajps idase (BEANO ORAL) Take 1 tablet by [...] severe 09/04/2023 Coronary artery disease invo lving [place] coronary artery of [place] heart without angina pectoris 08/28/2023 Left carotid [...] Diabetes mellitus (HCC) Osteoarthritis Cataract Anemia WPW (Ujokd-Wdnbrrmnb-Shfaf syndrome) GERD (gastroesophageal reflu x disease) Vertigo Aortic stenosis CKD (chronic kidney disease) stage 3, GFR 30-59 ml/min ([facility]) baseline creat 1.3-1.4 Coronary artery disease Neuromuscular disorder (HCC) Degenerativ e disc disease, Neuropathy. Family History Medical History Relation Name Comments No Known Problems Brother 1 No Known Problems Brother 2 Bladder Cancer Father 90 Cancer Father 90 Heart attack Father 90 Hypertension Father 90 Heart attack Mother 76 fatal [place] Sudden Mother 76 COPD Sister 64 Relation [...] materials from doctor or pharmacy Never 10/09/2023 [facility] Utilities Answer Date Recorded In the past 12 months has [employer], [employer], or water [employer] threatened to shut off services in your [...] 09/06/2023 How often do you attend chur or mosque services? 1 to 4 times per year 09/06/2023 Do you belong to any clubs o r organizations such as catholic groups, unions, fraternal or athletic groups, [...] place to sleep or slept in a assisted (including now)? No 09/06/2023 Personal Safety Answer Date Recorded Have you ever been in or are you currently in a harmful physical or emotional relationship or is someone making you feel afraid or unsafe? Denies 09/04/2023 Comments No Sex and Gender Information Value Date Recorded Sex Assigned at Not on file Legal Sex Female 9:23 AM CAR BODY MECHANIC Gender Identity Not on file Sexual Orientation Not on file Obstetrics History Last Filed Vital Signs Vital Sign Reading Time Taken Comments Blood Pressure 134/72 08/28/2024 1:59 PM CAR BODY MECHANIC Pulse 74 08/28/2024 1:59 PM CAR BODY MECHANIC Temperature 36.7 C (98 F) 10/09/2023 11:29 AM CAR BODY MECHANIC Respiratory Rate 18 10/10/2023 9:21 AM CAR BODY MECHANIC Oxygen Saturation 96% 08/28/2024 1:59 PM CAR BODY MECHANIC Inhaled Oxygen Concentration - - Weight 93 kg (205 lb) 08/28/2024 1:59 PM CAR BODY MECHANIC Height 162.6 cm (5' 4 ) 08/28/2024 1:59 PM CAR BODY MECHANIC Body Mass Index 35.19 08/28/2024 1:59 PM CAR BODY MECHANIC Plan of Treatment Health Maintenance Due Date [...] 07/18/2016, 06/15/2016 Medical Devices Implanted Type Area Field Technical Specialist Device Identifier Shelf Expiration Date Model / Serial / Lot Lux Lifesciences Inspiris Resilia Leaflet Aortic Valve 23mm [id number] - [id number] - [id number] Implanted:Qty: 1 on 09/04/2023 by Cortez Huerta MD at [facility] Prosthetic Valve N/A: Aortic Valve Lux Lifesciences 04/29/2027 [id number] / [id number] / Giang Vascular Device Clsr Perclose Prostyle Sut-Mediatd Closure-Repair Sys [id number] - S0 - [id number] Implanted:Qty: 1 on 08/01/2023 by Alireza Negron MD at [facility] Vascular Closure Device Giang Vascular 04/20/2025 [id number] / 0 / [id number] Bard Peripheral Vascular Bard .25x.25in Jasper Thk1.65mm Square Pledget Cardiovascular Ptfe [id number] - [id number] Implanted:Qty: 1 on 09/04/2023 by Cortez Huerta MD at [facility] N/A: Chest Bard Peripheral Vascular [id number] / / [employer] Device Closure Fibertape Sternal Cerclage Blunt Needle Ar-7289 - [id number] Implanted:Qty: 1 on 09/04/2023 by Cortez Huerta MD at [facility] N/A: Sternum Ar[employer]rex Inc 05/21/2028 AR-[id number] / / [id number] Arthrex Inc Device Closure Fibertape Sternal Cerclage Blunt Needle Ar-7289 - [id number] Implanted:Qty: 1 on 09/04/2023 by Cortez Huerta MD at [facility] N/A: Sternum [employer] Inc 09/20/2026 AR-7289 / / [id number] Procedures Procedure Name Priority Date/Time Associated Diagnosis Comments POCT LIPID PANEL Routine 04/28/2024 8:18 AM CDT Lipid screening BASIC METABOLIC PANEL Routine 04/08/2024 Hypertension associated with diabetes (HCC) HEMOGLOBIN A1C STAT 09/04/2023 9:48 AM CAR BODY MECHANIC from Last 3 Months or Most Recently Relevant to Health Maintenance Results * POCT lipid panel (04/28/2024 8:18 AM CDT) Cholesterol, POC 127 mg/dL HDL, POC 41 mg/dL Triglycerides, POC 94 mg/dL LDL Cholesterol POC 68 mg/dL Chol/HDL Ratio, POC 1.7 Non-HDL Cholesterol, POC 86 mg/dL Cholesterol Total, POC 127 mg/dL Capillary blood 04/28/2024 8 :18 AM CDT us Denise Santiago NP POINT OF CARE TEST [...] * (ABNORMAL) Hemoglobin A1c (09/04/2023 9:48 AM CAR BODY MECHANIC) Hgb A1C 9.2(H) 4.0 - 5.6 % [facility] Estimated Average Glucose 217 mg/dL [facility] Comment: The ADA recommends reporting an estimated Average Glucose (eAG) with all Hemoglobin A1c results using the equation derived from a study of 507 normal and diabetic adults. Minority populations were underrepresented and children were not included. (Diabetes Care 31:8798-0496, 2008). The eAG is not equivalent to a fasting glucose. Blood 09/04/2023 9:48 AM CAR BODY MECHANIC 09/04/2023 9:59 AM CAR BODY MECHANIC Terra Gilmore NP LAB BLOOD ORDERABLES Final Resul t [facility] [address] Department [place] [address] from Last 3 Months or Most Recently Relevant to Health Maintenance Insurance [facility] MEDICARE PHYSICIANS [facility] INS [place] [facility] Advance Directives For more information, please contact: [phone] * Full Code (Latest Code Status on File) Date Activated Date Inactivated Comments 09/04/2023 2:59 PM 09/09/2023 3:12 PM Care Teams Airfield Operations Specialist Relationship Specialty Start Date End Date Camryn Chao DO PCP - General Family Medicine 01/18/23 Kevin Metcalf MD [address] [facility] [address] [place], [place] [id number] Referring Physician Cardiology 08/02/23 Cortez Huerta MD [address] [facility] [address] [place], [place] [id number] Consulting Physician Cardiothoracic Surgery 08/02/23 Soha Vega MD [facility] [facility] [address] [place] [address] Endocrinology Diabetes & Metabolism 09/08/23
== END 2025-01-14 08:02 | disposition home or self-care (01) ==
LOC: ANHIMG 08:03
PROVIDERS: PCP Family Medicine; Visit Provider Nurse Practitioner Family
DX: M47.892 Other spondylosis, cervical region (principal); Z98.1 Arthrodesis status; M47.896 Other spondylosis, lumbar region
CPT/HCPCS: 72141; 72148

== ENCOUNTER 2025-01-15 12:10 | Outpatient (CLI) | payer MEDICARE, OTHER, SELFPAY ==
[2025-01-15 13:01] LABS: Complement C3 120 mg/dL (88-165)
--- OUTSIDE RECORDS SUMMARY | 2025-01-15 13:06 | XMS_ITS | Clinical Summary ---
Author Organization [facility] Address [address] [place] [id number] Phone Care Team Providers Care Planning Engineer Name Role Phone Carlos Alberto Oneil Primary Care Provider [phone] Allergies Active Allergy Reactions Criticality Noted Date [...] 07/20/2020, 08/11/2019, Additional history exists Care Teams Planning Engineer Relationship Specialty Start Date End Date Carlos Alberto Oneil [address] [place] [id number] PCP - General 04/26/22
--- OUTSIDE RECORDS SUMMARY | 2025-01-15 13:06 | XMS_ITS | Clinical Summary ---
Author Organization [facility] Address [address] [place] [address] Care Team Providers Care Coil Winder Hand Name Role Phone Glen Banks MD [...] 07/20/2020, 08/11/2019, Additional history exists Insurance CHOICE [id number] Care Teams Coil Winder Hand Relationship Specialty Start Date End Date Glen Banks MD [address] [place] [id number] PCP - General Family Practice 04/06/22
--- OUTSIDE RECORDS SUMMARY | 2025-01-15 13:06 | XMS_ITS | Clinical Summary ---
Author Organization [facility] [place] [address] Address [address] [place] [address] Care Team Providers Care Highway Maintenance Crew Worker Name Role Phone ChaoCamryn dahl Terra MAURO Primary Care Provider + Kevin Metcalf MD Unavailable Cortez Huerta MD Unavailable [phone] Soha Vega MD Unavailable Allergies Active Allergy [...] mcg total) by mouth every evening Active isktb-D-bkueocoi idase (BEANO ORAL) Take 1 tablet by [...] severe 09/04/2023 Coronary artery disease invo lving [place] coronary artery of [place] heart without angina pectoris 08/28/2023 Left carotid [...] Diabetes mellitus (HCC) Osteoarthritis Cataract Anemia WPW (Nttgc-Jcumzncif-Npiou syndrome) GERD (gastroesophageal reflu x disease) Vertigo Aortic stenosis CKD (chronic kidney disease) stage 3, GFR 30-59 ml/min ([facility]) baseline creat 1.3-1.4 Coronary artery disease Neuromuscular disorder (HCC) Degenerativ e disc disease, Neuropathy. Family History Medical History Relation Name Comments No Known Problems Brother 1 No Known Problems Brother 2 Bladder Cancer Father 90 Cancer Father 90 Heart attack Father 90 Hypertension Father 90 Heart attack Mother 76 fatal [place] Sudden Mother 76 COPD Sister 64 Relation [...] materials from doctor or pharmacy Never 10/09/2023 [facility] Utilities Answer Date Recorded In the past 12 months has [employer], or water [employer] threatened to shut off services in your [...] How often do you attend chur or uatsdin services? 1 to 4 times per year 09/06/2023 Do you belong to any clubs o r organizations such as jew groups, unions, fraternal or athletic groups, or [...] place to sleep or slept in a long term (including now)? No 09/06/2023 Personal Safety Answer Date Recorded Have you ever been in or are you currently in a harmful physical or emotional relationship or is someone making you feel afraid or unsafe? Denies 09/04/2023 Comments No Sex and Gender Information Value Date Recorded Sex Assigned at Not on file Legal Sex Female 9:23 AM SENIOR QA AUTOMATION ENGINEER Gender Identity Not on file Sexual Orientation Not on file Obstetrics History Last Filed Vital Signs Vital Sign Reading Time Taken Comments Blood Pressure 134/72 08/28/2024 1:59 PM SENIOR QA AUTOMATION ENGINEER Pulse 74 08/28/2024 1:59 PM SENIOR QA AUTOMATION ENGINEER Temperature 36.7 C (98 F) 10/09/2023 11:29 AM SENIOR QA AUTOMATION ENGINEER Respiratory Rate 18 10/10/2023 9:21 AM SENIOR QA AUTOMATION ENGINEER Oxygen Saturation 96% 08/28/2024 1:59 PM SENIOR QA AUTOMATION ENGINEER Inhaled Oxygen Concentration - - Weight 93 kg (205 lb) 08/28/2024 1:59 PM SENIOR QA AUTOMATION ENGINEER Height 162.6 cm (5' 4 ) 08/28/2024 1:59 PM SENIOR QA AUTOMATION ENGINEER Body Mass Index 35.19 08/28/2024 1:59 PM SENIOR QA AUTOMATION ENGINEER Plan of Treatment Health Maintenance Due Date [...] 07/18/2016, 06/15/2016 Medical Devices Implanted Type Area Roving Tester Laboratory Device Identifier Shelf Expiration Date Model / Serial / Lot Lux Lifesciences Inspiris Resilia Leaflet Aortic Valve 23mm [id number] - [id number] - [id number] Implanted:Qty: 1 on 09/04/2023 by Cortez Huerta MD at [facility] Prosthetic Valve N/A: Aortic Valve Lux Lifesciences 04/29/2027 [id number] / [id number] / Giang Vascular Device Clsr Perclose Prostyle Sut-Mediatd Closure-Repair Sys 69737-76 - S0 - [id number] Implanted:Qty: 1 on 08/01/2023 by Alireza Negron MD at [facility] Vascular Closure Device Gi[employer] V[employer] 04/20/2025 [id number] / 0 / [id number] Bard Peripheral Vascular Bard .25x.25in [place] Thk1.65mm Square Pledget Cardiovascular Ptfe [id number] - [id number] Implanted:Qty: 1 on 09/04/2023 by Cortez Huerta MD at [facility] N/A: Chest Bard Peripheral Vascular [id number] / / [employer] Device Closure Fibertape Sternal Cerclage Blunt Needle Ar-7289 - [id number] Implanted:Qty: 1 on 09/04/2023 by Cortez Huerta MD at [facility] N/A: Sternum [employer] Inc 05/21/2028 AR-7289 / / [id number] Ar[employer]rex Inc Device Closure Fibertape Sternal Cerclage Blunt Needle Ar-7289 - [id number] Implanted:Qty: 1 on 09/04/2023 by Cortez Huerta MD at [facility] N/A: Sternum [employer] 09/20/2026 AR-7289 / / [id number] Procedures Procedure Name Priority Date/Time Associated Diagnosis Comments POCT LIPID PANEL Routine 04/28/2024 8:18 AM CDT Lipid screening BASIC METABOLIC PANEL Routine 04/08/2024 Hypertension associated with diabetes (HCC) HEMOGLOBIN A1C STAT 09/04/2023 9:48 AM SENIOR QA AUTOMATION ENGINEER from Last 3 Months or Most Recently [...] N/A EXTERNAL LAB SCRIBED eGFR in NonAfrican Citizen Of [place] 30 > or = 60 EXTERNAL LAB Blood 04/08/2024 us Kevin Metcalf MD LAB BLOOD ORDERABLES Ashley black Result EXTERNAL LAB * (ABNORMAL) Hemoglobin A1c (09/04/2023 9:48 AM SENIOR QA AUTOMATION ENGINEER) Hgb A1C 9.2(H) 4.0 - 5.6 % [facility] Estimated Average Glucose 217 mg/dL [facility] Comment: The ADA recommends reporting an estimated Average Glucose (eAG) with all Hemoglobin A1c results using the equation derived from a study of 507 normal and diabetic adults. Minority populations were underrepresented and children were not included. (Diabetes Care 31:7913-3302, 2008). The eAG is not equivalent to a fasting glucose. Blood 09/04/2023 9:48 AM SENIOR QA AUTOMATION ENGINEER 09/04/2023 9:59 AM SENIOR QA AUTOMATION ENGINEER Terra Gilmore NP LAB BLOOD ORDERABLES Final Resul t [facility] [address] Department [place] [address] from Last 3 Months or Most Recently Relevant to Health Maintenance Insurance [facility] MEDICARE PHYSICIANS [facility] [place] [facility] Advance Directives For more information, please contact: [phone] * Full Code (Latest Code Status on File) Date Activated Date Inactivated Comments 09/04/2023 2:59 PM 09/09/2023 3:[address] Maintenance Crew Worker Relationship Specialty Start Date End Date Camryn Chao DO PCP - General Family Medicine 01/18/23 Kevin Metcalf MD [address] [facility] [address] [place], [place] [id number] Referring Physician Cardiology 08/02/23 Cortez Huerta MD [address] [facility] [address] [place], [place] [id number] Consulting Physician Cardiothoracic Surgery 08/02/23 Soha Vega MD [facility] [facility] [address] [place] [address] Endocrinology Diabetes & Metabolism 09/08/23
--- OUTSIDE RECORDS SUMMARY | 2025-01-15 13:06 | XMS_ITS | Referral Summary ---
Author Organization [facility] [place] [address] Address [address] [place] [address] Care Team Providers Care Corporate Officer Name Role Phone ChaoCamryn dahl Terra MAURO [...] mcg total) by mouth every evening Active pcmmf-K-qseyehmb idase (BEANO ORAL) Take 1 tablet by [...] severe 09/04/2023 Coronary artery disease invo lving [place] coronary artery of [place] heart without angina pectoris 08/28/2023 Left carotid [...] materials from doctor or pharmacy Never 10/09/2023 [facility] Utilities Answer Date Recorded In the past 12 months has th e [employer], sfilatino, oil, or water [employer] threatened to shut off services in your [...] often do you attend chur ch or presybeterian services? 1 to 4 times per year 09/06/2023 Do you belong to any clubs o r organizations such as hoahaoism groups, unions, fraternal or athletic groups, or [...] place to sleep or slept in a custodial (including now)? No 09/06/2023 Personal Safety Answer Date Recorded Have you ever been in or are you currently in a harmful physical or emotional relationship or is someone making you feel afraid or unsafe? Denies 09/04/2023 Comments No Sex and Gender Information Value Date Recorded Sex Assigned at Not on file Legal Sex Female 9:23 AM GROCERY PACKER Gender Identity Not on file Sexual Orientation Not on file Last Filed Vital Signs Vital Sign Reading Time Taken Comments Blood Pressure 134/72 08/28/2024 1:59 PM GROCERY PACKER Pulse 74 08/28/2024 1:59 PM GROCERY PACKER Temperature 36.7 C (98 F) 10/09/2023 11:29 AM GROCERY PACKER Respiratory Rate 18 10/10/2023 9:21 AM GROCERY PACKER Oxygen Saturation 96% 08/28/2024 1:59 PM GROCERY PACKER Inhaled Oxygen Concentration - - Weight 93 kg (205 lb) 08/28/2024 1:59 PM GROCERY PACKER Height 162.6 cm (5' 4 ) 08/28/2024 1:59 PM GROCERY PACKER Body Mass Index 35.19 08/28/2024 1:59 PM GROCERY PACKER Plan of Treatment Not on file Medical Devices Implanted Type Area Nursing Scheduler Device Identifier Shelf Expiration Date Model / Serial / Lot Lux SayNowciences Inspiris Resilia Leaflet Aortic Valve 23mm [id number] - [id number] - [id number] Implanted:Qty: 1 on 09/04/2023 by Cortez Huerta MD at [facility] Prosthetic Valve N/A: Aortic Valve Lux Lifesciences 04/29/2027 [id number] / [id number] / Giang Vascular Device Clsr Perclose Prostyle Sut-Mediatd Closure-Repair Sys 34664-30 - S0 - [id number] Implanted:Qty: 1 on 08/01/2023 by Alireza Negron MD at [facility] Vascular Closure Device [employer] V[employer] 04/20/2025 [id number] / [id number] / [id number] Bard Peripheral Vascular Bard .25x.25in [place] [facility] Thk1.65mm Square [employer] Cardiovascular Ptfe [id number] - [id number] Implanted:Qty: 1 on 09/04/2023 by Cortez Huerta MD at [facility] N/A: Chest Bard Peripheral Vascular [id number] / / [employer] Device Closure Fibertape Sternal Cerclage Blunt Needle Ar-[id number] - [id number] Implanted:Qty: 1 on 09/04/2023 by Cortez Huerta MD at [facility] N/A: Sternum [employer] Inc 05/21/2028 AR-[id number] / / [id number] [employer] Device Closure Fibertape Sternal Cerclage Blunt Needle Ar-7289 - [id number] Implanted:Qty: 1 on 09/04/2023 by Cortez Huerta MD at [facility] N/A: Sternum [employer] 09/20/2026 AR-7289 / / [id number] Procedures Procedure Name Priority Date/Time Associated Diagnosis Comments POCT LIPID PANEL Routine 04/28/2024 8:18 AM CDT Lipid screening BASIC METABOLIC PANEL Routine 04/08/2024 Hypertension associated with diabetes (HCC) HEMOGLOBIN A1C STAT 09/04/2023 9:48 AM GROCERY PACKER from Last 3 Months or Most Recently Relevant to Health Maintenance Results * POCT lipid panel (04/28/2024 8:18 AM CDT) [facility] Cholesterol, POC 127 mg/dL HDL, POC 41 mg/dL Triglycerides, POC 94 mg/dL LDL Cholesterol POC 68 mg/dL Chol/HDL Ratio, POC 1.7 Non-HDL Cholesterol, POC 86 mg/dL Cholesterol Total, POC 127 mg/dL Capillary blood 04/28/2024 8 :18 AM CDT Denise Santiago NP POINT OF CARE TEST ORDERABLE S Edited Result - Final * (ABNORMAL) Basic metabolic panel (04/08/2024) [facility] SCRIBED Sodium 140 137 - 145 mmol/L [...] N/A EXTERNAL LAB SCRIBED eGFR in NonAfrican [place]an 30 > or = 60 EXTERNAL LAB Blood 04/08/2024 Kevin Metcalf MD LAB BLOOD ORDERABLES Ashley l Result EXTERNAL LAB * (ABNORMAL) Hemoglobin A1c (09/04/2023 9:48 AM GROCERY PACKER) [facility] Hgb A1C 9.2(H) 4.0 - 5.6 % [facility] Estimated Average Glucose 217 mg/dL [facility] Comment: The ADA recommends reporting an estimated Average Glucose (eAG) with all Hemoglobin A1c results using the equation derived from a study of 507 normal and diabetic adults. Minority populations were underrepresented and children were not included. (Diabetes Care 31:6598-2322, 2008). The eAG is not equivalent to a fasting glucose. Blood 09/04/2023 9:48 AM GROCERY PACKER 09/04/2023 9:59 AM GROCERY PACKER us Terra Gilmore NP LAB BLOOD ORDERABLES Final Resul t [facility] Organization Address City/State/ZIP Co de Phone Number [facility] [address] [place] [address] from Last 3 Months or Most Recently Relevant to Health Maintenance Insurance [facility] MEDICARE [employer] [place] [facility] Advance Directives For more information, please contact: [phone] * Full Code (Latest Code Status on File) Date Activated Date Inactivated Comments 09/04/2023 2:59 PM 09/09/2023 3:12 PM Care Teams Corporate Officer Relationship Specialty Start Date End Date Camryn Chao DO PCP - General Family Medicine 01/18/23 Kevin Metcalf MD [address] [place] [address] Referring Physician Cardiology 08/02/23 Cortez Huerta MD [address] [facility] [address] [place] [address] Consulting Physician Cardiothoracic Surgery 08/02/23 Soha Vega MD [address] [place] [address] Endocrinology Diabetes & Metabolism 09/08/23
--- OUTSIDE RECORDS SUMMARY | 2025-01-15 13:06 | XMS_ITS | Clinical Summary ---
Author Organization [facility] [employer] Address [address] [facility] [place] [address] Care Team Providers Care Picker And Sorter Load And Unload Name Role Phone ChaoRufinath Juan MAURO Primary Care Provider [phone] Source Comments [facility],non-owned Affiliates and Associated Physician Practices is amultiple site organization consisting of ambulatory clinics and hospital sitesin [place], [place], [place] and [place]. This disclosure is being madepursuant to the Care Everywhere program and may not contain all information available regarding this patient. Last updated 18.[facility] [employer] Allergies Active Allergy Reactions Criticality Noted Date Comments Diltiazem Other Low 07/25/2019 AV block Lisinopril Cough Low 07/07/2019 Naproxen Angioedema,Swelling High 02/03/2019 Penicillin G Rash Medium 02/03/2019 Piroxicam Other 07/07/2019 Medications * Be aware that medications may not be up to date on this document. Alwaysverify current medications with the patient. Medication Sig Dispensed Refills Start Date End Date Status acetaminophen CR (Tylenol Arthritis Pain) 650 MG tablet Take 1 (one) tablet by mouth every 8 hours as needed Active atorvastatin (Lipitor) 80 MG tablet Take 1 (one) tablet by mouth 07/07/2024 Active B Complex Vitamins (Vitamin B-Complex) TABS Take 1 tablet by mouth once daily Active vitamine D3 (Cholecalciferol) 250 MCG (85729 UT) capsule Take 1 (one) capsule by mouth once daily Active clindamycin (Cleocin) 150 MG capsule Take 4 (four) capsules by mouth 1 Hour prior to procedure 03/05/2024 Active cyanocobalamin (Vitamin B-12) 1000 MCG tablet Take 1 (one) tablet by mouth once daily Active Jardiance 25 MG tablet 01/11/2025 Active fenofibrate micronized (Lofibra) 134 MG capsule 12/23/2024 Active Ferrous Gluconate (Ferate) 240 (27 Fe) MG tablet Take 1 (one) tablet by mouth 3 times daily with meals Active furosemide (Lasix) 20 MG tablet Take 1 (one) tablet by mouth once daily 12/01/2024 Active gabapentin (Neurontin) 300 MG capsule 1 (one) capsule 300 mg BID and 600 HS 11/29/2024 Active glucosamine 500 MG capsule Take 2,000 (two thousand) mg by mouth once daily Active blood glucose (GEORGETTE CONTOUR NEXT TEST) test strip Use as directed up to four times a day. 09/08/2023 Active hydrALAZINE (Apresoline) 100 MG tablet Take 1 (one) tablet by mouth 3 times daily 06/24/2020 04/12/2028 Active hydrOXYzine HCl (Atarax) 50 MG tablet Take 1 (one) tablet by mouth Active Lantus SoloStar pen Inject 38 (thirty eight) Units subcutaneously every morning 09/08/2023 Active insulin lispro (HumaLOG;ADMelog) 100 UNIT/ML pen Inject 12 (twelve) Units subcutaneously 3 times daily before meals Sliding scale 09/08/2023 Active irbesartan (Avapro) 75 MG tablet Take 1 (one) tablet by mouth once daily 07/07/2024 Active magnesium oxide (Mag-Ox) 400 MG tablet Take 1 (one) tablet by mouth once daily Active metoprolol tartrate IR (Lopressor) 100 MG tablet Take 1 (one) tablet by mouth 2 times daily 09/01/2024 Active omeprazole (PriLOSEC) 20 MG capsule Take 1 (one) capsule by mouth once daily Active Semaglutide (1 MG/DOSE) 4 MG/3ML Subcutaneous Solution Pen-injector (Ozempic (1 MG/DOSE)) Inject 2 (two) mg subcutaneously every 7 days 06/25/2024 Active solifenacin (Vesicare) 5 MG tablet 12/23/2024 Active spironolactone (Aldactone) 25 MG tablet Take 1 (one) tablet by mouth once daily 09/21/2023 Active Turmeric (QC TUMERIC COMPLEX PO) Activ e johan (Johan) 500 MG capsule Take 500 mg by mouth once daily Active Nutritional Supplements (EQUATE PO) Active Active Problems Problem Noted Date Diagnosed Date 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 Check for anti-chromatin/histone antibody if positive stop hydralazine. Elevated sedimentation rate measurement at 127 m m/hr 01/15/2025 Overview (01/15/2025): Normal CRP noted. Sed rate elevation can be seen in renal insufficiency but also perhaps related to drug induced lupus. Check SPEP (r/o gammopathy). Encounters Date Type Department Care Team Description 01/15/2025 10:40 AM CDT Office Visit [facility] - Rheumatology [address] [place] [address], [facility] [address] [place] [address] Sriram Feliz, 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); Elevated sedimentation rate measurement at 127 mm/hr 12/25/2024 Telephone [facility] - Rheumatology [address] [place] [address], [address] [place] [address] [facility] Medical Referral (/) from Last 3 Months Social History Tobacco Use Types Packs/Day Years Used Date Smoking Tobacco: Never Assessed PHQ-2 Answer Date Recorded Patient Health Questionnaire-2 Score 0 01/15/2025 Sex and Gender Information Value Date Recorded Sex Assigned at Not on file Gender Identity Not on file Sexual Orientation Not on file Last Filed Vital Signs Vital Sign Reading Time Taken Comments Blood Pressure 112/68 01/15/2025 10:17 AM CDT Pulse 73 01/15/2025 10:17 AM CDT Temperature 36.1 C (97 F) 01/15/2025 10:17 AM CDT Respiratory Rate 16 01/15/2025 10:17 AM CDT Oxygen Saturation 96% 01/15/2025 10:17 AM CDT Inhaled Oxygen Concentration - - Weight 93 kg (205 lb) 01/15/2025 10:17 AM CDT Height - - Body Mass Index - - Plan of Treatment Upcoming Encounters Date Type Department Care Team (Late st Contact Info) Description 02/12/2025 2:20 PM CDT Office Visit [facility] - Rheumatology [address] [facility], [address] [place] [address] Tray SriramDO [address] [place] [address] Health Maintenance Due Date Last Done Comments BONE DENSITY TESTING 1960 COLOGUARD (AGES 45-75) - COLON CA SCREENING 1958 COLON MONITORING 1958 COLONOSCOPY - COLON CA SCREENING 1958 CT COLONOGRAPHY - COLON CA SCREENING 1960 Colorectal Cancer Screening 1958 FIT - COLON CA SCREENING 1958 FLEX SIG - COLON CA SCREENING 1958 MAMMOGRAM 1958 HEPATITIS C SCREENING 12/12/1976 DTAP/TDAP/TD VACCINES (1 - Tdap) 1977 PNEUMOCOCCAL VACCINE 50+ (1 of 1 - PCV) 2008 ZOSTER VACCINE (1 of 2) 2008 COVID-19 VACCINE (2 - season) 2024 12/28/2020 INFLUENZA VACCINE (#1) 2024 , 07/20/2020, 08/11/2019, Additional history exists Respiratory Syncytial Virus (RSV) Vaccine Pt: or over 60 yrs (1 - 1-dose 75+ series) 2033 DEPRESSION SCREENING Completed 01/15/2025 HEPATITIS B VACCINE Aged Out No longe r eligible based on patient's age to complete this topic HIB VACCINE Aged Out No longer eligi ble based on patient's age to complete this topic HPV VACCINE Aged Out No longer eligi ble based on patient's age to complete this topic MENINGOCOCCAL (Group B) VACCINE SHARED DECISION-MAKING Aged Out No longer eligible based on patient's age to complete this topic MENINGOCOCCAL GROUPS A/C/Y/W VACCINE Aged Out No longer eligible based on patient's age to complete this topic Care Teams Picker And Sorter Load And Unload Relationship Specialty Start Date End Date Camryn Chao DO [address] [facility] [address] [place] [address] PCP - General Family Medicine 01/15/25
--- OUTSIDE RECORDS SUMMARY | 2025-01-15 13:06 | XMS_ITS | Continuity of Care Document ---
Author Organization [facility] Address [address] [place] [address] Phone Care Team Providers Care Technical Adjuster Name Role Phone Lio Maharaj Unavailable Unavailable Procedures Procedure Date Office/outpatient Visit, Est Office/outpatient Visit, Est Eye Exam & Treatment Advance Directives Directive Yes / No Effective Date File Name No Information Encounters Encounter Description Practice Location Reason(s) For Visit Diagnoses Date Provider Providers Copied on Encounter [place] [facility] [place] [address], [place], [place], [id number], [place] tel:[phone] [facility] No Information 4-201 0 Krishnasamy Lio. [address] [address], [place], [place], [facility], [place]. tel:[phone] [place] [facility] [place] [address], [place], [place], [id number], [place] tel:[phone] [facility] No Information 5-200 9 Krishnasamy Lio. [address] [facility] [address], [place], [address], [place]. tel:[phone] [facility], [address], [place], [place], [id number], [place] tel:[phone] [facility] No Information Dec- 0-200 8 Carol Ann Vaca. [address], [address], [place]. tel:[phone] Family History Family Member Type Diagnosis Age [...]
--- OUTSIDE RECORDS SUMMARY | 2025-01-15 13:06 | XMS_ITS | Encounter Summary ---
Author Organization [facility] Address [address] [place] [address] Care Team Providers Care Special Needs Nanny Name Role Phone ChaoRufinath Juan MUARO Primary Care Provider [phone] Reason for Visit * Reason Comments Establish Care +ABISAI, elevated CRp, polyarthralgia Encounter Details Date Type Department Care Team (Late st Contact Info) Description 01/15/2025 10:40 AM CDT Office Visit [facility] Medical [facility] - Rheumatology [address] [facility], [address] [place] [address] Sriram Feliz DO [address] [facility] [address] [place] [address] 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 Check for anti-chromatin/histone antibody if positive stop hydralazine. Can take several months even after stopping hydralazine to resolve drug induced side effect complications consistent with a drug induced lupus syndrome but this condition is reversible with offendingdrug withdrawal. Will try to avoid use of systemic corticosteroid medication which likely would exacerbate diabetes. Avoid use of NSAID medication due to renal insufficiency. Use Tylenol Arthritis 2 tablets every 8 hours for pain relief. Orders: - COMPLEMENT C3 - COMPLEMENT C4 - CHROMATIN ANTIBODY; Future - HISTONE ANTIBODY Elevated sedimentation rate measurement at 127 mm/hr Comments: Normal CRP noted. Sed rate elevation can be seen in renal insufficiency but also perhaps related todrug induced lupus. Check SPEP (r/o gammopathy). Orders: - PROTEIN ELECTROPHORESIS BLOOD documented in this encounter Progress Notes * Sriram Feliz DO - 01/15/2025 10:34 AM CDT RHEUMATOLOGY INITIAL OFFICE ENCOUNTER NOTE 01/15/2025 REFERRING PHYSICIAN/PROVIDER: Camryn Chao DO [address] [place] [address] PRIMARY CARE PHYSICIAN /PROVIDER: Camryn Chao DO [address] [facility] [address] [facility] [address] REASON FOR CONSULT: Chief Complaint Patient presents with Establish Care +ABISAI, elevated CRp, polyarthralgia HISTORY OF PRESENTING ILLNESS: Jenna Mars is a 64 year old female who has osteoarthritis (spinal and bilateral knee status postbilateral TKA), diabetes mellitus, hypertension (receiving treatment with hydralazine), hyperlipidemia on atorvastatin 80 mg daily, and chronic renal insufficiency (followed by Melvin Mariscal MD [facility] in [facility]), was referred to [facility] Rheumatology for evaluation of polyarthralgia with the recent laboratory findings of a significantly elevated sedimentation rate 127millimeter/hour, strongly positive anti CCP antibody (rheumatoid factor negative) and positive antinuclear antibody at a titer of 1-1280 with a homogeneous pattern. She describes problems with chronic back pain for years as button followed by chronic pain specialist having received cervical spinal injections and uses Tylenol Arthritis 1 tablet 3 times daily for chronic pain symptoms but then began experiencing progressive worsening of polyarthralgia involving her hands, elbows, shoulders, ankles and feet in October of 2024. She has not noted any specific soft-tissue swelling but does indicatesome difficulty wearing her rings. She describes generalized skin itching in his been prescribed hydroxyzine but does not report any problems with obvious skin rash. Outside records review: Records received from referring office of Camryn Chao D.O. included chart note dated 11/19/2024 and laboratory testing results as collected on 10/06/2024 and 11/24/2024. Laboratory testing collected 11/24/2024 included a CBC with white blood cell count 6400, wlaljgciso36.1 g, hematocrit 37.9%, platelet count 333,000. Sedimentation rate 18 millimeter/hour. Comprehensive metabolic panel with normal serum electrolytes, BUN of 43, creatinine 1.86 and a EGFR of 27 mL/minute, calcium 10.1, total bilirubin 0.6, AST 33, ALT 30, alkaline phosphatase 60, total protein 8.0, albumin 4.6. C-reactive protein less than 0.5. Urinalysis negative for blood or protein. Anti CCP antibody positive at 169 units. ABISAI positive at a titer of 1-640 with a homogeneous pattern. Laboratory testing collected 12/05/2024 included sedimentation rate 127 millimeter/hour, ABISAI positive at a titer 1-1280 with a homogeneous pattern. Anti SSA antibody negative, anti SSB antibody negative, anti SM/SUPPORT ANALYST antibody negative, anti DNA antibody negative. REVIEW OF SYSTEMS: ROS See pertinent positive and/or negative in HPI PAST MEDICAL HISTORY: No past medical history on file. PAST SURGICAL HISTORY: No past surgical history on file. FAMILY HISTORY: No family history on file. Allergies Allergen Reactions Naproxen Angioedema and Swelling Piroxicam Other Diltiazem Other AV block Lisinopril Cough Penicillin G Rash Social History Socioeconomic History Marital status: Spouse name: Not on file Number of children: Not on file Years of education: Not on file Highest education level: Not on file Occupational History Not on file Tobacco Use Smoking status: Not on file Smokeless tobacco: Not on file Substance and Sexual Activity Alcohol use: Not on file Drug use: Not on file Sexual activity: Not on file Other Topics Concern Not on file Social History Narrative Not on file Social Determinants of Health Financial Resource Strain: Low Risk (09/06/2023) Received from [facility] Overall Financial Resource Strain (CARDIA) Difficulty of Paying Living Expenses: Not very hard Food Insecurity: No Food Insecurity (09/06/2023) Received from [facility] Hunger Vital Sign Worried About Running Out of Food in the Last Year: Never true Ran Out of Food in the Last Year: Never true Transportation Needs: No Transportation Needs (10/09/2023) Received from [facility] OASIS A1250: Transportation Lack of Transportation (Medical): No Lack of Transportation (Non-Medical): No Patient Unable or Declines to Respond: No Stress: Not on file Housing Stability: Not on file Immunization History Administered Date(s) Administered PPD 07/18/2016 Current Outpatient Medications Medication Sig Dispense Refill acetaminophen CR (Tylenol Arthritis Pain) 650 MG tablet Take 1 (one) tablet by mouth every 8 hours as needed atorvastatin (Lipitor) 80 MG tablet Take 1 (one) tablet by mouth B Complex Vitamins (Vitamin B-Complex) TABS Take 1 tablet by mouth once daily blood glucose (GEORGETTE CONTOUR NEXT TEST) test strip Use as directed up to four times a day. clindamycin (Cleocin) 150 MG capsule Take 4 (four) capsules by mouth 1 Hour prior to procedure cyanocobalamin (Vitamin B-12) 1000 MCG tablet Take 1 (one) tablet by mouth once daily fenofibrate micronized (Lofibra) 134 MG capsule Ferrous Gluconate (Ferate) 240 (27 Fe) MG tablet Take 1 (one) tablet by mouth 3 times daily with meals furosemide (Lasix) 20 MG tablet Take 1 (one) tablet by mouth once daily gabapentin (Neurontin) 300 MG capsule 1 (one) capsule 300 mg BID and 600 HS johan (Johan) 500 MG capsule Take 500 mg by mouth once daily glucosamine 500 MG capsule Take 2,000 (two thousand) mg by mouth once daily hydrALAZINE (Apresoline) 100 MG tablet Take 1 (one) tablet by mouth 3 times daily hydrOXYzine HCl (Atarax) 50 MG tablet Take 1 (one) tablet by mouth insulin lispro (HumaLOG;ADMelog) 100 UNIT/ML pen Inject 12 (twelve) Units subcutaneously 3 times daily before meals Sliding scale irbesartan (Avapro) 75 MG tablet Take 1 (one) tablet by mouth once daily Jardiance 25 MG tablet Lantus SoloStar pen Inject 38 (thirty eight) Units subcutaneously every morning magnesium oxide (Mag-Ox) 400 MG tablet Take 1 (one) tablet by mouth once daily metoprolol tartrate IR (Lopressor) 100 MG tablet Take 1 (one) tablet by mouth 2 times daily Nutritional Supplements (EQUATE PO) omeprazole (PriLOSEC) 20 MG capsule Take 1 (one) capsule by mouth once daily Semaglutide (1 MG/DOSE) 4 MG/3ML Subcutaneous Solution Pen-injector (Ozempic (1 MG/DOSE)) Inject 2 (two) mg subcutaneously every 7 days solifenacin (Vesicare) 5 MG tablet spironolactone (Aldactone) 25 MG tablet Take 1 (one) tablet by mouth once daily Turmeric (QC TUMERIC COMPLEX PO) vitamine D3 (Cholecalciferol) 250 MCG (63080 UT) capsule Take 1 (one) capsule by mouth once daily No current facility-administered medications for this visit. VITALS: Wt Readings from Last 3 Encounters: 01/15/25 93 kg (205 lb) Temp Readings from Last 3 Encounters: 01/15/25 97 ??F (36.1 ??C) BP Readings from Last 3 Encounters: 01/15/25 112/68 Pulse Readings from Last 3 Encounters: 01/15/25 73 APPEARANCE: Accompanied by her . HEENT: No appearance of alopecia, malar rash or oral hard palate mucosal erosions or ulcerations. Moderate bilateral nontender parotid gland enlargement. Oral mucous membranes appear moist. CV: Regular rhythm without murmur. PULM: CTA bilaterally. MSK: No active synovitis identified. Physical Exam There is currently [facility] Go to the Rheumatology activity andcomplete the homunculus joint exam. SKIN: No rash including acute, subacute or discoid lupus lesions or palpable purpuric or rheumatoidnodules identified. PSYCH: Alert. Appropriate. LABS: No results for input(s): WBC , RBC , HGB , HCT , MCV , MCHC , PLTCOUNT , NEUTPCT , LYMPHPCT , MONOCYTPCT , EOSINPCT , BASOPHILPCT , GRANSIMMPCT , NEUTABS , LYMPHABS , MONOCYTABS , EOSINABS , BASOABS , IMMGRANSABS in the last 72206 hours. No results for input(s): SODIUM , POTASSIUM , CHLORIDE , CO2 , BUN , CREATININE , GLUCOSE , CALCIUM , ALBUMIN , ALKPHOS , ALT , AST , TBIL , TPROT , EGFR in the last 73592 hours. No results for input(s): CRP in the last 65945 hours. No results for input(s): SEDRATE in the last 31288 hours. No results for input(s): RAQNT in the last 01418 hours. No results for input(s): CCPIGG in the last 08011 hours. No results for input(s): ABISAI , ANATITER in the last 02784 hours. No results for input(s): DNAABDS in the last 77411 hours. No results for input(s): C3 in the last 39319 hours., No results for input(s): C4 in the last 44102 hours. No results for input(s): SMAB , SMRNPAB , SSAAB , SSBAB , JJM83MC in the last 01277 hours. No results for input(s): CK in the last 60838 hours. No results for input(s): COLORUA , CLARITYUA , SPECGRAVUA , PHUA , PROTEINUA , BLOODUA , LEUKOCYTEUA , NITRITEUA , GLUCOSEUA , KETONEUA , BILIRUBINUA , UROBILINUA , REDSUBUA , WBCUAAUTO , RBCUAAUTO , EPITHUAAUTO , BACTUAAUTO , YEASTUAAUTO , SPERMUAAUTO , CASTUAAUTO , CRYSUAAUTO , MUCUSUAAUTO in the last 72712 hours. No results for input(s): [id number] in the last 73623 hours. IMAGING: No image results found. ASSESSMENT/PLAN: Orders Placed This Encounter COMPLEMENT C3 COMPLEMENT C4 CHROMATIN ANTIBODY HISTONE ANTIBODY PROTEIN ELECTROPHORESIS BLOOD ICD-10-CM 1. 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 Check for anti-chromatin/histone antibody if positive stop hydralazine. Can take several months even after stopping hydralazine to resolve drug induced side effect complications consistent with a drug induced lupus syndrome but this condition is reversible with offendingdrug withdrawal. Will try to avoid use of systemic corticosteroid medication which likely would exacerbate diabetes. Avoid use of NSAID medication due to renal insufficiency. Use Tylenol Arthritis 2 tablets every 8 hours for pain relief. Orders: - COMPLEMENT C3 - COMPLEMENT C4 - CHROMATIN ANTIBODY; Future - HISTONE ANTIBODY Elevated sedimentation rate measurement at 127 mm/hr Comments: Normal CRP noted. Sed rate elevation can be seen in renal insufficiency but also perhaps related todrug induced lupus. Check SPEP (r/o gammopathy). Orders: - PROTEIN ELECTROPHORESIS BLOOD Return in about 4 weeks (around 02/12/2025). Thank you for allowing me to participate in the rheumatologic care of your pleasant patient. Pleasedo not hesitate to contact me if I can provide any additional follow-up information that you may require. Sriram Feliz D.O., FACR [facility] Rheumatology [address] [place] [id number] The total time spent today in the visit with the patient for this initial encounter, including performing chart preparation, review of available data, and documentation, patient education, not related to any procedure or preventative visit services was 45 minutes. Portions of the record was created with voice recognition software.Variances in administrative services officer may occur Sriram Feliz DO 01/15/2025 12:30 PM documented in this encounter Plan of Treatment Upcoming Encounters Date Type Department Care Team (Late st Contact Info) Description 02/12/2025 2:20 PM CDT Office Visit [facility] - Rheumatology [address] [place] [phone] Sriram Feliz DO [address] [facility] [facility] [place] [address] Scheduled Orders Name Type Priority Associated Diagnoses Orde r Schedule COMPLEMENT C3 Lab Routine 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 Ordered: 01/15/2025 COMPLEMENT C4 Lab Routine 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 Ordered: 01/15/2025 CHROMATIN ANTIBODY Lab Routine 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 1 Occurrences starting 01/15/2025 until 02/09/2026 HISTONE ANTIBODY Lab Routine 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
--- OUTSIDE RECORDS SUMMARY | 2025-01-15 13:07 | XMS_ITS | Encounter Summary ---
Author Organization [facility] Healthcare Address [address] [place] [address] Care Team Providers Care Business Associate Name Role Phone Camryn Chao DO Primary Care Provider + Kevin Metcalf MD Unavailable [phone] Cortez Huerta MD Unavailable [phone] Soha Vega MD Unavailable [phone] Encounter Details Date Type Department Care Team (Late st Contact Info) Description 01/15/2024 Orders Only [facility] Health Information Management [address] [place] [address] Scanning, Provider Social History Tobacco Use [...] materials from doctor or pharmacy Never 10/09/2023 [facility] Utilities Answer Date Recorded In the past 12 months has [employer], gas, oil, or water [employer] threatened to shut off services in your [...] often do you attend chur ch or pentecostal services? 1 to 4 times per year 09/06/2023 Do you belong to any clubs o r organizations such as alevism groups, unions, fraternal or athletic groups, or [...] place to sleep or slept in a longterm (including now)? No 09/06/2023 Personal Safety Answer Date Recorded Have you ever been in or are you currently in a harmful physical or emotional relationship or is someone making you feel afraid or unsafe? 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 [address] [place] [address] Referring Physician Cardiology 08/02/23 Cortez Huerta MD [address] [facility] [address] [place] [phone] Consulting Physician Cardiothoracic Surgery 08/02/23 Soha Vega MD [facility] [facility] [address] [place] [address] Endocrinology Diabetes & Metabolism 09/08/23 documented as of this encounter
--- OUTSIDE RECORDS SUMMARY | 2025-01-15 13:07 | XMS_ITS | Encounter Summary ---
Author Organization [facility] Healthcare Address [address] [place] [address] Care Team Providers Care Senior Database Engineer Name Role Phone Camryn Chao DO Primary Care Provider + Kevin Metcalf MD Unavailable [phone] Cortez Huerta MD Unavailable [phone] Soha Vega MD Unavailable [phone] Encounter Details Date Type Department Care Team (Late st Contact Info) Description 01/07/2024 Orders Only [facility] Health Information Management [address] [place] [address] Scanning, Provider Social History Tobacco Use [...] materials from doctor or pharmacy Never 10/09/2023 [facility] Utilities Answer Date Recorded In the past 12 months has [employer], gas, oil, or water [employer] threatened to shut off services in your [...] often do you attend chur ch or muslim services? 1 to 4 times per year 09/06/2023 Do you belong to any clubs o r organizations such as mandaeism groups, unions, fraternal or athletic groups, or [...] place to sleep or slept in a residential (including now)? No 09/06/2023 Personal Safety Answer Date Recorded Have you ever been in or are you currently in a harmful physical or emotional relationship or is someone making you feel afraid or unsafe? 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 Gender Identity Not on file Sexual [...] on filedocumented in this encounter Care Teams Senior Database Engineer Relationship Specialty Start Date End Date Camryn Chao DO PCP - General Family Medicine 01/18/23 Kevin Metcalf MD [address] [facility] [address] [place] [place] [phone] Referring Physician Cardiology 08/02/23 Cortez Huerta MD [address] [facility] [address] [place] [phone] Consulting Physician Cardiothoracic Surgery 08/02/23 Soha Vega MD [address] [facility] [address] [place] [address] Endocrinology Diabetes & Metabolism 09/08/23 documented as of this encounter
[2025-01-16 07:09] LABS: Chromatin Antibody <1.0 NEG AI (<1.0 NEG)
[2025-01-16 07:43] LABS: Protein, Total 7.4 g/dL (6.1-8.1)
[2025-01-16 20:04] LABS: Albumin 4.4 g/dL (3.8-4.8); Alpha 1 Globulin 0.3 g/dL (0.2-0.3); Alpha 2 Globulin 0.7 g/dL (0.5-0.9); Beta 1 Globulin 0.7 g/dL (0.4-0.6); Gamma Globulin 0.9 g/dL (0.8-1.7)
== END 2025-01-15 12:11 | disposition home or self-care (01) ==
LOC: ANHLAB 12:13
PROVIDERS: PCP Family Medicine; Visit Provider Internal Medicine Rheumatology
DX: L93.2 Other local lupus erythematosus (principal); T46.5X5A Adverse effect of other antihypertensive drugs, initial encounter
CPT/HCPCS: 36415; 83516; 84155; 84165; 86160; 86235

== ENCOUNTER 2025-01-20 11:44 | Outpatient (CLI) | payer MEDICARE, OTHER, SELFPAY ==
[2025-01-20 12:30] LABS: Hematocrit 37.8 % (37.0-47.0); Hemoglobin 12.1 g/dL (12.0-15.0); Mean Corpuscular Hemoglobin 29.2 pg (26-34); Mean Corpuscular Volume 91.1 fl (80-100); Mean Platelet Volume 9.6 fl (7.4-10.4); Platelet Count Result 380 k/mm3 (150-375); Red Blood Count 4.15 M/mm3 (4.2-5.4); Red Cell Distribution Width 14.2 % (11.5-14.5); White Blood Count 6.7 K/mm3 (4.5-10.0)
--- OUTSIDE RECORDS SUMMARY | 2025-01-20 13:03 | XMS_ITS | Encounter Summary ---
Author Organization [facility] Healthcare Address [address] [place] [address] Care Team Providers Care Scheduling Representative Name Role Phone Camryn Chao DO Primary Care Provider + Kevin Metcalf MD Unavailable [phone] Cortez Huerta MD Unavailable [phone] Soha Vega MD Unavailable [phone] Encounter Details Date Type Department Care Team (Late st Contact Info) Description 01/07/2024 Orders Only [facility] Health Information Management [address] [place] [address] Scanning, Provider Social History Tobacco Use [...] materials from doctor or pharmacy Never 10/09/2023 [facility] Utilities Answer Date Recorded In the past 12 months has [employer], gas, oil, or water [employer] threatened to shut off services in your [...] any clubs o r organizations such as anabaptist groups, unions, fraternal or athletic groups, or [...] on file 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 Gender Identity Not on file Sexual Orientation [...] on filedocumented in this encounter Care Teams Scheduling Representative Relationship Specialty Start Date End Date Camryn Chao DO PCP - General Family Medicine 01/18/23 Kevin Metcalf MD [address] [facility] [address] [place] [phone] Referring Physician Cardiology 08/02/23 Cortez Huerta MD [address] [facility] [address] [place] [phone] Consulting Physician Cardiothoracic Surgery 08/02/23 Soha Vega MD [address] [facility] [address] [place] [address] Endocrinology Diabetes & Metabolism 09/08/23 documented as of this encounter
--- OUTSIDE RECORDS SUMMARY | 2025-01-20 13:03 | XMS_ITS | Encounter Summary ---
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 Social History Tobacco Use Types Packs/Day Years Used Date Smoking Tobacco: Never Assessed PHQ-2 Answer Date Recorded Patient Health Questionnaire-2 Score 0 01/15/2025 Sex and Gender Information Value Date Recorded Sex Assigned at Not on file Gender Identity Not on file Sexual Orientation Not on file documented as of this encounter Plan of Treatment Upcoming Encounters Date Type Department Care Team (Late st Contact Info) Description 02/12/2025 2:20 PM CDT Office Visit [facility] - Rheumatology [address] [place] [address] Sriram Feliz DO [address] [place] [address] documented as of this encounter Procedures Procedure Name Priority Date/Time Associated Diagnosis Comments CHROMATIN ANTIBODY Routine 01/15/2025 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
--- OUTSIDE RECORDS SUMMARY | 2025-01-20 13:03 | XMS_ITS | Clinical Summary ---
Author Organization [facility] Address [address] [place] [address] Phone Care Team Providers Care Bench Patternmaker Metal Name Role Phone Carlos Alberto Oneil Primary Care Provider [phone] Allergies Active Allergy Reactions Criticality Noted Date [...] 07/20/2020, 08/11/2019, Additional history exists Care Teams Bench Patternmaker Metal Relationship Specialty Start Date End Date Carlos Alberto Oneil [address] [place] [id number] PCP - General 04/26/22
--- OUTSIDE RECORDS SUMMARY | 2025-01-20 13:03 | XMS_ITS | Encounter Summary ---
Author Organization [facility] Address [address] [place] [address] Care Team Providers Care Train Brake Operator Name Role Phone Chao Camryn Juan MAURO Primary Care Provider [phone] Encounter Details Date Type Department Care Team (Late st Contact Info) Description 01/19/2025 Orders Only [facility] - Rheumatology [address], [address] [place] [address] Sriram Feliz DO [address] [place] [address] Screening for tuberculosis ; Need for hepatitis B screening test; Need for hepatitis C screening test; High risk medication use Social History Tobacco Use Types Packs/Day Years Used Date Smoking Tobacco: Never Assessed PHQ-2 Answer Date Recorded Patient Health Questionnaire-2 Score 0 01/15/2025 Sex and Gender Information Value Date Recorded Sex Assigned at Not on file Gender Identity Not on file Sexual Orientation Not on file documented as of this encounter Progress Notes * Madi Ferro RN - 01/19/2025 8:[address] 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 Additionally both C3 and C4 complement levels were normal making systemic lupus also less likely. Based upon the previous finding of a strongly positive anti CCP antibody and marked elevation in sedimentation rate she might be experiencing early onset of rheumatoid arthritis. Need to avoidthe use of NSAID medication and also would like to try to avoid systemic corticosteroid as much as possible due to diabetes mellitus. Treatment options could include hydroxychloroquine although that might take 4-6 weeks at earliest to determine any clinical effectiveness or weekly oral methotrexatewith dose titration based upon response and tolerability. Before beginning methotrexate would need to make sure she has had adequate hepatitis-B surface antigen and hepatitis-C antibody screening andalso would check QuantiFERON TB gold in case additional biologic and non biologic DMARD options areconsidered future treatment. Quantiferon TB Gold and the hepatitis C and B screening ordered per Dr. Feliz as requested. documented in this encounter Plan of Treatment Upcoming Encounters Date Type Department Care Team (Late st Contact Info) Description 02/12/2025 2:20 PM CDT Office Visit [facility] - Rheumatology [address], [address] [place] [address] Sriram Feliz DO [address] [place] [address] Scheduled Orders Name Type Priority Associated Diagnoses Orde r Schedule QUANTIFERON TB-GOLD Lab Routine Screening for tuberculosis High risk medication use Ordered: 01/19/2025 HEPATITIS B SURFACE ANTIGEN W RFLX CONFIRMATION Lab Routine Need for hepatitis B screening test High risk medication use Ordered: 01/19/2025 HEPATITIS C ANTIBODY Lab Routine Need for hepatitis C screening test High risk medication use Ordered: 01/19/2025 documented as of this encounter Visit Diagnoses Diagnosis Screening for tuberculosis- Primary Screening examination for pulmonary tuberculosis Need for hepatitis B screening test Need for hepatitis C screening test Special screening examination for other specified viral diseases High risk medication use Encounter for long-term (current) use of other medications documented in this encounter Care Teams Train Brake Operator Relationship Specialty Start Date End Date Camryn Chao DO [address] [place] [id number] PCP - General Family Medicine 01/15/25 documented as of this encounter
--- OUTSIDE RECORDS SUMMARY | 2025-01-20 13:03 | XMS_ITS | Encounter Summary ---
Author Organization [facility] Healthcare Address [address] [place] [address] Care Team Providers Care Semiconductor Technician Name Role Phone Camryn Chao DO Primary Care Provider + Kevin Metcalf MD Unavailable [phone] Cortez Huerta MD Unavailable [phone] Soha Vega MD Unavailable [phone] Encounter Details Date Type Department Care Team (Late st Contact Info) Description 01/15/2024 Orders Only [facility] Health Information Management [address] [place] [address] Scanning, Provider Social History Tobacco Use [...] materials from doctor or pharmacy Never 10/09/2023 [facility] Utilities Answer Date Recorded In the past 12 months has [employer], gas, oil, or water [employer] threatened to shut off services in your [...] often do you attend chur ch or confucianist services? 1 to 4 times per year [...] on file Legal Sex Female 9:23 AM JOURNALISTS AND OTHER WRITERS Gender Identity Not on file Sexual Orientation [...] on filedocumented in this encounter Care Teams Semiconductor Technician Relationship Specialty Start Date End Date Camryn Chao DO PCP - General Family Medicine 01/18/23 Kevin Metcalf MD [address] [facility] [address] [place] [address] Referring Physician Cardiology 08/02/23 Cortez Huerta MD [address] [facility] [address] [place] [id number] Consulting Physician Cardiothoracic Surgery 08/02/23 Soha Vega MD [facility] [place] [address] Endocrinology Diabetes & Metabolism 09/08/23 documented as of this encounter
--- OUTSIDE RECORDS SUMMARY | 2025-01-20 13:03 | XMS_ITS | Continuity of Care Document ---
Author Organization [facility] Address [address] [place] [address] Phone Care Team Providers Care Hook Up Driver Name Role Phone Lio Maharaj Unavailable Unavailable Procedures Procedure Date Office/outpatient Visit, Est Office/outpatient Visit, Est Eye Exam & Treatment Advance Directives Directive Yes / No Effective Date File Name No Information Encounters Encounter Description Practice Location Reason(s) For Visit Diagnoses Date Provider Providers Copied on Encounter Office/outpat ient Visit, [facility], [address], [place], [place], [id number], [place] tel:[phone] [facility] No Information 4-201 0 Krishnasamy Lio. [address] [address], [place], [place], [facility], [place]. tel:[phone] Office/outpat ient Visit, [facility] [place], [address], [place], [place], [address], [place] tel:[phone] [facility] No Information 5-200 9 Krishnasamy Lio. [address], [place], [address], [place]. tel:[phone] [facility], [address], [place], [place], [id number], [place] tel:[phone] [facility] No Information Dec- 0-200 8 Carol Ann Vaca. [address], [address], [place]. tel:[phone] Family History Family Member Type Diagnosis Age At Onset No Information Payers Payer name Insurance type Covered constitution party ID Authoriza tion(s) No Information Social [...]
--- OUTSIDE RECORDS SUMMARY | 2025-01-20 13:03 | XMS_ITS | Clinical Summary ---
Author Organization [facility] Address [address] [place] [address] Care Team Providers Care Lithopone Mill Worker Name Role Phone Glen Banks MD Primary [...] 07/20/2020, 08/11/2019, Additional history exists Insurance CHOICE [id number] Care Teams Lithopone Mill Worker Relationship Specialty Start Date End Date Glen Banks MD [address] [id number] PCP - General Family Practice 04/06/22
--- OUTSIDE RECORDS SUMMARY | 2025-01-20 13:03 | XMS_ITS | Clinical Summary ---
Author Organization [facility] path intelligence Address [address] [facility] [address] Care Team Providers Care Casting Finisher Name Role Phone ChaoCamryn DO Primary Care Provider [phone] Source Comments [facility],non-owned Affiliates and Associated Physician Practices is amultiple site organization consisting of ambulatory clinics and hospital sitesin [place], [place], [place] and [place]. This disclosure is being madepursuant to the Care Everywhere program and may not contain all information available regarding this patient. Last updated 18.[facility] path intelligence Allergies Active Allergy Reactions Criticality Noted Date [...] daily Active vitamine D3 (Cholecalciferol) 250 MCG (36820 UT) capsule Take 1 (one) capsule by [...] Encounters Date Type Department Care Team Description 01/19/2025 Orders Only [facility] - Rheumatology [address] [place] [address], [facility] [address] [place] [address] Sriram Feliz DO Screening for tuberculosis ; Need for hepatitis B screening test; Need for hepatitis C screening test; High risk medication use 01/16/2025 Orders Only [facility] - Rheumatology [address] [place] [address], [address] [place] [address] Sriram Feliz DO 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 01/15/2025 10:40 AM CDT Office Visit [address], [address] [place] [phone] Sriram Feliz DO 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); Elevated sedimentation rate measurement at 127 mm/hr 12/25/2024 Telephone [facility] Rheumatology [address] [place] [address], [address] [place] [address] [facility] Medical Referral (/) from Last 3 Months [...] Description 02/12/2025 2:20 PM CDT Office Visit [facility] - Rheumatology [address], [address] [place] [address] Sriram Feliz DO [address] [place] [address] Health Maintenance Due Date Last Done Comments BONE DENSITY TESTING 1960 COLOGUARD (AGES 45-75) - COLON CA SCREENING 1958 COLON MONITORING 1958 COLONOSCOPY - COLON CA SCREENING 1958 CT COLONOGRAPHY - COLON CA SCREENING 1958 Colorectal Cancer Screening 1958 FIT - COLON CA SCREENING 1958 FLEX SIG - COLON CA SCREENING 1958 MAMMOGRAM 1958 MEDICARE AWV 12 MONTHS 1958 HEPATITIS C SCREENING 12/12/1976 DTAP/TDAP/TD VACCINES (1 - Tdap) 1977 PNEUMOCOCCAL VACCINE 50+ (1 of 1 - PCV) 2008 ZOSTER VACCINE (1 of 2) 2008 Respiratory Syncytial Virus (RSV) Vaccine Pt: or over 60 yrs (1 - Risk 60-74 years 1-dose series) 2018 COVID-19 VACCINE (2 - season) 2024 12/28/2020 INFLUENZA VACCINE (Season Ended) 2025 08/22/2021, 07/20/2020, 08/11/2019, Additional history exists DEPRESSION SCREENING Completed 01/15/2025 HEPATITIS B VACCINE [...] on patient's age to complete this topic Procedures Procedure Name Priority Date/Time Associated Diagnosis Comments CHROMATIN ANTIBODY Routine 01/15/2025 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 PROTEIN ELECTROPHORESIS BLOOD Routine 01/15/2025 Elevated sedimentation rate measurement at 127 mm/hr COMPLEMENT C4 Routine 01/15/2025 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 COMPLEMENT C3 Routine 01/15/2025 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 from Last 3 Months Results * CHROMATIN ANTIBODY (01/15/2025) Blood BLOOD SPECIMEN / Unknown Sriram Feliz DO LAB - SEROLOGY ORDER YANELY Performing Organization Address City/[facility]/ZIP Co de Phone Number OTHER LAB * COMPLEMENT C4 (01/15/2025) Blood BLOOD SPECIMEN / Unknown Sriram Feliz DO LAB - SEROLOGY ORDER YANELY OTHER LAB * PROTEIN ELECTROPHORESIS BLOOD (01/15/2025) Blood BLOOD SPECIMEN / Unknown Sriram Feliz DO LAB - CHEMISTRY HECTOR [facility] OTHER LAB * COMPLEMENT C3 (01/15/2025) Blood BLOOD SPECIMEN / Unknown Sriram Feliz DO LAB - CHEMISTRY HECTOR [facility] OTHER LAB from Last 3 Months Care Teams Casting Finisher Relationship Specialty Start Date End Date Camryn Chao DO [address] [place] [address] PCP - General Family Medicine 01/15/25
--- OUTSIDE RECORDS SUMMARY | 2025-01-20 13:03 | XMS_ITS | Clinical Summary ---
Author Organization [facility] [address] Address [address] [place] [address] Care Team Providers Care Display Associate Name Role Phone ChaoCamryn dahl Terra MAURO Primary Care Provider + Kevin Metcalf MD Unavailable Cortez Huerta MD Unavailable [phone] Soha Vega MD Unavailable [phone] Allergies Active Allergy Reactions Criticality Noted Date [...] mcg total) by mouth every evening Active qdogu-W-bvarwglk idase (BEANO ORAL) Take 1 tablet by [...] 09/04/2023 Coronary artery disease invo lving [place] coronary artery of [place] heart without angina pectoris 08/28/2023 Left carotid [...] Diabetes mellitus (HCC) Osteoarthritis Cataract Anemia WPW (Ezcbg-Mjgllcevw-Lslwj syndrome) GERD (gastroesophageal reflu x disease) Vertigo Aortic stenosis CKD (chronic kidney disease) stage 3, GFR 30-59 ml/min ([facility]) baseline creat 1.3-1.4 Coronary artery disease Neuromuscular disorder (HCC) Degenerativ e disc disease, Neuropathy. Family History Medical History Relation Name Comments No Known Problems Brother 1 No Known Problems Brother 2 Bladder Cancer Father 90 Cancer Father 90 Heart attack Father 90 Hypertension Father 90 Heart attack Mother 76 fatal [place] Sudden Mother 76 COPD Sister 64 Relation [...] materials from doctor or pharmacy Never 10/09/2023 [facility] Utilities Answer Date Recorded In the past 12 months has [facility], [employer], or water [employer] threatened to shut off services in your [...] How often do you attend chur or yarsanism services? 1 to 4 times per year 09/06/2023 Do you belong to any clubs o r organizations such as gnosticism groups, unions, fraternal or athletic groups, or [...] place to sleep or slept in a group home (including now)? No 09/06/2023 Personal Safety Answer Date Recorded Have you ever been in or are you currently in a harmful physical or emotional relationship or is someone making you feel afraid or unsafe? Denies 09/04/2023 Comments No Sex and Gender Information Value Date Recorded Sex Assigned at Not on file Legal Sex Female 9:23 AM FLIGHT TECHNICIAN Gender Identity Not on file Sexual Orientation Not on file Obstetrics History Last Filed Vital Signs Vital Sign Reading Time Taken Comments Blood Pressure 134/72 08/28/2024 1:59 PM FLIGHT TECHNICIAN Pulse 74 08/28/2024 1:59 PM FLIGHT TECHNICIAN Temperature 36.7 C (98 F) 10/09/2023 11:29 AM FLIGHT TECHNICIAN Respiratory Rate 18 10/10/2023 9:21 AM FLIGHT TECHNICIAN Oxygen Saturation 96% 08/28/2024 1:59 PM FLIGHT TECHNICIAN Inhaled Oxygen Concentration - - Weight 93 kg (205 lb) 08/28/2024 1:59 PM FLIGHT TECHNICIAN Height 162.6 cm (5' 4 ) 08/28/2024 1:59 PM FLIGHT TECHNICIAN Body Mass Index 35.19 08/28/2024 1:59 PM FLIGHT TECHNICIAN Plan of Treatment Health Maintenance Due Date [...] Visit 65+ 2023 Hemoglobin A1C 03/04/2024 09/04/2023 Fall Risk Assessment 09/09/2024 09/09/2023 eGFR 04/08/2025 04/08/2024, 09/21, 09/09/2023, Additional history exists Lipid Panel 04/28/2025 04/28/2024, 06/22, 06/06/2022, Additional history exists Influenza Vaccine (Season Ended) 2025 08/22/2021, 07/20/2020, 08/11/2019, Additional history exists Hepatitis B Screening Completed 10/17/2016 , 07/18/2016, 06/15/2016 Medical Devices Implanted Type Area Bag Grader Device Identifier Shelf Expiration Date Model / Serial / Lot [employer] Inspiris Resilia Leaflet Aortic Valve 23mm [id number] - [id number] - [id number] Implanted:Qty: 1 on 09/04/2023 by Cortez Huerta MD at [facility] Prosthetic Valve N/A: Aortic Valve [employer] 04/29/2027 [id number] / [id number] / Giang V[employer] Device Clsr Perclose Prostyle Sut-Mediatd Closure-Repair Sys [id number] - S0 - [id number] Implanted:Qty: 1 on 08/01/2023 by Alireza Negron MD at [facility] Vascular Closure Device [employer] 04/20/2025 [id number] / 0 / [id number] Bard Peripheral Vascular Bard .25x.25in [place] Thk1.65mm Square [place] Cardiovascular Ptfe [id number] - [id number] Implanted:Qty: 1 on 09/04/2023 by Cortez Huerta MD at [facility] N/A: Chest Bard Peripheral Vascular [id number] / / [employer] Device Closure Fibertape Sternal [place]clage Blunt Needle Ar-[id number] - [id number] Implanted:Qty: 1 on 09/04/2023 by Cortez Huerta MD at [facility] N/A: Sternum [employer] Inc 05/21/2028 [id number] / / [id number] [employer] Device Closure Fibertape Sternal [place] Blunt Needle Ar-7289 - [id number] Implanted:Qty: 1 on 09/04/2023 by Cortez Huerta MD at [facility] N/A: Sternum [employer] 09/20/2026 AR-7289 / / [id number] Procedures Procedure Name Priority Date/Time Associated Diagnosis Comments POCT LIPID PANEL Routine 04/28/2024 8:18 AM CDT Lipid screening BASIC METABOLIC PANEL Routine 04/08/2024 Hypertension associated with diabetes (HCC) HEMOGLOBIN A1C STAT 09/04/2023 9:48 AM FLIGHT TECHNICIAN from Last 3 Months or Most Recently [...] N/A EXTERNAL LAB SCRIBED eGFR in NonAfrican Israeli 30 > or = 60 EXTERNAL LAB Blood 04/08/2024 us Kevin Metcalf MD LAB BLOOD ORDERABLES Ashley black Result EXTERNAL LAB * (ABNORMAL) Hemoglobin A1c (09/04/2023 9:48 AM FLIGHT TECHNICIAN) Hgb A1C 9.2(H) 4.0 - 5.6 % [facility] Estimated Average Glucose 217 mg/dL [facility] Comment: The ADA recommends reporting an estimated Average Glucose (eAG) with all Hemoglobin A1c results using the equation derived from a study of 507 normal and diabetic adults. Minority populations were underrepresented and children were not included. (Diabetes Care 31:7767-8007, 2008). The eAG is not equivalent to a fasting glucose. Blood 09/04/2023 9:48 AM FLIGHT TECHNICIAN 09/04/2023 9:59 AM FLIGHT TECHNICIAN Terra Gilmore NP LAB BLOOD ORDERABLES Final Resul t [facility] [address] Department [place] [address] from Last 3 Months or Most Recently Relevant to Health Maintenance Insurance [facility] MEDICARE PHYSICIANS [facility] Advance Directives For more information, please contact: [phone] * Full Code (Latest Code Status on File) Date Activated Date Inactivated Comments 09/04/2023 2:59 PM 09/09/2023 3:12 PM Care Teams Display Associate Relationship Specialty Start Date End Date Camryn Chao DO PCP - General Family Medicine 01/18/23 Kevin Metcalf MD [address] [facility] [address] [place], [place] [id number] Referring Physician Cardiology 08/02/23 Cortez Huerta MD [address] [facility] [address] [place], [place] [id number] Consulting Physician Cardiothoracic Surgery 08/02/23 Soha Vega MD [facility] [facility] [facility] [place] [address] Endocrinology Diabetes & Metabolism 09/08/23
--- OUTSIDE RECORDS SUMMARY | 2025-01-20 13:03 | XMS_ITS | Referral Summary ---
Author Organization [facility] [place] [address] Address [address] [place] [address] Care Team Providers Care Chief Medical Physicist Name Role Phone ChaoCamryn dahl Terra MAURO Primary Care Provider + Kevin Metcalf MD Unavailable Cortez Huerta MD Unavailable [phone] Soha Vega MD Unavailable Allergies Active Allergy [...] mcg total) by mouth every evening Active mpkiw-N-jqebjxsq idase (BEANO ORAL) Take 1 tablet by [...] severe 09/04/2023 Coronary artery disease invo lving [place] coronary artery of [place] heart without angina pectoris 08/28/2023 Left carotid bruit 05/07/2020 Nonrheumatic aortic valve stenosis 05/07/2020 Renal artery stenosis 02/12/2020 Chronic kidney disease 07/25/2019 Family history of coronary artery disease 2018 AV block 07/25/2019 Frequent PVCs 07/25/2019 Hypertension associated with diabetes 07/25/2019 Hyperlipidemia associated with type 2 diabetes [place] 07/25/2019 Social History Tobacco Use Types Packs/Day [...] materials from doctor or pharmacy Never 10/09/2023 [facility] Utilities Answer Date Recorded In the past 12 months has th e [employer], [employer], oil, or water [employer] threatened to shut off services in your [...] often do you attend chur ch or amish services? 1 to 4 times per year 09/06/2023 Do you belong to any clubs o r organizations such as episcopal groups, unions, fraternal or athletic groups, or [...] place to sleep or slept in a alf (including now)? No 09/06/2023 Personal Safety Answer Date Recorded Have you ever been in or are you currently in a harmful physical or emotional relationship or is someone making you feel afraid or unsafe? Denies 09/04/2023 Comments No Sex and Gender Information Value Date Recorded Sex Assigned at Not on file Legal Sex Female 9:23 AM SOFTWARE DEVELOPER CONSULTANT Gender Identity Not on file Sexual Orientation Not on file Last Filed Vital Signs Vital Sign Reading Time Taken Comments Blood Pressure 134/72 08/28/2024 1:59 PM SOFTWARE DEVELOPER CONSULTANT Pulse 74 08/28/2024 1:59 PM SOFTWARE DEVELOPER CONSULTANT Temperature 36.7 C (98 F) 10/09/2023 11:29 AM SOFTWARE DEVELOPER CONSULTANT Respiratory Rate 18 10/10/2023 9:21 AM SOFTWARE DEVELOPER CONSULTANT Oxygen Saturation 96% 08/28/2024 1:59 PM SOFTWARE DEVELOPER CONSULTANT Inhaled Oxygen Concentration - - Weight 93 kg (205 lb) 08/28/2024 1:59 PM SOFTWARE DEVELOPER CONSULTANT Height 162.6 cm (5' 4 ) 08/28/2024 1:59 PM SOFTWARE DEVELOPER CONSULTANT Body Mass Index 35.19 08/28/2024 1:59 PM SOFTWARE DEVELOPER CONSULTANT Plan of Treatment Not on file Medical Devices Implanted Type Area Ornamental Metalwork Designer Device Identifier Shelf Expiration Date Model / Serial / Lot Lux HandelabraGamesciences Inspiris Resilia Leaflet Aortic Valve 23mm [id number] - [id number] - [id number] Implanted:Qty: 1 on 09/04/2023 by Cortez Huerta MD at [facility] Prosthetic Valve N/A: Aortic Valve Lux Lifesciences 04/29/2027 [id number] / [id number] / Giagn Vascular Device Clsr Perclose Prostyle Sut-Mediatd Closure-Repair Sys 15661-96 - S0 - [id number] Implanted:Qty: 1 on 08/01/2023 by Alireza Negron MD at [facility] Vascular Closure Device Giang Vascular 04/20/2025 [id number] / 0 / [id number] Bard Peripheral Vascular Bard .25x.25in [place] Thk1.65mm Square Pledget Cardiovascular Ptfe [id number] - [id number] Implanted:Qty: 1 on 09/04/2023 by Cortez Huerta MD at [facility] N/A: Chest Bard Peripheral Vascular [id number] / / Ar[employer]rex [employer] Device Closure Fibertape Sternal Cerclage Blunt Needle Ar-[id number] - [id number] Implanted:Qty: 1 on 09/04/2023 by Cortez Huerta MD at [facility] N/A: Sternum Arthrex Inc 05/21/2028 AR-7289 / / [id number] Arthrex Inc Device Closure Fibertape Sternal Cerclage Blunt Needle Ar-7289 - [id number] Implanted:Qty: 1 on 09/04/2023 by Cortez Huerta MD at [facility] N/A: Sternum Ar[employer]rex Inc 09/20/2026 AR-7289 / / [id number] Procedures Procedure Name Priority Date/Time Associated Diagnosis Comments POCT LIPID PANEL Routine 04/28/2024 8:18 AM CDT Lipid screening BASIC METABOLIC PANEL Routine 04/08/2024 Hypertension associated with diabetes (HCC) HEMOGLOBIN A1C STAT 09/04/2023 9:48 AM SOFTWARE DEVELOPER CONSULTANT from Last 3 Months or Most Recently Relevant to Health Maintenance Results * POCT lipid panel (04/28/2024 8:18 AM CDT) [facility] Cholesterol, POC 127 mg/dL HDL, POC 41 mg/dL Triglycerides, POC 94 mg/dL LDL Cholesterol POC 68 mg/dL Chol/HDL Ratio, POC 1.7 Non-HDL Cholesterol, POC 86 mg/dL Cholesterol Total, POC 127 mg/dL Capillary blood 04/28/2024 8 :18 AM CDT Denise Santiago NP POINT OF CARE TEST ORDERABLE S Edited Result - Final * (ABNORMAL) Basic metabolic panel (04/08/2024) [facility] SCRIBED Sodium 140 137 - 145 [...] N/A EXTERNAL LAB SCRIBED eGFR in NonAfrican Surinamese 30 > or = 60 EXTERNAL LAB Blood 04/08/2024 Kevin Metcalf MD LAB BLOOD ORDERABLES Ashley l Result EXTERNAL LAB * (ABNORMAL) Hemoglobin A1c (09/04/2023 9:48 AM SOFTWARE DEVELOPER CONSULTANT) [facility] Hgb A1C 9.2(H) 4.0 - 5.6 % [facility] Estimated Average Glucose 217 mg/dL [facility] Comment: The ADA recommends reporting an estimated Average Glucose (eAG) with all Hemoglobin A1c results using the equation derived from a study of 507 normal and diabetic adults. Minority populations were underrepresented and children were not included. (Diabetes Care 31:4680-5380, 2008). The eAG is not equivalent to a fasting glucose. Blood 09/04/2023 9:48 AM SOFTWARE DEVELOPER CONSULTANT 09/04/2023 9:59 AM SOFTWARE DEVELOPER CONSULTANT us Terra Gilmore NP LAB BLOOD ORDERABLES Final Resul t [facility] Organization Address City/State/ZIP Co de Phone Number [facility] [address] [place] [address] from Last 3 Months or Most Recently Relevant to Health Maintenance Insurance [facility] MEDICARE [employer] [place] [facility] Advance Directives For more information, please contact: [phone] * Full Code (Latest Code Status on File) Date Activated Date Inactivated Comments 09/04/2023 2:59 PM 09/09/2023 3:12 PM Care Teams Chief Medical Physicist Relationship Specialty Start Date End Date Camryn Chao DO PCP - General Family Medicine 01/18/23 Kevin Metcalf MD [address] [place] [address] Referring Physician Cardiology 08/02/23 Cortez Huerta MD [address] [facility] [address] [place] [address] Consulting Physician Cardiothoracic Surgery 08/02/23 Soha Vega MD [address] [place] [address] Endocrinology Diabetes & Metabolism 09/08/23
[2025-01-20 13:54] LABS: Hepatitis B Surface Anti Res Indeterminate; Hepatitis C Virus Antibody Negative (Negative)
[2025-01-20 15:25] LABS: Hepatitis C Virus Antibody 0.01 S/C
[2025-01-20 17:28] LABS: Albumin Level 4.8 g/dL (3.5-5.1); Anion Gap 13 mmol/L (4-12); Blood Urea Nitrogen 70 mg/dL (7-17); Calcium 10.3 mg/dL (8.4-10.2); Carbon Dioxide 28 mmol/L (22-30); Chloride 99 mmol/L (98-107); Estimated Glomerular Filt Rate 21; Glucose 77 mg/dL (65-110); Potassium 4.9 mmol/L (3.4-5.0); Sodium 140 mmol/L (137-145)
[2025-01-20 17:39] LABS: Creatinine Urine 41.3 mg/dL; Total Protein Urine Random 6 mg/dL; Ur Ttl Prot Creatinine Ratio 0.15 mg/mg (0-0.20)
[2025-01-20 19:36] LABS: Parathyroid Intact 11.8 pg/mL (14.5-75.2)
[2025-01-21 17:12] LABS: Hepatitis B Surface Antigen Negative (Negative)
[2025-01-23 12:52] LABS: NIL 0.05 IU/mL; Quantiferon TB Plus, 1T NEGATIVE (NEGATIVE); TB2-NIL <0.00 IU/mL
== END 2025-01-20 11:45 | disposition home or self-care (01) ==
LOC: ANHLAB 11:47
PROVIDERS: Internal Medicine Rheumatology; PCP Family Medicine; Visit Provider Internal Medicine Nephrology
DX: N18.4 Chronic kidney disease, stage 4 (severe) (principal); R76.0 Raised antibody titer; Z11.1 Encounter for screening for respiratory tuberculosis; Z79.899 Other long term (current) drug therapy
CPT/HCPCS: 36415; 80069; 82570; 83970; 84156; 85027; 86036; 86480; 86706; 86803; 87340

== ENCOUNTER 2025-03-10 11:58 | Outpatient (CLI) | payer MEDICARE, OTHER, SELFPAY ==
--- OUTSIDE RECORDS SUMMARY | 2025-03-10 12:07 | XMS_ITS | Continuity of Care Document ---
Author Organization [facility] Address [address] [place] [address] Phone Care Team Providers Care Finishing Pan Operator Name Role Phone Lio Maharaj Unavailable Unavailable Procedures Procedure Date Office/outpatient Visit, Est Office/outpatient Visit, Est Eye Exam & Treatment Advance Directives Directive Yes / No Effective Date File Name No Information Encounters Encounter Description Practice Location Reason(s) For Visit Diagnoses Date Provider Providers Copied on Encounter Office/outpat ient Visit, Est [facility], [address], [place], [place], [id number], [place] tel:[phone] [facility] No Information 4-201 0 Krishnasamy Lio. [address] [address], [place], [place], [facility], [place]. tel:[phone] Office/outpat ient Visit, Est [facility], [address], [place], [place], [id number], [place] tel:[phone] [facility] No Information 5-200 9 Krishnasamy Lio. [address], [place], [address], [place]. tel:[phone] [facility], [address], [place], [place], [id number], [place] tel:[phone] [facility] No Information Dec- 0-200 8 Carol Ann Vaca. [address], [address], [place]. tel:[phone] Family History Family Member Type Diagnosis Age [...]
--- OUTSIDE RECORDS SUMMARY | 2025-03-10 12:07 | XMS_ITS | Referral Summary ---
Author Organization [facility] [place] [address] Address [address] [place] [address] Care Team Providers Care On Site Nurse Name Role Phone Chao Camrynrebecca Ellison DO Primary Care Provider + Kevin Metcalf MD Unavailable Cortez Huerta MD Unavailable Soha Vega MD Unavailable Encounters Date Type Department Care Team Description 02/24/2025 Telephone [facility] Otolaryngology [address] [place] [address] Nelly Rockwell [place] from Last 3 Months Allergies Active Allergy Reactions Criticality Noted Date [...] mcg total) by mouth every evening Active wbowk-M-otqviiy sidase (BEANO ORAL) Take 1 tablet by mouth 2 (two) times a day Active UNABLE TO FIND Take 1 each by mouth daily Med Name: Garrett Guard Turmeric Active insulin glargine (LANTUS) 100 unit/mL (3 mL) pen for injection Inject 30 Units under the skin every morning 9 mL 1 3 Active pen needle, diabetic (Pen Needle) 32 gauge x 5/32 needle Use as directed once a day. [...] 3 4 Active furosemide (LASIX) 20 mg tabletIndicatio ns:Status post aortic valve replacement Take 1 tablet (20 mg total) by mouth daily 90 tablet 1 5 Active furosemide (LASIX) 20 mg tabletIndicatio ns:Status post aortic valve replacement TAKE 1 TABLET(20 MG) BY MOUTH DAILY 90 tablet 3 5 02/14/20 25 Discontin ued(Reord er) Active Problems Problem Noted Date Diagnosed Date Diastolic congestive heart failure 04/28/2024 Heart failure with preserved ejection fraction 0 04/28/2024 LYDIA (obstructive sleep apnea) 01/31/2024 Aftercare following surgery of the circulatory s ystem 10/10/2023 Status post aortic valve replacement 10/10/2023 Status post coronary artery bypass grafting 09/22 Aortic stenosis, severe 09/04/2023 Coronary artery disease invo lving [place] coronary artery of [place] heart without angina pectoris 08/28/2023 Left carotid [...] materials from doctor or pharmacy Never 10/09/2023 [facility] Utilities Answer Date Recorded In the past 12 months has e [employer], oil, or water [employer] threatened to shut off services in your [...] on file Legal Sex Female 9:23 AM BLOG WRITER Gender Identity Not on file Sexual Orientation Not on file Last Filed Vital Signs Vital Sign Reading Time Taken Comments Blood Pressure 134/72 08/28/2024 1:59 PM BLOG WRITER Pulse 74 08/28/2024 1:59 PM BLOG WRITER Temperature 36.7 C (98 F) 10/09/2023 11:29 AM BLOG WRITER Respiratory Rate 18 10/10/2023 9:21 AM BLOG WRITER Oxygen Saturation 96% 08/28/2024 1:59 PM BLOG WRITER Inhaled Oxygen Concentration - - Weight 93 kg (205 lb) 08/28/2024 1:59 PM BLOG WRITER Height 162.6 cm (5' 4 ) 08/28/2024 1:59 PM BLOG WRITER Body Mass Index 35.19 08/28/2024 1:59 PM BLOG WRITER Plan of Treatment Not on file Medical Devices Implanted Type Area Respiratory Manager Device Identifier Shelf Expiration Date Model / Serial / Lot Lux Lifesciences Inspiris Resilia Leaflet Aortic Valve 23mm [id number] - [id number] - [id number] Implanted:Qty: 1 on 09/04/2023 by Cortez Huerta MD at [facility] Prosthetic Valve N/A: Aortic Valve Lux Lifesciences 04/29/2027 [id number] / [id number] / Giang Vascular Device Clsr Perclose Prostyle Sut-Mediatd Closure-Repair Sys 27778-25 - S0 - [id number] Implanted:Qty: 1 on 08/01/2023 by Alireza Negron MD at [facility] Vascular Closure Device Giang Vascular 04/20/2025 [id number] / 0 / [id number] Bard Peripheral Vascular Bard .25x.25in [place] Thk1.65mm Square Pledget Cardiovascular Ptfe [id number] - [id number] Implanted:Qty: 1 on 09/04/2023 by Cortez Huerta MD at [facility] N/A: Chest Bard Peripheral Vascular [id number] / / Arthrex Inc Device Closure Fibertape Sternal Cerclage Blunt Needle Ar-7289 - [id number] Implanted:Qty: 1 on 09/04/2023 by Cortez Huerta MD at [facility] N/A: Sternum Arthrex Inc 05/21/2028 AR-7289 / / [id number] Arthrex Inc Device Closure Fibertape Sternal Cerclage Blunt Needle Ar-7289 - [id number] Implanted:Qty: 1 on 09/04/2023 by Cortez Huerta MD at [facility] N/A: Sternum Arthrex Inc 09/20/2026 AR-7289 / / [id number] Procedures Procedure Name Priority Date/Time Associated Diagnosis Comments POCT LIPID PANEL Routine 04/28/2024 8:18 AM CDT Lipid screening BASIC METABOLIC PANEL Routine 04/08/2024 Hypertension associated with diabetes (HCC) HEMOGLOBIN A1C STAT 09/04/2023 9:48 AM BLOG WRITER from Last 3 Months or Most Recently [...] N/A EXTERNAL LAB SCRIBED eGFR in NonAfrican Slovak 30 > or = 60 EXTERNAL LAB Blood 04/08/2024 us Kevin Metcalf MD LAB BLOOD ORDERABLES Ashley l Result EXTERNAL LAB * (ABNORMAL) Hemoglobin A1c (09/04/2023 9:48 AM BLOG WRITER) Hgb A1C 9.2(H) 4.0 - 5.6 % [facility] Estimated Average Glucose 217 mg/dL [facility] Comment: The ADA recommends reporting an estimated Average Glucose (eAG) with all Hemoglobin A1c results using the equation derived from a study of 507 normal and diabetic adults. Minority populations were underrepresented and children were not included. (Diabetes Care 31:9215-4437, 2008). The eAG is not equivalent to a fasting glucose. Blood 09/04/2023 9:48 AM BLOG WRITER 09/04/2023 9:59 AM BLOG WRITER Terra Gilmore NP LAB BLOOD ORDERABLES Final Resul t Performing Organization Address City/[facility]/ZIP Co de Phone Number [facility] [address] Department [place] [address] from Last 3 Months or Most Recently Relevant to Health Maintenance Insurance [facility] MEDICARE [facility] [place] MEDICARE Advance Directives For more information, please contact: [phone] * Full Code (Latest Code Status on File) Date Activated Date Inactivated Comments 09/04/2023 2:59 PM 09/09/2023 3:12 PM Care Teams On Site Nurse Relationship Specialty Start Date End Date Camryn Chao DO PCP - General Family Medicine 01/18/23 Kevin Metcalf MD [address] [facility] [address] [place] [address] Referring Physician Cardiology 08/02/23 Cortez Huerta MD [address] [facility] [address] [place] [address] Consulting Physician Cardiothoracic Surgery 08/02/23 Soha Vega MD [address] [place] [address] Endocrinology Diabetes & Metabolism 09/08/23
--- OUTSIDE RECORDS SUMMARY | 2025-03-10 12:07 | XMS_ITS | Clinical Summary ---
Author Organization [facility] Address [address] [place] [address] Phone Care Team Providers Care Data Base Design Analyst Name Role Phone Carlos Alberto Oneil Primary Care Provider [phone] Allergies Active Allergy Reactions Criticality Noted Date Comments Lisinopril 07/07/2019 Naproxen Swelling Medium 02/03/2019 Penicillin G Rash Medium 02/03/2019 Piroxicam 07/07/2019 Medications aspirin EC 325 MG EC tablet 1 daily 0 11/13/2018 Active estradiol (ESTRACE) 1 MG tablet 1 daily 0 11/13/2018 Active fenofibrate micronized (LOFIBRA) 134 MG capsule 1 dialy 0 11/13/2018 Active diphenhydrAMINE (ZzzQUIL) 50 MG tablet 1qhs 0 11/13/2018 Active Multiple Vitamins-Mineral s (MULTIVITAMIN ADULT) tablet 1 daily 0 11/13/2018 Activ e irbesartan (AVAPRO) 300 MG tablet 1 daily [...] Active metFORMIN (GLUCOPHAGE) 1000 MG tablet 03/29/2020 Acti ve Ozempic, 1 MG/DOSE, 4 MG/3ML solution pen-injector [...] 20 MG Tablet Delayed Release Dispersible 12/20/2021 Active hydrALAZINE (APRESOLINE) 100 MG tablet TAKE 1 [...] Other specified arthritis, unspecified knee 12/2017 Immunizations Immunization Administration Dates Next Due Hepatitis B 10/17/2016,07/18/2016,06/15/2016 [...] at Not on file Legal Sex Female 8:06 AM MST Gender Identity Not on file Sexual Orientation [...] Medium Risk (1 of 4 - PCV) 2008 COVID-19 Vaccine (2 - 2023-2 5 season) 2024 12/28/2020 Influenza Vaccine (Season Ended) 2025 08/22/2021, 07/20/2020, 08/11/2019, Additional history exists Insurance [facility] Care Teams Data Base Design Analyst Relationship Specialty Start Date End Date Carlos Alberto Oneil [address] [place] [address] PCP - General 04/26/22
--- OUTSIDE RECORDS SUMMARY | 2025-03-10 12:07 | XMS_ITS | Clinical Summary ---
Author Organization [facility] Address [address] [place] [address] Care Team Providers Care Nail Making Machine Setter Name Role Phone Chao Camryn Juan MAURO Primary Care Provider [phone] Source Comments [facility],non-owned Affiliates and Associated Physician Practices is amultiple site organization consisting of ambulatory clinics and hospital sitesin [place], [place], [place] and [place]. This disclosure is being madepursuant to the Care Everywhere program and may not contain all information available regarding this patient. Last updated 18.[facility] Allergies Active Allergy Reactions Criticality Noted Date Comments Diltiazem Other Low 07/25/2019 AV block Lisinopril Cough Low 07/07/2019 Naproxen Angioedema,Swelling High 02/03/2019 Penicillin G Rash Medium 02/03/2019 Piroxicam Other 07/07/2019 Medications * Be aware that medications may not be up to date on this document. Alwaysverify current medications with the patient. acetaminophen CR (Tylenol Arthritis Pain) 650 MG tablet Take 1 (one) tablet by mouth every 8 hours as needed Active atorvastatin (Lipitor) 80 MG tablet Take 1 (one) tablet by mouth 07/07/20 24 Active B Complex Vitamins (Vitamin B-Complex) TABS Take 1 tablet by mouth once daily Active vitamine D3 (Cholecalciferol ) 250 MCG (29205 UT) capsule Take 1 (one) capsule by mouth once daily Active clindamycin (Cleocin) 150 MG capsule Take 4 (four) capsules by mouth 1 Hour prior to procedure 03/05/20 24 Active cyanocobalamin (Vitamin B-12) 1000 MCG tablet Take 1 (one) tablet by mouth once daily Active Jardiance 25 MG tablet 01/12/20 25 Active fenofibrate micronized (Lofibra) 134 MG capsule 12/24/19 25 Active Ferrous Gluconate (Ferate) 240 (27 Fe) MG tablet Take 1 (one) tablet by mouth 3 times daily with meals Active furosemide (Lasix) 20 MG tablet Take 1 (one) tablet by mouth once daily 12/01/19 25 Active gabapentin (Neurontin) 300 MG capsule 1 (one) capsule 300 mg BID and 600 HS 11/29/19 25 Active glucosamine 500 MG capsule Take 2,000 (two thousand) mg by mouth once daily Active blood glucose (GEORGETTE CONTOUR NEXT TEST) test strip Use as directed up to four times a day. 09/08/20 23 Active hydrALAZINE (Apresoline) 100 MG tablet Take 1 (one) tablet by mouth 3 times daily 06/24/20 028 Active hydrOXYzine HCl (Atarax) 50 MG tablet Take 1 (one) tablet by mouth Active Lantus SoloStar pen Inject 38 (thirty eight) Units subcutaneously every morning 09/08/20 23 Active insulin lispro (HumaLOG;ADMelog ) 100 UNIT/ML pen Inject 12 (twelve) Units subcutaneously 3 times daily before meals Sliding scale 09/08/20 23 Active irbesartan (Avapro) 75 MG tablet Take 1 (one) tablet by mouth once daily 07/07/20 24 Active magnesium oxide (Mag-Ox) 400 MG tablet Take 1 (one) tablet by mouth once daily Active metoprolol tartrate IR (Lopressor) 100 MG tablet Take 1 (one) tablet by mouth 2 times daily 09/01/20 24 Active omeprazole (PriLOSEC) 20 MG capsule Take 1 (one) capsule by mouth once daily Active Semaglutide (1 MG/DOSE) 4 MG/3ML Subcutaneous Solution Pen-injector (Ozempic (1 MG/DOSE)) Inject 2 (two) mg subcutaneously every 7 days 06/25/20 24 Active solifenacin (Vesicare) 5 MG tablet 12/24/19 25 Active spironolactone (Aldactone) 25 MG tablet Take 1 (one) tablet by mouth once daily 09/21/20 23 Active Turmeric (QC TUMERIC COMPLEX PO) Active johan (Johan) 500 MG capsule Take 500 mg by mouth once daily Active Nutritional Supplements (EQUATE PO) Active Active Problems Problem Noted Date Diagnosed Date 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 Patient off Hydralazine , improvement in polyarthralgia , now able to wear her finger rings . -stay off hydralazine, will likely return to her baseline in 3- months Elevated sedimentation rate measurement at 127 m m/hr 01/15/2025 Overview (01/15/2025): Normal CRP noted. Sed rate elevation can be seen in renal insufficiency but also perhaps related to drug induced lupus. Check SPEP (r/o gammopathy). 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) 01/19/2025 Orders Only [facility] - Rheumatology [address] [place] [address], [address] [place] [address] Sriram Feliz DO Screening for tuberculosis ; Need for hepatitis B screening test; Need for hepatitis C screening test; High risk medication use 01/16/2025 Orders Only [facility] - Rheumatology [address] [place] [address], [address] [place] [address] Sriram Feliz DO 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 01/15/2025 10:40 AM CDT Office Visit [facility] - Rheumatology [address] [place] [address], [address] [place] [address] Sriram Feliz DO 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); Elevated sedimentation rate measurement at 127 mm/hr 12/25/2024 Telephone [facility] - Rheumatology [address], [address] [place] [address] Group, [facility] Referral (/) from Last 3 Months Social History Tobacco Use Types Packs/Day Years Used Date Smoking Tobacco: Never Assessed PHQ-2 Answer Date Recorded Patient Health Questionnaire-2 Score 0 02/12/2025 Comments No Sex and Gender Information Value Date Recorded Sex Assigned at Not on file Legal Sex Female 9:14 AM CDT Gender Identity Not on file Sexual Orientation Not on file Last Filed Vital Signs Vital Sign Reading Time Taken Comments Blood Pressure 110/60 02/12/2025 2:02 PM CDT Pulse 68 02/12/2025 2:02 PM CDT Temperature 36.1 C (97 F) 02/12/2025 2:02 PM CDT Respiratory Rate 16 02/12/2025 2:02 PM CDT Oxygen Saturation 96% 02/12/2025 2:02 PM CDT Inhaled Oxygen Concentration - - Weight 92.5 kg (204 lb) 02/12/2025 2:02 PM CDT Height - - Body Mass Index - - Plan of Treatment Health Maintenance Due Date Last Done Comments BONE DENSITY TESTING 1960 COLOGUARD (AGES 45-75) - COLON CA SCREENING 1958 COLON MONITORING 1958 COLONOSCOPY - COLON CA SCREENING 1958 CT COLONOGRAPHY - COLON CA SCREENING 1958 Colorectal Cancer Screening 1958 FIT - COLON CA SCREENING 1958 FLEX SIG - COLON CA SCREENING 1958 MAMMOGRAM 1960 MEDICARE AWV 12 MONTHS 1958 DTAP/TDAP/TD VACCINES (1 - Tdap) 1977 PNEUMOCOCCAL VACCINE 50+ (1 of 1 - PCV) 2008 ZOSTER VACCINE (1 of 2) 2008 Respiratory Syncytial Virus (RSV) Vaccine Pt: or over 60 yrs (1 - Risk 60-74 years 1-dose series) 2018 COVID-19 VACCINE (2 - season) 2024 12/28/2020 INFLUENZA VACCINE (Season Ended) 2025 08/22/2021, 07/20/2020, 08/11/2019, Additional history exists DEPRESSION SCREENING Completed 01/15/2025 HEPATITIS C SCREENING Completed 01/20/2025 HEPATITIS B VACCINE Aged Out No longe [...] Procedure Name Priority Date/Time Associated Diagnosis Comments LAB RESULTS ORDER Routine 01/20/2025 10: 03 AM CDT HEPATITIS C ANTIBODY Routine 01/20/2025 Need for hepatitis C screening test High risk medication use HEPATITIS B SURFACE ANTIGEN W RFLX CONFIRMATION Routine 01/20/2025 Need for hepatitis B screening test High risk medication use QUANTIFERON TB-GOLD Routine 01/20/2025 Screening for tuberculosis High risk medication use CHROMATIN ANTIBODY Routine 01/15/2025 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 PROTEIN ELECTROPHORESIS BLOOD Routine 01/15/2025 Elevated sedimentation rate measurement at 127 mm/hr HISTONE ANTIBODY Routine 01/15/2025 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 COMPLEMENT C4 Routine 01/15/2025 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 COMPLEMENT C3 Routine 01/15/2025 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 from Last 3 Months Results * LAB RESULTS ORDER (01/20/2025 10:03 AM CDT) us Scanned Document LAB - THERAPEUTIC DRUG MONITORI NG ORDERABLES Final Result * QUANTIFERON TB-GOLD (01/20/2025) Blood BLOOD SPECIMEN / Unknown us Sriram Feliz DO LAB - CHEMISTRY ORDERABLES Final Result Performing Organization Address City/[facility]/ZIP Co de Phone Number OTHER LAB * HEPATITIS B SURFACE ANTIGEN W RFLX CONFIRMATION (01/20/2025) Blood BLOOD SPECIMEN / Unknown us Sriram Feliz DO LAB - CHEMISTRY ORDERABLES Final Result Performing Organization Address City/[facility] Co de Phone Number OTHER LAB * HEPATITIS C ANTIBODY (01/20/2025) Blood BLOOD SPECIMEN / Unknown us Sriram Feliz DO LAB - CHEMISTRY ORDERABLES Final Result Performing Organization Address City/[facility] Co de Phone Number OTHER LAB * CHROMATIN ANTIBODY (01/15/2025) Blood BLOOD SPECIMEN / Unknown Result Huma Feliz DO LAB - SEROLOGY ORDERABLES Final Result Performing Organization Address City/[facility] Co de Phone Number OTHER LAB * HISTONE ANTIBODY (01/15/2025) Blood BLOOD SPECIMEN / Unknown us Sriram Feliz DO LAB - CHEMISTRY ORDERABLES Final Result Performing Organization Address City/[facility] Co de Phone Number OTHER LAB * COMPLEMENT C4 (01/15/2025) Blood BLOOD SPECIMEN / Unknown us Sriram Feliz DO LAB - SEROLOGY ORDERABLES Final Result OTHER LAB * PROTEIN ELECTROPHORESIS BLOOD (01/15/2025) Blood BLOOD SPECIMEN / Unknown Sriram Feliz DO LAB - CHEMISTRY ORDERABLES Edite d Result - Final Performing Organization Address City/[facility]/ZIP Co de Phone Number OTHER LAB * COMPLEMENT C3 (01/15/2025) Blood BLOOD SPECIMEN / Unknown Sriram Feliz DO LAB - CHEMISTRY ORDERABLES Final Result OTHER LAB from Last 3 Months Insurance MEDICARE [facility] Care Teams Nail Making Machine Setter Relationship Specialty Start Date End Date Camryn Chao DO [address] [place] [address] PCP - General Family Medicine 01/15/25
--- OUTSIDE RECORDS SUMMARY | 2025-03-10 12:07 | XMS_ITS | Clinical Summary ---
Author Organization [facility]ri [facility] Address [address] [address] Care Team Providers Care Deckhand Sponge Boat Name Role Phone Glen Banks MD Primary Care Provider [phone] Allergies Active Allergy Reactions Criticality Noted Date [...] 07/20/2020, 08/11/2019, Additional history exists Insurance CHOICE [id number] [place] [address] Care Teams Deckhand Sponge Boat Relationship Specialty Start Date End Date Glen Banks MD [address] [id number] PCP - General Family Practice 04/06/22
--- OUTSIDE RECORDS SUMMARY | 2025-03-10 12:07 | XMS_ITS | Clinical Summary ---
Author Organization [facility] [address] Address [address] [place] [address] Care Team Providers Care Business Resiliency Manager Name Role Phone Camryn Chao Terra [...] mcg total) by mouth every evening Active siqql-W-vfiuguw sidase (BEANO ORAL) Take 1 tablet by [...] severe 09/04/2023 Coronary artery disease invo lving [place] coronary artery of [place] heart without angina pectoris 08/28/2023 Left carotid bruit 05/07/2020 Nonrheumatic aortic valve stenosis 05/07/2020 Renal artery stenosis 02/12/2020 Chronic kidney disease 07/25/2019 Family history of coronary artery disease 2018 AV block 07/25/2019 Frequent PVCs 07/25/2019 Hypertension associated with diabetes 07/25/2019 Hyperlipidemia associated with type 2 diabetes chelle solis 07/25/2019 Encounters Date Type Department Care Team Description 02/24/2025 Telephone [facility] Otolaryngology [address] [place] [address] Nelly Rockwell MS from Last 3 Months Surgical History Surgery Date Site/Laterality Comments HYSTERECTOMY 10/22/1997 - 10/21/1998 CORRECTION HAMMER TOE 10/22/2006 - 10/21/2007 CHOLECYSTECTOMY 10/22/2009 - 10/21/2010 TOTAL KNEE ARTHROPLASTY 08/22/2018 - 09/20/2018 Left CORONARY ARTERY BYPASS GRAFT 09/04/2023 left radial to circumflex AORTIC VALVE REPLACEMENT 09/04/2023 JOINT REPLACEMENT Lt knee 2017, Rt knee 2020 Medical History Medical History Date Comments Hypertension Hyperlipidemia Diabetes mellitus (HCC) Osteoarthritis Cataract Anemia WPW (Wjvgb-Rxweijooc-Uovaq syndrome) GERD (gastroesophageal reflu x disease) Vertigo Aortic stenosis CKD (chronic kidney disease) stage 3, GFR 30-59 ml/min ([facility]) baseline creat 1.3-1.4 Coronary artery disease Neuromuscular disorder (HCC) Degenerativ e disc disease, Neuropathy. Family History Medical History Relation Name Comments No Known Problems Brother 1 No Known Problems Brother 2 Bladder Cancer Father 90 Cancer Father 90 Heart attack Father 90 Hypertension Father 90 Heart attack Mother 76 fatal OR Sudden Mother 76 COPD Sister 64 Relation [...] materials from doctor or pharmacy Never 10/09/2023 [facility] Utilities Answer Date Recorded In the past 12 months has th e electric, gas, oil, or water company threatened to [...] often do you attend chur ch or scientology services? 1 to 4 times per year 09/06/2023 Do you belong to any clubs o r organizations such as samaritan groups, unions, fraternal or athletic groups, or [...] on file Legal Sex Female 9:23 AM FOOD SUPERVISOR Gender Identity Not on file Sexual Orientation Not on file Obstetrics History Last Filed Vital Signs Vital Sign Reading Time Taken Comments Blood Pressure 134/72 08/28/2024 1:59 PM FOOD SUPERVISOR Pulse 74 08/28/2024 1:59 PM FOOD SUPERVISOR Temperature 36.7 C (98 F) 10/09/2023 11:29 AM FOOD SUPERVISOR Respiratory Rate 18 10/10/2023 9:21 AM FOOD SUPERVISOR Oxygen Saturation 96% 08/28/2024 1:59 PM FOOD SUPERVISOR Inhaled Oxygen Concentration - - Weight 93 kg (205 lb) 08/28/2024 1:59 PM FOOD SUPERVISOR Height 162.6 cm (5' 4 ) 08/28/2024 1:59 PM FOOD SUPERVISOR Body Mass Index 35.19 08/28/2024 1:59 PM FOOD SUPERVISOR Plan of Treatment Health Maintenance Due Date [...] 07/18/2016, 06/15/2016 Medical Devices Implanted Type Area Shake Backboard Notcher Device Identifier Shelf Expiration Date Model / Serial / Lot Lux Lifesciences Inspiris Resilia Leaflet Aortic Valve 23mm [id number] - [id number] - [id number] Implanted:Qty: 1 on 09/04/2023 by Cortez Huerta MD at [facility] Prosthetic Valve N/A: Aortic Valve [employer]iences 04/29/2027 [id number] / [id number] / Giang V[employer] Device Clsr Perclose Prostyle Sut-Mediatd Closure-Repair Sys 76985-69 - S0 - [id number] Implanted:Qty: 1 on 08/01/2023 by Alireza Negron MD at [facility] Vascular Closure Device [employer] 04/20/2025 [id number] / [id number] / [id number] Bard Peripheral Vascular Bard .25x.25in [place] Thk1.65mm Square [place] Cardiovascular Ptfe [id number] - [id number] Implanted:Qty: 1 on 09/04/2023 by Cortez Huerta MD at [facility] N/A: Chest Bard Peripheral Vascular [id number] / / [employer] Device Closure Fibertape Sternal Cerclage Blunt Needle Ar-7289 - [id number] Implanted:Qty: 1 on 09/04/2023 by Cortez Huerta MD at [facility] N/A: Sternum [employer] Inc 05/21/2028 AR-[id number] / / [id number] [employer] Device Closure Fibertape Sternal Cerclage Blunt Needle Ar-7289 - [id number] Implanted:Qty: 1 on 09/04/2023 by Cortez Huerta MD at [facility] N/A: Sternum [employer] 09/20/2026 AR-7289 / / [id number] Procedures Procedure Name Priority Date/Time Associated Diagnosis Comments POCT LIPID PANEL Routine 04/28/2024 8:18 AM CDT Lipid screening BASIC METABOLIC PANEL Routine 04/08/2024 Hypertension associated with diabetes (HCC) HEMOGLOBIN A1C STAT 09/04/2023 9:48 AM FOOD SUPERVISOR from Last 3 Months or Most Recently [...] N/A EXTERNAL LAB SCRIBED eGFR in NonAfrican [place] 30 > or = 60 EXTERNAL LAB Blood 04/08/2024 Kevin Metcalf MD LAB BLOOD ORDERABLES Ashley l Result EXTERNAL LAB * (ABNORMAL) Hemoglobin A1c (09/04/2023 9:48 AM FOOD SUPERVISOR) Hgb A1C 9.2(H) 4.0 - 5.6 % [facility] Estimated Average Glucose 217 mg/dL [facility] Comment: The ADA recommends reporting an estimated Average Glucose (eAG) with all Hemoglobin A1c results using the equation derived from a study of 507 normal and diabetic adults. Minority populations were underrepresented and children were not included. (Diabetes Care 31:1361-0591, 2008). The eAG is not equivalent to a fasting glucose. Blood 09/04/2023 9:48 AM FOOD SUPERVISOR 09/04/2023 9:59 AM FOOD SUPERVISOR Terra Gilmore NP LAB BLOOD ORDERABLES Final Resul t Performing Organization Address City/[facility] Co de Phone Number [facility] [address] [place] [address] from Last 3 Months or Most Recently Relevant to Health Maintenance Insurance [facility] HMO/PPO Address: [address] [address] [place] [address] MEDICARE [facility] MEDICARE Advance Directives For more information, please contact: [phone] * Full Code (Latest Code Status on File) Date Activated Date Inactivated Comments 09/04/2023 2:59 PM 09/09/2023 3:12 PM Care Teams Business Resiliency Manager Relationship Specialty Start Date End Date Camryn ChaoDO PCP - General Family Medicine 01/18/23 Kevin Metcalf MD [address] [facility] [address] [place] [address] Referring Physician Cardiology 08/02/23 Cortez Huerta MD [address] [facility] [address] [place] [address] Consulting Physician Cardiothoracic Surgery 08/02/23 Soha Vega MD [facility] [place] [address] Endocrinology Diabetes & Metabolism 09/08/23
[2025-03-10 12:34] LABS: Alanine Aminotransferase 37 U/L (6-35); Albumin Level 4.5 g/dL (3.5-5.1); Alkaline Phosphatase 48 U/L (38-126); Anion Gap 10 mmol/L (4-12); Aspartate Amino Transferase 47 U/L (14-36); Bilirubin,Total 0.5 mg/dL (0.2-1.3); Blood Urea Nitrogen 56 mg/dL (7-17); Calcium 9.6 mg/dL (8.4-10.2); Carbon Dioxide 24 mmol/L (22-30); Chloride 103 mmol/L (98-107); Estimated Glomerular Filt Rate 25; Glucose 170 mg/dL (65-110); Potassium 4.3 mmol/L (3.4-5.0); Sodium 137 mmol/L (137-145)
[2025-03-10 13:07] LABS: Hemoglobin A1C 7.2 % (<5.7)
[2025-03-10 13:31] LABS: Creatinine Urine 31.1 mg/dL
[2025-03-10 13:32] LABS: Microalbumin Urine Random < 6.0 mg/L (0-16.7)
[2025-03-10 13:33] LABS: MALB Creatinine Ratio < 19.3 mg/g (0-30)
== END 2025-03-10 11:59 | disposition home or self-care (01) ==
LOC: ANHLAB 12:04
PROVIDERS: PCP Family Medicine; Visit Provider Internal Medicine Endocrinology, Diabetes & Metabolism
DX: E11.65 Type 2 diabetes mellitus with hyperglycemia (principal)
CPT/HCPCS: 36415; 80053; 82043; 83036

== ENCOUNTER 2025-03-17 10:53 | Outpatient (CLI) | payer MEDICARE, OTHER, SELFPAY ==
--- OUTSIDE RECORDS SUMMARY | 2025-03-17 10:58 | XMS_ITS | Clinical Summary ---
Author Organization [facility] Address [address] [place] [address] Care Team Providers Care Principal Electrical Engineer Name Role Phone Chao Camryn Juan MAURO Primary Care Provider [phone] Source Comments [facility],non-owned Affiliates and Associated Physician Practices is amultiple site organization consisting of ambulatory clinics and hospital sitesin [place], [place], [place] and [place]. This disclosure is being madepursuant to the Care Everywhere program and may not contain all information available regarding this patient. Last updated 18.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) 01/19/2025 Orders Only [facility] - Rheumatology [address] [place] [address], [address] [place] [address] Sriram Feliz DO Screening for tuberculosis ; Need for hepatitis B screening test; Need for hepatitis C screening test; High risk medication use 01/16/2025 Orders Only [facility] - Rheumatology [address] [place] [address], [address] [place] [address] Sriram Feliz DO 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 01/15/2025 10:40 AM CDT Office Visit [facility] - Rheumatology [address] [place] [address], [address] [place] [address] Sriram Feliz DO 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); Elevated sedimentation rate measurement at 127 mm/hr 12/25/2024 Telephone [facility] - Rheumatology [address], [address] [place] [address] Group, [facility] Medical Referral (/) from Last 3 Months [...] CHEMISTRY ORDERABLES Final Result Performing Organization Address City/[facility]/ZIP Co de Phone Number OTHER LAB * HEPATITIS B SURFACE ANTIGEN W RFLX CONFIRMATION (01/20/2025) Blood BLOOD SPECIMEN / Unknown us Sriram Feliz DO LAB - CHEMISTRY ORDERABLES Final Result Performing Organization Address City/[facility] Co de Phone Number OTHER LAB * HEPATITIS C ANTIBODY (01/20/2025) Blood BLOOD SPECIMEN / Unknown us Sriram Feliz DO LAB - CHEMISTRY ORDERABLES Final Result Performing Organization Address City/[facility] Co de Phone Number OTHER LAB * CHROMATIN ANTIBODY (01/15/2025) Blood BLOOD SPECIMEN / Unknown Result Huma Feliz DO LAB - SEROLOGY ORDERABLES Final Result Performing Organization Address City/[facility] Co de Phone Number OTHER LAB * HISTONE ANTIBODY (01/15/2025) Blood BLOOD SPECIMEN / Unknown us Sriram Feliz DO LAB - CHEMISTRY ORDERABLES Final Result Performing Organization Address City/[facility] Co de Phone Number OTHER LAB * COMPLEMENT C4 (01/15/2025) Blood BLOOD SPECIMEN / Unknown us Sriram Feliz DO LAB - SEROLOGY ORDERABLES Final Result OTHER LAB * PROTEIN ELECTROPHORESIS BLOOD (01/15/2025) Blood BLOOD SPECIMEN / Unknown Sriram Feliz DO LAB - CHEMISTRY ORDERABLES Edite d Result - Final Performing Organization Address City/[facility]/ZIP Co de Phone Number OTHER LAB * COMPLEMENT C3 (01/15/2025) Blood BLOOD SPECIMEN / Unknown Sriram Feliz DO LAB - CHEMISTRY ORDERABLES Final Result OTHER LAB from Last 3 Months Insurance MEDICARE [facility] Care Teams Principal Electrical Engineer Relationship Specialty Start Date End Date Camryn Chao DO [address] [place] [address] PCP - General Family Medicine 01/15/25
--- OUTSIDE RECORDS SUMMARY | 2025-03-17 10:58 | XMS_ITS | Continuity of Care Document ---
Author Organization [facility] Address [address] [place] [address] Phone Care Team Providers Care Director Of Early Childhood Education Name Role Phone Lio Maharaj Unavailable Unavailable Procedures Procedure Date Office/outpatient Visit, Est Office/outpatient Visit, Est Eye Exam & Treatment Advance Directives Directive Yes / No Effective Date File Name No Information Encounters Encounter Description Practice Location Reason(s) For Visit Diagnoses Date Provider Providers Copied on Encounter Office/outpat ient Visit, Est [facility], [address], [place], [place], [id number], [place] tel:[phone] [facility] No Information 4-201 0 Krishnasamy Lio. [address] [address], [place], [place], [facility], [place]. tel:[phone] Office/outpat ient Visit, Est [facility], [address], [place], [place], [id number], [place] tel:[phone] [facility] No Information 5-200 9 Krishnasamy Lio. [address] [facility] [address], [place], [address], [place]. tel:[phone] [facility], [address], [place], [place], [id number], [place] tel:[phone] [facility] No Information Dec- 0-200 8 Carol Ann Vaca. [address] [address], [address], [place]. tel:[phone] Family History Family Member Type Diagnosis Age [...]
--- OUTSIDE RECORDS SUMMARY | 2025-03-17 10:58 | XMS_ITS | Clinical Summary ---
Author Organization [facility] Clint [facility]ri [facility] Address [address] [place] [address] Care Team Providers Care School Laboratory Technician Name Role Phone Glen Banks MD [...] 10:50 AM CDT Height 162.6 cm (5' 4) 04/06/2022 10:50 AM CDT Body Mass Index [...] 07/20/2020, 08/11/2019, Additional history exists Insurance CHOICE [id number] Care Teams School Laboratory Technician Relationship Specialty Start Date End Date Glen Banks MD [address] [place] [id number] PCP - General Family Practice 04/06/22
--- OUTSIDE RECORDS SUMMARY | 2025-03-17 10:58 | XMS_ITS | Clinical Summary ---
Author Organization [facility] Brittany perez Address [address] [place] [address] Phone Care Team Providers Care Forensic Engineer Name Role Phone Carlos Alberto Oneil Primary Care Provider [phone] Allergies Active Allergy Reactions Criticality Noted Date [...] 9:28 AM CDT Height 162.6 cm (5' 4) 04/26/2022 9:28 AM CDT Body Mass Index 33.64 04/26/2022 9:28 AM CDT Plan of Treatment Health Maintenance Due Date Last Done Comments Pneumococcal PPSV23/PCV13 65 + Years / Low and Medium Risk (1 of 4 - PCV) 2008 COVID-19 Vaccine (2 - 2023-2 5 season) 2024 12/28/2020 Influenza Vaccine (Season Ended) 2025 08/22/2021, 07/20/2020, 08/11/2019, Additional history exists Insurance [facility] Care Teams Forensic Engineer Relationship Specialty Start Date End Date Carlos Alberto Oneil [address] [place] [address] PCP - General 04/26/22
[2025-03-17 12:16] LABS: Hemoglobin A1C 6.8 % (<5.7)
[2025-03-22 17:57] LABS: Glutamic acid decarboxylase AA <5 IU/mL (<5)
[2025-03-23 22:13] LABS: Islet Cell Antibody Screen NEGATIVE (NEGATIVE)
[2025-03-24 16:33] LABS: Zinc Transporter 8 Antibody <10 U/mL (<15)
== END 2025-03-17 10:54 | disposition home or self-care (01) ==
LOC: ANHLAB 10:55
PROVIDERS: PCP Family Medicine; Visit Provider Internal Medicine Endocrinology, Diabetes & Metabolism
DX: E11.65 Type 2 diabetes mellitus with hyperglycemia (principal)
CPT/HCPCS: 36415; 83036; 86337; 86341

== ENCOUNTER 2025-04-21 08:40 | Outpatient (CLI) | payer MEDICARE, OTHER, SELFPAY ==
--- NOTE | ~2025-04-21 | MMUS_ITS ---
EXAMINATION: [facility] diagnostic [facility] BI w dean, US breast RT limited HISTORY: Right breast pain and discharge TECHNIQUE: 3-D tomosynthesis images of the breasts were performed and synthetic 2-D images were gener ated. CAD analysis was submitted and interpreted. High resolution limited right breast ultrasound was performed. COMPARISON: 04/21/2024, 02/08/2019, 01/08/2019 BREAST PARENCHYMAL COMPOSITION:Dense: The breasts are heterogeneously dense, which may obscure small masses. FINDINGS: MAMMOGRAPHIC FINDINGS: Stable parenchymal pattern of both breasts. No suspicious mass lesion or distortion. No suspicious mi crocalcifications. ULTRASOUND: There is a 5 mm simple cyst in the right subareolar region. No dilated ducts. No solid mass or intrad uctal mass seen. IMPRESSION: No evidence for malignancy. 5 mm right subareolar breast cyst. BI-RADS Category 2: Benign finding(s). Reviewed, dictated and finalized at [facility]. IMPRESSION: No evidence for malignancy. 5 mm right subareolar breast cyst. BI-RADS Category 2: Benign finding(s).
--- OUTSIDE RECORDS SUMMARY | 2025-04-21 08:46 | XMS_ITS | Continuity of Care Document ---
Author Organization [facility] Address [address] [place] [address] Phone Care Team Providers Care Rail Detector Car Operator Name Role Phone Lio Maharaj Unavailable Unavailable Procedures Procedure Date Office/outpatient Visit, Est Office/outpatient Visit, Est Eye Exam & Treatment Advance Directives Directive Yes / No Effective Date File Name No Information Encounters Encounter Description Practice Location Reason(s) For Visit Diagnoses Date Provider Providers Copied on Encounter Office/outpat ient Visit, Est [facility], [address], [place], [place], [id number], [place] tel:[phone] [facility] No Information 4-201 0 Krishnasamy Lio. [address] [address], [place], [place], [facility], [place]. tel:[phone] Office/outpat ient Visit, [facility], [address], [place], [place], [id number], [place] tel:[phone] [facility] No Information 5-200 9 Krishnasamy Lio. [address], [place], [address], [place]. tel:[phone] [facility], [address], [place], [place], [id number], [place] tel:[phone] [facility] No Information Dec- 0-200 8 Carol Ann Vaca. [address], [address], [place]. tel:[phone] Family History Family Member Type Diagnosis Age [...]
--- OUTSIDE RECORDS SUMMARY | 2025-04-21 08:46 | XMS_ITS | Encounter Summary ---
Author Organization [facility] Address [address] [place] [address] Care Team Providers Care Shingle Carrier Name Role Phone Chao Camryn Terra MAURO Primary Care Provider + Kevin Metcalf MD Unavailable [phone] Cortez Huerta MD Unavailable Soha Vega MD Unavailable [phone] Encounter Details Date Type Department Care Team (Late st Contact Info) Description 03/11/2025 Results Follow-Up [facility] Medical Group Cardiology at [address] [place] [address] Kevin Metcalf MD [address] [facility] [address] [facility] [place] [address] NM MPI SPECT (Rest and/or Stress) Multiple Studies Social History Tobacco Use Types Packs/Day Years [...] materials from doctor or pharmacy Never 10/09/2023 [facility] Utilities Answer Date Recorded In [...] any clubs o r organizations such as mormonism groups, unions, fraternal or athletic groups, or [...] on file Legal Sex Female 9:23 AM CLOUD ARCHITECT Gender Identity Not on file Sexual Orientation Not on file documented as of this encounter Plan of Treatment Upcoming Encounters Date Type Department Care Team (Latest Contact Info) Description 06/02/2025 7:30 AM CDT Hospital [facility] [address] [place] [address] [place] [address] [address] 06/02/2025 7:30 AM CDT - 06/02/2025 8:00 AM CDT Surgery [facility] [address] [place] [address] [place] [address] [address] DRUG INDUCED SLEEP ENDOSCOPY/15min Scheduled Procedures Name Priority Associated Diagnoses Date/Ti me DRUG INDUCED SLEEP ENDOSCOPY EVAL FLEX DIAG Obstructive sleep apnea 06/02/2025 7:30 AM CDT documented as of this encounter Visit Diagnoses Not on filedocumented in this encounter Care Teams Shingle Carrier Relationship Specialty Start Date End Date Camryn Chao DO PCP - General Family Medicine 01/18/23 Kevin Metcalf MD [address] [facility] [address] [place] [address] Referring Physician Cardiology 08/02/23 Cortez Huerta MD [address] [facility] [address] [place] [address] Consulting Physician Cardiothoracic Surgery 08/02/23 Soha Vega MD [facility] [facility] [address] [place] [address] Endocrinology Diabetes & Metabolism 09/08/23 documented as of this encounter
--- OUTSIDE RECORDS SUMMARY | 2025-04-21 08:46 | XMS_ITS | Referral Summary ---
Author Organization [facility] [address] [facility] [address] Address [address] [place] [address] Care Team Providers Care Platform Attendant Name Role Phone Camryn Chao Primary Care Provider + Lucy Metcalf MD Unavailable Cortez Huerta MD Unavailable Soha Vega MD Unavailable [phone] Encounters Date Type Department Care Team Description 03/19/2025 8:00 AM CDT Office Visit [facility]) - [facility] ENT [address] [facility] Medical Office Building [address] [place] [address] Jessica Roberto MD Obstructive sleep apnea (adult) (pediatric) (Primary Dx); Intolerance of continuous positive airway pressure (CPAP) ventilation 03/11/2025 Results Follow-Up [facility] Medical Group Cardiology at [address] [place] [address] Lucy Metcalf MD NM MPI SPECT (Rest and/or Stress) Multiple Studies 03/11/2025 7:45 AM CDT Ancillary Procedure [facility] Medical [facility] Cardiology [address] [place] [address] Coronary artery disease involving [place] coronary artery of [place] heart without angina pectoris; Atypical chest pain 03/10/2025 1:15 PM CDT Office Visit [facility] Medical [facility] Cardiology at [address] [place] [address] Lucy Metcalf MD Hypertension associated with diabetes (HCC) (Primary Dx); Hyperlipidemia associated with type 2 diabetes mellitus (HCC); Frequent PVCs; Status post aortic valve replacement; Chronic diastolic congestive heart failure (HCC); Coronary artery disease involving [place] coronary artery of [place] heart without angina pectoris; Atypical chest pain; Severe obesity (HCC) 02/24/2025 Telephone [facility] [address] [place] [address] Nelly Rockwell MS from Last 3 Months Allergies Active Allergy Reactions Criticality Noted Date Comments Diltiazem Other (See comments) Low 07/25/2019 AV block Lisinopril Cough Low 07/07/2019 Naproxen Angioedema High 02/03/2019 Penicillin G Rash Medium 02/03/2019 Medications fenofibrate micronized (LOFIBRA) 134 mg capsule Take [...] (400 mg total) by mouth daily Active gabapentin (NEURONTIN) 300 mg capsule 3 (three) times a day 300mg in morning and at 2pm, 600mg at night 3 Active hydrOXYzine (ATARAX) 50 mg tablet Take 1 tablet (50 mg total) by mouth 4 (four) times a day as needed for itching Active omeprazole (PriLOSEC) 20 mg capsule Take 1 capsule (20 mg total) by mouth daily Active vitamin b complex tablet Take 1 tablet by mouth daily Active cholecalciferol, vitamin D3, (VITAMIN D3 ORAL) Take 1,000 Int'l Units by mouth daily Active cyanocobalamin (vitamin B-12) 1,000 mcg tabletIndication s:Prevention of Vitamin B12 Deficiency Take 1 tablet (1,000 mcg total) by mouth every evening Active svbmx-W-lxdphequ idase (BEANO ORAL) Take 1 tablet by mouth 2 (two) times a day Active insulin glargine (LANTUS) 100 unit/mL (3 mL) pen for injection Inject 30 Units under the skin every morning 9 mL 1 3 Active pen needle, diabetic (Pen Needle) 32 gauge x /32 needle Use as directed once a day. [...] mg tabletIndication s:Status post aortic valve replacement Take 1 tablet (20 mg total) by mouth daily 90 tablet 1 5 Active UNABLE TO FIND Turmeric glucosamine with johan 2000mg Active UNABLE TO FIND Equate gas and bloating Active Jardiance 25 mg tablet 3 Active Ozempic 2 mg/dose (8 mg/3 mL) pen injector injection 5 Active GAS RELIEF 80, SIMETHICONE, ORAL Take by mouth Active Active Problems Problem Noted Date Diagnosed Date Obstructive sleep apnea 03/19/2025 Atypical chest pain 03/10/2025 Severe obesity 03/10/2025 Diastolic congestive heart failure 04/28/2024 Heart failure with preserved ejection fraction 0 04/28/2024 LYDIA (obstructive sleep apnea) 01/31/2024 Aftercare following surgery of the circulatory s ystem 10/10/2023 Status post aortic valve replacement 10/10/2023 Status post coronary artery bypass grafting 09/22 Aortic stenosis, severe 09/04/2023 Coronary artery disease invo lving [place] coronary artery of [place] heart without angina pectoris 08/28/2023 Left carotid bruit 05/07/2020 Nonrheumatic aortic valve stenosis 05/07/2020 Renal artery stenosis 02/12/2020 Chronic kidney disease 07/25/2019 Family history of coronary artery disease 2018 AV block 07/25/2019 Frequent PVCs 07/25/2019 Hypertension associated with diabetes 07/25/2019 Hyperlipidemia associated with type 2 diabetes m nannetteitus 07/25/2019 Social History Tobacco Use Types Packs/Day Years Used Date Smoking Tobacco: Never Smokeless Tobacco: Never Tobacco Cessation:Counseling Given: Not [...] materials from doctor or pharmacy Never 10/09/2023 [facility] Utilities Answer Date Recorded In the past 12 months has th e Int[employer], gas, oil, or water company threatened to [...] often do you attend chur ch or nondenominational services? 1 to 4 times per year 09/06/2023 Do you belong to any clubs o r organizations such as orthodoxy groups, unions, fraternal or athletic groups, or school groups? No 09/06/2023 How often do you attend meet ings of the clubs or organizations you belong to? Never 09/06/2023 Are you , , di vorced, , never , or living with a partner? 09/06/2023 AUDIT-C Answer Date Recorded Q1: How often do you have a drink containing alcohol? Never 03/19/2025 Q2: How many drinks containi ng alcohol do you have on a typical day when you are drinking? Patient does not drink Q3: How often do you have si x or more drinks on one occasion? Never 03/19/2025 Overall Financial Resource Strain (CARDIA) Answe r [...] on file Legal Sex Female 9:23 AM REFRIGERATION MECHANIC Gender Identity Not on file Sexual Orientation Not on file Last Filed Vital Signs Vital Sign Reading Time Taken Comments Blood Pressure 124/69 03/19/2025 8:00 AM CDT Pulse 79 03/10/2025 1:18 PM CDT Temperature 36.7 C (98 F) 10/09/2023 11:29 AM REFRIGERATION MECHANIC Respiratory Rate 18 10/10/2023 9:21 AM REFRIGERATION MECHANIC Oxygen Saturation 95% 03/10/2025 1:18 PM CDT Inhaled Oxygen Concentration - - Weight 95.4 kg (210 lb 6.4 oz) 03/19/2025 8:00 A M CDT Height 162.6 cm (5' 4) 03/19/2025 8:00 AM CDT Body Mass Index 36.12 03/19/2025 8:00 AM CDT Plan of Treatment Upcoming Encounters Date Type Department Care Team (Latest Contact Info) Description 06/02/2025 7:30 AM CDT Hospital Encounter Operating Room [address] [place] [address] [place] [address] [address] 06/02/2025 7:30 AM CDT - 06/02/2025 8:00 AM CDT Surgery Operating Room [address] [place] [address] [place] [address] [address] DRUG INDUCED SLEEP ENDOSCOPY/15min Scheduled Procedures Name Priority Associated Diagnoses Date/Ti me DRUG INDUCED SLEEP ENDOSCOPY EVAL FLEX DIAG Obstructive sleep apnea 06/02/2025 7:30 AM CDT Medical Devices Implanted Type Area Larriman Helper Device Identifier Shelf Expiration Date Model / Serial / Lot Lux Lif[employer]iences Inspiris Resilia Leaflet Aortic Valve 23mm [id number] - [id number] - [id number] Implanted:Qty: 1 on 09/04/2023 by Cortez Huerta MD at [facility] Prosthetic Valve N/A: Aortic Valve [employer] 04/29/2027 [id number] / [id number] / Giang Vascular Device Clsr Perclose Prostyle Sut-Mediatd Closure-Repair Sys [id number] - S0 - [id number] Implanted:Qty: 1 on 08/01/2023 by Alireza Negron MD at [facility] Vascular Closure Device [employer] 04/20/2025 [id number] / [id number] / [id number] Bard Peripheral Vascular Bard .25x.25in [place] Thk1.65mm Square Pledget Cardiovascular Ptfe [id number] - [id number] Implanted:Qty: 1 on 09/04/2023 by Cortez Huerta MD at [facility] N/A: Chest Bard Peripheral Vascular [id number] / / [employer] Device Closure Fibertape Sternal Cerclage Blunt Needle Ar-7289 - [id number] Implanted:Qty: 1 on 09/04/2023 by Cortez Huerta MD at [facility] N/A: Sternum [employer] Inc 05/21/2028 AR-7289 / / [id number] [employer] Device Closure Fibertape Sternal Cerclage Blunt Needle Ar-7289 - [id number] Implanted:Qty: 1 on 09/04/2023 by Cortez Huerta MD at [facility] N/A: Sternum [employer] Inc 09/20/2026 AR-7289 / / [id number] Procedures Procedure Name Priority Date/Time Associated Diagnosis Comments NM MPI SPECT (REST AND/OR STRESS) MULTIPLE STUDIES Schedule Routine, Read Routine (OP Routine) 03/11/2025 9:33 AM CDT Coronary artery disease involving [place] coronary artery of [place] heart without angina pectoris Atypical chest pain POCT LIPID PANEL Routine 03/10/2025 1:09 PM CDT Hyperlipidemia associated with type 2 diabetes mellitus (HCC) Coronary artery disease involving [place] coronary artery of [place] heart without angina pectoris BASIC METABOLIC PANEL Routine 04/08/2024 Hypertension associated with diabetes (HCC) HEMOGLOBIN A1C STAT 09/04/2023 9:48 AM REFRIGERATION MECHANIC from Last 3 Months or Most Recently Relevant to Health Maintenance Results * NM MPI SPECT (Rest and/or Stress) Multiple Studies (03/11/2025 9:33 AM CDT) Anatomical Region Laterality Modality Body N/A Nuclear Medicine 03/11/2025 8:24 AM CDT Narrative 03/11/2025 1:49 PM CDT [facility] Cardiology [address] [facility] [address], [place] [address] [address] [facility] [address], [place] [address] P:[phone] P:[phone] MPI Imaging Report Patient Name: JULY MARS : 1960 Study Date: 03/11/2025 8:24:32 AM Gender: F Tech: [facility] Location: [facility] Provider: LUCY METCALF Height(Cm): 162.6 BSA: Weight(Kg): 92.5 BMI: 34.99 Order Provider: LUCY METCALF PHYSICIAN: Referring Physician: Dr. Chao. HCG Physician: Alexander Metcalf M.D. Interpreting Physician: Darion Cuba M.D.,F.A.C.C. Stress Supervision: Geo Potter M.D., F.A.CPradipCPradip PROCEDURES: Pharmacologic SPECT Report: Myocardial perfusion imaging with Tc99M Sestamibi SPECT at rest and stress post regadenoson (Lexiscan) infusion. INDICATIONS: Hypertension, Diabetes, Family Hx CAD, High Cholesterol, PVC's, I25.10 Atherosclerotic heart disease of [place] coronary artery without angina pectoris, and R07.89 Other chest pain. FINDINGS: Procedural Findings: One day rest/stress was used. Tc99m Sestamibi injected IV at rest was 12.7 millicuries 36.2 millicuries of Tc99M Sestamibi injected IV during Lexiscan stress Lexiscan 0.4mg administered IV over 10 seconds. Pharmacologic stress related symptoms and/or side effects during infusion include nausea. Symptoms were resolved with 100 mg of aminophylline IVP. Baseline heart rate was 65 BPM Maximum Heart Rate Achieved was: 84 BPM Baseline blood pressure was 162/84 mmHg Post Stress Blood Pressure was 150/80 mmHg Termination: Protocol complete. Resting ECG: Sinus rhythm. Post ECG: Findings do not meet strict criteria for ischemia. Arrhythmia: No arrhythmias seen. Perfusion Findings: Normal perfusion imaging. No definite fixed or reversible defects. A TID of 0.93 was automatically calculated. LV Function: Global left ventricular function is normal. Left ventricular ejection fraction is 70 %. CONCLUSIONS: Global left ventricular function is normal. Left ventricular ejection fraction is 70 %. Normal perfusion imaging. No definite fixed or reversible defects. A TID of 0.93 was automatically calculated. Negative EKG portion of the pharmacological stress test. Correlate with SPECT. Electronically Signed By: Darion Cuba MD, [facility] 03/11/2025 11:49:45 AM CDT Electronically Signed By: Geo Potter MD, [facility] 03/11/2025 1:10:26 PM CDT Procedure Note Geo Potter MD - 03/11/2025 [facility] Medical [facility] Cardiology [address] [facility] [address], [place] [address] [address] [facility] [address], [place] [address] P:[phone] P:[phone] MPI Imaging Report Patient Name: JULY MARS : 1960 Study Date: 03/11/2025 8:24:32 AM Gender: F Tech: [facility] Location: [facility] Provider: LUCY METCALF Height(Cm): 162.6 BSA: Weight(Kg): 92.5 BMI: 34.99 Order Provider: LUCY METCALF PHYSICIAN: Referring Physician: Dr. Chao. HCG Physician: Alexander Metcalf M.D. Interpreting Physician: Darion Cuba M.D.,F.A.C.C. Stress Supervision: Geo Potter M.D., F.A.C.CPradip PROCEDURES: Pharmacologic SPECT Report: Myocardial perfusion imaging with Tc99M Sestamibi SPECT at rest and stresspost regadenoson (Lexiscan) infusion. INDICATIONS: Hypertension, Diabetes, Family Hx CAD, High Cholesterol, PVC's, I25.10Atherosclerotic heart disease of [place] coronary artery without angina pectoris, andR07.89 Other chest pain. FINDINGS: Procedural Findings: One day rest/stress was used. Tc99m Sestamibi injected IV at rest was 12.7 millicuries 36.2 millicuries of Tc99M Sestamibi injected IV during Lexiscan stress Lexiscan 0.4mg administered IV over 10 seconds. Pharmacologic stress related symptoms and/or side effects duringinfusion include nausea. Symptoms were resolved with 100 mg of aminophylline IVP. Baseline heart rate was 65 BPM Maximum Heart Rate Achieved was: 84 BPM Baseline blood pressure was 162/84 mmHg Post Stress Blood Pressure was 150/80 mmHg Termination: Protocol complete. Resting ECG: Sinus rhythm. Post ECG: Findings do not meet strict criteria for ischemia. Arrhythmia: No arrhythmias seen. Perfusion Findings: Normal perfusion imaging. No definite fixed or reversible defects. A TIDof 0.93 was automatically calculated. LV Function: Global left ventricular function is normal. Left ventricular ejectionfraction is 70 %. CONCLUSIONS: Global left ventricular function is normal. Left ventricular ejectionfraction is 70 %. Normal perfusion imaging. No definite fixed or reversible defects. A TIDof 0.93 was automatically calculated. Negative EKG portion of the pharmacological stress test. Correlate withSPECT. Electronically Signed By: Darion Cuba MD, [facility] 03/11/2025 11:49:45 AM CDT Electronically Signed By: Geo Potter MD, [facility] 03/11/2025 1:10:26 PM CDT Lucy Metcalf MD IMG NM PROCEDURES Final R esult * (ABNORMAL) POCT lipid panel (03/10/2025 1:09 PM CDT) [facility] Cholesterol, POC 145 <200 MG/DL HDL, POC 23(A) >=40 mg/dL Triglycerides, POC 261(A) <=149 mg/dL LDL Cholesterol POC 69 <=129 mg/dL Chol/HDL Ratio, POC 6.3 NONE Non-HDL Cholesterol, POC 122 NONE mg/dL Cholesterol Total, POC 145 30 - 199 mg/dL Capillary blood 03/10/2025 1 :09 PM CDT Lucy Metcalf MD POINT OF CARE TEST ORDERA BLES Final Result * (ABNORMAL) Basic metabolic panel (04/08/2024) [facility] SCRIBED Sodium 140 137 - 145 [...] N/A EXTERNAL LAB SCRIBED eGFR in NonAfrican Filipino 30 > or = 60 EXTERNAL LAB Blood 04/08/2024 Lucy Metcalf MD LAB BLOOD ORDERABLES Ashley black Result EXTERNAL LAB * (ABNORMAL) Hemoglobin A1c (09/04/2023 9:48 AM REFRIGERATION MECHANIC) Hgb A1C 9.2(H) 4.0 - 5.6 % [facility] Estimated Average Glucose 217 mg/dL [facility] Comment: The ADA recommends reporting an estimated Average Glucose (eAG) with all Hemoglobin A1c results using the equation derived from a study of 507 normal and diabetic adults. Minority populations were underrepresented and children were not included. (Diabetes Care 31:4691-2022, 2008). The eAG is not equivalent to a fasting glucose. Blood 09/04/2023 9:48 AM REFRIGERATION MECHANIC 09/04/2023 9:59 AM REFRIGERATION MECHANIC Terra Gilmore NP LAB BLOOD ORDERABLES Final Resul t [facility] [address] Department [place] [address] from Last 3 Months or Most Recently Relevant to Health Maintenance Insurance [facility] MEDICARE [facility] Address: [address] [address] [facility] [employer] MEDICARE PHYSICIANS [employer] Advance Directives For more information, please contact: [phone] * Full Code (Latest Code Status on File) Date Activated Date Inactivated Comments 09/04/2023 2:59 PM 09/09/2023 3:12 PM Care Teams Platform Attendant Relationship Specialty Start Date End Date Camryn Chao DO PCP - General Family Medicine 01/18/23 Lucy Metcalf MD [address] [facility] [address] [place] [address] Referring Physician Cardiology 08/02/23 Cortez Huerta MD [address] [facility] [address] [place] [address] Consulting Physician Cardiothoracic Surgery 08/02/23 Soha Vega MD [facility] [facility] [address] [place] [address] Endocrinology Diabetes & Metabolism 09/08/23
--- OUTSIDE RECORDS SUMMARY | 2025-04-21 08:46 | XMS_ITS | Clinical Summary ---
Author Organization [facility] Address [address] [place] [address] Care Team Providers Care Scientific Illustrator Name Role Phone Chao Camryn Juan MAURO Primary Care Provider [phone] Source Comments [facility],non-owned Affiliates and Associated Physician Practices is amultiple site organization consisting of ambulatory clinics and hospital sitesin [place], [place], [place] and [place]. This disclosure is being madepursuant to the Care Everywhere program and may not contain all information available regarding this patient. 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) from Last 3 Months Social History Tobacco [...] Screening for tuberculosis High risk medication use from Last 3 Months Results * LAB RESULTS ORDER (01/20/2025 10:03 AM CDT) Scanned Document LAB - THERAPEUTIC DRUG MONITORI NG ORDERABLES Final Result * QUANTIFERON TB-GOLD (01/20/2025) Blood BLOOD SPECIMEN / Unknown Sriram Feliz DO LAB - CHEMISTRY ORDERABLES Final Result OTHER LAB * HEPATITIS B SURFACE ANTIGEN W RFLX CONFIRMATION (01/20/2025) Blood BLOOD SPECIMEN / Unknown Sriram Feliz DO LAB - CHEMISTRY ORDERABLES Final Result OTHER LAB * HEPATITIS C ANTIBODY (01/20/2025) Blood BLOOD SPECIMEN / Unknown Sriram Feliz DO LAB - CHEMISTRY ORDERABLES Final Result OTHER LAB from Last 3 [place] [address] MEDICARE PHYSICIANS [employer] Care Teams Scientific Illustrator Relationship Specialty Start Date End Date Camryn Chao DO [address] [facility] [address] [place] [phone] PCP - General Family Medicine 01/15/25
--- OUTSIDE RECORDS SUMMARY | 2025-04-21 08:46 | XMS_ITS | Encounter Summary ---
Author Organization [facility] Address [address] [place] [address] Care Team Providers Care Civil Engineering Assistant Name Role Phone Camryn Chao DO Primary Care Provider [phone] Encounter Details Date Type Department Care Team (Late st Contact Info) Description 04/20/2025 Results Follow-Up [facility] Medical [facility] - Rheumatology [address] [facility] [facility] [address], [address] [place] [address] Sriram Feliz DO [address] [facility] [address] [place] [address] Social History Tobacco Use Types Packs/Day Years [...] on file documented as of this encounter Visit Diagnoses Not on filedocumented in this encounter Care Teams Civil Engineering Assistant Relationship Specialty Start Date End Date Camryn Chao DO [address] [place] [address] PCP - General Family Medicine 01/15/25 documented as of this encounter
--- OUTSIDE RECORDS SUMMARY | 2025-04-21 08:46 | XMS_ITS | Clinical Summary ---
Author Organization [facility] [address] Address [address] [place] [address] Care Team Providers Care Durability Engineer Name Role Phone ChaoCamryn dahl Terra MAURO Primary Care Provider + Lucy Metcalf MD Unavailable Cortez Huerta MD Unavailable Soha Vega MD Unavailable [phone] Allergies Active Allergy Reactions Criticality Noted Date [...] mcg total) by mouth every evening Active fdefu-W-lhtdxpca idase (BEANO ORAL) Take 1 tablet by [...] severe 09/04/2023 Coronary artery disease invo lving [place] coronary artery of [place] heart without angina pectoris 08/28/2023 Left carotid bruit 05/07/2020 Nonrheumatic aortic valve stenosis 05/07/2020 Renal artery stenosis 02/12/2020 Chronic kidney disease 07/25/2019 Family history of coronary artery disease 2018 AV block 07/25/2019 Frequent PVCs 07/25/2019 Hypertension associated with diabetes 07/25/2019 Hyperlipidemia associated with type 2 diabetes m will 07/25/2019 Encounters Date Type Department Care Team Description 03/19/2025 8:00 AM CDT Office Visit [facility] [place] ENT [address] [facility] Medical Office Building [address] [place] [address] Jessica Roberto MD Obstructive sleep apnea (adult) (pediatric) (Primary Dx); Intolerance of continuous positive airway pressure (CPAP) ventilation 03/11/2025 7:45 AM CDT Ancillary Procedure [facility] Cardiology [address] [place] [address] Coronary artery disease involving [place] coronary artery of [place] heart without angina pectoris; Atypical chest pain 03/11/2025 Results Follow-Up [facility] Cardiology at [address] [place] [phone] Lucy Metcalf MD NM MPI SPECT (Rest and/or Stress) Multiple Studies 03/10/2025 1:15 PM CDT Office Visit [facility] Cardiology at [address] [place] [address] Lucy Metcalf MD Hypertension associated with diabetes (HCC) (Primary Dx); Hyperlipidemia associated with type 2 diabetes mellitus ([facility]); Frequent PVCs; Status post aortic valve replacement; Chronic diastolic congestive heart failure (HCC); Coronary artery disease involving [place] coronary artery of [place] heart without angina pectoris; Atypical chest pain; Severe obesity (HCC) 02/24/2025 Telephone [facility] Otolaryngology [address] [place] [address] Nelly Rockwell MS from Last 3 Months Surgical History Surgery Date Site/Laterality Comments HYSTERECTOMY 10/22/1997 - 10/21/1998 CORRECTION HAMMER TOE 10/22/2006 - 10/21/2007 CHOLECYSTECTOMY 10/22/2009 - 10/21/2010 TOTAL KNEE ARTHROPLASTY 08/22/2018 - 09/20/2018 Left CORONARY ARTERY BYPASS GRAFT 09/04/2023 left radial to circumflex AORTIC VALVE REPLACEMENT 09/04/2023 JOINT REPLACEMENT Lt knee 2017, Rt knee 2020 TUBAL LIGATION CARDIAC VALVE REPLACEMENT 09/04/2023 Medical History Medical History Date Comments Hypertension Hyperlipidemia Diabetes mellitus ([facility]) Osteoarthritis Cataract Anemia WPW (Ancju-Vlzrpetns-Nnvam syndrome) GERD (gastroesophageal reflu x disease) Vertigo Aortic stenosis CKD (chronic kidney disease) stage 3, GFR 30-59 ml/min ([facility]) baseline creat 1.3-1.4 Coronary artery disease Neuromuscular disorder ([facility]) Degenerativ e disc disease, Neuropathy. Sleep apnea Heart disease CHF (congestive heart failur e) ([facility]) early 2023 Family History Medical History Relation Name Comments No Known Problems Brother 1 No Known Problems Brother 2 Bladder Cancer Father 90 Cancer Father 90 Heart attack Father 90 Hypertension Father 90 Heart attack Mother 76 fatal [place] Sudden Mother 76 COPD Sister 64 Relation [...] materials from doctor or pharmacy Never 10/09/2023 [facility] Utilities Answer Date Recorded In the past 12 months has [employer], oil, or water [employer] threatened to shut off services in your [...] How often do you attend chur or christian services? 1 to 4 times per year 09/06/2023 Do you belong to any clubs o r organizations such as sabianism groups, unions, fraternal or athletic groups, or [...] place to sleep or slept in a long-term (including now)? No 09/06/2023 Personal Safety Answer Date Recorded Have you ever been in or are you currently in a harmful physical or emotional relationship or is someone making you feel afraid or unsafe? Denies 09/04/2023 Comments No Sex and Gender Information Value Date Recorded Sex Assigned at Not on file Legal Sex Female 9:23 AM MACHINIST SUPERVISOR Gender Identity Not on file Sexual Orientation Not on file Obstetrics History Last Filed Vital Signs Vital Sign Reading Time Taken Comments Blood Pressure 124/69 03/19/2025 8:00 AM CDT Pulse 79 03/10/2025 1:18 PM CDT Temperature 36.7 C (98 F) 10/09/2023 11:29 AM MACHINIST SUPERVISOR Respiratory Rate 18 10/10/2023 9:21 AM MACHINIST SUPERVISOR Oxygen Saturation 95% 03/10/2025 1:18 PM CDT Inhaled Oxygen Concentration - - Weight 95.4 kg (210 lb 6.4 oz) 03/19/2025 8:00 A M CDT Height 162.6 cm (5' 4) 03/19/2025 8:00 AM CDT Body Mass Index 36.12 03/19/2025 8:00 AM CDT Plan of Treatment Upcoming Encounters Date Type Department Care Team (Latest Contact Info) Description 06/02/2025 7:30 AM CDT Hospital Encounter [facility] Operating Room [id number] [place] [address] [place] [id number] [address] 06/02/2025 7:30 AM CDT - 06/02/2025 8:00 AM CDT Surgery [facility] Operating Room [address] [place] [address] [place] [address] [phone] DRUG INDUCED SLEEP ENDOSCOPY/15min Scheduled Procedures Name Priority Associated Diagnoses Date/Ti me DRUG INDUCED SLEEP ENDOSCOPY EVAL FLEX DIAG Obstructive sleep apnea 06/02/2025 7:30 AM CDT Health Maintenance Due Date Last Done Comments [...] 04/08/2025 04/08/2024, 09/21, 09/09/2023, Additional history exists Influenza Vaccine (#1) 2025 , 07/20/2020, 08/11/2019, Additional history exists Lipid Panel 03/10/2026 03/10/2025, 07/0 05/2024, 07/04/2023, Additional history exists Hepatitis B Screening Completed 10/17/2016 , 07/18/2016, 06/15/2016 Medical Devices Implanted Type Area Geological Survey Field Assistant Device Identifier Shelf Expiration Date Model / Serial / Lot Lux Lifesciences Inspiris Resilia Leaflet Aortic Valve 23mm [id number] - [id number] - [id number] Implanted:Qty: 1 on 09/04/2023 by Cortez Huerta MD at [facility] Prosthetic Valve N/A: Aortic Valve [employer]iences 04/29/2027 [id number] / [id number] / Giang V[employer] Device Clsr Perclose Prostyle Sut-Mediatd Closure-Repair Sys [id number] - S0 - [id number] Implanted:Qty: 1 on 08/01/2023 by Alireza Negron MD at [facility] Vascular Closure Device [employer] 04/20/2025 [id number] / 0 / [id number] Bard Peripheral Vascular Bard .25x.25in [place] Thk1.65mm Square Pledget Cardiovascular Ptfe [id number] - [id number] Implanted:Qty: 1 on 09/04/2023 by Cortez Huerta MD at [facility] N/A: Chest Bard Peripheral Vascular [id number] / / [employer] Device Closure Fibertape Sternal Cerclage Blunt Needle Ar-7289 - [id number] Implanted:Qty: 1 on 09/04/2023 by Cortez Huerta MD at [facility] N/A: Sternum [employer] Inc 05/21/2028 AR-7289 / / [id number] [employer] Device Closure Fibertape Sternal Cerclage Blunt Needle Ar-7289 - [id number] Implanted:Qty: 1 on 09/04/2023 by Cortez Huerta MD at [facility] N/A: Sternum [employer] 09/20/2026 AR-7289 / / [id number] Procedures Procedure Name Priority Date/Time Associated Diagnosis Comments NM MPI SPECT (REST AND/OR STRESS) MULTIPLE STUDIES Schedule Routine, Read Routine (OP Routine) 03/11/2025 9:33 AM CDT Coronary artery disease involving [place] coronary artery of [place] heart without angina pectoris Atypical chest pain POCT LIPID PANEL Routine 03/10/2025 1:09 PM CDT Hyperlipidemia associated with type 2 diabetes mellitus (HCC) Coronary artery disease involving [place] coronary artery of [place] heart without angina pectoris BASIC METABOLIC PANEL Routine 04/08/2024 Hypertension associated with diabetes (HCC) HEMOGLOBIN A1C STAT 09/04/2023 9:48 AM MACHINIST SUPERVISOR from Last 3 Months or Most Recently Relevant to Health Maintenance Results * NM MPI SPECT (Rest and/or Stress) Multiple Studies (03/11/2025 9:33 AM CDT) Anatomical Region Laterality Modality Body N/A Nuclear Medicine 03/11/2025 8:24 AM CDT Narrative 03/11/2025 1:49 PM CDT [facility] Cardiology [address] [facility] [address] [address] [address] [facility] [address] [address] P:[phone] P:[phone] MPI Imaging Report Patient Name: JULY MARS : 1960 Study Date: 03/11/2025 8:24:32 AM Gender: F Tech: LUCIE HARPER Location: [facility] Provider: ULCY METCALF Height(Cm): 162.6 BSA: Weight(Kg): 92.5 BMI: 34.99 Order Provider: LUCY METCALF PHYSICIAN: Referring Physician: Dr. Chao. HCG Physician: Alexander Metcalf M.D. Interpreting Physician: Darion Cuba M.D.,F.A.C.C. Stress Supervision: Geo Potter M.D., F.A.CPradipC. PROCEDURES: Pharmacologic SPECT Report: Myocardial perfusion imaging with Tc99M Sestamibi SPECT at rest and stress post regadenoson (Lexiscan) infusion. INDICATIONS: Hypertension, Diabetes, Family Hx CAD, High Cholesterol, PVC's, I25.10 Atherosclerotic heart disease of [place] coronary artery without angina pectoris, and R07.89 [...] SPECT. Electronically Signed By: Darion Cuba MD, [facility] 03/11/2025 11:49:45 AM CDT Electronically Signed By: Geo Potter MD, [facility] 03/11/2025 1:10:26 PM CDT Procedure Note Geo Potter MD - 03/11/2025 [facility] Cardiology [address] [facility] [address], [place] [address] [address] [facility] [address], [place] [address] P:[phone] P:[phone] MPI Imaging Report Patient Name: JULY MARS : 1960 Study Date: 03/11/2025 8:24:32 AM Gender: F Tech: [facility] Location: [facility] Provider: LUCY METCALF Height(Cm): 162.6 BSA: Weight(Kg): 92.5 BMI: 34.99 Order Provider: LUCY METCALF PHYSICIAN: Referring Physician: Dr. Chao. HCG Physician: Alexander Metcalf M.D. Interpreting Physician: Darion Cuba M.D.,F.A.C.C. Stress Supervision: Geo Potter M.D., F.A.C.C. PROCEDURES: Pharmacologic SPECT Report: Myocardial perfusion imaging with Tc99M Sestamibi SPECT at rest and stresspost regadenoson (Lexiscan) infusion. INDICATIONS: Hypertension, Diabetes, Family Hx CAD, High Cholesterol, PVC's, I25.10Atherosclerotic heart disease of [place] coronary artery without angina pectoris, andR07.89 Other [...] withSPECT. Electronically Signed By: Darion Cuba MD, [facility] 03/11/2025 11:49:45 AM CDT Electronically Signed By: Geo Potter MD, [facility] 03/11/2025 1:10:26 PM CDT Lucy Metcalf MD IMG NM PROCEDURES Final R esult * (ABNORMAL) POCT lipid panel (03/10/2025 1:09 PM CDT) Cholesterol, POC 145 <200 MG/DL HDL, POC [...] Result * (ABNORMAL) Basic metabolic panel (04/08/2024) SCRIBED [...] N/A EXTERNAL LAB SCRIBED eGFR in NonAfrican Argentine 30 > or = 60 EXTERNAL LAB Blood 04/08/2024 us Lucy Metcalf MD LAB BLOOD ORDERABLES Ashley l Result EXTERNAL LAB * (ABNORMAL) Hemoglobin A1c (09/04/2023 9:48 AM MACHINIST SUPERVISOR) Hgb A1C 9.2(H) 4.0 - 5.6 % [facility] Estimated Average Glucose 217 mg/dL [facility] Comment: The ADA recommends reporting an estimated Average Glucose (eAG) with all Hemoglobin A1c results using the equation derived from a study of 507 normal and diabetic adults. Minority populations were underrepresented and children were not included. (Diabetes Care 31:6986-6355, 2008). The eAG is not equivalent to a fasting glucose. Blood 09/04/2023 9:48 AM MACHINIST SUPERVISOR 09/04/2023 9:59 AM MACHINIST SUPERVISOR Terra Gilmore NP LAB BLOOD ORDERABLES Final Resul t [facility] Omar Barber Department [place] [address] from Last 3 Months or Most Recently Relevant to Health Maintenance Insurance [facility] MEDICARE PHYSICIANS [facility] [place] MEDICARE PHYSICIANS [facility] [place] Advance Directives For more information, please contact: [phone] * Full Code (Latest Code Status on File) Date Activated Date Inactivated Comments 09/04/2023 2:59 PM 09/09/2023 3:12 PM Care Teams Durability Engineer Relationship Specialty Start Date End Date Camryn Chao DO PCP - General Family Medicine 01/18/23 Lucy Metcalf MD [address] [place] [id number] Referring Physician Cardiology 08/02/23 Cortez Huerta MD [address] [place] [address] Consulting Physician Cardiothoracic Surgery 08/02/23 Soha Vega MD [facility] [facility] [address] [place] [address] Endocrinology Diabetes & Metabolism 09/08/23
--- OUTSIDE RECORDS SUMMARY | 2025-04-21 08:46 | XMS_ITS | Clinical Summary ---
Author Organization [facility] Address [address] [place] [address] Phone Care Team Providers Care Paper Cone Drying Machine Operator Name Role Phone Carlos Alberto Oneil Primary Care Provider [phone] Allergies Active Allergy Reactions Criticality Noted Date [...] / Low and Medium Risk (1 of 2 - PCV) 2008 COVID-19 Vaccine (2 - 2023-2 5 season) 2024 12/28/2020 Influenza Vaccine (Season Ended) 2025 08/22/2021, 07/20/2020, 08/11/2019, Additional history exists Insurance [facility] Care Teams Paper Cone Drying Machine Operator Relationship Specialty Start Date End Date Carlos Alberto Oneil [address] [place] [address] PCP - General 04/26/22
--- OUTSIDE RECORDS SUMMARY | 2025-04-21 08:46 | XMS_ITS | Clinical Summary ---
Author Organization [facility] Address [address] [place] [address] Care Team Providers Care Computer Technology Trainer Name Role Phone Glen Banks MD Primary [...] 07/20/2020, 08/11/2019, Additional history exists Insurance CHOICE [id number] Care Teams Computer Technology Trainer Relationship Specialty Start Date End Date Glen Banks MD [address] [place] [phone] PCP - General Family Practice 04/06/22
== END 2025-04-21 08:41 | disposition home or self-care (01) ==
LOC: CHSIMG 08:42
PROVIDERS: PCP Family Medicine; Visit Provider Family Medicine
DX: N64.52 Nipple discharge (principal); N64.4 Mastodynia; N60.01 Solitary cyst of right breast
CPT/HCPCS: 76642; 77062; 77066; G0279

== ENCOUNTER 2025-04-27 09:26 | Outpatient (CLI) | payer MEDICARE, OTHER, SELFPAY ==
--- OUTSIDE RECORDS SUMMARY | 2025-04-27 09:34 | XMS_ITS | Clinical Summary ---
Author Organization [facility] Clint [facility]ri [facility] Address [address] [place] [address] Care Team Providers Care Aluminum Sheet Cutter Name Role Phone Glen Banks MD Primary Care Provider [phone] Allergies Active Allergy Reactions Criticality Noted Date [...] 06/17/2002 OSTEOPOROSIS SCREENING 2023 INFLUENZA VACCINE (#1) 2025 , 07/20/2020, 08/11/2019, Additional history exists Insurance CHOICE [id number] Care Teams Aluminum Sheet Cutter Relationship Specialty Start Date End Date Glen Banks MD [address] [place] [phone] PCP - General Family Practice 04/06/22
--- OUTSIDE RECORDS SUMMARY | 2025-04-27 09:34 | XMS_ITS | Clinical Summary ---
Author Organization [facility] [address] Address [address] [place] [address] Care Team Providers Care Hypnotherapist Name Role Phone ChaoCamryn dahl Terra MAURO Primary Care Provider + Lucy Metcalf MD Unavailable Cortez Huetra MD Unavailable Soha Vega MD Unavailable Allergies [...] mcg total) by mouth every evening Active ssezl-K-igzyvhot idase (BEANO ORAL) Take 1 tablet by [...] severe 09/04/2023 Coronary artery disease invo lving [place] coronary artery of [place] heart without angina pectoris 08/28/2023 Left carotid bruit 05/07/2020 Nonrheumatic aortic valve stenosis 05/07/2020 Renal artery stenosis 02/12/2020 Chronic kidney disease 07/25/2019 Family history of coronary artery disease 2018 AV block 07/25/2019 Frequent PVCs 07/25/2019 Hypertension associated with diabetes 07/25/2019 Hyperlipidemia associated with type 2 diabetes m will 07/25/2019 Encounters Date Type Department Care Team Description 03/19/2025 8:00 AM CDT Office Visit [facility] ENT [address] [facility] Medical Office Building [address] [place] [address] Jessica Roberto MD Obstructive sleep apnea (adult) (pediatric) (Primary Dx); Intolerance of continuous positive airway pressure (CPAP) ventilation 03/11/2025 7:45 AM CDT Ancillary Procedure [facility] Cardiology [address] [place] [address] Coronary artery disease involving [place] coronary artery of [place] heart without angina pectoris; Atypical chest pain 03/11/2025 Results [facility] Cardiology at [address] [place] [id number] Lucy Metcalf MD NM MPI SPECT (Rest and/or Stress) Multiple Studies 03/10/2025 1:15 PM CDT Office Visit [facility] Cardiology at [address] [place] [address] Lucy Metcalf MD Hypertension associated with diabetes (HCC) (Primary Dx); Hyperlipidemia associated with type 2 diabetes mellitus ([facility]); Frequent PVCs; Status post aortic valve replacement; Chronic diastolic congestive heart failure (HCC); Coronary artery disease involving [place] coronary artery of [place] heart without angina pectoris; Atypical chest pain; Severe obesity (HCC) 02/24/2025 Telephone [facility] Otolaryngology [address] [place] [address] Nelly Rockwell MS from Last [...] History Date Comments Hypertension Hyperlipidemia Diabetes mellitus ([facility]) Osteoarthritis Cataract Anemia WPW (Cxldr-Dwdwpxznx-Wbdbh syndrome) GERD (gastroesophageal reflu x disease) Vertigo Aortic stenosis CKD (chronic kidney disease) stage 3, GFR 30-59 ml/min ([facility]) baseline creat 1.3-1.4 Coronary artery disease Neuromuscular disorder ([facility]) Degenerativ e disc disease, Neuropathy. Sleep apnea Heart disease CHF (congestive heart failur e) ([facility]) early 2023 Family History Medical History Relation Name Comments No Known Problems Brother 1 No Known Problems Brother 2 Bladder Cancer Father 90 Cancer Father 90 Heart attack Father 90 Hypertension Father 90 Heart attack Mother 76 fatal [place] Sudden Mother 76 COPD Sister 64 Relation [...] materials from doctor or pharmacy Never 10/09/2023 [facility] Utilities Answer Date Recorded In the past 12 months has Friend[employer], oil, or water [employer] threatened to shut off services in your [...] How often do you attend chur or yarsani services? 1 to 4 times per year 09/06/2023 Do you belong to any clubs o r organizations such as methodist groups, unions, fraternal or athletic groups, or [...] place to sleep or slept in a nursing home (including now)? No 09/06/2023 Personal Safety Answer Date Recorded Have you ever been in or are you currently in a harmful physical or emotional relationship or is someone making you feel afraid or unsafe? Denies 09/04/2023 Comments No Sex and Gender Information Value Date Recorded Sex Assigned at Not on file Legal Sex Female 9:23 AM HAMMER FITTER Gender Identity Not on file Sexual Orientation Not on file Obstetrics History Last Filed Vital Signs Vital Sign Reading Time Taken Comments Blood Pressure 124/69 03/19/2025 8:00 AM CDT Pulse 79 03/10/2025 1:18 PM CDT Temperature 36.7 C (98 F) 10/09/2023 11:29 AM HAMMER FITTER Respiratory Rate 18 10/10/2023 9:21 AM HAMMER FITTER Oxygen Saturation 95% 03/10/2025 1:18 PM CDT Inhaled Oxygen Concentration - - Weight 95.4 kg (210 lb 6.4 oz) 03/19/2025 8:00 A M CDT Height 162.6 cm (5' 4) 03/19/2025 8:00 AM CDT Body Mass Index 36.12 03/19/2025 8:00 AM CDT Plan of Treatment Upcoming Encounters Date Type Department Care Team (Latest Contact Info) Description 06/02/2025 7:30 AM CDT Hospital Encounter [facility] Operating Room [id number] [place] [address] [place] [address] [address] 06/02/2025 7:30 AM CDT - 06/02/2025 8:00 AM CDT Surgery [facility] Operating Room [address] [place] [address] [place] [address] [id number] DRUG INDUCED SLEEP ENDOSCOPY/15min Scheduled Procedures Name [...] 07/18/2016, 06/15/2016 Medical Devices Implanted Type Area Side Framer Device Identifier Shelf Expiration Date Model / Serial / Lot Lux Lif[employer]iences Inspiris Resilia Leaflet Aortic Valve 23mm [id number] - [id number] - [id number] Implanted:Qty: 1 on 09/04/2023 by Cortez Huerta MD at [facility] Prosthetic Valve N/A: Aortic Valve [employer] 04/29/2027 [id number] / [id number] / Giang Vascular Device Clsr Perclose Prostyle Sut-Mediatd Closure-Repair Sys [id number] - S0 - [id number] Implanted:Qty: 1 on 08/01/2023 by Alireza Negron MD at [facility] Vascular Closure Device [employer] 04/20/2025 [id number] / 0 / [id number] Bard Peripheral Vascular Bard .25x.25in [place] Thk1.65mm Square Pledget Cardiovascular Ptfe [id number] - [id number] Implanted:Qty: 1 on 09/04/2023 by Cortez Huerta MD at [facility] N/A: Chest Bard Peripheral Vascular [id number] / / [employer] Device Closure Fibertape Sternal Cerclage Blunt Needle Ar-[id number] - [id number] Implanted:Qty: 1 on 09/04/2023 by Cortez Huerta MD at [facility] N/A: Sternum [employer] 05/21/2028 AR-[id number] / / [id number] [employer] Device Closure Fibertape Sternal Cerclage Blunt Needle Ar-7289 - [id number] Implanted:Qty: 1 on 09/04/2023 by Cortez Huerta MD at [facility] N/A: Sternum [employer] 09/20/2026 AR-7289 / / [id number] Procedures Procedure Name Priority Date/Time Associated Diagnosis Comments NM MPI SPECT (REST AND/OR STRESS) MULTIPLE STUDIES Schedule Routine, Read Routine (OP Routine) 03/11/2025 9:33 AM CDT Coronary artery disease involving [place] coronary artery of [place] heart without angina pectoris Atypical chest pain POCT LIPID PANEL Routine 03/10/2025 1:09 PM CDT Hyperlipidemia associated with type 2 diabetes mellitus (HCC) Coronary artery disease involving [place] coronary artery of [place] heart without angina pectoris BASIC METABOLIC PANEL Routine 04/08/2024 Hypertension associated with diabetes (HCC) HEMOGLOBIN A1C STAT 09/04/2023 9:48 AM HAMMER FITTER from Last 3 Months or Most Recently Relevant to Health Maintenance Results * NM MPI SPECT (Rest and/or Stress) Multiple Studies (03/11/2025 9:33 AM CDT) Anatomical Region Laterality Modality Body N/A Nuclear Medicine 03/11/2025 8:24 AM CDT Narrative 03/11/2025 1:49 PM CDT [facility] Cardiology [address] [facility] [address], [place] [address] [address] [facility] [address], [place] [address] P:[phone] P:[phone] MPI Imaging Report Patient Name: JULY MARS : 1960 Study Date: 03/11/2025 8:24:32 AM Gender: F Tech: LUCIE HARPER Location: [facility] Provider: LUCY METCALF Height(Cm): 162.6 [...] Cholesterol, PVC's, I25.10 Atherosclerotic heart disease of [place] coronary artery without angina pectoris, and R07.89 [...] SPECT. Electronically Signed By: Darion Cuba MD, [facility] 03/11/2025 11:49:45 AM CDT Electronically Signed By: Geo Potter MD, [facility] 03/11/2025 1:10:26 PM CDT Procedure Note Geo Potter MD - 03/11/2025 [facility] Cardiology [address] [facility] [address], [place] [address] [address] [facility] [address], [place] [address] P:[phone] P:[phone] MPI Imaging Report Patient Name: JULY MARS : 1960 Study Date: 03/11/2025 8:24:32 AM Gender: F Tech: [facility] Location: [facility] Provider: LUCY METCALF Height(Cm): 162.6 [...] High Cholesterol, PVC's, I25.10Atherosclerotic heart disease of [place] coronary artery without angina pectoris, andR07.89 Other [...] withSPECT. Electronically Signed By: Darion Cuba MD, [facility] 03/11/2025 11:49:45 AM CDT Electronically Signed By: Geo Potter MD, [facility] 03/11/2025 1:10:26 PM CDT Lucy Metcalf MD [...] N/A EXTERNAL LAB SCRIBED eGFR in NonAfrican Chilean 30 > or = 60 EXTERNAL LAB Blood 04/08/2024 us Lucy Metcalf MD LAB BLOOD ORDERABLES Ashley l Result EXTERNAL LAB * (ABNORMAL) Hemoglobin A1c (09/04/2023 9:48 AM HAMMER FITTER) Hgb A1C 9.2(H) 4.0 - 5.6 % [facility] Estimated Average Glucose 217 mg/dL [facility] Comment: The ADA recommends reporting an estimated Average Glucose (eAG) with all Hemoglobin A1c results using the equation derived from a study of 507 normal and diabetic adults. Minority populations were underrepresented and children were not included. (Diabetes Care 31:3429-9644, 2008). The eAG is not equivalent to a fasting glucose. Blood 09/04/2023 9:48 AM HAMMER FITTER 09/04/2023 9:59 AM HAMMER FITTER Terra Gilmore NP LAB BLOOD ORDERABLES Final Resul t [facility] Omar Barber [place] [address] from Last 3 Months or Most Recently Relevant to Health Maintenance Insurance [facility] HMO/PPO Address: [address] [address] [place] [address] MEDICARE PHYSICIANS [facility] [place] MEDICARE PHYSICIANS [facility] [employer] [place] Advance Directives For more information, please contact: [phone] * Full Code (Latest Code Status on File) Date Activated Date Inactivated Comments 09/04/2023 2:59 PM 09/09/2023 3:12 PM Care Teams Hypnotherapist Relationship Specialty Start Date End Date Camryn Chao DO PCP - General Family Medicine 01/18/23 Lucy Metcalf MD [address] [place] [id number] Referring Physician Cardiology 08/02/23 Cortez Huerta MD [address] [place] [address] Consulting Physician Cardiothoracic Surgery 08/02/23 Soha Vega MD [facility] [facility] [address] [place] [address] Endocrinology Diabetes & Metabolism 09/08/23
--- OUTSIDE RECORDS SUMMARY | 2025-04-27 09:34 | XMS_ITS | Encounter Summary ---
Author Organization [facility] Healthcare Address [address] [place] [address] Care Team Providers Care Drawing Operator Name Role Phone Jeremie Camryn Terra MAURO Primary Care Provider + Kevin Metcalf MD Unavailable [phone] Cortez Huerta MD Unavailable Soha Vega MD Unavailable [phone] Encounter Details Date Type Department Care Team (Late st Contact Info) Description 03/11/2025 Results Follow-Up [facility] Medical Group Cardiology at [address] [place] [address] Kevin Metcalf MD [address] [facility] [address] [facility], [address] [place] [address] NM MPI SPECT (Rest and/or [...] materials from doctor or pharmacy Never 10/09/2023 [facility] Utilities Answer Date Recorded In [...] often do you attend chur ch or advent services? 1 to 4 times per year [...] place to sleep or slept in a halfway (including now)? No 09/06/2023 Personal Safety Answer Date Recorded Have you ever been in or are you currently in a harmful physical or emotional relationship or is someone making you feel afraid or unsafe? Denies 09/04/2023 Comments No Sex and Gender Information Value Date Recorded Sex Assigned at Not on file Legal Sex Female 9:23 AM RADIATOR CLEANER Gender Identity Not on file Sexual Orientation Not on file documented as of this encounter Plan of Treatment Upcoming Encounters Date Type Department Care Team (Latest Contact Info) Description 06/02/2025 7:30 AM CDT Hospital Encounter [facility] Operating Room [address] [place] [address] [place] [address] [address] 06/02/2025 7:30 AM CDT - 06/02/2025 8:00 AM CDT Surgery [facility] Operating Room [address] [place] [address] [place] [address] [address] DRUG INDUCED SLEEP ENDOSCOPY/15min Scheduled Procedures Name Priority Associated Diagnoses Date/Ti me DRUG INDUCED SLEEP ENDOSCOPY EVAL FLEX DIAG Obstructive sleep apnea 06/02/2025 7:30 AM CDT documented as of this encounter Visit Diagnoses Not on filedocumented in this encounter Care Teams Drawing Operator Relationship Specialty Start Date End Date Camryn Chao DO PCP - General Family Medicine 01/18/23 Kevin Metcalf MD [address] [facility] [address] [place] [address] Referring Physician Cardiology 08/02/23 Cortez Huerta MD [address] [facility] [address] [place] [address] Consulting Physician Cardiothoracic Surgery 08/02/23 Soha Vega MD [facility] [facility] [address] [place] [address] Endocrinology Diabetes & Metabolism 09/08/23 documented as of this encounter
--- OUTSIDE RECORDS SUMMARY | 2025-04-27 09:34 | XMS_ITS | Clinical Summary ---
Author Organization [facility] Address [address] [place] [address] Phone Care Team Providers Care Solvent Mixer Name Role Phone Carlos Alberto Oneil Primary Care Provider [phone] Allergies Active Allergy Reactions Criticality Noted Date [...] 5 season) 2024 12/28/2020 Influenza Vaccine (#1) 2025 , 07/20/2020, 08/11/2019, Additional history exists Insurance [facility] Care Teams Solvent Mixer Relationship Specialty Start Date End Date Carlos Alberto Oneil [address] [place] [address] PCP - General 04/26/22
--- OUTSIDE RECORDS SUMMARY | 2025-04-27 09:34 | XMS_ITS | Continuity of Care Document ---
Author Organization [facility] Address [address] [facility] [address] [place] [address] Phone Care Team Providers Care Tank Setter Name Role Phone Lio Maharaj Unavailable Unavailable Procedures Procedure Date Office/outpatient Visit, Est Office/outpatient Visit, Est Eye Exam & Treatment Advance Directives Directive Yes / No Effective Date File Name No Information Encounters Encounter Description Practice Location Reason(s) For Visit Diagnoses Date Provider Providers Copied on Encounter [place] [facility] [place] [address], [place], [place], [id number], [place] tel:[phone] [facility] No Information 4-201 0 Krishnasamy Lio. [address] [address], [place], [place], [facility], [place]. tel:[phone] Office/outpat ient Visit, [facility] [address], [place], [place], [id number], [place] tel:[phone] [facility] No Information 5-200 9 Krishnasamy Lio. [address] [facility] [address], [place], [address], [place]. tel:[phone] [facility], [address], [place], [place], [id number], [place] tel:[phone] [facility] No Information Dec- 0-200 8 Carol Ann Vaca. [address] [employer] [address], [address], [place]. tel:[phone] Family History Family Member Type Diagnosis Age [...]
--- OUTSIDE RECORDS SUMMARY | 2025-04-27 09:34 | XMS_ITS | Referral Summary ---
Author Organization [facility] [address] [facility] [address] Address [address] [place] [address] Care Team Providers Care Brush Fabrication Supervisor Name Role Phone Camryn Chao Primary Care Provider + Lucy Metcalf MD Unavailable Cortez Huerta MD Unavailable [phone] Soha Vega MD Unavailable [phone] Encounters Date Type Department Care Team Description 03/19/2025 8:00 AM CDT Office Visit [facility]) - [facility] ENT [address] [facility] [address] [place] [address] Jessica Roberto MD Obstructive sleep apnea (adult) (pediatric) (Primary Dx); Intolerance of continuous positive airway pressure (CPAP) ventilation 03/11/2025 Results Follow-Up [facility] Cardiology at [address] [place] [address] Lucy Metcalf MD NM MPI SPECT (Rest and/or Stress) Multiple Studies 03/11/2025 7:45 AM CDT Ancillary Procedure [facility] Cardiology [address] [place] [address] Coronary artery disease involving [place] coronary artery of [place] heart without angina pectoris; Atypical chest pain 03/10/2025 1:15 PM CDT Office Visit [facility] Cardiology at [address] [place] [address] Lucy Metcalf MD Hypertension associated with diabetes (HCC) (Primary Dx); Hyperlipidemia associated with type 2 diabetes mellitus (HCC); Frequent PVCs; Status post aortic valve replacement; Chronic diastolic congestive heart failure (HCC); Coronary artery disease involving [place] coronary artery of [place] heart without angina pectoris; Atypical chest pain; Severe obesity (HCC) 02/24/2025 Telephone [facility] Otolaryngology [address] [place] [address] Nelly Rockwell MS from Last [...] mcg total) by mouth every evening Active wsvly-Y-obzpuhrl idase (BEANO ORAL) Take 1 tablet by [...] severe 09/04/2023 Coronary artery disease invo lving unalakleet coronary artery of un[place]et heart without angina pectoris 08/28/2023 Left carotid [...] doctor or pharmacy Never 10/09/2023 [facility] Utilities Answer Date Recorded In the past 12 months has th e [employer], gas, oil, or water company threatened to [...] often do you attend chur ch or holiness services? 1 to 4 times per year 09/06/2023 Do you belong to any clubs o r organizations such as restorationist groups, unions, fraternal or athletic groups, or [...] place to sleep or slept in a retirement (including now)? No 09/06/2023 Personal Safety Answer Date Recorded Have you ever been in or are you currently in a harmful physical or emotional relationship or is someone making you feel afraid or unsafe? Denies 09/04/2023 Comments No Sex and Gender Information Value Date Recorded Sex Assigned at Not on file Legal Sex Female 9:23 AM EMERGENCY ROOM ORDERLY Gender Identity Not on file Sexual Orientation Not on file Last Filed Vital Signs Vital Sign Reading Time Taken Comments Blood Pressure 124/69 03/19/2025 8:00 AM CDT Pulse 79 03/10/2025 1:18 PM CDT Temperature 36.7 C (98 F) 10/09/2023 11:29 AM EMERGENCY ROOM ORDERLY Respiratory Rate 18 10/10/2023 9:21 AM EMERGENCY ROOM ORDERLY Oxygen Saturation 95% 03/10/2025 1:18 PM CDT Inhaled Oxygen Concentration - - Weight 95.4 kg (210 lb 6.4 oz) 03/19/2025 8:00 A M CDT Height 162.6 cm (5' 4) 03/19/2025 8:00 AM CDT Body Mass Index 36.12 03/19/2025 8:00 AM CDT Plan of Treatment Upcoming Encounters Date Type Department Care Team (Latest Contact Info) Description 06/02/2025 7:30 AM CDT Hospital Encounter [facility] Operating Room [address] [place] [address] [place] [id number] [address] 06/02/2025 7:30 AM CDT - 06/02/2025 8:00 AM CDT Surgery [facility] Operating Room [address] [place] [address] [place] [address] [address] DRUG INDUCED SLEEP ENDOSCOPY/15min Scheduled Procedures Name Priority Associated Diagnoses Date/Ti me DRUG INDUCED SLEEP ENDOSCOPY EVAL FLEX DIAG Obstructive sleep apnea 06/02/2025 7:30 AM CDT Medical Devices Implanted Type Area Paper Machine Tender Device Identifier Shelf Expiration Date Model / Serial / Lot Lux Lifesciences Inspiris Resilia Leaflet Aortic Valve 23mm [id number] - [id number] - [id number] Implanted:Qty: 1 on 09/04/2023 by Cortez Huerta MD at [facility] Prosthetic Valve N/A: Aortic Valve [employer] 04/29/2027 [id number] / [id number] / Giang Vascular Device Clsr Perclose Prostyle Sut-Mediatd Closure-Repair Sys [id number] - S0 - [id number] Implanted:Qty: 1 on 08/01/2023 by Alireza Negron MD at [facility] Vascular Closure Device [employer] 04/20/2025 [id number] / 0 / [id number] Bard Peripheral Vascular Bard .25x.25in Parker Thk1.65mm Square Pledget Cardiovascular Ptfe [id number] - [id number] Implanted:Qty: 1 on 09/04/2023 by Cortez Huerta MD at [facility] N/A: Chest Bard Peripheral Vascular [id number] / / [employer] Device Closure Fibertape Sternal Cerclage Blunt Needle Ar-7289 - [id number] Implanted:Qty: 1 on 09/04/2023 by Cortez Huerta MD at [facility] N/A: Sternum [employer] 05/21/2028 AR-7289 / / [id number] [employer] Device Closure Fibertape Sternal Cerclage Blunt Needle Ar-7289 - [id number] Implanted:Qty: 1 on 09/04/2023 by Cortez Huerta MD at [facility] N/A: Sternum [employer] 09/20/2026 AR-7289 / / [id number] Procedures Procedure Name Priority Date/Time Associated Diagnosis Comments NM MPI SPECT (REST AND/OR STRESS) MULTIPLE STUDIES Schedule Routine, Read Routine (OP Routine) 03/11/2025 9:33 AM CDT Coronary artery disease involving [place] coronary artery of un[place]et heart without angina pectoris Atypical chest pain POCT LIPID PANEL Routine 03/10/2025 1:09 PM CDT Hyperlipidemia associated with type 2 diabetes mellitus (HCC) Coronary artery disease involving [place] coronary artery of un[place] heart without angina pectoris BASIC METABOLIC PANEL Routine 04/08/2024 Hypertension associated with diabetes (HCC) HEMOGLOBIN A1C STAT 09/04/2023 9:48 AM EMERGENCY ROOM ORDERLY from Last 3 Months or Most Recently Relevant to Health Maintenance Results * NM MPI SPECT (Rest and/or Stress) Multiple Studies (03/11/2025 9:33 AM CDT) Anatomical Region Laterality Modality Body N/A Nuclear Medicine 03/11/2025 8:24 AM CDT Narrative 03/11/2025 1:49 PM CDT [facility] Cardiology [address] [facility] [address], [place] [address] [address] [facility] [address], [place] [address] P:[phone] P:[phone] MPI Imaging Report Patient Name: JULY MARS : 1960 Study Date: 03/11/2025 8:24:32 AM Gender: F Tech: [facility] Location: [facility] Provider: LUCY METCALF Height(Cm): 162.6 BSA: [...] Cholesterol, PVC's, I25.10 Atherosclerotic heart disease of unal[place]et coronary artery without angina pectoris, and R07.89 [...] SPECT. Electronically Signed By: Darion Cuba MD, [facility] 03/11/2025 11:49:45 AM CDT Electronically Signed By: Geo Potter MD, [facility] 03/11/2025 1:10:26 PM CDT Procedure Note Geo Potter MD - 03/11/2025 [facility] Cardiology [address] [facility] [address], [place] [address] [address] [facility] [address], [place] [address] P:[phone] P:[phone] MPI Imaging Report Patient Name: JULY MARS : 1960 Study Date: 03/11/2025 8:24:32 AM Gender: F Tech: [facility] Location: [facility] Provider: LUCY METCALF Height(Cm): 162.6 BSA: [...] High Cholesterol, PVC's, I25.10Atherosclerotic heart disease of unalak[place]et coronary artery without angina pectoris, andR07.89 Other [...] withSPECT. Electronically Signed By: Darion Cuba MD, [facility] 03/11/2025 11:49:45 AM CDT Electronically Signed By: Geo Potter MD, [facility] 03/11/2025 1:10:26 PM CDT Lucy Metcalf [...] N/A EXTERNAL LAB SCRIBED eGFR in NonAfrican French 30 > or = 60 EXTERNAL LAB Blood 04/08/2024 Lucy Metcalf MD LAB BLOOD ORDERABLES Ashley black Result EXTERNAL LAB * (ABNORMAL) Hemoglobin A1c (09/04/2023 9:48 AM EMERGENCY ROOM ORDERLY) Hgb A1C 9.2(H) 4.0 - 5.6 % [facility] Estimated Average Glucose 217 mg/dL [facility] Comment: The ADA recommends reporting an estimated Average Glucose (eAG) with all Hemoglobin A1c results using the equation derived from a study of 507 normal and diabetic adults. Minority populations were underrepresented and children were not included. (Diabetes Care 31:3818-3954, 2008). The eAG is not equivalent to a fasting glucose. Blood 09/04/2023 9:48 AM EMERGENCY ROOM ORDERLY 09/04/2023 9:59 AM EMERGENCY ROOM ORDERLY Terra Gilmore NP LAB BLOOD ORDERABLES Final Resul t [facility] [address] Department [place] [address] from Last 3 Months or Most Recently Relevant to Health Maintenance Insurance [facility] H[facility]/PPO Address: [facility] [address] [place] [address] MEDICARE [employer] MEDICARE [employer] Advance Directives For more information, please contact: [phone] * Full Code (Latest Code Status on File) Date Activated Date Inactivated Comments 09/04/2023 2:59 PM 09/09/2023 3:12 PM Care Teams Brush Fabrication Supervisor Relationship Specialty Start Date End Date Camryn Chao DO PCP - General Family Medicine 01/18/23 Lucy Metcalf MD [address] [facility] [address] [facility] [place] [place] [address] Referring Physician Cardiology 08/02/23 Cortez Huerta MD [address] [facility] [address] [place] [address] Consulting Physician Cardiothoracic Surgery 08/02/23 Soha Vega MD [facility] [facility] [address] [place] [address] Endocrinology Diabetes & Metabolism 09/08/23
--- OUTSIDE RECORDS SUMMARY | 2025-04-27 09:34 | XMS_ITS | Encounter Summary ---
Author Organization [facility] Address [address] [place] [address] Care Team Providers Care Formula Room Worker Name Role Phone Camryn Chao DO Primary Care Provider [phone] Encounter Details Date Type Department Care Team (Late st Contact Info) Description 04/20/2025 Results Follow-Up [facility] Medical [facility] - Rheumatology [address] [facility], [address] [place] [address] Sriram Feliz DO [address] [facility] [place] [address] Social History Tobacco Use Types [...] on filedocumented in this encounter Care Teams Formula Room Worker Relationship Specialty Start Date End Date Camryn Chao DO [address] [place] [address] PCP - General Family Medicine 01/15/25 documented as of this encounter
--- OUTSIDE RECORDS SUMMARY | 2025-04-27 09:34 | XMS_ITS | Clinical Summary ---
Author Organization [facility] Address [address] [facility] [place] [address] Care Team Providers Care Classification Inspector Name Role Phone Chao Camryn Juan MAURO Primary Care Provider [phone] Source Comments [facility],non-owned Affiliates and Associated Physician Practices is amultiple site organization consisting of ambulatory clinics and hospital sitesin [place], [place], [place] and [place]. This disclosure is being madepursuant to the Care Everywhere program and may not contain all information available regarding this patient. Last updated 18.[facility] Allergies Active Allergy Reactions Criticality Noted Date [...] Active vitamine D3 (Cholecalciferol ) 250 MCG (24551 UT) capsule Take 1 (one) capsule by [...] Department Care Team Description 04/20/2025 Results Follow-Up [facility] - Rheumatology [address] [place] [address], [address] [address] Sriram Feliz DO 02/12/2025 2:20 PM CDT Office Visit [facility] - Rheumatology [address] [place] [address], [address] [address] Sriram Feliz DO Drug-induced lupus erythematosus due [...] Procedure Name Priority Date/Time Associated Diagnosis Comments HEPATITIS C ANTIBODY Routine 01/20/2025 Need for hepatitis C screening test High risk medication use from Last 3 Months or Most Recently Relevant to Health Maintenance Results * HEPATITIS C ANTIBODY (01/20/2025) Blood BLOOD SPECIMEN / Unknown Sriram Tray DO LAB - CHEMISTRY ORDERABLES Final Result OTHER LAB from Last 3 Months or Most Recently Relevant to Health Maintenance Insurance MEDICARE [employer] Care Teams Classification Inspector Relationship Specialty Start Date End Date Camryn Chao DO [address] [place] [address] PCP - General Family Medicine 01/15/25
[2025-04-27 10:08] LABS: Hematocrit 40.7 % (37.0-47.0); Hemoglobin 13.3 g/dL (12.0-15.0); Mean Corpuscular HGB Conc 32.7 g/dl (32-36); Mean Corpuscular Hemoglobin 29.9 pg (26-34); Mean Corpuscular Volume 91.5 fl (80-100); Platelet Count Result 344 k/mm3 (150-375); Red Blood Count 4.45 M/mm3 (4.2-5.4); White Blood Count 8.1 K/mm3 (4.5-10.0)
[2025-04-27 10:23] LABS: Albumin Level 4.6 g/dL (3.5-5.1); Anion Gap 11 mmol/L (4-12); Blood Urea Nitrogen 50 mg/dL (7-17); Calcium 10.1 mg/dL (8.4-10.2); Carbon Dioxide 27 mmol/L (22-30); Chloride 99 mmol/L (98-107); Estimated Glomerular Filt Rate 24; Glucose 168 mg/dL (65-110); Potassium 4.3 mmol/L (3.4-5.0); Sodium 137 mmol/L (137-145)
[2025-04-27 10:38] LABS: Total Protein Urine Random 11 mg/dL; Ur Ttl Prot Creatinine Ratio 0.18 mg/mg (0-0.20)
[2025-04-27 10:44] LABS: Parathyroid Intact 14.9 pg/mL (14.5-75.2)
[2025-04-29 03:28] LABS: Prolactin. 5.4 ng/mL
== END 2025-04-27 09:27 | disposition home or self-care (01) ==
PROVIDERS: PCP Family Medicine; Visit Provider Internal Medicine Nephrology
DX: N64.52 Nipple discharge (principal); I12.9 Hypertensive chronic kidney disease with stage 1 through stage 4 chronic kidney disease, or unspecified chronic kidney disease; N18.4 Chronic kidney disease, stage 4 (severe)
CPT/HCPCS: 36415; 80069; 82570; 83970; 84146; 84156; 85027

== ENCOUNTER 2025-05-16 09:26 | Emergency (ER) | payer MEDICARE, OTHER, SELFPAY ==
--- OUTSIDE RECORDS SUMMARY | 2025-05-16 09:29 | XMS_ITS | Continuity of Care Document ---
Author Organization [facility] Address [address] [facility] [address] [place] [address] Phone Care Team Providers Care Sewage Disposal Worker Name Role Phone Lio Maharaj Unavailable Unavailable Procedures Procedure Date Office/outpatient Visit, Est Office/outpatient Visit, Est Eye Exam & Treatment Advance Directives Directive Yes / No Effective Date File Name No Information Encounters Encounter Description Practice Location Reason(s) For Visit Diagnoses Date Provider Providers Copied on Encounter Office/outpat ient Visit, [facility], [address], [place], [place], [id number], [place] tel:[phone] [facility] No Information 4-201 0 Krishnasamy Lio. [address] [address], [place], [place], [facility], [place]. tel:[phone] Office/outpat ient Visit, [facility], [address], [place], [place], [id number], [place] tel:[phone] [facility] No Information 5-200 9 Krishnasamy Lio. [address] [facility] [address], [place], [address], [place]. tel:[phone] [facility], [address], [place], [place], [id number], [place] tel:[phone] [facility] No Information Dec- 0-200 8 Carol Ann Vaca. [address], [address], [place]. tel:[phone] Family History Family Member Type Diagnosis Age [...]
--- OUTSIDE RECORDS SUMMARY | 2025-05-16 09:29 | XMS_ITS | Clinical Summary ---
Author Organization [facility] [address] Address [address] [place] [address] Care Team Providers Care Board Certified Music Therapist Name Role Phone ChaoCamryn dahl Terra MARUO Primary Care Provider + Lucy Metcalf MD Unavailable Cortez Huerta MD Unavailable [phone] Soha Vega MD Unavailable Allergies Active Allergy [...] mcg total) by mouth every evening Active kxzij-K-xmcqcaki idase (BEANO ORAL) Take 1 tablet by [...] severe 09/04/2023 Coronary artery disease invo lving nikolski coronary artery of nikolski heart without angina pectoris 08/28/2023 Left carotid bruit 05/07/2020 Nonrheumatic aortic valve stenosis 05/07/2020 Renal artery stenosis 02/12/2020 Chronic kidney disease 07/25/2019 Family history of coronary artery disease 2018 AV block 07/25/2019 Frequent PVCs 07/25/2019 Hypertension associated with diabetes 07/25/2019 Hyperlipidemia associated with type 2 diabetes m will 07/25/2019 Encounters Date Type Department Care Team Description 03/19/2025 8:00 AM CDT Office Visit [facility] ENT [id number] [facility] Medical Office Building [address] [place] [address] Jessica Roberto MD Obstructive sleep apnea (adult) (pediatric) (Primary Dx); Intolerance of continuous positive airway pressure (CPAP) ventilation 03/11/2025 7:45 AM CDT Ancillary Procedure [facility] Cardiology [address] [place] [address] Coronary artery disease involving nikolski coronary artery of nikolski heart without angina pectoris; Atypical chest pain 03/11/2025 Results Follow-Up [facility] Cardiology at [address] [place] [id number] Lucy Metcalf MD NM MPI SPECT (Rest and/or Stress) Multiple Studies 03/10/2025 1:15 PM CDT Office Visit [facility] Cardiology at [address] [place] [address] Lucy Metcalf MD Hypertension associated with diabetes (HCC) (Primary Dx); Hyperlipidemia associated with type 2 diabetes mellitus ([facility]); Frequent PVCs; Status post aortic valve replacement; Chronic diastolic congestive heart failure (HCC); Coronary artery disease involving nikolski coronary artery of nikolski heart without angina pectoris; Atypical chest pain; Severe obesity (HCC) 02/24/2025 Telephone [facility] Otolaryngology [address] [place] [address] Nelly Rockwell MS from Last [...] History Date Comments Hypertension Hyperlipidemia Diabetes mellitus ([facility]) Osteoarthritis Cataract Anemia WPW (Symnp-Txfjvrqck-Xjeen syndrome) GERD (gastroesophageal reflu x disease) Vertigo Aortic stenosis CKD (chronic kidney disease) stage 3, GFR 30-59 ml/min ([facility]) baseline creat 1.3-1.4 Coronary artery disease Neuromuscular disorder ([facility]) Degenerativ e disc disease, Neuropathy. Sleep apnea Heart disease CHF (congestive heart failur e) ([facility]) early 2023 Family History Medical History Relation Name Comments No Known Problems Brother 1 No Known Problems Brother 2 Bladder Cancer Father 90 Cancer Father 90 Heart attack Father 90 Hypertension Father 90 Heart attack Mother 76 fatal [place] Sudden Mother 76 COPD Sister 64 Relation [...] materials from doctor or pharmacy Never 10/09/2023 [facility] Utilities Answer Date Recorded In the past 12 months has [employer], oil, or water [employer] threatened to shut off services in your [...] any clubs o r organizations such as spiritism groups, unions, fraternal or athletic groups, or [...] place to sleep or slept in a jail (including now)? No 09/06/2023 Personal Safety Answer Date Recorded Have you ever been in or are you currently in a harmful physical or emotional relationship or is someone making you feel afraid or unsafe? Denies 09/04/2023 Comments No Sex and Gender Information Value Date Recorded Sex Assigned at Not on file Legal Sex Female 9:23 AM COFOUNDER Gender Identity Not on file Sexual Orientation Not on file Obstetrics History Last Filed Vital Signs Vital Sign Reading Time Taken Comments Blood Pressure 124/69 03/19/2025 8:00 AM CDT Pulse 79 03/10/2025 1:18 PM CDT Temperature 36.7 C (98 F) 10/09/2023 11:29 AM COFOUNDER Respiratory Rate 18 10/10/2023 9:21 AM COFOUNDER Oxygen Saturation 95% 03/10/2025 1:18 PM CDT Inhaled Oxygen Concentration - - Weight 95.4 kg (210 lb 6.4 oz) 03/19/2025 8:00 A M CDT Height 162.6 cm (5' 4) 03/19/2025 8:00 AM CDT Body Mass Index 36.12 03/19/2025 8:00 AM CDT Plan of Treatment Upcoming Encounters Date Type Department Care Team (Latest Contact Info) Description 06/02/2025 7:30 AM CDT Hospital Encounter [facility] Operating Room [address] [place] [address] [place] [address] [address] 06/02/2025 7:30 AM CDT - 06/02/2025 8:00 AM CDT Surgery [facility] Operating Room [address] [place] [address] [place] [address] [id number] DRUG INDUCED SLEEP ENDOSCOPY/15min Scheduled Procedures Name [...] 07/18/2016, 06/15/2016 Medical Devices Implanted Type Area Asphalt Surface Heater Operator Device Identifier Shelf Expiration Date Model / Serial / Lot Lux Lif[employer]iences Inspiris Resilia Leaflet Aortic Valve 23mm [id number] - [id number] - [id number] Implanted:Qty: 1 on 09/04/2023 by Cortez Huerta MD at [facility] Prosthetic Valve N/A: Aortic Valve [employer] 04/29/2027 [id number] / [id number] / Giang V[employer] Device Clsr Perclose Prostyle Sut-Mediatd Closure-Repair Sys [id number] - S0 - [id number] Implanted:Qty: 1 on 08/01/2023 by Alireza Negron MD at [facility] Vascular Closure Device [employer] 04/20/2025 [id number] / 0 / [id number] Bard Peripheral Vascular Bard .25x.25in Cawood Thk1.65mm Square Pledget Cardiovascular Ptfe [id number] - [id number] Implanted:Qty: 1 on 09/04/2023 by Cortez Huerta MD at [facility] N/A: Chest Bard Peripheral Vascular [id number] / / [employer] Device Closure Fibertape Sternal Cerclage Blunt Needle Ar-7289 - [id number] Implanted:Qty: 1 on 09/04/2023 by Cortez Huerta MD at [facility] N/A: Sternum [employer] 05/21/2028 AR-7289 / / [id number] [employer] Device Closure Fibertape Sternal Cerclage Blunt Needle Ar-7289 - [id number] Implanted:Qty: 1 on 09/04/2023 by Cortez Huerta MD at [facility] N/A: Sternum [employer] 09/20/2026 AR-7289 / / [id number] Procedures Procedure Name Priority Date/Time Associated Diagnosis Comments NM MPI SPECT (REST AND/OR STRESS) MULTIPLE STUDIES Schedule Routine, Read Routine (OP Routine) 03/11/2025 9:33 AM CDT Coronary artery disease involving nikolski coronary artery of nikolski heart without angina pectoris Atypical chest pain POCT LIPID PANEL Routine 03/10/2025 1:09 PM CDT Hyperlipidemia associated with type 2 diabetes mellitus (HCC) Coronary artery disease involving nikolski coronary artery of nikolski heart without angina pectoris BASIC METABOLIC PANEL Routine 04/08/2024 Hypertension associated with diabetes (HCC) HEMOGLOBIN A1C STAT 09/04/2023 9:48 AM COFOUNDER from Last 3 Months or Most Recently Relevant to Health Maintenance Results * NM MPI SPECT (Rest and/or Stress) Multiple Studies (03/11/2025 9:33 AM CDT) Anatomical Region Laterality Modality Body N/A Nuclear Medicine 03/11/2025 8:24 AM CDT Narrative 03/11/2025 1:49 PM CDT [facility] Cardiology [address] [facility] [address], [place] [address] [address] [facility] [address], [place] [address] P:[phone] P:[phone] MPI Imaging Report Patient Name: JULY MARS : 1960 Study Date: 03/11/2025 8:24:32 AM Gender: F Tech: LUCIE HARPER Location: [facility] Provider: LUCY METCALF Height(Cm): 162.6 BSA: [...] Cholesterol, PVC's, I25.10 Atherosclerotic heart disease of nikolski coronary artery without angina pectoris, and R07.89 [...] SPECT. Electronically Signed By: Darion Cuba MD, [facility] 03/11/2025 11:49:45 AM CDT Electronically Signed By: Geo Potter MD, [facility] 03/11/2025 1:10:26 PM CDT Procedure Note Geo Potter MD - 03/11/2025 [facility] Cardiology [address] [facility] [address], [place] [address] [address] [facility] [address], [place] [address] P:[phone] P:[phone] MPI Imaging Report Patient Name: JULY MARS : 1960 Study Date: 03/11/2025 8:24:32 AM Gender: F Tech: [facility] Location: [facility] Provider: LUCY METCALF Height(Cm): 162.6 BSA: [...] High Cholesterol, PVC's, I25.10Atherosclerotic heart disease of nikolski coronary artery without angina pectoris, andR07.89 Other [...] withSPECT. Electronically Signed By: Darion Cuba MD, [facility] 03/11/2025 11:49:45 AM CDT Electronically Signed By: Geo Potter MD, [facility] 03/11/2025 1:10:26 PM CDT Lucy Metcalf MD [...] LAB SCRIBED eGFR in NonAfrican Citizen Of [place] 30 > or = 60 EXTERNAL LAB Blood 04/08/2024 us Lucy Metcalf MD LAB BLOOD ORDERABLES Ashley l Result EXTERNAL LAB * (ABNORMAL) Hemoglobin A1c (09/04/2023 9:48 AM COFOUNDER) Hgb A1C 9.2(H) 4.0 - 5.6 % [facility] Estimated Average Glucose 217 mg/dL [facility] Comment: The ADA recommends reporting an estimated Average Glucose (eAG) with all Hemoglobin A1c results using the equation derived from a study of 507 normal and diabetic adults. Minority populations were underrepresented and children were not included. (Diabetes Care 31:8415-8559, 2008). The eAG is not equivalent to a fasting glucose. Blood 09/04/2023 9:48 AM COFOUNDER 09/04/2023 9:59 AM COFOUNDER Terra Gilmore NP LAB BLOOD ORDERABLES Final Resul t [facility] Omar Barber Department [place] [address] from Last 3 Months or Most Recently Relevant to Health Maintenance Insurance [facility] MEDICARE PHYSICIANS [facility] [place] MEDICARE PHYSICIANS [facility] [place] Advance Directives For more information, please contact: [phone] * Full Code (Latest Code Status on File) Date Activated Date Inactivated Comments 09/04/2023 2:59 PM 09/09/2023 3:12 PM Care Teams Board Certified Music Therapist Relationship Specialty Start Date End Date Camryn Chao DO PCP - General Family Medicine 01/18/23 Lucy Metcalf MD [address] [place] [id number] Referring Physician Cardiology 08/02/23 Cortez Huerta MD [address] [place] [address] Consulting Physician Cardiothoracic Surgery 08/02/23 Soha Vega MD [facility] [address] [place] [address] Endocrinology Diabetes & Metabolism 09/08/23
--- OUTSIDE RECORDS SUMMARY | 2025-05-16 09:29 | XMS_ITS | Clinical Summary ---
Author Organization [facility] Address [address] [place] [address] Phone Care Team Providers Care Office Machine Service Supervisor Name Role Phone Carlos Alberto Oneil Primary Care Provider [phone] Allergies Active Allergy Reactions Criticality Noted Date [...] , 07/20/2020, 08/11/2019, Additional history exists Insurance [facility] Care Teams Office Machine Service Supervisor Relationship Specialty Start Date End Date Carlos Alberto Oneil [address] [place] [address] PCP - General 04/26/22
--- OUTSIDE RECORDS SUMMARY | 2025-05-16 09:29 | XMS_ITS | Clinical Summary ---
Author Organization [facility] Address [address] [place] [address] Care Team Providers Care Book Retailer Name Role Phone Glen Banks MD Primary [...] 07/20/2020, 08/11/2019, Additional history exists Insurance CHOICE [id number] Care Teams Book Retailer Relationship Specialty Start Date End Date Glen Banks MD [address] [place] [id number] PCP - General Family Practice 04/06/22
--- OUTSIDE RECORDS SUMMARY | 2025-05-16 09:29 | XMS_ITS | Encounter Summary ---
Author Organization [facility] Address [address] [place] [address] Care Team Providers Care Training Developer Name Role Phone Camryn Chao DO Primary Care Provider [phone] Encounter Details Date Type Department Care Team (Late st Contact Info) Description 04/20/2025 Results Follow-Up [facility] Medical [facility] - Rheumatology [address] [facility] [facility] [facility], [address] [place] [address] Sriram Feliz DO [address] [facility] [facility] [facility] [address] [place] [address] Social History Tobacco Use Types [...] on filedocumented in this encounter Care Teams Training Developer Relationship Specialty Start Date End Date Camryn Chao DO [address] [place] [address] PCP - General Family Medicine 01/15/25 documented as of this encounter
--- OUTSIDE RECORDS SUMMARY | 2025-05-16 09:29 | XMS_ITS | Clinical Summary ---
Author Organization [facility] [employer] Address [address] [place] [address] Care Team Providers Care Physical Science Technician Name Role Phone Chao Camryn Juan MAURO Primary Care Provider [phone] Source Comments [facility] [employer],non-owned Affiliates and Associated Physician Practices is amultiple site organization consisting of ambulatory clinics and hospital sitesin [place], [place], [place] and [place]. This disclosure is being madepursuant to the Care Everywhere program and may not contain all information available regarding this patient. Last updated 18.[facility] [employer] Allergies Active Allergy Reactions Criticality Noted Date [...] Active vitamine D3 (Cholecalciferol ) 250 MCG (52830 UT) capsule Take 1 (one) capsule by [...] Department Care Team Description 04/20/2025 Results Follow-Up [facility] - Rheumatology [address] [facility], [address] [place] [address] Sriram Feliz DO from Last 3 Months Social History Tobacco [...] - season) 2024 12/28/2020 INFLUENZA VACCINE (#1) 2025 , 07/20/2020, 08/11/2019, Additional history exists DEPRESSION SCREENING [...] Relevant to Health Maintenance Insurance MEDICARE [employer]ANS [place] Care Teams Physical Science Technician Relationship Specialty Start Date End Date Camryn Chao DO [address] [place] [address] PCP - General Family Medicine 01/15/25
--- OUTSIDE RECORDS SUMMARY | 2025-05-16 09:29 | XMS_ITS | Referral Summary ---
Author Organization [facility] [address] [facility] [address] Address [address] [place] [address] Care Team Providers Care Continuous Yarn Dyeing Machine Operator Name Role Phone Camryn Chao Primary Care Provider + Lucy Metcalf MD Unavailable Cortez Huerta MD Unavailable Soha Vega MD Unavailable [phone] Encounters Date Type Department Care Team Description 03/19/2025 8:00 AM CDT Office Visit [facility]) - [facility] E[facility] [address] [facility] [address] [place] [address] Jessica Roberto MD Obstructive sleep apnea (adult) (pediatric) (Primary Dx); Intolerance of continuous positive airway pressure (CPAP) ventilation 03/11/2025 Results Follow-Up [facility] Cardiology at [address] [place] [address] Lucy Metcalf MD NM MPI SPECT (Rest and/or Stress) Multiple Studies 03/11/2025 7:45 AM CDT Ancillary Procedure [facility] Cardiology [address] [place] [address] Coronary artery disease involving upper mattaponi coronary artery of upper mattaponi heart without angina pectoris; Atypical chest pain 03/10/2025 1:15 PM CDT Office Visit [facility] Cardiology at [address] [place] [address] Lucy Metcalf MD Hypertension associated with diabetes (HCC) (Primary Dx); Hyperlipidemia associated with type 2 diabetes mellitus (HCC); Frequent PVCs; Status post aortic valve replacement; Chronic diastolic congestive heart failure (HCC); Coronary artery disease involving upper mattaponi coronary artery of upper mattaponi heart without angina pectoris; Atypical chest pain; Severe obesity (HCC) 02/24/2025 Telephone [facility] Otolaryngology [address] [place] [address] Nelly Rockwell MS from Last [...] mcg total) by mouth every evening Active piqwv-F-cxbinvlm idase (BEANO ORAL) Take 1 tablet by [...] severe 09/04/2023 Coronary artery disease invo lving upper mattaponi coronary artery of upper mattaponi heart without angina pectoris 08/28/2023 Left carotid [...] from doctor or pharmacy Never 10/09/2023 [facility] Utilities Answer Date Recorded In the past 12 months has th e [employer], gas, oil, or water company threatened to [...] any clubs o r organizations such as yarsanism groups, unions, fraternal or athletic groups, or [...] on file Legal Sex Female 9:23 AM DISCOVERY MANAGER Gender Identity Not on file Sexual Orientation Not on file Last Filed Vital Signs Vital Sign Reading Time Taken Comments Blood Pressure 124/69 03/19/2025 8:00 AM CDT Pulse 79 03/10/2025 1:18 PM CDT Temperature 36.7 C (98 F) 10/09/2023 11:29 AM DISCOVERY MANAGER Respiratory Rate 18 10/10/2023 9:21 AM DISCOVERY MANAGER Oxygen Saturation 95% 03/10/2025 1:18 PM CDT Inhaled Oxygen Concentration - - Weight 95.4 kg (210 lb 6.4 oz) 03/19/2025 8:00 A M CDT Height 162.6 cm (5' 4) 03/19/2025 8:00 AM CDT Body Mass Index 36.12 03/19/2025 8:00 AM CDT Plan of Treatment Upcoming Encounters Date Type Department Care Team (Latest Contact Info) Description 06/02/2025 7:30 AM CDT Hospital Encounter [facility] Operating Room [address] [place] [address] [place] [address] [address] 06/02/2025 7:30 AM CDT - 06/02/2025 8:00 AM CDT Surgery [facility] Operating Room [address] [place] [address] [place] [address] [address] DRUG INDUCED SLEEP ENDOSCOPY/15min Scheduled Procedures Name Priority Associated Diagnoses Date/Ti me DRUG INDUCED SLEEP ENDOSCOPY EVAL FLEX DIAG Obstructive sleep apnea 06/02/2025 7:30 AM CDT Medical Devices Implanted Type Area Natural Gas Plant Technician Device Identifier Shelf Expiration Date Model / Serial / Lot [employer] Inspiris Resilia Leaflet Aortic Valve 23mm [id number] - [id number] - [id number] Implanted:Qty: 1 on 09/04/2023 by Cortez Huerta MD at [facility] Prosthetic Valve N/A: Aortic Valve [employer] 04/29/2027 [id number] / [id number] / [employer] V[employer] Device Clsr Perclose Prostyle Sut-Mediatd Closure-Repair Sys [id number] - S0 - [id number] Implanted:Qty: 1 on 08/01/2023 by Alireza Negron MD at [facility] Vascular Closure Device [employer] 04/20/2025 [id number] / 0 / [id number] Bard Peripheral Vascular Bard .25x.25in Et[place] Thk1.65mm Square [employer] Cardiovascular Ptfe [id number] - [id number] Implanted:Qty: 1 on 09/04/2023 by Cortez Huerta MD at [facility] N/A: Chest Bard Peripheral Vascular [id number] / / [employer] Device Closure Fibertape Sternal Cerclage Blunt Needle Ar-[id number] - [id number] Implanted:Qty: 1 on 09/04/2023 by Cortez Huerta MD at [facility] N/A: Sternum [employer] 05/21/2028 AR-7289 / / [id number] [employer] Device Closure Fibertape Sternal Cerclage Blunt Needle Ar-7289 - [id number] Implanted:Qty: 1 on 09/04/2023 by Cortez Huerta MD at [facility] N/A: Sternum [employer] 09/20/2026 AR-7289 / / [id number] Procedures Procedure Name Priority Date/Time Associated Diagnosis Comments NM MPI SPECT (REST AND/OR STRESS) MULTIPLE STUDIES Schedule Routine, Read Routine (OP Routine) 03/11/2025 9:33 AM CDT Coronary artery disease involving upper mattaponi coronary artery of upper mattaponi heart without angina pectoris Atypical chest pain POCT LIPID PANEL Routine 03/10/2025 1:09 PM CDT Hyperlipidemia associated with type 2 diabetes mellitus (HCC) Coronary artery disease involving upper mattaponi coronary artery of upper mattaponi heart without angina pectoris BASIC METABOLIC PANEL Routine 04/08/2024 Hypertension associated with diabetes (HCC) HEMOGLOBIN A1C STAT 09/04/2023 9:48 AM DISCOVERY MANAGER from Last 3 Months or Most Recently Relevant to Health Maintenance Results * NM MPI SPECT (Rest and/or Stress) Multiple Studies (03/11/2025 9:33 AM CDT) Anatomical Region Laterality Modality Body N/A Nuclear Medicine 03/11/2025 8:24 AM CDT Narrative 03/11/2025 1:49 PM CDT [facility] [address] [facility] [address], [place] [address] [address] [facility] [address], [place] [address] P:[phone] P:[phone] MPI Imaging Report Patient Name: JULY MARS : 1960 Study Date: 03/11/2025 8:24:32 AM Gender: F Tech: [facility] Location: [facility] Provider: LUCY METCALF Height(Cm): 162.6 BSA: [...] Cholesterol, PVC's, I25.10 Atherosclerotic heart disease of upper mattaponi coronary artery without angina pectoris, and R07.89 [...] SPECT. Electronically Signed By: Darion Cuba MD, [facility] 03/11/2025 11:49:45 AM CDT Electronically Signed By: Geo Potter MD, [facility] 03/11/2025 1:10:26 PM CDT Procedure Note Geo Potter MD - 03/11/2025 [facility] [address] [facility] [address] [address] [address] [facility] [address], [place] [address] P:[phone] P:[phone] MPI Imaging Report Patient Name: JULY MARS : 1960 Study Date: 03/11/2025 8:24:32 AM Gender: F Tech: [facility] Location: [facility] Provider: LUCY METCALF Height(Cm): 162.6 BSA: [...] High Cholesterol, PVC's, I25.10Atherosclerotic heart disease of upper mattaponi coronary artery without angina pectoris, andR07.89 Other [...] withSPECT. Electronically Signed By: Darion Cuba MD, [facility] 03/11/2025 11:49:45 AM CDT Electronically Signed By: Geo Potter MD, [facility] 03/11/2025 1:10:26 PM CDT Lucy Metcalf MD IMG NM PROCEDURES Final R esult * (ABNORMAL) POCT lipid panel (03/10/2025 1:09 PM CDT) [facility] Cholesterol, POC 145 <200 MG/DL HDL, POC [...] Result * (ABNORMAL) Basic metabolic panel (04/08/2024) [facility] SCRIBED Sodium 140 137 - 145 [...] N/A EXTERNAL LAB SCRIBED eGFR in NonAfrican Cape Verdean 30 > or = 60 EXTERNAL LAB Blood 04/08/2024 Lucy Metcalf MD LAB BLOOD ORDERABLES Ashley black Result EXTERNAL LAB * (ABNORMAL) Hemoglobin A1c (09/04/2023 9:48 AM DISCOVERY MANAGER) Hgb A1C 9.2(H) 4.0 - 5.6 % [facility] Estimated Average Glucose 217 mg/dL [facility] Comment: The ADA recommends reporting an estimated Average Glucose (eAG) with all Hemoglobin A1c results using the equation derived from a study of 507 normal and diabetic adults. Minority populations were underrepresented and children were not included. (Diabetes Care 31:6426-8301, 2008). The eAG is not equivalent to a fasting glucose. Blood 09/04/2023 9:48 AM DISCOVERY MANAGER 09/04/2023 9:59 AM DISCOVERY MANAGER Terra Gilmore NP LAB BLOOD ORDERABLES Final Resul t [facility] [address] Department [place] [address] from Last 3 Months or Most Recently Relevant to Health Maintenance Insurance [facility] MEDICARE [facility] Address: [address] [address] [facility] [address] [place] MEDICARE PHYSICI[employer] Advance Directives For more information, please contact: [phone] * Full Code (Latest Code Status on File) Date Activated Date Inactivated Comments 09/04/2023 2:59 PM 09/09/2023 3:12 PM Care Teams Continuous Yarn Dyeing Machine Operator Relationship Specialty Start Date End Date Camryn Chao DO PCP - General Family Medicine 01/18/23 Lucy Metcalf MD [address] [facility] [address] [facility] [place] [address] Referring Physician Cardiology 08/02/23 Cortez Huerta MD [address] [facility] [address] [place] [address] Consulting Physician Cardiothoracic Surgery 08/02/23 Soha Vega MD [facility] [facility] [address] [place] [address] Endocrinology Diabetes & Metabolism 09/08/23
--- OUTSIDE RECORDS SUMMARY | 2025-05-16 09:35 | XMS_ITS | Continuity of Care Document ---
Author Organization [facility] Address [address] [facility] [address] [place] [address] Phone Care Team Providers Care End Maker Name Role Phone Lio Maharaj Unavailable Unavailable Procedures Procedure Date Office/outpatient Visit, Est Office/outpatient Visit, Est Eye Exam & Treatment Advance Directives Directive Yes / No Effective Date File Name No Information Encounters Encounter Description Practice Location Reason(s) For Visit Diagnoses Date Provider Providers Copied on Encounter Office/outpat ient Visit, [facility] [address], [place], [place], [id number], [place] tel:[phone] [facility] No Information 4-201 0 Krishnasamy Lio. [address] [address], [place], [place], [facility], [place]. tel:[phone] Office/outpat ient Visit, [facility], [address], [place], [place], [id number], [place] tel:[phone] [facility] No Information 5-200 9 Krishnasamy Lio. [address] [facility] [address], [place], [address], [place]. tel:[phone] [facility], [address], [place], [place], [id number], [place] tel:[phone] [facility] No Information Dec- 0-200 8 Carol Ann Vaca. [address] [employer] [address], [address], [place]. tel:[phone] Family History Family Member Type Diagnosis Age [...]
[2025-05-16 09:36] VITALS: BP 152/89; PULSE 77; RESP 20; TEMP 36.6; O2SAT 97
--- NOTE | 2025-05-16 09:52 | ED_ITS ---
HPI - URI/Sore Throat General Chief Complaint: Upper Respiratory Infection Stated Complaint: throat/aches/left shoulder Patient presents here present care with complaints of sore throat, ear pain, mild nasal congestion and left shoulder pain that began over the last few days. Shoulder pain related to starting yoga, noted this pain is to the front of the shoulder occasionally has pain that shoots down. Improved with Tylenol. Unable to take anti-inflammatories. Has also tried topical icy hot with minimal relief of symptoms. 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 Patient has used some [id number] allergy type medication with some relief of symptoms. Denies fever, chills, aches, dizziness, drainage from ears, difficulty swallowing. Related Data Home Medications ?Medication ?Instructions ?Recorded ?Confirmed ?Last Taken ?Type acetaminophen 650 mg 650 mg PO Q8H PRN Pain 07/06/20 05/16/25 07/12/23 History tablet,extended release (Tylenol Arthritis Pain) mecobalamin (vitamin B12) 1,000 1,000 mcg PO DAILY 11/01/22 04/15/25 07/11/23 History mcg chewable tablet atorvastatin 80 mg tablet 80 mg PO QHS 09/20/23 05/16/25 Unknown History omeprazole 20 mg capsule,delayed 20 mg PO DAILY 09/20/23 04/15/25 Unknown History release furosemide 20 mg tablet 20 mg PO QAM 12/04/23 05/16/25 Unknown History metoprolol tartrate 50 mg tablet 100 mg PO BID 06/03/24 04/15/25 Unknown History semaglutide 2 mg/dose (8 mg/3 mL) 2 mg subcut WEEKLY 10/02/24 05/16/25 Unknown History subcutaneous pen injector (Ozempic) insulin lispro 100 unit/mL 10 unit subcut USEASDIRECTD 10/13/24 05/16/25 Unknown History subcutaneous pen blood-glucose sensor (FreeStyle 11/19/24 04/15/25 Unknown History Luba 3 Plus Sensor device) Turmeric Glucosamine with Annemarie See Rx Instructions PO .COMPLEX 04/15/25 04/15/25 Unknown History cholecalciferol (vitamin D3) 25 1,000 unit PO DAILY 04/15/25 04/15/25 Unknown History mcg (1,000 unit) tablet ferrous gluconate 225 mg (27 mg 27 mg PO TID 04/15/25 04/15/25 Unknown History iron) tablet hydroxyzine HCl 50 mg tablet 50 mg PO ONCE PRN Itching 04/15/25 04/15/25 Unknown History insulin glargine 100 unit/mL (3 35 unit subcut QAM 04/15/25 05/16/25 Unknown History mL) subcutaneous pen (Lantus Solostar U-100 Insulin) magnesium 250 mg tablet 250 mg PO QHS 04/15/25 04/15/25 Unknown History irbesartan 150 mg tablet 150 mg PO DAILY 04/28/25 Unknown History Allergies Allergy/AdvReac Type Severity Reaction Status Date / Time amoxicillin Allergy Unknown Rash Verified 05/16/25 09:43 diclofenac Allergy Unknown LIP Verified 05/16/25 09:43 SWELLING dicloxacillin Allergy Unknown lips swell Verified 05/16/25 09:43 lisinopril Allergy Unknown Cough Verified 05/16/25 09:43 naproxen Allergy Unknown LIP Verified 05/16/25 09:43 SWELLING Penicillins Allergy Unknown HIVES Verified 05/16/25 09:43 piroxicam (Feldene) Allergy Unknown lips swell Verified 05/16/25 09:43 Review of Systems Constitutional: Constitutional: Reports as per HPI, Denies chills, Denies fatigue, Denies fever(s) and Denies weakness Eyes: Eyes: Reports no additional eye complaints ENT: Reports as per HPI, Denies vertigo, Denies dizziness, Reports nasal congestion and Reports sore throat Comments: ear pain Cardiovascular: Cardiovascular: Reports no additional cardiovascular complaints Respiratory: Respiratory: Reports no additional respiratory complaints Gastrointestinal: Gastrointestinal: Reports no additional gastrointestinal complaints Genitourinary: Genitourinary: Reports no additional female genitourinary complaints Musculoskeletal: Musculoskeletal: Reports as per HPI, Reports arthralgias, Denies joint swelling and Denies muscle cramps Integumentary/Breasts: Skin/Breast: Reports as per HPI, Denies pruritus, Denies erythema and Denies rash Neurologic: Reports as per HPI, Reports headache(s), Denies numbness and Denies weakness Psychiatric: Psychiatric: Reports no additional psychiatric complaints Endocrine: Endocrine: Reports no additional endocrine complaints Hematologic/Lymphatic: Hematologic/Lymphatic: Reports no additional hematologic/lymphatic complaints Allergic/Immunologic: Allergic/Immunologic: Reports as per HPI Comments: seasonal allergies PMFSH Past Medical History Medical History Hypertension Adenomatous colon polyp Vitamin B12 deficiency Chronic anemia Overactive bladder Gastroesophageal reflux disease Essential hypertension Osteoarthritis Diabetic peripheral neuropathy Nonrheumatic aortic valve stenosis Type 2 diabetes mellitus Mixed hyperlipidemia Chronic kidney disease, stage 3 Kouti-Etcjjhona-Sevgg syndrome Surgical History Surgical History H/O heart bypass surgery History of arthroscopy of left knee (01/2018) History of laparoscopic cholecystectomy (01/2009) History of hammertoe correction (08/2007) History of tubal ligation (1987) History of hysterectomy History of arthroplasty of right knee (01/2021) History of arthroplasty of left knee (08/2018) Family History Family History Father Family history of cardiovascular disease Diabetes mellitus Acute myocardial infarction Hypertension Cancer Mother Family history of cardiovascular disease Acute myocardial infarction, Onset Age: 76 Depression Family history of chronic obstructive pulmonary disease Sibling Hypertension Social History Social History Social History: Caffeine- herbal tea Surrogate medical decision maker: Maurilio Mars, spouse. Code status: Full code. Smoking status: Never smoker Second hand tobacco smoke exposure: No Alcohol intake: never Substance use: never Substance use type: does not use Do You Feel Safe in your Home?: Yes Lack of Transportation: No Lack of Food: Never True Current Housing: I Have Housing Concerned About Future Housing: No Difficulty Paying Gas/Electric Bills: No Difficulty Paying for Meds: No Currently Unemployed: No Education: Trade/Vocational Certificate Difficulty w/ Childcare or Family Care: No Living arrangements: with family Gender identity (if verbalized by the patient): Female Spiritual care concerns: No Exam Const: General: healthy appearing and no acute distress Nutritional Appearance: well nourished Orientation/consciousness: patient oriented x3 Limitations: no limitations HENMT: Head: normal to inspection Ears: external ears normal and TM's abnormal bilaterally (bulging with erythema and cloudy fluid, dullness) Face/Nose/Sinus: Normal external nose present Mouth: Yes Normal oral and palatal mucosa present Teeth and gingiva: dentition normal Throat: posterior oropharynx abnormal (moderate erythema with edema, no exudate noted ) Neck: Neck: lymphadenopathy (bilateral anterior cervical ) Resp: Effort & Inspection: normal respiratory effort Auscultation: clear to auscultation bilaterally Cardio: Rate: regular rate Rhythm: regular rhythm Skin: General skin exam: normal color Rashes: no rashes Wounds: no wounds Neuro: General: patient oriented x3 and moves all extremities Speech: normal speech Gait exam (Neuro): Normal gait present Extrem: Left upper extremity: shoulder/upper arm inspection abnormal, tenderness of the A-C joint, axillary nerve sensory function normal and abnormal ROM; inspection normal, no swelling, no abrasions, no lacerations, no ecchymosis, no crepitus, no foreign bodies, no penetrating wound, no deformity and no unsual warmth Psych: Mental Status: mental status grossly normal Affect: normal affect Attitude: cooperative Course Course Level of Care: Express Care Visit Vital Signs Vital signs: Vital Signs Temperature 97.8 F 05/16/25 09:36 Pulse Rate 77 05/16/25 09:36 Respiratory Rate 20 05/16/25 09:36 Blood Pressure 152/89 H 05/16/25 09:36 Pulse Oximetry 97 05/16/25 09:36 Oxygen Delivery Room Air 05/16/25 09:36 Temperature 97.8 F 05/16/25 09:36 Pulse Rate 77 05/16/25 09:36 Respiratory Rate 20 05/16/25 09:36 Blood Pressure 152/89 H 05/16/25 09:36 Pulse Oximetry 97 05/16/25 09:36 Oxygen Delivery Room Air 05/16/25 09:36 MDM - URI/Sore Throat MDM Narrative Medical decision making narrative: No injury to shoulder. No concern for cardiac due to correlated with starting yoga. Discharge instructions reviewed with patient, as well as provided in writing per nursing staff. The instructions also include specific and strict return/GO TO THE ER as well as f/u information. All questions have been answered, and the patient deny any further questions with discharge and discharge plan. Differential Diagnosis Differential diagnosis: Likely upper respiratory infection, croup, otitis media, sinusitis, influenza and pharyngitis Medical Records Attestation: I reviewed the patient's medical records. Discharge Plan Discharge Clinical Impression: Acute otitis media, Left shoulder pain, Sore throat Patient Disposition: Home Condition: Stable Instructions: Antibiotic Form, Pharyngitis (ED), Shoulder Sprain (ED), Earache (ED), Shoulder Pain (ED) Additional Instructions: After 24 hours on antibiotics throw tooth brush away and start using a new one. Do not share drinks. Take Tylenol for pain and fever alternating every 6 hours. Increase fluids, avoid caffeine. Follow up with Primary provider if not getting better this week Continue taking Tylenol for your shoulder pain. May add topical Voltaren gel to the area. Apply this as directed. Use muscle relaxers as needed these can make you drowsy do not drive, drink alcohol or operate heavy machinery while taking this medication. Use heat for 20 minutes then gentle stretching/ range of motion then apply ice for 20 minutes. Follow-up with primary care physician if symptoms not improving Patient Language: Danish Prescriptions: New azithromycin 250 mg tablet See Rx Instructions .ROUTE .COMPLEX Qty: 6 0RF Rx Instructions: For 250 mg dose pack: take 500 mg today (day 1), then 250 mg for 4 days (days 2-5) methocarbamol 750 mg tablet 750 mg PO TID Qty: 30 0RF No Action acetaminophen [Tylenol Arthritis Pain] 650 mg tablet extended release 650 mg PO Q8H PRN (Reason: Pain) Ozempic 2 mg/dose (8 mg/3 mL) pen injector 2 mg subcut WEEKLY vitamin B complex [B Complex-Vitamin B12] Tablet 1 tablet PO DAILY Qty: 90 3RF mecobalamin (vitamin B12) 1,000 mcg tablet,chewable 1,000 mcg PO DAILY furosemide 20 mg tablet 20 mg PO QAM atorvastatin 80 mg tablet 80 mg PO QHS omeprazole 20 mg capsule,delayed release(DR/EC) 20 mg PO DAILY metoprolol tartrate 50 mg tablet 100 mg PO BID Rx Instructions: pt. to take 100mg BID (DME) FreeStyle Luba 3 Plus Sensor Device See Rx Instructions .Route Rx Instructions: As directed cholecalciferol (vitamin D3) 25 mcg (1,000 unit) tablet 1,000 unit PO DAILY ferrous gluconate 225 mg (27 mg iron) tablet 27 mg PO TID hydroxyzine HCl 50 mg tablet 50 mg PO ONCE PRN (Reason: Itching) Patient Comments: take 4 times daily insulin glargine [Lantus Solostar U-100 Insulin] 100 unit/mL (3 mL) insulin pen 35 unit subcut QAM magnesium 250 mg tablet 250 mg PO QHS Turmeric Glucosamine with Annemarie See Rx Instructions PO .COMPLEX Patient Comments: once daily Rx Instructions: 2000 mg daily orally; (DME) CPAP mask See Rx Instructions .Route .MEDSUPPLY Qty: 1 0RF Rx Instructions: Rx: size small Resmed AirTouch FFM DME: IV & Resp Care (DME) Contour Next Test Strips Strip See Rx Instructions .Route Qty: 100 3RF Rx Instructions: Use to check BS BID Jardiance 25 mg tablet 25 mg PO QAM Qty: 90 0RF gabapentin 300 mg capsule 300 mg PO .COMPLEX Qty: 360 3RF Rx Instructions: Take 1 capsule by mouth at breakfast and lunch. Take 2 capsules by mouth at bedtime. (DME) BPAP Equipment See Rx Instructions .Route .MEDSUPPLY Qty: 1 0RF Rx Instructions: Rx: Resmed BPAP 26/20 cm H2O, size small Resmed AirTouch FFM, BPAP filters/tubing and heated humidity. Dx: G47.33 Length of Need: 99+ months DME: IV & Resp Care *Please link patient's BPAP machine to me through [facility]* spironolactone 25 mg tablet 25 mg PO DAILY Qty: 90 1RF (DME) BPAP Pressure See Rx Instructions .Route .MEDSUPPLY Qty: 1 0RF Rx Instructions: Rx: Change pressure to BPAP 20/18 cm H2O. Already changed in Resmed Airview insulin lispro 100 unit/mL insulin pen 10 unit subcut USEASDIRECTD Rx Instructions: Increase by 2U for every 50 over 150 solifenacin 5 mg tablet See Rx Instructions .ROUTE .COMPLEX Qty: 90 1RF Dose Instruction: TAKE 1 TABLET BY MOUTH DAILY Rx Instructions: TAKE 1 TABLET BY MOUTH DAILY fenofibrate micronized 134 mg capsule 134 mg PO QPM Qty: 90 1RF irbesartan 150 mg tablet 150 mg PO DAILY Follow-up/Referrals: Camryn Chao DO [Primary Care Provider] - Time of Disposition: 09:57
== END 2025-05-16 10:08 | disposition home or self-care (01) ==
PROVIDERS: Emergency Provider Nurse Practitioner Family; PCP Family Medicine
DX: H66.93 Otitis media, unspecified, bilateral (principal); J02.9 Acute pharyngitis, unspecified; M25.512 Pain in left shoulder; I12.9 Hypertensive chronic kidney disease with stage 1 through stage 4 chronic kidney disease, or unspecified chronic kidney disease; E11.22 Type 2 diabetes mellitus with diabetic chronic kidney disease; N18.30 Chronic kidney disease, stage 3 unspecified; Z79.4 Long term (current) use of insulin; Z79.84 Long term (current) use of oral hypoglycemic drugs; Z79.85 Long-term (current) use of injectable non-insulin antidiabetic drugs; K21.9 Gastro-esophageal reflux disease without esophagitis; E53.8 Deficiency of other specified B group vitamins; N32.81 Overactive bladder; M19.90 Unspecified osteoarthritis, unspecified site; E11.42 Type 2 diabetes mellitus with diabetic polyneuropathy; I35.0 Nonrheumatic aortic (valve) stenosis; E78.2 Mixed hyperlipidemia; I45.6 Pre-excitation syndrome; Z96.653 Presence of artificial knee joint, bilateral
CPT/HCPCS: 99213; G0463

== ENCOUNTER 2025-06-06 10:37 | Outpatient (CLI) | payer MEDICARE, OTHER, SELFPAY ==
--- OUTSIDE RECORDS SUMMARY | 2025-06-06 10:42 | XMS_ITS | Clinical Summary ---
Author Organization [facility] Address [address] [place] [address] Care Team Providers Care Secretary Administrative Assistant Name Role Phone Chao Camryn Juan MAURO Primary Care Provider [phone] Source Comments [facility],non-owned Affiliates and Associated Physician Practices is amultiple site organization consisting of ambulatory clinics and hospital sitesin [place], [place], [place] and [place]. This disclosure is being madepursuant to the Care Everywhere program and may not contain all information available regarding this patient. Last updated 18.[facility] Allergies Active Allergy Reactions Criticality Noted Date [...] Active vitamine D3 (Cholecalciferol ) 250 MCG (81360 UT) capsule Take 1 (one) capsule by [...] Department Care Team Description 04/20/2025 Results Follow-Up [facility] - Rheumatology [address], [address] [place] [id number] Sriram Feliz DO from Last 3 Months [...] Relevant to Health Maintenance Insurance [employer] Care Teams Secretary Administrative Assistant Relationship Specialty Start Date End Date Camryn Chao DO [address] [place] [id number] PCP - General Family Medicine 01/15/25
--- OUTSIDE RECORDS SUMMARY | 2025-06-06 10:42 | XMS_ITS | Clinical Summary ---
Author Organization [facility] [place] [address] Address [address] [place] [address] Care Team Providers Care Rn Oncology Research Name Role Phone ChaoCamryn dahl Terra MAURO Primary Care Provider + Lucy Metcalf MD Unavailable Cortez Huerta MD Unavailable Soha Vega MD Unavailable [phone] Allergies Active Allergy Reactions Criticality Noted Date Comments Diltiazem Other (See comments) Low 07/25/2019 AV block Hydralazine Joint pain Low 05/21/2025 Lisinopril Cough Low 07/07/2019 Naproxen Angioedema High 02/03/2019 Penicillin G Rash Medium 02/03/2019 Medications fenofibrate micronized (LOFIBRA) 134 mg capsule Take 1 capsule (134 mg total) by mouth bedtime 01/06/20 19 Active VESICARE 5 mg tablet Take 1 tablet (5 mg total) by mouth bedtime 01/06/20 19 Active aspirin 325 mg enteric coated tablet Take 1 tablet (325 mg total) by mouth every morning 11/13/19 19 Active ferrous gluconate (FERGON) 240 mg (27 mg of elemental iron) tabletIndicati ons:Iron Deficiency Anemia Take 1 tablet (240 mg total) by mouth 3 (three) times a day with meals Active magnesium oxide (MAG-OX) 400 mg (241.3 mg elemental magnesium) tabletIndicati ons:hypomagnes emia Take 250 mg by mouth nightly Active gabapentin (NEURONTIN) 300 mg capsule 3 (three) times a day 300mg in morning and at 2pm, 600mg at night 06/30/20 Active hydrOXYzine (ATARAX) 50 mg tablet Take 1 tablet (50 mg total) by mouth 4 (four) times a day as needed for itching Active omeprazole (PriLOSEC) 20 mg capsule Take 1 capsule (20 mg total) by mouth every morning Active vitamin b complex tablet Take 1 tablet by mouth daily Active cholecalcifero l, vitamin D3, (VITAMIN D3 ORAL) Take 1,000 Int'l Units by mouth daily Acti ve cyanocobalamin (vitamin B-12) 1,000 mcg tabletIndicati ons:Prevention of Vitamin B12 Deficiency Take 1 tablet (1,000 mcg total) by mouth every evening Active gyndq-G-rjnvqz osidase (BEANO ORAL) Take 1 tablet by mouth 2 (two) times a day Active insulin glargine (LANTUS) 100 unit/mL (3 mL) pen for injection Inject 30 Units under the skin every morning 9 mL 1 09/08/20 Active Additional Information Patient taking differently: 35 Unitssubcutaneous Every morning,This morning, 06/02/25- took 28 units, Informant: Self, Reported on 06/02/2025 pen needle, diabetic (Pen Needle) 32 gauge x 5/32 needle Use as directed once a day. 100 each 09/08/20 Active Contour Next Test Strips strip Use as directed up to four times a day. 100 each 09/08/20 Active insulin lispro (HumaLOG) 100 unit/mL [...] Scale Insulin Instructions. 30 mL 1 09/08/20 Active Additional Information Patient taking differently: 12 Unitssubcutaneous 3 times daily with meals, PLUS blood glucose mg/dL 150-199: 2 units, 200-249: 4 units, 250-299: 6 units, 300-349: 8 units, 350 or greater: 10 units. Notify provider for blood glucose greater than 299 mg/dL. Refer to After Visit Summary for Sliding Scale Insulin Instructions., Informant: Self, Reported on 06/02/2025 spironolactone (ALDACTONE) 25 mg tablet Take 1 tablet (25 mg total) by mouth every morning 09/21/20 23 Active atorvastatin (LIPITOR) 80 mg tablet TAKE 1 TABLET BY MOUTH EVERY NIGHT 90 tablet 3 07/07/20 24 Active irbesartan (AVAPRO) 75 mg tablet TAKE 1 TABLET BY MOUTH DAILY 90 tablet 3 07/07/20 24 Active Additional Information Patient taking differently:75 mg oralEvery morning, Informant: Self, Reported on 06/02/2025 metoprolol (LOPRESSOR) 100 mg tablet TAKE 1 TABLET BY MOUTH TWICE DAILY 180 tablet 3 09/01/20 24 Active furosemide (LASIX) 20 mg tabletIndicati ons:Status post aortic valve replacement Take 1 tablet (20 mg total) by mouth daily 90 tablet 1 02/14/20 25 Active Additional Information Patient taking differently:20 mg oralEvery morning, Informant: Self, Reported on 06/02/2025 UNABLE TO FIND Take 1 each by mouth daily Turmeric glucosamine with johan 2000mg Active Jardiance 25 mg tablet Take 1 tablet (25 mg total) by mouth every morning 08/22/20 23 Active Ozempic 2 mg/dose (8 mg/3 mL) pen injector injection Inject 2 mg under the skin every 7 days Q Sunday03/01/20 25 Active acetaminophen ER (TYLENOL) 650 mg 8 hr tablet Take 2 tablets (1,300 mg total) by mouth 2 (two) times a day Active acetaminophen ER (TYLENOL) 650 mg 8 hr tablet Take 1 tablet (650 mg total) by mouth every 8 (eight) hours as needed for pain 025 Disconti nued(Alt ernate therapy) Ozempic 1 mg/dose (4 mg/3 mL) pen injector injection 06/25/20 24 025 Disconti nued(Alt ernate therapy) UNABLE TO FIND Equate gas and bloating 025 Disconti nued(Alt ernate therapy) GAS RELIEF 80, SIMETHICONE, ORAL Take by mouth 025 Disconti nued(Alt ernate therapy) Active Problems Problem Noted Date Diagnosed Date [...] severe 09/04/2023 Coronary artery disease invo lving cahto coronary artery of cahto heart without angina pectoris 08/28/2023 Left carotid bruit 05/07/2020 Nonrheumatic aortic valve stenosis 05/07/2020 Renal artery stenosis 02/12/2020 Chronic kidney disease 07/25/2019 Family history of coronary artery disease 2018 AV block 07/25/2019 Frequent PVCs 07/25/2019 Hypertension associated with diabetes 07/25/2019 Hyperlipidemia associated with type 2 diabetes chelle solis 07/25/2019 Encounters Date Type Department Care Team Description 06/02/2025 7:30 AM CDT - 06/02/2025 8:00 AM CDT Surgery [facility] Operating Room [address] [place] [address] Jessica Roberto MD DRUG INDUCED SLEEP ENDOSCOPY 06/02/2025 7:26 AM CDT Anesthesia Event [facility] Operating Room [address] [place] [address] Iban Mcdonald Jr., MD Ifune, Catherine K., MD PhD 06/02/2025 5:35 AM CDT - 06/02/2025 8:52 AM CDT Hospital Encounter [facility] Operating Room [address] [place] [address] Jessica Roberto MD Obstructive sleep apnea (Primary Dx) Discharge Disposition: Discharge to home or self care 03/19/2025 8:00 AM CDT Office Visit [facility]) [facility] [address] [place] [address] Medical Office Building [address] [place] [address] Jessica Roberto MD Obstructive sleep apnea (adult) (pediatric) (Primary Dx); Intolerance of continuous positive airway pressure (CPAP) ventilation 03/11/2025 7:45 AM CDT Ancillary Procedure [facility] [address] [place] [address] Coronary artery disease involving cahto coronary artery of cahto heart without angina pectoris; Atypical chest pain 03/11/2025 Results Follow-Up [facility] at [address] [place] [address] Lucy Metcalf MD NM MPI SPECT (Rest and/or Stress) Multiple Studies 03/10/2025 1:15 PM CDT Office Visit [facility] at [address] [place] [address] Lucy Metcalf MD Hypertension associated with diabetes (HCC) (Primary Dx); Hyperlipidemia associated with type 2 diabetes mellitus ([facility]); Frequent PVCs; Status post aortic valve replacement; Chronic diastolic congestive heart failure (HCC); Coronary artery disease involving cahto coronary artery of cahto heart without angina pectoris; Atypical chest pain; Severe obesity ([facility]) from Last 3 Months Surgical History Surgery [...] History Date Comments Hypertension Hyperlipidemia Diabetes mellitus ([facility]) Osteoarthritis Cataract Anemia WPW (Kymrf-Lwbmmfdbd-Whtom syndrome) GERD (gastroesophageal reflu x disease) Vertigo Aortic stenosis CKD (chronic kidney disease) stage 3, GFR 30-59 ml/min ([facility]) baseline creat 1.3-1.4 Coronary artery disease Neuromuscular disorder Degenerative disc disease, Neuropathy. Sleep apnea Heart disease CHF (congestive heart failur e) ([facility]) early 2023 Type 2 diabetes mellitus Obstructive sleep apnea Family History Medical History Relation Name Comments No Known Problems Brother 1 No Known Problems Brother 2 Bladder Cancer Father 90 Cancer Father 90 Heart attack Father 90 Hypertension Father 90 Heart attack Mother 76 fatal DC Sudden Mother 76 COPD Sister 64 Relation [...] In the past 12 months has e iSites, oil, or water [employer] threatened to shut off services in your home? No 09/06/2023 Social Connection and Isolation Panel Answer Date Recorded In a typical week, how many times do you talk on the phone with family, friends, or neighbors? More than three times a week 09/06/2023 How often do you get togethe r with friends or relatives? More than three times a week 09/06/2023 How often do you attend chur ch or confucianism services? 1 to 4 times per year [...] , or living with a partner? 09/06/2023 Overall Financial Resource Strain (CARDIA) Answe r [...] in a detention (including now)? No 09/06/2023 AUDIT-C Answer Date Recorded Q1: How often do you have a drink containing alc ohol? Never 06/02/2025 Average Number of Drinks Not on file Frequency of Binge Drinking Not on file 05/22 Personal Safety Answer Date Recorded Have you ever been in or are you currently in a harmful physical or emotional relationship or is someone making you feel afraid or unsafe? Denies 06/02/2025 Comments No Sex and Gender Information Value Date Recorded Sex Assigned at Not on file Legal Sex Female 9:23 AM TANK BUILDER Gender Identity Not on file Sexual Orientation Not on file Obstetrics History Last Filed Vital Signs Vital Sign Reading Time Taken Comments Blood Pressure 180/76 06/02/2025 8:45 AM CDT Pulse 69 06/02/2025 8:45 AM CDT Temperature 36.6 C (97.9 F) 06/02/2025 8:25 AM CDT Respiratory Rate 18 06/02/2025 8:45 AM CDT Oxygen Saturation 99% 06/02/2025 8:45 AM CDT Inhaled Oxygen Concentration - - Weight 94.3 kg (208 lb) 06/02/2025 5:57 AM CDT Height 162.6 cm (5' 4) 06/02/2025 5:57 AM CDT Body Mass Index 35.7 06/02/2025 5:57 AM CDT Plan of Treatment Health Maintenance Due Date Last Done Comments Albumin Creatinine Ratio, Urine 1960 Breast Cancer Screening-Mammogram 1960 Colon Cancer Screening-Colonoscopy 1960 Depression Screening 1960 Hepatitis C Screening 1960 Osteoporosis Screening-Bone Density Scan 1960 Dilated Eye Exam 1960 Foot Exam 1960 Zoster Vaccine (2 of 3) 06/14/2012 04/19/2012 Pneumococcal vaccine 65+ (2 of 2 - PPSV23, PCV20, or PCV21) 09/14/2020 07/20/2020, 11/11/2014, 03/15/2010 DTaP/Tdap/Td Vaccine (2 - Td or Tdap) 04/19/2022 04/19/2012, 06/17/2002 Well Visit 65+ 2023 Hemoglobin A1C 03/04/2024 09/04/2023 eGFR 04/08/2025 04/08/2024, 09/21, 09/09/2023, Additional history exists Influenza Vaccine (#1) 2025 , 07/20/2020, 08/11/2019, Additional history exists Lipid Panel 03/10/2026 03/10/2025, 07/0 05/2024, 07/04/2023, Additional history exists Fall Risk Assessment 06/02/2026 06/02/2025 Hepatitis B Screening Completed 10/17/2016 , 07/18/2016, 06/15/2016 Medical Devices Implanted Type Area Emergency Room Physician Device Identifier Shelf Expiration Date Model / Serial / Lot [employer] Inspiris Resilia Leaflet Aortic Valve 23mm [id number] - [id number] - [id number] Implanted:Qty: 1 on 09/04/2023 by Cortez Huerta MD at [facility] Prosthetic Valve N/A: Aortic Valve [employer] 04/29/2027 [id number] / [id number] / [employer] V[employer] Device Clsr Perclose Prostyle Sut-Mediatd Closure-Repair Sys [id number] - S0 - [id number] Implanted:Qty: 1 on 08/01/2023 by Alireza Negron MD at [facility] Vascular Closure Device [employer] 04/20/2025 [id number] / 0 / [id number] Bard Peripheral Vascular Bard .25x.25in Nikolai Thk1.65mm Square [employer]ovascular Ptfe [id number] - [id number] Implanted:Qty: 1 on 09/04/2023 by Cortez Huerta MD at [facility] N/A: Chest [employer] [id number] / / [employer] Device Closure Fibertape Sternal Cerclage Blunt Needle Ar-7289 - [id number] Implanted:Qty: 1 on 09/04/2023 by Cortez Huerta MD at [facility] N/A: Sternum [employer] 05/21/2028 AR-7289 / / [id number] [employer] Device Closure Fibertape Sternal Cerclage Blunt Needle Ar-7289 - [id number] Implanted:Qty: 1 on 09/04/2023 by Cortez Huerta MD at [facility] N/A: Sternum [employer] 09/20/2026 AR-7289 / / [id number] Procedures Procedure Name Priority Date/Time Associated Diagnosis Comments POCT GLUCOSE DEVICE Routine 06/02/2025 7:43 AM CDT DRUG INDUCED SLEEP ENDOSCOPY EVAL FLEX DIAG 06/02/2025 7:26 AM CDT Obstructive sleep apnea POCT GLUCOSE DEVICE Routine 06/02/2025 5:59 AM CDT NM MPI SPECT (REST AND/OR STRESS) MULTIPLE STUDIES Schedule Routine, Read Routine (OP Routine) 03/11/2025 9:33 AM CDT Coronary artery disease involving cahto coronary artery of cahto heart without angina pectoris Atypical chest pain POCT LIPID PANEL Routine 03/10/2025 1:09 PM CDT Hyperlipidemia associated with type 2 diabetes mellitus (HCC) Coronary artery disease involving cahto coronary artery of cahto heart without angina pectoris BASIC METABOLIC PANEL Routine 04/08/2024 Hypertension associated with diabetes (HCC) HEMOGLOBIN A1C STAT 09/04/2023 9:48 AM TANK BUILDER from Last 3 Months or Most Recently Relevant to Health Maintenance Results * POCT glucose (06/02/2025 7:43 AM CDT) Glucose, POC 160 70 - 199 mg/dL Blood 06/02/2025 7:43 AM CDT 06/02/2025 7:43 AM CDT Jessica Roberto MD LAB POCT ORDERABLES - DEVICE Final Result Performing Organization Address [facility] Co de Phone Number MEGANROBINA [address] [place] [address] * POCT glucose (06/02/2025 5:59 AM CDT) Glucose, POC 179 70 - 199 mg/dL Blood 06/02/2025 5:59 AM CDT 06/02/2025 5:59 AM CDT Jessica Roberto MD LAB POCT ORDERABLES - DEVICE Final Result Performing Organization Address [facility] [place] [address] [address] [place] [address] * NM MPI SPECT (Rest and/or Stress) Multiple Studies (03/11/2025 9:33 AM CDT) Anatomical Region Laterality Modality Body N/A Nuclear Medicine 03/11/2025 8:24 AM CDT Narrative 03/11/2025 1:49 PM CDT [facility] Cardiology [address], [place] [address] [address], [place] [address] P:[phone] P:[phone] MPI Imaging Report Patient Name: JENNA MARS : 1960 Study Date: 03/11/2025 8:24:32 AM Gender: F Tech: [facility] Location: [facility] Provider: LUCY METCALF Height(Cm): 162.6 BSA: [...] Cholesterol, PVC's, I25.10 Atherosclerotic heart disease of cahto coronary artery without angina pectoris, and R07.89 [...] SPECT. Electronically Signed By: Darion Cuba MD, [facility] 03/11/2025 11:49:45 AM CDT Electronically Signed By: Geo Potter MD, [facility] 03/11/2025 1:10:26 PM CDT Procedure Note Geo Potter MD - 03/11/2025 [facility] Cardiology [address] [facility] [address], [place] [address] [address] [facility] [address] [address] P:[phone] P:[phone] MPI Imaging Report Patient Name: JENNA MARS : 1960 Study Date: 03/11/2025 8:24:32 AM Gender: F Tech: [facility] Location: [facility] Provider: LUCY METCALF Height(Cm): 162.6 BSA: Weight(Kg): 92.5 BMI: 34.99 Order Provider: LUCY METCALF PHYSICIAN: Referring Physician: Dr. Chao. HCG Physician: Alexander Metcalf M.D. Interpreting Physician: Darion Cuba M.D.,F.A.C.CPradip Stress Supervision: Geo Potter M.D., F.A.CPradipC. PROCEDURES: Pharmacologic SPECT Report: Myocardial perfusion imaging with Tc99M Sestamibi SPECT at rest and stresspost regadenoson (Lexiscan) infusion. INDICATIONS: Hypertension, Diabetes, Family Hx CAD, High Cholesterol, PVC's, I25.10Atherosclerotic heart disease of cahto coronary artery without angina pectoris, andR07.89 Other [...] withSPECT. Electronically Signed By: Darion Cuba MD, [facility] 03/11/2025 11:49:45 AM CDT Electronically Signed By: Geo Potter MD, [facility] 03/11/2025 1:10:26 PM CDT Lucy Metcalf MD [facility] [place] PROCEDURES Final R esult * (ABNORMAL) POCT lipid panel (03/10/2025 1:09 PM CDT) [facility] Signature Cholesterol, POC 145 <200 MG/DL HDL, POC [...] N/A EXTERNAL LAB SCRIBED eGFR in NonAfrican Taiwanese 30 > or = 60 EXTERNAL LAB Blood 04/08/2024 Lucy Metcalf MD LAB BLOOD ORDERABLES Ashley l Result EXTERNAL LAB * (ABNORMAL) Hemoglobin A1c (09/04/2023 9:48 AM TANK BUILDER) Hgb A1C 9.2(H) 4.0 - 5.6 % [facility] Estimated Average Glucose 217 mg/dL [facility] Comment: The ADA recommends reporting an estimated Average Glucose (eAG) with all Hemoglobin A1c results using the equation derived from a study of 507 normal and diabetic adults. Minority populations were underrepresented and children were not included. (Diabetes Care 31:2148-4084, 2008). The eAG is not equivalent to a fasting glucose. Blood 09/04/2023 9:48 AM TANK BUILDER 09/04/2023 9:59 AM TANK BUILDER Terra Gilmore NP LAB BLOOD ORDERABLES Final Resul t [facility] [address] Department [place] [address] from Last 3 Months or Most Recently Relevant to Health Maintenance Insurance [facility] MEDICARE [employer] Advance Directives For more information, please contact: [phone] * Full Code (Latest Code Status on File) Date Activated Date Inactivated Comments 09/04/2023 2:59 PM 09/09/2023 3:12 PM Care Teams Rn Oncology Research Relationship Specialty Start Date End Date Camryn Chao DO PCP - General Family Medicine 01/18/23 Lucy Metcalf MD [address] [facility] [address] [place] [address] Referring Physician Cardiology 08/02/23 Cortez Huerta MD [address] [facility] [address] [place] [address] Consulting Physician Cardiothoracic Surgery 08/02/23 Soha Vega MD [address] [facility] [place] [address] Endocrinology Diabetes & Metabolism 09/08/23
--- OUTSIDE RECORDS SUMMARY | 2025-06-06 10:42 | XMS_ITS | Clinical Summary ---
Author Organization [facility] Address [address] [place] [address] Phone Care Team Providers Care Master Chef Name Role Phone Carlos Alberto Oneil Primary Care Provider [phone] Allergies Active Allergy Reactions Criticality Noted Date [...] , 07/20/2020, 08/11/2019, Additional history exists Insurance [facility] Care Teams Master Chef Relationship Specialty Start Date End Date Carlos Alberto Oneil [address] [place] [address] PCP - General 04/26/22
--- OUTSIDE RECORDS SUMMARY | 2025-06-06 10:42 | XMS_ITS | Clinical Summary ---
Author Organization [facility] Clint [facility]ri [facility] Address [address] [place] [address] Care Team Providers Care Electric Distribution Engineer Name Role Phone Glen Banks MD Primary [...] 07/20/2020, 08/11/2019, Additional history exists Insurance CHOICE [id number] Care Teams Electric Distribution Engineer Relationship Specialty Start Date End Date Glen Banks MD [address] [id number] PCP - General Family Practice 04/06/22
--- OUTSIDE RECORDS SUMMARY | 2025-06-06 10:42 | XMS_ITS | Encounter Summary ---
Author Organization [facility] Address [address] [place] [address] Care Team Providers Care Railroad Crane Operator Name Role Phone Camryn Chao DO Primary Care Provider [phone] Encounter Details Date Type Department Care Team (Late st Contact Info) Description 04/20/2025 Results Follow-Up [facility] Medical [facility] - Rheumatology [address], [address] [place] [address] Sriram Feliz DO [address] [place] [address] Social History Tobacco Use Types [...] on filedocumented in this encounter Care Teams Railroad Crane Operator Relationship Specialty Start Date End Date Camryn Chao DO [address] [place] [address] PCP - General Family Medicine 01/15/25 documented as of this encounter
--- OUTSIDE RECORDS SUMMARY | 2025-06-06 10:42 | XMS_ITS | Continuity of Care Document ---
Author Organization [facility] Address [address] [place] [address] Phone Care Team Providers Care Camp Tender Name Role Phone Lio Maharaj Unavailable Unavailable Procedures Procedure Date Office/outpatient Visit, Est Office/outpatient Visit, Est Eye Exam & Treatment Advance Directives Directive Yes / No Effective Date File Name No Information Encounters Encounter Description Practice Location Reason(s) For Visit Diagnoses Date Provider Providers Copied on Encounter Office/outpat ient Visit, [facility], [address], [place], [place], [id number], [place] tel:[phone] [facility] No Information 4-201 0 Krishnasamy Lio. [address] [address], [place], [place], [facility], [place]. tel:[phone] Office/outpat ient Visit, [facility], [address], [place], [place], [id number], [place] tel:[phone] [facility] No Information 5-200 9 Krishnasamy Lio. [address], [place], [address], [place]. tel:[phone] [facility], [address], [place], [place], [id number], [place] tel:[phone] [facility] No Information Dec- 0-200 8 Carol Ann Vaca. [address] [email or web address] [address], [address], [place]. tel:[phone] Family History Family Member Type Diagnosis Age [...]
[2025-06-06 11:29] LABS: Alanine Aminotransferase 26 U/L (6-35); Aspartate Amino Transferase 37 U/L (14-36)
== END 2025-06-06 10:38 | disposition home or self-care (01) ==
LOC: ANHLAB 10:40
PROVIDERS: PCP Family Medicine; Visit Provider Podiatrist Foot & Ankle Surgery
DX: B35.1 Tinea unguium (principal)
CPT/HCPCS: 36415; 84450; 84460

== ENCOUNTER 2025-06-20 09:48 | Outpatient (CLI) | payer MEDICARE, OTHER, SELFPAY ==
--- OUTSIDE RECORDS SUMMARY | 2010-02-02 10:30 | XMS_ITS | Continuity of Care Document ---
Author Organization [facility] Address [address] [facility] [address] [place] [address] Phone Care Team Providers Care Associate Broker Name Role Phone Lio Maharaj Unavailable Unavailable Procedures Procedure Date Office/outpatient Visit, Est Office/outpatient Visit, Est Eye Exam & Treatment Advance Directives Directive Yes / No Effective Date File Name No Information Encounters Encounter Description Practice Location Reason(s) For Visit Diagnoses Date Provider Providers Copied on Encounter Office/outpat ient Visit, Est [facility], [address], [place], [place], [address], [place] tel:[phone] [facility] No Information 4-201 0 Krishnasamy Lio. [address] [address], [place], [place], [facility], [place]. tel:[phone] Office/outpat ient [place], [facility] [address], [place], [place], [address], [place] tel:[phone] [facility] No Information 5-200 9 Krishnasamy Lio. [address] [facility] [address], [place], [address], [place]. tel:[phone] [facility], [address], [place], [place], [address], [place] tel:[phone] [facility] No Information Dec- 0-200 8 Carol Ann Vaca. [address] [employer] [address], [address], [place]. tel:[phone] Family History Family Member Type Diagnosis Age At Onset No Information Payers Payer name Insurance type Covered green party ID Authoriza tion(s) No Information Social [...]
--- NOTE | ~2025-06-20 | XR_ITS ---
EXAMINATION: XR chest 2V, 06/20/2025 10:20 CDT HISTORY: R05.9 - Cough, unspecified COMPARISON: No comparisons available. Technique: 2 views obtained. Findings: The lungs are clear, no effusion. No pneumothorax. Heart is normal size. Mediastinal and hilar contours are within normal limits. Poststernotomy Impression: No acute cardiopulmonary abnormality. Reviewed, dictated and finalized at location A. Impression: No acute cardiopulmonary abnormality.
--- OUTSIDE RECORDS SUMMARY | 2025-06-20 09:53 | XMS_ITS | Clinical Summary ---
Author Organization [facility] Address [address] [place] [address] Care Team Providers Care Reconditioner Name Role Phone Chao Camryn Juan MAURO Primary Care Provider [phone] Source Comments [facility] [employer],non-owned Affiliates and Associated Physician Practices is amultiple site organization consisting of ambulatory clinics and hospital sitesin [place], [place], [place] and [place]. This disclosure is being madepursuant to the Care Everywhere program and may not contain all information available regarding this patient. Last updated 18.[facility] [employer] Allergies Active Allergy Reactions Criticality Noted Date [...] Active vitamine D3 (Cholecalciferol ) 250 MCG (41111 UT) capsule Take 1 (one) capsule by [...] Department Care Team Description 04/20/2025 Results Follow-Up [facility] Medical [facility] - Rheumatology [address], [address] [place] [address] Sriram Feliz DO from Last 3 Months [...] Relevant to Health Maintenance Insurance [employer] [place] Care Teams Reconditioner Relationship Specialty Start Date End Date Camryn Chao DO [address] [place] [address] PCP - General Family Medicine 01/15/25
--- OUTSIDE RECORDS SUMMARY | 2025-06-20 09:53 | XMS_ITS | Clinical Summary ---
Author Organization [facility] [place] [address] Address [address] [place] [address] Care Team Providers Care Resident Care Manager Rn Name Role Phone ChaoCamryn dahl Terra MAURO Primary Care Provider + Kevin Metcalf MD Unavailable Cortez Huerta MD Unavailable Soha Vega MD Unavailable [phone] Allergies Active Allergy Reactions Criticality Noted Date Comments Diltiazem Other (See comments) Low 07/25/2019 AV block Hydralazine Joint pain Low 05/21/2025 Lisinopril Cough Low 07/07/2019 Naproxen Angioedema High 02/03/2019 Penicillin G Rash Medium 02/03/2019 Medications fenofibrate micronized (LOFIBRA) 134 mg capsule Take 1 capsule (134 mg total) by mouth bedtime Active VESICARE 5 mg tablet Take 1 tablet (5 mg total) by mouth bedtime Active aspirin 325 mg enteric coated tablet Take 1 tablet (325 mg total) by mouth every morning 019 Active ferrous gluconate (FERGON) 240 mg (27 [...] morning and at 2pm, 600mg at night Active hydrOXYzine (ATARAX) 50 mg tablet Take [...] daily Active cyanocobalamin (vitamin B-12) 1,000 mcg tabletIndicati ons:Prevention of Vitamin B12 Deficiency Take 1 tablet (1,000 mcg total) by mouth every evening Active sibxh-V-mhdqyz osidase (BEANO ORAL) Take 1 tablet by mouth 2 (two) times a day Active insulin glargine (LANTUS) 100 unit/mL (3 mL) pen for injection Inject 30 Units under the skin every morning 9 mL 023 Active Additional Information Patient taking differently: 35 Unitssubcutaneous Every morning,This morning, 06/02/25- took 28 units, Informant: Self, Reported on 06/02/2025 pen needle, diabetic (Pen Needle) 32 gauge x 5/32 needle Use as directed once a day. 100 each 023 Active Contour Next Test Strips strip Use as directed up to four times a day. 100 each 023 Active insulin lispro (HumaLOG) 100 unit/mL pen [...] Sliding Scale Insulin Instructions. 30 mL 1 023 Active Additional Information Patient taking differently: 12 [...] (25 mg total) by mouth every morning 023 Active irbesartan (AVAPRO) 75 mg tablet TAKE 1 TABLET BY MOUTH DAILY 90 tablet 3 024 Active Additional Information Patient taking differently:75 mg oralEvery morning, Informant: Self, Reported on 06/02/2025 metoprolol (LOPRESSOR) 100 mg tablet TAKE 1 TABLET BY MOUTH TWICE DAILY 180 tablet 3 Active furosemide (LASIX) 20 mg tabletIndicati ons:Status post aortic valve replacement Take 1 tablet (20 mg total) by mouth daily 90 tablet 1 025 Active Additional Information Patient taking differently:20 mg oralEvery morning, Informant: Self, Reported on 06/02/2025 UNABLE TO FIND Take 1 each by mouth daily Turmeric glucosamine with johan 2000mg Active Jardiance 25 mg tablet Take 1 tablet (25 mg total) by mouth every morning 023 Active Ozempic 2 mg/dose (8 mg/3 mL) pen injector injection Inject 2 mg under the skin every 7 days Q Sunday 025 Active acetaminophen ER (TYLENOL) 650 mg 8 hr tablet Take 2 tablets (1,300 mg total) by mouth 2 (two) times a day Active atorvastatin (LIPITOR) 80 mg tablet TAKE 1 TABLET BY MOUTH EVERY NIGHT 90 tablet 1 025 Active atorvastatin (LIPITOR) 80 mg tablet TAKE 1 TABLET BY MOUTH EVERY NIGHT 90 tablet 3 024 2024 Discontinued Active Problems Problem Noted Date Diagnosed [...] severe 09/04/2023 Coronary artery disease invo lving tulalip coronary artery of tulalip heart without angina pectoris 08/28/2023 Left carotid [...] CDT - 06/02/2025 8:00 AM CDT Surgery [facility] Operating [facility] [address] [place] [address] Jessica Roberto MD DRUG INDUCED SLEEP ENDOSCOPY 06/02/2025 7:26 AM CDT Anesthesia Event [facility] Operating Room [address] [place] [address] Iban Mcdonald Jr., MD Ifune, Catherine K., MD PhD 06/02/2025 5:35 AM CDT - 06/02/2025 8:52 AM CDT Hospital Encounter [facility] Operating [facility] [address] [place] [address] Jessica Roberto MD Obstructive sleep apnea (Primary Dx) Discharge Disposition: Discharge to home or self care from Last 3 Months Surgical History Surgery [...] Diabetes mellitus (HCC) Osteoarthritis Cataract Anemia WPW (Bppxv-Fzvskysuu-Ggxlq syndrome) GERD (gastroesophageal reflu x disease) Vertigo Aortic stenosis CKD (chronic kidney disease) stage 3, GFR 30-59 ml/min ([facility]) baseline creat 1.3-1.4 Coronary artery disease Neuromuscular disorder Degenerative disc disease, Neuropathy. Sleep apnea Heart disease CHF (congestive heart failur e) ([facility]) early 2023 Type 2 diabetes mellitus Obstructive sleep apnea Family History Medical History Relation Name Comments No Known Problems Brother 1 No Known Problems Brother 2 Bladder Cancer Father 90 Cancer Father 90 Heart attack Father 90 Hypertension Father 90 Heart attack Mother 76 fatal MD Sudden Mother 76 COPD Sister 64 Relation [...] from doctor or pharmacy Never 10/09/2023 [facility] Utilities Answer Date Recorded In the past 12 months has e mYwindow, gas, oil, or water [employer] threatened to shut off services in your [...] often do you attend chur ch or cheondoism services? 1 to 4 times per year [...] place to sleep or slept in a skilled nursing (including now)? No 09/06/2023 AUDIT-C Answer Date Recorded Q1: How often do you have a drink containing alc ohol? Never 06/02/2025 Average Number of Drinks Not on file 025 Frequency of Binge Drinking Not on file 05/22 Personal Safety Answer Date Recorded Have you ever been in or are you currently in a harmful physical or emotional relationship or is someone making you feel afraid or unsafe? Denies 06/02/2025 Comments No Sex and Gender Information Value Date Recorded Sex Assigned at Not on file Legal Sex Female 9:23 AM RETIREMENT CONSULTANT Gender Identity Not on file Sexual [...] 07/18/2016, 06/15/2016 Medical Devices Implanted Type Area Motor Setter Device Identifier Shelf Expiration Date Model / Serial / Lot Lux PredicSisciences Inspiris Resilia Leaflet Aortic Valve 23mm [id number] - [id number] - [id number] Implanted:Qty: 1 on 09/04/2023 by Cortez Huerta MD at [facility] Prosthetic Valve N/A: Aortic Valve Lux Lifesciences 04/29/2027 [id number] / [id number] / Giang Vascular Device Clsr Perclose Prostyle Sut-Mediatd Closure-Repair Sys [id number] - S0 - [id number] Implanted:Qty: 1 on 08/01/2023 by Alireza Negron MD at [facility] Vascular Closure Device [employer] 04/20/2025 [id number] / [id number] / [id number] Bard Peripheral Vascular Bard .25x.25in [place] Thk1.65mm Square P[employer]get Cardiovascular Ptfe [id number] - [id number] Implanted:Qty: 1 on 09/04/2023 by Cortez Huerta MD at [facility] N/A: Chest Bard Peripheral Vascular [id number] / / [employer] Device Closure Fibertape Sternal Cerclage Blunt Needle Ar-7289 - [id number] Implanted:Qty: 1 on 09/04/2023 by Cortez Huerta MD at [facility] N/A: Sternum [employer] Inc 05/21/2028 AR-7289 / / [id number] Ar[employer] Device Closure Fibertape Sternal Cerclage Blunt Needle Ar-7289 - [id number] Implanted:Qty: 1 on 09/04/2023 by Cortez Huerta MD at [facility] N/A: Sternum [employer] Inc 09/20/2026 AR-7289 / / [id number] Procedures Procedure Name Priority Date/Time Associated Diagnosis Comments POCT GLUCOSE DEVICE Routine 06/02/2025 7 :43 AM CDT DRUG INDUCED SLEEP ENDOSCOPY EVAL FLEX DIAG 06/02/2025 7:26 AM CDT Obstructive sleep apnea POCT GLUCOSE DEVICE Routine 06/02/2025 5 :59 AM CDT POCT LIPID PANEL Routine 03/10/2025 1:09 PM CDT Hyperlipidemia associated with type 2 diabetes mellitus (HCC) Coronary artery disease involving tulalip coronary artery of tulalip heart without angina pectoris BASIC METABOLIC PANEL Routine 04/08/2024 Hypertension associated with diabetes (HCC) HEMOGLOBIN A1C STAT 09/04/2023 9:48 AM RETIREMENT CONSULTANT from Last 3 Months or Most Recently Relevant to Health Maintenance Results * POCT glucose (06/02/2025 7:43 AM CDT) Glucose, POC 160 70 - 199 mg/dL Blood 06/02/2025 7:43 AM CDT 06/02/2025 7:43 AM CDT Jessica Roberto MD LAB POCT ORDERABLES - DEVICE Final Result Performing Organization Address [facility] Co de Phone Number LYRIC JAQUEZ [address] [address] [place] [address] * POCT glucose (06/02/2025 5:59 AM CDT) Glucose, POC 179 70 - 199 mg/dL Blood 06/02/2025 5:59 AM CDT 06/02/2025 5:59 AM CDT Jessica Roberto MD LAB POCT ORDERABLES - DEVICE Final Result Performing Organization Address [facility] Co de Phone Number MEGANROBINA JAQUEZ [address] [address] [place] [address] * (ABNORMAL) POCT lipid panel (03/10/2025 1:09 PM CDT) Cholesterol, POC 145 <200 MG/DL HDL, POC 23(A) >=40 mg/dL Triglycerides, POC 261(A) <=149 mg/dL LDL Cholesterol POC 69 <=129 mg/dL Chol/HDL Ratio, POC 6.3 NONE Non-HDL Cholesterol, POC 122 NONE mg/dL Cholesterol Total, POC 145 30 - 199 mg/dL Capillary blood 03/10/2025 1 :09 PM CDT Kevin Metcalf MD POINT OF CARE TEST ORDERA [...] N/A EXTERNAL LAB SCRIBED eGFR in NonAfrican Vietnamese 30 > or = 60 EXTERNAL LAB Blood 04/08/2024 Kevin Metcalf MD LAB BLOOD ORDERABLES Ashley l Result EXTERNAL LAB * (ABNORMAL) Hemoglobin A1c (09/04/2023 9:48 AM RETIREMENT CONSULTANT) Pathologist [facility] Hgb A1C 9.2(H) 4.0 - 5.6 % [facility] Estimated Average Glucose 217 mg/dL [facility] Comment: The ADA recommends reporting an estimated Average Glucose (eAG) with all Hemoglobin A1c results using the equation derived from a study of 507 normal and diabetic adults. Minority populations were underrepresented and children were not included. (Diabetes Care 31:8658-6318, 2008). The eAG is not equivalent to a fasting glucose. Blood 09/04/2023 9:48 AM RETIREMENT CONSULTANT 09/04/2023 9:59 AM RETIREMENT CONSULTANT Terra M. Deirdre SUPERVISOR SAMPLE PREPARATION LAB BLOOD ORDERABLES Final Resul t LYRIC [facility] [address] [place] [address] from Last 3 Months or Most Recently Relevant to Health Maintenance Insurance [facility] MEDICARE [facility] [place] Member Subscriber Plan / Payer (Ef fective 2023-Present) Name:Jenna Mars Relation to Subscriber:Self Name:Jenna Mars Payer ID:[id number] Group ID:Not on file Type:COMMERCIAL Address: [address] [place] MEDICARE [facility] Address: [address] [address] [place] [address] [facility]IC[facility] INS [place] Member Subscriber Plan / Payer (Ef fective 2023-Present) Name:Jenna Mars Relation to Subscriber:Self Name:Jenna Mars Payer ID:[id number] Group ID:Not on file Type:COMMERCIAL Address: [address] [place] Advance Directives For more information, please contact: [phone] * Full Code (Latest Code Status on File) Date Activated Date Inactivated Comments 09/04/2023 2:59 PM 09/09/2023 3:12 PM Care Teams Resident Care Manager Rn Relationship Specialty Start Date End Date Camryn Chao DO PCP - General Family Medicine 01/18/23 Kevin Metcalf MD [address] [place] [address] Referring Physician Cardiology 08/02/23 Cortez Huerta MD [address] [place] [address] Consulting Physician Cardiothoracic Surgery 08/02/23 Soha Vega MD [facility] [place] [address] Endocrinology Diabetes & Metabolism 09/08/23
--- OUTSIDE RECORDS SUMMARY | 2025-06-20 09:53 | XMS_ITS | Clinical Summary ---
Author Organization [facility] Address [address] [place] [address] Phone Care Team Providers Care Lens Mounter Name Role Phone Carlos Alberto Oneil Primary Care Provider [phone] Allergies Active Allergy Reactions Criticality Noted Date [...] , 07/20/2020, 08/11/2019, Additional history exists Insurance [facility] Care Teams Lens Mounter Relationship Specialty Start Date End Date Carlos Alberto Oneil [address] [place] [address] PCP - General 04/26/22
--- OUTSIDE RECORDS SUMMARY | 2025-06-20 09:53 | XMS_ITS | Encounter Summary ---
Author Organization [facility] Address [address] [place] [address] Care Team Providers Care Cubing Machine Tender Name Role Phone Camryn Chao DO Primary Care Provider [phone] Encounter Details Date Type Department Care Team (Late st Contact Info) Description 04/20/2025 Results Follow-Up [facility] - Rheumatology [address] [facility], [address] [place] [address] Sriram Feliz DO [address] [place] [address] Social History Tobacco Use Types [...] on filedocumented in this encounter Care Teams Cubing Machine Tender Relationship Specialty Start Date End Date Camryn Chao DO [address] [place] [address] PCP - General Family Medicine 01/15/25 documented as of this encounter
[2025-06-20 10:48] LABS: Hemoglobin A1C 7.9 % (<5.7)
== END 2025-06-20 09:49 | disposition home or self-care (01) ==
PROVIDERS: PCP Family Medicine; Referring Provider Internal Medicine Endocrinology, Diabetes & Metabolism; Visit Provider Internal Medicine Nephrology
DX: R05.9 Cough, unspecified (principal); E11.65 Type 2 diabetes mellitus with hyperglycemia
CPT/HCPCS: 36415; 71046; 83036

== ENCOUNTER 2025-07-02 06:39 | Outpatient (CLI) | payer MEDICARE, OTHER, SELFPAY ==
--- NOTE | ~2025-07-02 | MR_ITS ---
MR breast BI wo/w con INDICATION:64 year old female presents for imaging evaluation of right nipple discharge. Prior evaluation of patient's nipple discharge with mammography and ultrasound completed on 04/21/2025 showed no suspicious abnormality. TECHNIQUE: MRI of the breasts perform using standard protocol pre-and post IV contrast with the following sequences: Axial T2 STIR, axial T1, axial vibrant T1 with fat suppression precontrast and multiphasic postcontrast. 19 cc MultiHance administered intravenously. COMPARISON: Mammogram and ultrasound dated 04/21/2025. FINDINGS: There is Heterogeneous fibroglandular tissue that demonstrates Minimal and is Symmetric. Right breast: There are no abnormalities on the precontrast sequences. There is minimal background parenchymal enhancement. No enhancing lesions following contrast administration. No areas of enhancement meeting threshold criteria on CAD analysis. Nipple areolar complex is normal in appearance. No evidence of signal abnormalities in the axillary or internal mammary node distributions. LEFT BREAST: No signal abnormalities on precontrast sequences. There is minimal background parenchymal enhancement. No enhancing lesions following contrast administration. No areas of enhancement meeting threshold criteria on CAD analysis. The nipple areolar complex is normal in appearance. No evidence of signal abnormalities in the axillary or internal mammary node distributions.] IMPRESSION: 1: Right breast: Negative. No evidence of malignancy. 2: Left breast: Negative. No evidence of malignancy. 3. The chest wall and axillary portion of the examination are unremarkable. RECOMMENDATION: Clinical management of patient's nipple discharge. Follow-up MRI may be useful for supplementing mammographic evaluation as clinically indicated. BI-RADS Category 1: Negative Reviewed, dictated and finalized at location C. IMPRESSION: 1: Right breast: Negative. No evidence of malignancy. 2: Left breast: Negative. No evidence of malignancy. 3. The chest wall and axillary portion of the examination are unremarkable. RECOMMENDATION: Clinical management of patient's nipple discharge. Follow-up MRI may be useful for supplementing mammographic evaluation as clinic ally indicated. BI-RADS Category 1: Negative
== END 2025-07-02 06:40 | disposition home or self-care (01) ==
PROVIDERS: PCP Family Medicine; Visit Provider Surgery
DX: N64.52 Nipple discharge (principal); N64.4 Mastodynia
CPT/HCPCS: 77049; A9577; C8908

== ENCOUNTER 2025-07-21 10:56 | Outpatient (CLI) | payer MEDICARE, OTHER, SELFPAY ==
--- NOTE | ~2025-07-21 | XR_ITS ---
EXAMINATION: XR hand BI arthritis min 3V, 07/21/2025 11:05 CDT HISTORY: M18.9 - Osteoarthritis of first carpometacarpal joint, un... COMPARISON: No comparisons available. Findings: No acute fracture or malalignment. Moderate degenerative changes of the first metacarpal carpal joints bilaterally, no erosions are identified. Minimal degenerative changes of the distal interphalangeal joints. Soft tissues unremarkable. Impression: No acute fracture or malalignment. Reviewed, dictated and finalized at location P. Impression: No acute fracture or malalignment.
--- OUTSIDE RECORDS SUMMARY | 2025-07-21 11:38 | XMS_ITS | Encounter Summary ---
Author Organization [facility] Address [address] [place] [address] Care Team Providers Care Electronic Lab Technician Name Role Phone Camryn Chao DO Primary Care Provider + Kevin Metcalf MD Unavailable [phone] Cortez Huerta MD Unavailable [phone] Soha Vega MD Unavailable [phone] Encounter Details Date Type Department Care Team (Late st Contact Info) Description 12/13/2023 Orders Only [facility] [place] Health Information Management [address] [place] [address] Scanning, Provider Social History Tobacco Use [...] materials from doctor or pharmacy Never 10/09/2023 [place] Utilities Answer Date Recorded In the past 12 months has [employer], gas, oil, or water company threatened to [...] often do you attend chur ch or temple services? 1 to 4 times per year [...] on file Legal Sex Female 9:23 AM POULTRY CUTTER Gender Identity Not on file Sexual Orientation Not on file documented as of this encounter Plan of Treatment Not on file documented as of this encounter Procedures Procedure Name Priority Date/Time Associated Diagnosis Comments SCAN - LABS 12/13/2023 documented in this encounter Results * SCAN - LABS (12/13/2023) Provider Scanning Final Result documented in this encounter Visit Diagnoses Not on filedocumented in this encounter Care Teams Electronic Lab Technician Relationship Specialty Start Date End Date Camryn Chao DO PCP - General Family Medicine 01/18/23 Kevin Metcalf MD [address] [facility] [address] [facility] [address] [place], [place] [id number] Referring Physician Cardiology 08/02/23 Cortez Huerta MD [address] [facility] [address] [place] [address] Consulting Physician Cardiothoracic Surgery 08/02/23 Soha Vega MD [address] [facility] [address] [place] [address] Endocrinology Diabetes & Metabolism 09/08/23 documented as of this encounter
--- OUTSIDE RECORDS SUMMARY | 2025-07-21 11:38 | XMS_ITS | Clinical Summary ---
Author Organization [facility] Address [address] [facility] [place] [address] Care Team Providers Care Mail Technician Name Role Phone Chao Camryn Juan MAURO Primary Care Provider [phone] Source Comments [facility],non-owned Affiliates and Associated Physician Practices is amultiple site organization consisting of ambulatory clinics and hospital sitesin [place], [place], [place]. This disclosure is being madepursuant to the Care Everywhere program and may not contain all information available regarding this patient. Last updated 18.[facility] Allergies Active Allergy Reactions Criticality Noted Date [...] Active vitamine D3 (Cholecalciferol ) 250 MCG (56827 UT) capsule Take 1 (one) capsule by [...] Department Care Team Description 04/20/2025 Results Follow-Up [facility] Medical [facility] - Rheumatology [address] [facility], [address] [place] [id number] Sriram Feliz DO from Last 3 Months [...] series) 2018 COVID-19 VACCINE (2 - season) 2025 12/28/2020 INFLUENZA VACCINE (#1) 2025 , 07/20/2020, [...] Relevant to Health Maintenance Insurance MEDICARE [facility] [place] Care Teams Mail Technician Relationship Specialty Start Date End Date Camryn Chao DO [address] [place] [address] PCP - General Family Medicine 01/15/25
--- OUTSIDE RECORDS SUMMARY | 2025-07-21 11:38 | XMS_ITS | Clinical Summary ---
Author Organization [facility] Address [address] [place] [address] Care Team Providers Care School Janitor Name Role Phone Glen Banks MD Primary [...] 07/20/2020, 08/11/2019, Additional history exists Insurance [employer] [id number] Care Teams School Janitor Relationship Specialty Start Date End Date Glen Banks MD [address] [place] [id number] PCP - General Family Practice 04/06/22
--- OUTSIDE RECORDS SUMMARY | 2025-07-21 11:38 | XMS_ITS | Clinical Summary ---
Author Organization [facility] Address [address] [place] [address] Phone Care Team Providers Care Web Interface Developer Name Role Phone Carlos Alberto Oneil Primary Care Provider [phone] Allergies Active Allergy Reactions Criticality Noted Date [...] - PCV) 2008 COVID-19 Vaccine (2 - 2024-2 6 season) 2025 12/28/2020 Influenza Vaccine (#1) 2025 , 07/20/2020, 08/11/2019, Additional history exists Insurance [facility] Care Teams Web Interface Developer Relationship Specialty Start Date End Date Carlos Alberto Oneil [address] [place] [address] PCP - General 04/26/22
--- OUTSIDE RECORDS SUMMARY | 2025-07-21 11:39 | XMS_ITS | Clinical Summary ---
Author Organization [facility] [place] [address] Address [address] [place] [address] Care Team Providers Care Program Director Cable Television Name Role Phone ChaoCamryn dahl Terra MAURO Primary Care Provider + Kevin Metcalf MD Unavailable Cortez Huerta MD Unavailable Soha Vega MD Unavailable [phone] Allergies Active Allergy Reactions Criticality Noted Date [...] mcg total) by mouth every evening Active hqaex-C-zfqlfp osidase (BEANO ORAL) Take 1 tablet by mouth 2 (two) times a day Active insulin glargine (LANTUS) 100 unit/mL (3 mL) pen for injection Inject 30 Units under the skin every morning 9 mL 023 Active Additional Information Patient taking differently: 35 Unitssubcutaneous Every morning,This morning, 06/02/25- took 28 units, Informant: Self, Reported on 06/25/2025 pen needle, diabetic (Pen Needle) 32 gauge [...] Scale Insulin Instructions., Informant: Self, Reported on 06/25/2025 spironolactone (ALDACTONE) 25 mg tablet Take 1 tablet (25 mg total) by mouth every morning 023 Active irbesartan (AVAPRO) 75 mg tablet TAKE 1 TABLET BY MOUTH DAILY 90 tablet 3 024 Active Additional Information Patient taking differently:75 mg oralEvery morning, Informant: Self, Reported on 06/25/2025 furosemide (LASIX) 20 mg tabletIndicati ons:Status post aortic valve replacement Take 1 tablet (20 mg total) by mouth daily 90 tablet 1 025 Active Additional Information Patient taking differently:20 mg oralEvery morning, Informant: Self, Reported on 06/25/2025 UNABLE TO FIND Take 1 each by [...] EVERY NIGHT 90 tablet 1 025 Active metoprolol (LOPRESSOR) 100 mg tablet TAKE 1 TABLET BY MOUTH TWICE DAILY 180 tablet 3 025 Active metoprolol (LOPRESSOR) 100 mg tablet TAKE 1 TABLET BY MOUTH TWICE DAILY 180 tablet 3 024 2024 Discontinued Active Problems [...] severe 09/04/2023 Coronary artery disease invo lving [place] coronary artery of [place] heart without angina pectoris 08/28/2023 Left carotid bruit 05/07/2020 Nonrheumatic aortic valve stenosis 05/07/2020 Renal artery stenosis 02/12/2020 Chronic kidney disease 07/25/2019 Family history of coronary artery disease 2018 AV block 07/25/2019 Frequent PVCs 07/25/2019 Hypertension associated with diabetes 07/25/2019 Hyperlipidemia associated with type 2 diabetes [place] 07/25/2019 Encounters Date Type Department Care Team Description 06/25/2025 8:00 AM CDT Office Visit [facility]) - [facility] Medicine ENT [id number] [place] [address] Medical Office Building [address] [place] [address] Jessica Roberto MD Obstructive sleep apnea (adult) (pediatric) (Primary Dx); Intolerance of continuous positive airway pressure (CPAP) ventilation; BMI 36.0-36.9,adult 06/02/2025 7:30 AM CDT - 06/02/2025 8:00 AM CDT Surgery [facility] Operating Room [address] [place] [id number] Jessica Roberto MD DRUG INDUCED SLEEP ENDOSCOPY 06/02/2025 7:26 AM CDT Anesthesia Event [facility] Operating Room [address] [place] [address] Iban Mcdonald Jr., MD Ifune, Catherine K., MD PhD 06/02/2025 5:35 AM CDT - 06/02/2025 8:52 AM CDT Hospital Encounter [facility] Operating Room [address] [place] [id number] Jessica Roberto MD Obstructive sleep apnea (Primary [...] History Date Comments Hypertension Hyperlipidemia Diabetes mellitus Osteoarthritis Cataract Anemia WPW (Kqogk-Prkyotytt-Otqob syndrome) GERD (gastroesophageal reflu x disease) Vertigo Aortic stenosis CKD (chronic kidney disease) stage 3, GFR 30-59 ml/min ([facility]) baseline creat 1.3-1.4 Coronary artery disease Neuromuscular disorder Degenerative disc disease, Neuropathy. Sleep apnea Heart disease CHF (congestive heart failur e) ([facility]) early 2023 Type 2 diabetes mellitus Obstructive [...] materials from doctor or pharmacy Never 10/09/2023 [facility] Utilities Answer Date Recorded In the past 12 months has [employer], oil, or water [employer] threatened to shut off services in your [...] How often do you attend chur or presybeterian services? 1 to 4 times per year 09/06/2023 Do you belong to any clubs o r organizations such as rastafari groups, unions, fraternal or athletic groups, or [...] in a retirement (including now)? No 09/06/2023 AUDIT-C Answer Date [...] on file Legal Sex Female 9:23 AM OPERATIONS LABEL CLERK Gender Identity Not on file Sexual Orientation [...] CDT Inhaled Oxygen Concentration - - Weight 95.3 kg (210 lb) 06/25/2025 8:00 AM CDT Height 162.6 cm (5' 4) 06/25/2025 8:00 AM CDT Body Mass Index 36.05 06/25/2025 8:00 AM CDT Plan of Treatment Health Maintenance Due Date Last Done Comments Albumin Creatinine Ratio, Urine 1960 Breast Cancer Screening-Mammogram 1958 Colon Cancer Screening-Colonoscopy 1960 Depression Screening 1960 Hepatitis C Screening 1960 Osteoporosis Screening-Bone Density Scan 1958 Dilated Eye Exam 1958 Foot Exam 1960 Well Visit 65+ 2023 Hemoglobin A1C 03/04/2024 09/04/2023 eGFR 04/08/2025 04/08/2024, 09/21, 09/09/2023, Additional history exists Covid-19 Vaccine (4 - 2024-2 6 season) 2025 07/23/2021, 01/18/2021, 12/28/2020, Additional history exists Influenza Vaccine (#1) 2025 , 08/04/2023, 06/09/2022, Additional history exists Pneumococcal vaccine 65+ (3 of 3 - PCV20 or PCV21) 07/20/2025 07/20/2020, 11/11/2014, 03/15/2010 Lipid Panel 03/10/2026 03/10/2025, 07/0 05/2024, 07/04/2023, Additional history exists Fall Risk Assessment 06/02/2026 06/02/2025 DTaP/Tdap/Td Vaccine (3 - Td or Tdap) 06/09/2032 06/09/2022, 04/19/2012, 06/17/2002 Hepatitis B Screening Completed 10/17/2016 , 07/18/2016, 06/15/2016 Zoster Vaccine Completed 12/31/2021, 10/22, 04/19/2012 Medical Devices Implanted Type Area Heavy Equipment Plumbing Supervisor Device Identifier Shelf Expiration Date Model / Serial / Lot Lux Lif[employer]iences Inspiris Resilia Leaflet Aortic Valve 23mm [id number] - [id number] - [id number] Implanted:Qty: 1 on 09/04/2023 by Cortez Huerta MD at [facility] Prosthetic Valve N/A: Aortic Valve [employer]iences 04/29/2027 [id number] / [id number] / Giang V[employer] Device Clsr Perclose Prostyle Sut-Mediatd Closure-Repair Sys [id number] - S0 - [id number] Implanted:Qty: 1 on 08/01/2023 by Alireza Negron MD at [facility] Vascular Closure Device [employer] 04/20/2025 [id number] / [id number] / [id number] Bard Peripheral Vascular Bard .25x.25in [place] Thk1.65mm Square Pledget Cardiovascular Ptfe [id number] - [id number] Implanted:Qty: 1 on 09/04/2023 by Cortez Huerta MD at [facility] N/A: Chest Bard Peripheral Vascular [id number] / / [employer] Device Closure Fibertape Sternal Cerclage Blunt Needle Ar-[id number] - [id number] Implanted:Qty: 1 on 09/04/2023 by Cortez Huerta MD at [facility] N/A: Sternum [employer] Inc 05/21/2028 [id number] / / [id number] [employer] Device Closure Fibertape Sternal Cerclage Blunt Needle Ar-[id number] - [id number] Implanted:Qty: 1 on 09/04/2023 by Cortez Huerta MD at [facility] N/A: Sternum [employer] 09/20/2026 AR-[id number] / / [id number] Procedures Procedure Name Priority Date/Time Associated Diagnosis Comments POCT GLUCOSE DEVICE Routine 06/02/2025 7 :43 AM CDT DRUG INDUCED SLEEP ENDOSCOPY. 06/02/2025 7:26 AM CDT Obstructive sleep apnea POCT GLUCOSE DEVICE Routine 06/02/2025 5 :59 AM CDT POCT LIPID PANEL Routine 03/10/2025 1:09 PM CDT Hyperlipidemia associated with type 2 diabetes mellitus (HCC) Coronary artery disease involving [place] coronary artery of [place] heart without angina pectoris BASIC METABOLIC PANEL Routine 04/08/2024 Hypertension associated with diabetes (HCC) HEMOGLOBIN A1C STAT 09/04/2023 9:48 AM OPERATIONS LABEL CLERK from Last 3 Months or Most Recently Relevant to Health Maintenance Results * POCT glucose (06/02/2025 7:43 AM CDT) Glucose, POC 160 70 - 199 mg/dL Blood 06/02/2025 7:43 AM CDT 06/02/2025 7:43 AM CDT Jessica Roberto MD LAB POCT ORDERABLES - DEVICE Final Result Performing Organization Address [facility] Co de Phone Number LYRIC JAQUEZ [address] [place] [address] * POCT glucose (06/02/2025 5:59 AM CDT) Glucose, POC 179 70 - 199 mg/dL Blood 06/02/2025 5:59 AM CDT 06/02/2025 5:59 AM CDT Jessica Roberto MD LAB POCT ORDERABLES - DEVICE Final Result Performing Organization Address [facility] Co de Phone Number LYRIC JAQUEZ [address] [place] [address] * (ABNORMAL) POCT lipid panel (03/10/2025 1:09 PM CDT) Pathologist [facility] Cholesterol, POC 145 <200 MG/DL HDL, POC [...] Result * (ABNORMAL) Basic metabolic panel (04/08/2024) [facility] SCRIBED Sodium 140 137 - 145 [...] - 10.2 mg/dl EXTERNAL LAB SCRIBED eGFR N/A N/A EXTERNAL LAB SCRIBED eGFR 30 > or = 60 EXTERNAL LAB Blood 04/08/2024 Kevin Metcalf MD LAB BLOOD ORDERABLES Ashley l Result EXTERNAL LAB * (ABNORMAL) Hemoglobin A1c (09/04/2023 9:48 AM OPERATIONS LABEL CLERK) [facility] Hgb A1C 9.2(H) 4.0 - 5.6 % [facility] Estimated Average Glucose 217 mg/dL [facility] Comment: The ADA recommends reporting an estimated Average Glucose (eAG) with all Hemoglobin A1c results using the equation derived from a study of 507 normal and diabetic adults. Minority populations were underrepresented and children were not included. (Diabetes Care 31:1205-7282, 2008). The eAG is not equivalent to a fasting glucose. Blood 09/04/2023 9:48 AM OPERATIONS LABEL CLERK 09/04/2023 9:59 AM OPERATIONS LABEL CLERK us Terra Gilmore NP LAB BLOOD ORDERABLES Final Resul t [facility] [address] Department [place] [address] from Last 3 Months or Most Recently Relevant to Health Maintenance Insurance [facility] HMO/PPO Address: [address] [address] [employer] Member Subscriber Plan / Payer (Ef fective 2023-Present) Name:Jenna Mars Relation to Subscriber:Self Name:Jenna Mars Payer ID:[id number] Group ID:Not on file Type:[employer] Address: [employer] [address] [place], [place] MED[employer] Member Subscriber Plan / Payer (Ef fective 2023-Present) Name:Jenna Mars Relation to Subscriber:Self Name:Jenna Mars Payer ID:[id number] Group ID:Not on file Type:[employer] Address: [facility] [address] [place], [place] Advance Directives For more information, please contact: [phone] * Full Code (Latest Code Status on File) Date Activated Date Inactivated Comments 09/04/2023 2:59 PM 09/09/2023 3:12 PM Care Teams Program Director Cable Television Relationship Specialty Start Date End Date Camryn Chao PCP - General Family Medicine 01/18/23 Kevin Metcalf MD [address] [facility] [address] [place] [address] Referring Physician Cardiology 08/02/23 Cortez Huerta MD [address] [facility] [address] [place] [address] Consulting Physician Cardiothoracic Surgery 08/02/23 Soha Vega MD [address] [facility] [address] [place] [address] Endocrinology Diabetes & Metabolism 09/08/23
== END 2025-07-21 10:57 | disposition home or self-care (01) ==
PROVIDERS: PCP Family Medicine; Visit Provider Plastic Surgery
DX: M18.9 Osteoarthritis of first carpometacarpal joint, unspecified (principal)
CPT/HCPCS: 73130

== ENCOUNTER 2025-08-04 08:33 | Outpatient (CLI) | payer MEDICARE, OTHER, SELFPAY ==
--- OUTSIDE RECORDS SUMMARY | 2010-02-02 10:30 | XMS_ITS | Continuity of Care Document ---
Author Organization [facility] Address [address] [facility] [address] [place] [address] Phone Care Team Providers Care Machine Technician Name Role Phone Lio Maharaj Unavailable Unavailable Procedures Procedure Date Office/outpatient Visit, Est Office/outpatient Visit, Est Eye Exam & Treatment Advance Directives Directive Yes / No Effective Date File Name No Information Encounters Encounter Description Practice Location Reason(s) For Visit Diagnoses Date Provider Providers Copied on Encounter Office/outpat ient Visit, Est [facility], [address], [place], [place], [address], [place] tel:[phone] [facility] No Information 4-201 0 Krishnasamy Lio. [address] [address], [place], [place], [facility], [place]. tel:[phone] Office/outpat ient Visit, [facility], [address], [place], [place], [address], [place] tel:[phone] [facility] No Information 5-200 9 Krishnasamy Lio. [address] [facility] [address], [place], [address], [place]. tel:[phone] [facility], [address], [place], [place], [address], [place] tel:[phone] [facility] No Information Dec- 0-200 8 Carol Ann Vaca. [address] [employer] [address], [address], [place]. tel:[phone] Family History Family Member Type Diagnosis Age At Onset No Information Payers Payer name Insurance type Covered alliance party ID Authoriza tion(s) No Information Social History [...]
--- NOTE | 2025-08-04 08:30 | ECG_ITS ---
Test Date: 2025-08-04 08:51:02 Measurements Intervals [place] Rate: 70 P: 67 LA: 232 QRS: 17 QRSD: 119 T: 73 QT: 406 QTc: 439 Interpretive Statements SINUS RHYTHM WITH FIRST DEGREE AV BLOCK INTRAVENTRICULAR CONDUCTION DELAY DELAYED PRECORDIAL R/S TRANSITION BASELINE ARTIFACT- I, II, III, AVR, AVL, AVF, V4-V6 BORDERLINE ECG Compared to ECG 04/10/2024 21:21:21 HEART RATE HAS INCREASED Electronically Signed On 08-04-2025 09:22:45 CDT by Grant Ribera D.O.
--- OUTSIDE RECORDS SUMMARY | 2025-08-04 09:06 | XMS_ITS | Clinical Summary ---
Author Organization [facility] Address [address] [place] [address] Care Team Providers Care Billboard Poster Helper Name Role Phone Chao Camryn Juan MAURO Primary Care Provider [phone] Source Comments [facility],non-owned Affiliates and Associated Physician Practices is amultiple site organization consisting of ambulatory clinics and hospital sitesin [place], [place], [place] and [place]. This disclosure is being madepursuant to the Care Everywhere program and may not contain all information available regarding this patient. Last updated 18.[facility] Allergies Active Allergy Reactions Criticality Noted Date [...] Active vitamine D3 (Cholecalciferol ) 250 MCG (10920 UT) capsule Take 1 (one) capsule by [...] drug induced lupus. Check SPEP (r/o gammopathy). Social History Tobacco Use Types Packs/Day Years [...] Relevant to Health Maintenance Insurance [employer] Care Teams Billboard Poster Helper Relationship Specialty Start Date End Date Camryn Chao DO [address] [place] [address] PCP - General Family Medicine 01/15/25
--- OUTSIDE RECORDS SUMMARY | 2025-08-04 09:06 | XMS_ITS | Clinical Summary ---
Author Organization [facility] [place] [address] Address [address] [place] [address] Care Team Providers Care Cuff Maker Name Role Phone ChaoCamryn dahl Terra MAURO Primary Care Provider + Kevin Metcalf MD Unavailable Cortez Huerta MD Unavailable [phone] Soha Vega MD Unavailable [phone] Allergies Active Allergy Reactions Criticality Noted Date [...] mcg total) by mouth every evening Active jfrln-W-xzakzh osidase (BEANO ORAL) Take 1 tablet by [...] four times a day. 100 each 1 023 Active insulin lispro (HumaLOG) 100 unit/mL [...] severe 09/04/2023 Coronary artery disease invo lving [place] coronary artery of [place] heart without angina pectoris 08/28/2023 Left carotid bruit 05/07/2020 Nonrheumatic aortic valve stenosis 05/07/2020 Renal artery stenosis 02/12/2020 Chronic kidney disease 07/25/2019 Family history of coronary artery disease 2018 AV block 07/25/2019 Frequent PVCs 07/25/2019 Hypertension associated with diabetes 07/25/2019 Hyperlipidemia associated with type 2 diabetes chelle solis 07/25/2019 Encounters Date Type Department Care Team Description 06/25/2025 8:00 AM CDT Office Visit [facility]) - [facility] Medicine ENT [id number] [place] [address] Medical Office Building [address] [place] [address] Jessica Roberto MD Obstructive sleep apnea (adult) (pediatric) (Primary Dx); Intolerance of continuous positive airway pressure (CPAP) ventilation; BMI 36.0-36.9,adult 06/02/2025 7:30 AM CDT - 06/02/2025 8:00 AM CDT Surgery Operating Room [address] [place] [address] Jessica Roberto MD DRUG INDUCED SLEEP ENDOSCOPY 06/02/2025 7:26 AM CDT Anesthesia Event Operating Room [id number] [place] [address] Iban Mcdonald Jr., MD Ifune, Catherine K., MD PhD 06/02/2025 5:35 AM CDT - 06/02/2025 8:52 AM CDT Hospital Encounter Operating Room [address] [place] [address] Jessica Roberto MD Obstructive sleep apnea (Primary [...] Hyperlipidemia Diabetes mellitus Osteoarthritis Cataract Anemia WPW (Mtkxh-Vimkmkpjg-Oxrgm syndrome) GERD (gastroesophageal reflu x disease) Vertigo Aortic stenosis CKD (chronic kidney disease) stage 3, GFR 30-59 ml/min ([facility]) baseline creat 1.3-1.4 Coronary artery disease Neuromuscular disorder Degenerative disc disease, Neuropathy. Sleep apnea Heart disease CHF (congestive heart failur e) ([facility]) early 2023 Type 2 diabetes mellitus Obstructive sleep apnea Family History Medical History Relation Name Comments No Known Problems Brother 1 No Known Problems Brother 2 Bladder Cancer Father 90 Cancer Father 90 Heart attack Father 90 Hypertension Father 90 Heart attack Mother 76 fatal [place] Sudden Mother 76 COPD Sister 64 Relation [...] materials from doctor or pharmacy Never 10/09/2023 [facility] Utilities Answer Date Recorded In the past 12 months has e [employer], oil, or water [employer] threatened to shut off services in your [...] How often do you attend chur or jainism services? 1 to 4 times per year 09/06/2023 Do you belong to any clubs o r organizations such as caodaism groups, unions, fraternal or athletic groups, or [...] place to sleep or slept in a correction (including now)? No 09/06/2023 AUDIT-C Answer Date [...] on file Legal Sex Female 9:23 AM NAPKIN BAND WRAPPER Gender Identity Not on file Sexual Orientation [...] 10/22, 04/19/2012 Medical Devices Implanted Type Area Skid Strapper Device Identifier Shelf Expiration Date Model / Serial / Lot Lux Lifesciences Inspiris Resilia Leaflet Aortic Valve 23mm [id number] - [id number] - [id number] Implanted:Qty: 1 on 09/04/2023 by Cortez Huerta MD at [facility] Prosthetic Valve N/A: Aortic Valve Lux Lifesciences 04/29/2027 [id number] / [id number] / Giang Vascular Device Clsr Perclose Prostyle Sut-Mediatd Closure-Repair Sys [id number] - S0 - [id number] Implanted:Qty: 1 on 08/01/2023 by Alireza Negron MD at [facility] Vascular Closure Device Giang Vascular 04/20/2025 [id number] / 0 / [id number] Bard Peripheral Vascular Bard .25x.25in Edna Thk1.65mm Square Pledget Cardiovascular Ptfe [id number] - [id number] Implanted:Qty: 1 on 09/04/2023 by Cortez Huerta MD at [facility] N/A: Chest Bard Peripheral Vascular [id number] / / Ar[employer] Device Closure Fibertape Sternal Cerclage Blunt Needle Ar-7289 - [id number] Implanted:Qty: 1 on 09/04/2023 by Cortez Huerta MD at [facility] N/A: Sternum Arthrex Inc 05/21/2028 AR-[id number] / / [id number] Arthrex Inc Device Closure Fibertape Sternal Cerclage Blunt Needle Ar-7289 - [id number] Implanted:Qty: 1 on 09/04/2023 by Cortez Huerta MD at [facility] N/A: Sternum Arthrex Inc 09/20/2026 AR-7289 / / [id number] Procedures Procedure Name Priority Date/Time Associated Diagnosis Comments POCT GLUCOSE DEVICE Routine 06/02/2025 7 :43 AM CDT DRUG INDUCED SLEEP ENDOSCOPY. 06/02/2025 7:26 AM CDT Obstructive sleep apnea POCT GLUCOSE DEVICE Routine 06/02/2025 5 :59 AM CDT POCT LIPID PANEL Routine 03/10/2025 1:09 PM CDT Hyperlipidemia associated with type 2 diabetes mellitus (HCC) Coronary artery disease involving [place] coronary artery of [place] heart without angina pectoris BASIC METABOLIC PANEL Routine 04/08/2024 Hypertension associated with diabetes (HCC) HEMOGLOBIN A1C STAT 09/04/2023 9:48 AM NAPKIN BAND WRAPPER from Last 3 Months or Most Recently Relevant to Health Maintenance Results * POCT glucose (06/02/2025 7:43 AM CDT) Glucose, POC 160 70 - 199 mg/dL Blood 06/02/2025 7:43 AM CDT 06/02/2025 7:43 AM CDT Jessica Roberto MD LAB POCT ORDERABLES - DEVICE Final Result Performing Organization Address [facility] Co de Phone Number LYRIC JAQUEZ [address] [place] [address] * POCT glucose (06/02/2025 5:59 AM CDT) Glucose, POC 179 70 - 199 mg/dL Blood 06/02/2025 5:59 AM CDT 06/02/2025 5:59 AM CDT Jessica Roberto MD LAB POCT ORDERABLES - DEVICE Final Result Performing Organization Address [facility] Co de Phone Number LYRIC JAQUEZ [address] Department [employer] [address] * (ABNORMAL) POCT lipid panel (03/10/2025 1:09 PM CDT) Pathologist [facility] Cholesterol, POC 145 <200 MG/DL HDL, POC [...] Result * (ABNORMAL) Basic metabolic panel (04/08/2024) [facility] SCRIBED Sodium 140 137 - [...] * (ABNORMAL) Hemoglobin A1c (09/04/2023 9:48 AM NAPKIN BAND WRAPPER) [facility] Hgb A1C 9.2(H) 4.0 - 5.6 % [facility] Estimated Average Glucose 217 mg/dL [facility] Comment: The ADA recommends reporting an estimated Average Glucose (eAG) with all Hemoglobin A1c results using the equation derived from a study of 507 normal and diabetic adults. Minority populations were underrepresented and children were not included. (Diabetes Care 31:8636-6757, 2008). The eAG is not equivalent to a fasting glucose. Blood 09/04/2023 9:48 AM NAPKIN BAND WRAPPER 09/04/2023 9:59 AM NAPKIN BAND WRAPPER us Terra Gilmore NP LAB BLOOD ORDERABLES Final Resul t [facility] [address] Department [place] [address] from Last 3 Months or Most Recently Relevant to Health Maintenance Insurance [facility] MEDICARE [employer] [place] Member Subscriber Plan / Payer (Ef fective 2023-Present) Name:Jenna Mars Relation to Subscriber:Self Name:Jenna Mars Payer ID:[id number] Group ID:Not on file Type:Tirendo Address: [address] [employer] Member Subscriber Plan / Payer (Ef fective 2023-Present) Name:Jenna Mars Relation to Subscriber:Self Name:Jenna Mars Payer ID:[id number] Group ID:Not on file Type:Tirendo Address: [facility] [address] Advance Directives For more information, please contact: [phone] * Full Code (Latest Code Status on File) Date Activated Date Inactivated Comments 09/04/2023 2:59 PM 09/09/2023 3:12 PM Care Teams Cuff Maker Relationship Specialty Start Date End Date Camryn Chao DO PCP - General Family Medicine 01/18/23 Kevin Metcalf MD [address] [place] [address] Referring Physician Cardiology 08/02/23 Cortez Huerta MD [address] [place] [address] Consulting Physician Cardiothoracic Surgery 08/02/23 Soha Vega MD [address] [place] [address] Endocrinology Diabetes & Metabolism 09/08/23
--- OUTSIDE RECORDS SUMMARY | 2025-08-04 09:06 | XMS_ITS | Clinical Summary ---
Author Organization [facility] Brittany perez Address [address] [place] [address] Phone Care Team Providers Care Certified Nurses Aide Name Role Phone Carlos Alberto Oneil Primary Care Provider [phone] Allergies Active Allergy Reactions Criticality Noted Date [...] , 07/20/2020, 08/11/2019, Additional history exists Insurance [facility] Care Teams Certified Nurses Aide Relationship Specialty Start Date End Date Carlos Alberto Oneil [address] [place] [address] PCP - General 04/26/22
--- OUTSIDE RECORDS SUMMARY | 2025-08-04 09:06 | XMS_ITS | Clinical Summary ---
Author Organization [facility]estelle [facility] Address [address] [place] [address] Care Team Providers Care Mathematical Sciences Professor Name Role Phone Glen Banks MD Primary Care Provider [phone] Allergies Active Allergy Reactions Criticality Noted Date [...] 07/20/2020, 08/11/2019, Additional history exists Insurance [employer]ICE [id number] [place] [address] Care Teams Mathematical Sciences Professor Relationship Specialty Start Date End Date Glen Banks MD [address] [place] [id number] PCP - General Family Practice 04/06/22
[2025-08-04 09:08] LABS: Hematocrit 42.2 % (37.0-47.0); Hemoglobin 13.3 g/dL (12.0-15.0)
[2025-08-04 09:23] LABS: INR 1.0; Prothrombin Time 12.9 Seconds (11.1-14.7)
[2025-08-04 09:24] LABS: Partial Thromboplastin Time 28.5 Seconds (22.3-36.8)
[2025-08-04 09:26] LABS: Anion Gap 10 mmol/L (4-12); Blood Urea Nitrogen 49 mg/dL (7-17); Calcium 9.8 mg/dL (8.4-10.2); Carbon Dioxide 27 mmol/L (22-30); Chloride 99 mmol/L (98-107); Estimated Glomerular Filt Rate 27; Glucose 141 mg/dL (65-110); Potassium 4.3 mmol/L (3.4-5.0); Sodium 136 mmol/L (137-145)
== END 2025-08-04 08:34 | disposition home or self-care (01) ==
LOC: ANHSURGERY 08:41
PROVIDERS: PCP Family Medicine; Visit Provider Surgery
DX: E11.9 Type 2 diabetes mellitus without complications (principal); D64.9 Anemia, unspecified; I12.9 Hypertensive chronic kidney disease with stage 1 through stage 4 chronic kidney disease, or unspecified chronic kidney disease; N18.4 Chronic kidney disease, stage 4 (severe)
CPT/HCPCS: 36415; 80048; 85014; 85018; 85610; 85730; 93005

== ENCOUNTER 2025-08-05 09:22 | Outpatient (CLI) | payer MEDICARE, OTHER, SELFPAY ==
[2025-08-05 10:30] LABS: Hemoglobin A1C 7.1 % (<5.7)
--- OUTSIDE RECORDS SUMMARY | 2025-08-05 10:31 | XMS_ITS | Clinical Summary ---
Author Organization [facility] Address [address] [place] [address] Care Team Providers Care Back Strip Machine Operator Name Role Phone Chao Camryn Juan MAURO Primary Care Provider [phone] Source Comments [facility],non-owned Affiliates and Associated Physician Practices is amultiple site organization consisting of ambulatory clinics and hospital sitesin [place], [place], [place] and [place]. This disclosure is being madepursuant to the Care Everywhere program and may not contain all information available regarding this patient. Last updated 18.[facility] Allergies Active Allergy Reactions Criticality Noted Date [...] Active vitamine D3 (Cholecalciferol ) 250 MCG (32170 UT) capsule Take 1 (one) capsule by [...] Relevant to Health Maintenance Insurance [employer] [place] Care Teams Back Strip Machine Operator Relationship Specialty Start Date End Date Camryn Chao DO [address] [facility] [address] [place] [address] PCP - General Family Medicine 01/15/25
--- OUTSIDE RECORDS SUMMARY | 2025-08-05 10:31 | XMS_ITS | Clinical Summary ---
Author Organization [facility] Address [address] [place] [address] Phone Care Team Providers Care Paunch Trimmer Name Role Phone Carlos Alberto Oneil Primary Care Provider [phone] Allergies Active Allergy Reactions Criticality Noted Date [...] , 07/20/2020, 08/11/2019, Additional history exists Insurance [facility] Care Teams Paunch Trimmer Relationship Specialty Start Date End Date Carlos Alberto Oneil [address] [place] [address] PCP - General 04/26/22
--- OUTSIDE RECORDS SUMMARY | 2025-08-05 10:31 | XMS_ITS | Clinical Summary ---
Author Organization [facility] Clint kerri [facility] Address [address] [place] [address] Care Team Providers Care Medical Instructor Name Role Phone Glen Banks MD Primary [...] 07/20/2020, 08/11/2019, Additional history exists Insurance [employer]ICE [id number] Care Teams Medical Instructor Relationship Specialty Start Date End Date Glen Banks MD [address] [place] [id number] PCP - General Family Practice 04/06/22
--- OUTSIDE RECORDS SUMMARY | 2025-08-05 10:32 | XMS_ITS | Clinical Summary ---
Author Organization [facility] [address] Address [address] [place] [address] Care Team Providers Care Groundskeeper Name Role Phone ChaoCamryn dahl Terra MAURO Primary Care Provider + Kevin Metcalf MD Unavailable Cortez Huerta MD Unavailable Soha Vega MD Unavailable [phone] Allergies Active Allergy Reactions Criticality Noted Date [...] mcg total) by mouth every evening Active tkywy-J-lrdiic osidase (BEANO ORAL) Take 1 tablet by [...] severe 09/04/2023 Coronary artery disease invo lving ken[place] coronary artery of [place] heart without angina pectoris 08/28/2023 Left carotid bruit 05/07/2020 Nonrheumatic aortic valve stenosis 05/07/2020 Renal artery stenosis 02/12/2020 Chronic kidney disease 07/25/2019 Family history of coronary artery disease 2018 AV block 07/25/2019 Frequent PVCs 07/25/2019 Hypertension associated with diabetes 07/25/2019 Hyperlipidemia associated with type 2 diabetes chelle solis 07/25/2019 Encounters Date Type Department Care Team Description 06/25/2025 8:00 AM CDT Office Visit [facility] - [facility] Medicine ENT [address] [place] [address] Medical Office Building [address] [place] [address] Jessica Roberto MD Obstructive sleep apnea (adult) (pediatric) (Primary Dx); Intolerance of continuous positive airway pressure (CPAP) ventilation; BMI 36.0-36.9,adult 06/02/2025 7:30 AM CDT - 06/02/2025 8:[address] [facility] Operating Room [address] [place] [address] Jessica Roberto MD DRUG INDUCED SLEEP ENDOSCOPY 06/02/2025 7:26 AM CDT Anesthesia Event [facility] Operating Room [address] [place] [address] Iban Mcdonald Jr., MD Ifune, Catherine K., MD PhD 06/02/2025 5:35 AM CDT - 06/02/2025 8:52 AM CDT Hospital Encounter [facility] Operating Room [address] [place] [address] Jessica Roberto MD Obstructive sleep apnea (Primary [...] Hyperlipidemia Diabetes mellitus Osteoarthritis Cataract Anemia WPW (Ochks-Aqwckkbth-Pqstn syndrome) GERD (gastroesophageal reflu x disease) Vertigo Aortic stenosis CKD (chronic kidney disease) stage 3, GFR 30-59 ml/min ([facility]) baseline creat 1.3-1.4 Coronary artery disease Neuromuscular disorder Degenerative disc disease, Neuropathy. Sleep apnea Heart disease CHF (congestive heart failur e) ([facility]) early 2023 Type 2 diabetes mellitus Obstructive sleep apnea Family History Medical History Relation Name Comments No Known Problems Brother 1 No Known Problems Brother 2 Bladder Cancer Father 90 Cancer Father 90 Heart attack Father 90 Hypertension Father 90 Heart attack Mother 76 fatal [place] Sudden Mother 76 COPD Sister 64 Relation [...] materials from doctor or pharmacy Never 10/09/2023 [facility] Utilities Answer Date Recorded In the past 12 months has e [employer], oil, or water [employer] threatened to shut off services in your [...] How often do you attend chur or yazidism services? 1 to 4 times per year [...] health care facility (including now)? No 09/06/2023 AUDIT-C Answer Date [...] on file Legal Sex Female 9:23 AM CHORAL TEACHER Gender Identity Not on file Sexual Orientation [...] 10/22, 04/19/2012 Medical Devices Implanted Type Area Asian Art Curator Device Identifier Shelf Expiration Date Model / Serial / Lot Lux Lifesciences Inspiris Resilia Leaflet Aortic Valve 23mm [id number] - [id number] - [id number] Implanted:Qty: 1 on 09/04/2023 by Cortez Huerta MD at [facility] Prosthetic Valve N/A: Aortic Valve Lux Lifesciences 04/29/2027 [id number] / [id number] / Gaing Vascular Device Clsr Perclose Prostyle Sut-Mediatd Closure-Repair Sys 41647-66 - S0 - [id number] Implanted:Qty: 1 on 08/01/2023 by Alireza Negron MD at [facility] Vascular Closure Device Giang Vascular 04/20/2025 [id number] / 0 / [id number] Bard Peripheral Vascular Bard .25x.25in [place] Thk1.65mm Square Pledget Cardiovascular Ptfe [id number] - [id number] Implanted:Qty: 1 on 09/04/2023 by Cortez Huerta MD at [facility] N/A: Chest Bard Peripheral Vascular [id number] / / Arthrex Inc Device Closure Fibertape Sternal Cerclage Blunt Needle Ar-7289 - [id number] Implanted:Qty: 1 on 09/04/2023 by Cortez Huerta MD at [facility] N/A: Sternum Arthrex Inc 05/21/2028 AR-7289 / / [id number] Arthrex Inc Device Closure Fibertape Sternal Cerclage Blunt Needle Ar-7289 - [id number] Implanted:Qty: 1 on 09/04/2023 by Cortez Huerta MD at [facility] N/A: Sternum Ar[employer]rex Inc 09/20/2026 AR-7289 / / [id number] Procedures Procedure Name Priority Date/Time Associated Diagnosis Comments POCT GLUCOSE DEVICE Routine 06/02/2025 7 :43 AM CDT DRUG INDUCED SLEEP ENDOSCOPY. 06/02/2025 7:26 AM CDT Obstructive sleep apnea POCT GLUCOSE DEVICE Routine 06/02/2025 5 :59 AM CDT POCT LIPID PANEL Routine 03/10/2025 1:09 PM CDT Hyperlipidemia associated with type 2 diabetes mellitus (HCC) Coronary artery disease involving ken[place]ze coronary artery of kenaitze heart without angina pectoris BASIC METABOLIC PANEL Routine 04/08/2024 Hypertension associated with diabetes (HCC) HEMOGLOBIN A1C STAT 09/04/2023 9:48 AM CHORAL TEACHER from Last 3 Months or Most Recently Relevant to Health Maintenance Results * POCT glucose (06/02/2025 7:43 AM CDT) Glucose, POC 160 70 - 199 mg/dL Blood 06/02/2025 7:43 AM CDT 06/02/2025 7:43 AM CDT Jessica Roberto MD LAB POCT ORDERABLES - DEVICE Final Result Performing Organization Address [facility] Co de Phone Number LYRIC JAQUEZ [address] [place] [address] * POCT glucose (06/02/2025 5:59 AM CDT) Glucose, POC 179 70 - 199 mg/dL Blood 06/02/2025 5:59 AM CDT 06/02/2025 5:59 AM CDT Jessica Roberto MD LAB POCT ORDERABLES - DEVICE Final Result Performing Organization Address [facility] Co de Phone Number LYRIC JAQUEZ [address] [place] [address] * (ABNORMAL) POCT lipid panel (03/10/2025 1:09 PM CDT) Pathologist [facility] Cholesterol, POC 145 <200 MG/DL HDL, POC [...] Result * (ABNORMAL) Basic metabolic panel (04/08/2024) [facility] SCRIBED Sodium 140 137 - 145 mmol/L [...] * (ABNORMAL) Hemoglobin A1c (09/04/2023 9:48 AM CHORAL TEACHER) [facility] Hgb A1C 9.2(H) 4.0 - 5.6 % [facility] Estimated Average Glucose 217 mg/dL [facility] Comment: The ADA recommends reporting an estimated Average Glucose (eAG) with all Hemoglobin A1c results using the equation derived from a study of 507 normal and diabetic adults. Minority populations were underrepresented and children were not included. (Diabetes Care 31:0860-7040, 2008). The eAG is not equivalent to a fasting glucose. Blood 09/04/2023 9:48 AM CHORAL TEACHER 09/04/2023 9:59 AM CHORAL TEACHER us Terra Gilmore NP LAB BLOOD ORDERABLES Final Resul t [facility] [address] [place] [address] from Last 3 Months or Most Recently Relevant to Health Maintenance Insurance [facility] HMO/PPO Address: [facility] [address] [place] [id number] MEDICARE [employer] Member Subscriber Plan / Payer (Ef fective 2023-Present) Name:Jenna Mars Relation to Subscriber:Self Name:Jenna Mars Payer ID:[id number] Group ID:Not on file Type:[employer] Address: [employer] [address] [employer] Member Subscriber Plan / Payer (Ef fective 2023-Present) Name:Jenna Mars Relation to Subscriber:Self Name:Jenna Mars Payer ID:[id number] Group ID:Not on file Type:[employer] Address: [facility] [address] Advance Directives For more information, please contact: [phone] * Full Code (Latest Code Status on File) Date Activated Date Inactivated Comments 09/04/2023 2:59 PM 09/09/2023 3:12 PM Care Teams Groundskeeper Relationship Specialty Start Date End Date Camryn Chao DO PCP - General Family Medicine 01/18/23 Kevin Metcalf MD [address] [place] [address] Referring Physician Cardiology 08/02/23 Cortez Huerta MD [address] [place] [address] Consulting Physician Cardiothoracic Surgery 08/02/23 Soha Vega MD [address] [place] [address] Endocrinology Diabetes & Metabolism 09/08/23
== END 2025-08-05 09:23 | disposition home or self-care (01) ==
LOC: ANHLAB 09:24
PROVIDERS: PCP Family Medicine; Visit Provider Internal Medicine Endocrinology, Diabetes & Metabolism
DX: E11.65 Type 2 diabetes mellitus with hyperglycemia (principal)
CPT/HCPCS: 36415; 83036

== ENCOUNTER 2025-08-06 08:15 | Outpatient (CLI) | payer MEDICARE, OTHER, SELFPAY ==
--- OUTSIDE RECORDS SUMMARY | 2010-02-02 10:30 | XMS_ITS | Continuity of Care Document ---
Author Organization [facility] Address [address] [facility] [address] [place] [address] Phone Care Team Providers Care Clock Repairer Name Role Phone Lio Maharaj Unavailable Unavailable Procedures Procedure Date Office/outpatient Visit, Est Office/outpatient Visit, Est Eye Exam & Treatment Advance Directives Directive Yes / No Effective Date File Name No Information Encounters Encounter Description Practice Location Reason(s) For Visit Diagnoses Date Provider Providers Copied on Encounter Office/outpat ient Visit, Est [facility], [address], [place], [place], [address], [place] tel:[phone] [facility] No Information 4-201 0 Krishnasamy Lio. [address] [address], [place], [place], [facility], [place]. tel:[phone] Office/outpat ient Visit, [facility], [address], [place], [place], [address], [place] tel:[phone] [facility] No Information 5-200 9 Krishnasamy Lio. [address] [facility] [address], [place], [address], [place]. tel:[phone] [facility], [address], [place], [place], [address], [place] tel:[phone] [facility] No Information Dec- 0-200 8 Carol Ann Vaca. [address], [address], [place]. tel:[phone] Family History Family Member Type Diagnosis Age [...]
--- OUTSIDE RECORDS SUMMARY | 2025-08-06 08:20 | XMS_ITS | Clinical Summary ---
Author Organization [facility] [address] Address [address] [place] [address] Care Team Providers Care Area Relief Pilot Name Role Phone ChaoCamryn dahl Terra MAURO Primary Care Provider + Kevin Metcalf MD Unavailable Cortez Huerta MD Unavailable [phone] Soha Vega MD Unavailable [phone] Allergies Active Allergy Reactions Criticality Noted Date Comments Diltiazem Other (See comments) Low 07/25/2019 AV block Hydralazine Joint pain Low 05/21/2025 Lisinopril Cough Low 07/07/2019 Naproxen Angioedema High 02/03/2019 Penicillin G Rash Medium 02/03/2019 Medications fenofibrate micronized (LOFIBRA) 134 mg capsule Take 1 capsule (134 mg total) by mouth bedtime 019 Active VESICARE 5 mg tablet Take 1 [...] mcg total) by mouth every evening Active izuyo-I-tgxfat osidase (BEANO ORAL) Take 1 tablet by [...] severe 09/04/2023 Coronary artery disease invo lving three affiliated coronary artery of three affiliated heart without angina pectoris 08/28/2023 Left carotid bruit 05/07/2020 Nonrheumatic aortic valve stenosis 05/07/2020 Renal artery stenosis 02/12/2020 Chronic kidney disease 07/25/2019 Family history of coronary artery disease 2018 AV block 07/25/2019 Frequent PVCs 07/25/2019 Hypertension associated with diabetes 07/25/2019 Hyperlipidemia associated with type 2 diabetes chelle solis 07/25/2019 Encounters Date Type Department Care Team Description 06/25/2025 8:00 AM CDT Office Visit [facility]) - [facility] Medicine ENT [address] [place] [address] Medical Office Building [address] [place] [address] Jessica Roberto MD Obstructive sleep apnea (adult) (pediatric) (Primary Dx); Intolerance of continuous positive airway pressure (CPAP) ventilation; BMI 36.0-36.9,adult 06/02/2025 7:30 AM CDT - 06/02/2025 8:00 AM CDT Surgery [facility] Operating Room [address] [place] [address] Jessica Roberto MD DRUG INDUCED SLEEP ENDOSCOPY 06/02/2025 7:26 AM CDT Anesthesia Event [facility] Operating Room [id number] [place] [address] Iban Mcdonald Jr., MD Ifune, Catherine K., MD PhD 06/02/2025 5:35 AM CDT - 06/02/2025 8:52 AM CDT Hospital Encounter [facility] Operating [facility] [address] [place] [address] Jessica Roberto MD Obstructive sleep apnea (Primary [...] Hyperlipidemia Diabetes mellitus Osteoarthritis Cataract Anemia WPW (Fyvcn-Mdukejbkz-Jotew syndrome) GERD (gastroesophageal reflu x disease) Vertigo Aortic stenosis CKD (chronic kidney disease) stage 3, GFR 30-59 ml/min ([facility]) baseline creat 1.3-1.4 Coronary artery disease Neuromuscular disorder Degenerative disc disease, Neuropathy. Sleep apnea Heart disease CHF (congestive heart failur e) ([facility]) early 2023 Type 2 diabetes mellitus Obstructive sleep apnea Family History Medical History Relation Name Comments No Known Problems Brother 1 No Known Problems Brother 2 Bladder Cancer Father 90 Cancer Father 90 Heart attack Father 90 Hypertension Father 90 Heart attack Mother 76 fatal [place] Sudden Mother 76 COPD Sister 64 Relation [...] doctor or pharmacy Never 10/09/2023 [facility] Utilities Answer Date Recorded In the past 12 months has e uGift, oil, or water Euphoria App threatened to shut off services in your [...] How often do you attend chur or church services? 1 to 4 times per year [...] place to sleep or slept in a half-way (including now)? No 09/06/2023 AUDIT-C Answer Date [...] on file Legal Sex Female 9:23 AM ASSISTANT MANAGER RETAIL Gender Identity Not on file Sexual Orientation [...] 10/22, 04/19/2012 Medical Devices Implanted Type Area Metallurgical Analyst Device Identifier Shelf Expiration Date Model / Serial / Lot Lux Lifesciences Inspiris Resilia Leaflet Aortic Valve 23mm [id number] - [id number] - [id number] Implanted:Qty: 1 on 09/04/2023 by Cortez Huerta MD at [facility] Prosthetic Valve N/A: Aortic Valve Lux Lifesciences 04/29/2027 [id number] / [id number] / Giang Vascular Device Clsr Perclose Prostyle Sut-Mediatd Closure-Repair Sys 27711-55 - S0 - [id number] Implanted:Qty: 1 on 08/01/2023 by Alireza Negron MD at [facility] Vascular Closure Device Giang Vascular 04/20/2025 [id number] / 0 / [id number] Bard Peripheral Vascular Bard .25x.25in [place] Thk1.65mm Square Pledget Cardiovascular Ptfe [id number] - [id number] Implanted:Qty: 1 on 09/04/2023 by Cortez Huerta MD at [facility] N/A: Chest Bard Peripheral Vascular [id number] / / Ar[employer] Device Closure Fibertape Sternal Cerclage Blunt Needle Ar-7289 - [id number] Implanted:Qty: 1 on 09/04/2023 by Cortez Huerta MD at [facility] N/A: Sternum Arthrex Inc 05/21/2028 AR-7289 / / [id number] Arthrex Inc Device Closure Fibertape Sternal Cerclage Blunt Needle Ar-7289 - [id number] Implanted:Qty: 1 on 09/04/2023 by Cortez Huerta MD at [facility] N/A: Sternum Arthrex Inc 09/20/2026 AR-7289 / / [id number] Procedures Procedure Name Priority Date/Time Associated Diagnosis Comments POCT GLUCOSE DEVICE Routine 06/02/2025 7 :43 AM CDT DRUG INDUCED SLEEP ENDOSCOPY. 06/02/2025 7:26 AM CDT Obstructive sleep apnea POCT GLUCOSE DEVICE Routine 06/02/2025 5 :59 AM CDT POCT LIPID PANEL Routine 03/10/2025 1:09 PM CDT Hyperlipidemia associated with type 2 diabetes mellitus (HCC) Coronary artery disease involving three affiliated coronary artery of three affiliated heart without angina pectoris BASIC METABOLIC PANEL Routine 04/08/2024 Hypertension associated with diabetes (HCC) HEMOGLOBIN A1C STAT 09/04/2023 9:48 AM ASSISTANT MANAGER RETAIL from Last 3 Months or Most Recently Relevant to Health Maintenance Results * POCT glucose (06/02/2025 7:43 AM CDT) Glucose, POC 160 70 - 199 mg/dL Blood 06/02/2025 7:43 AM CDT 06/02/2025 7:43 AM CDT Jessica Roberto MD LAB POCT ORDERABLES - DEVICE Final Result Performing Organization Address [facility] Co de Phone Number LYRIC JAQUEZ [address] [address] * POCT glucose (06/02/2025 5:59 AM CDT) Glucose, POC 179 70 - 199 mg/dL Blood 06/02/2025 5:59 AM CDT 06/02/2025 5:59 AM CDT Jessica Roberto MD LAB POCT ORDERABLES - DEVICE Final Result Performing Organization Address [facility] Co de Phone Number LYRIC JAQUEZ [address] [place] [address] * (ABNORMAL) POCT lipid panel (03/10/2025 1:09 PM CDT) Pathologist [facility] Cholesterol, POC 145 <200 MG/DL HDL, [...] Result * (ABNORMAL) Basic metabolic panel (04/08/2024) [facility] SCRIBED Sodium 140 137 - [...] * (ABNORMAL) Hemoglobin A1c (09/04/2023 9:48 AM ASSISTANT MANAGER RETAIL) [facility] Hgb A1C 9.2(H) 4.0 - 5.6 % [facility] Estimated Average Glucose 217 mg/dL [facility] Comment: The ADA recommends reporting an estimated Average Glucose (eAG) with all Hemoglobin A1c results using the equation derived from a study of 507 normal and diabetic adults. Minority populations were underrepresented and children were not included. (Diabetes Care 31:0398-5606, 2008). The eAG is not equivalent to a fasting glucose. Blood 09/04/2023 9:48 AM ASSISTANT MANAGER RETAIL 09/04/2023 9:59 AM ASSISTANT MANAGER RETAIL us Terra Gilmore NP LAB BLOOD ORDERABLES Final Resul t [facility] [address] Department [place] [address] from Last 3 Months or Most Recently Relevant to Health Maintenance Insurance [facility] HMO/PPO Address: [facility] [id number] [place] [id number] MEDICARE [employer] Member Subscriber Plan / Payer (Ef fective 2023-Present) Name:Jenna Mars Relation to Subscriber:Self Name:Jenna Mars Payer ID:[id number] Group ID:Not on file Type:Undo Software Address: [facility] [address] [employer] Member Subscriber Plan / Payer (Ef fective 2023-Present) Name:Jenna Mars Relation to Subscriber:Self Name:Jenna Mars Payer ID:[id number] Group ID:Not on file Type:Undo Software Address: [facility] [address] Advance Directives For more information, please contact: [phone] * Full Code (Latest Code Status on File) Date Activated Date Inactivated Comments 09/04/2023 2:59 PM 09/09/2023 3:12 PM Care Teams Area Relief Pilot Relationship Specialty Start Date End Date Camryn Chao DO PCP - General Family Medicine 01/18/23 Kevin Metcalf MD [address] [place] [address] Referring Physician Cardiology 08/02/23 Cortez Huerta MD [address] [place] [address] Consulting Physician Cardiothoracic Surgery 08/02/23 Soha Vega MD [address] [place] [address] Endocrinology Diabetes & Metabolism 09/08/23
--- OUTSIDE RECORDS SUMMARY | 2025-08-06 08:20 | XMS_ITS | Clinical Summary ---
Author Organization [facility] Address [address] [place] [address] Phone Care Team Providers Care Gluer And Slicer Hand Name Role Phone Carlos Alberto Oneil Primary Care Provider [phone] Allergies Active Allergy Reactions Criticality Noted Date [...] , 07/20/2020, 08/11/2019, Additional history exists Insurance [facility] Care Teams Gluer And Slicer Hand Relationship Specialty Start Date End Date Carlos Alberto Oneil [address] [place] [address] PCP - General 04/26/22
--- OUTSIDE RECORDS SUMMARY | 2025-08-06 08:20 | XMS_ITS | Clinical Summary ---
Author Organization [facility] Address [address] [place] [address] Care Team Providers Care Medical Geneticist Name Role Phone Chao Camryn Juan MAURO Primary Care Provider [phone] Source Comments [facility],non-owned Affiliates and Associated Physician Practices is amultiple site organization consisting of ambulatory clinics and hospital sitesin [place], [place], [place] and [place]. This disclosure is being madepursuant to the Care Everywhere program and may not contain all information available regarding this patient. Last updated 18.[facility] Allergies Active Allergy Reactions Criticality Noted Date [...] Active vitamine D3 (Cholecalciferol ) 250 MCG (05000 UT) capsule Take 1 (one) capsule by [...] Relevant to Health Maintenance Insurance [employer] [place] Care Teams Medical Geneticist Relationship Specialty Start Date End Date Camryn Chao DO [address] [place] [address] PCP - General Family Medicine 01/15/25
--- OUTSIDE RECORDS SUMMARY | 2025-08-06 08:20 | XMS_ITS | Clinical Summary ---
Author Organization [facility] Address [address] [place] [address] Care Team Providers Care Finish Cleaner Name Role Phone Glen Banks MD Primary [...] 07/20/2020, 08/11/2019, Additional history exists Insurance [employer] [id number] Care Teams Finish Cleaner Relationship Specialty Start Date End Date Glen Banks MD [address] [place] [id number] PCP - General Family Practice 04/06/22
[2025-08-06 09:43] LABS: Alanine Aminotransferase 28 U/L (6-35); Albumin Level 4.4 g/dL (3.5-5.1); Alkaline Phosphatase 56 U/L (38-126); Anion Gap 11 mmol/L (4-12); Aspartate Amino Transferase 37 U/L (14-36); Bilirubin,Total 0.4 mg/dL (0.2-1.3); Blood Urea Nitrogen 50 mg/dL (7-17); Calcium 9.7 mg/dL (8.4-10.2); Carbon Dioxide 26 mmol/L (22-30); Chloride 100 mmol/L (98-107); Estimated Glomerular Filt Rate 27; Glucose 134 mg/dL (65-110); Potassium 3.9 mmol/L (3.4-5.0); Sodium 137 mmol/L (137-145); Total Protein 7.3 g/dL (6.3-8.2)
== END 2025-08-06 08:16 | disposition home or self-care (01) ==
PROVIDERS: PCP Family Medicine; Visit Provider Internal Medicine Endocrinology, Diabetes & Metabolism
DX: E11.65 Type 2 diabetes mellitus with hyperglycemia (principal)
CPT/HCPCS: 36415; 80053

== ENCOUNTER 2025-08-11 00:52 | Day surgery (SDC) | payer MEDICARE, OTHER, SELFPAY ==
--- OUTSIDE RECORDS SUMMARY | 2010-02-02 10:30 | XMS_ITS | Continuity of Care Document ---
Author Organization [facility] Address [address] [facility] [address] [place] [address] Phone Care Team Providers Care Icer Hand Name Role Phone Lio Maharaj Unavailable Unavailable Procedures Procedure Date Office/outpatient Visit, Est Office/outpatient Visit, Est Eye Exam & Treatment Advance Directives Directive Yes / No Effective Date File Name No Information Encounters Encounter Description Practice Location Reason(s) For Visit Diagnoses Date Provider Providers Copied on Encounter Office/outpat ient Visit, Est [facility], [address], [place], [place], [id number], [place] tel:[phone] [facility] No Information 4-201 0 Krishnasamy Lio. [address] [address], [place], [place], [facility], [place]. tel:[phone] Office/outpat ient Visit, [facility] [place], [address], [place], [place], [address], [place] tel:[phone] [facility] No Information 5-200 9 Krishnasamy Lio. [address] [facility] [address], [place], [address], [place]. tel:[phone] [facility], [address], [place], [place], [address], [place] tel:[phone] [facility] No Information Dec- 0-200 8 Carol Ann Vaca. [address] [employer] [address], [address], [place]. tel:[phone] Family History Family Member Type Diagnosis Age At Onset No Information Payers Payer name Insurance type Covered democrat ID Authoriza tion(s) No Information Social History [...]
[2025-08-03 10:16] VITALS: BMI 37.0
--- NOTE | 2025-08-03 11:24 | PC.NURSE ---
[facility] has started construction of its new state of the art ER which will open Spring 2026. With this, we anticipate parking may be a challenge for some our surgical patients and families. Parking spaces are limited but are available for all Surgical, obstetrics, and ER patients sharing this lot. If you arrive and find you are having a hard time finding a parking space, please note that we understand the challenges, please drive around the hospital and park near Hospital Entrance 1. When you enter this entrance, you can ask a volunteer to direct or take you back to the surgical waiting area to check in. We appreciate everyone?s understanding of these expected challenges while we build for your future. Report to the Outpatient Waiting Room, entrance under the green pavilion located off [address], at time __8:30AM___ on date __08/11/25___. Planned Procedure Time: ___10:30AM___.? Time changes happen often and if your time is changed the preop area will call you the afternoon before. - You and your visitor will be asked to self-screen and do not enter if you have any COVID symptoms. Please call surgeon if you need to reschedule. - A mask is optional within the hospital at this time. Patients may have clear liquids (water, carbonated beverages, clear teas, apple juice) until 3 hours prior to surgery 730AM) with a maximum of 20 ounces. - No food from midnight until time of surgery and no smoking, or chewing tobacco (or any form of nicotine). No chewing gum, candy or mints. Take only the following medications with a SIP of water on the morning of surgery: ___METOPROLOL, GABAPENTIN DO NOT STOP ANY OF YOUR OTHER PRESCRIPTION MEDICATIONS PRIOR TO SURGERY EXCEPT THE FOLLOWING Hold all vitamins and supplements for 3 days per anesthesiologist. LAST DOSE 08/07/25 Medications to discontinue per physician ___HOLD ASPIRIN PER DR HOPPER, PATIENT/HUSB CONFIRMING W/ OFFICE Date to take last dose Please no make-up, nail slovak, hairspray, perfume, deodorant, or body powder the day of surgery.? No jewelry (including any body piercings) or valuables the day of surgery, leave them at home.? Please take a shower or bath the night before, or the morning of, surgery with an antibacterial soap.? Wear comfortable, loose fitting clothing.? - Jewelry must be removed prior to entering the operating room.? Rings and piercings that are not removed may be cut off. - The hospital will not accept responsibility for valuables.? - Please leave all valuables, including medications, at home the day of surgery. If you are going home after surgery, a licensed box truck driver must drive you home.? - NO public transportation without another adult if you receive anesthesia. - We recommend that an adult stay with you for 24 hours following discharge. - We also recommend that you do not drive, make important decision, drink alcoholic beverages, or take any drugs that were not prescribed by your health care provider for at least 24 hours after your discharge time. Follow any additional instructions given to you from your surgeon. Telephone instructions given to ____PATIENT & HUSBAND and asked if any additional questions and then verbalized understanding. Patient advised to call surgeon office or pre surgery nurse liaison [phone] if any additional questions.
[2025-08-11] VITALS (8 sets, daily range): BP systolic 100–155; BP diastolic 47–89; PULSE 61–69; RESP 10–14; TEMP 36.2–36.3; O2SAT 98–100; BMI 37.9
--- OUTSIDE RECORDS SUMMARY | 2025-08-11 00:55 | XMS_ITS | Clinical Summary ---
Author Organization [facility] Address [address] [place] [address] Care Team Providers Care Store Operations Associate Name Role Phone Chao Camryn Juan MAURO Primary Care Provider [phone] Source Comments [facility],non-owned Affiliates and Associated Physician Practices is amultiple site organization consisting of ambulatory clinics and hospital sitesin [place], [place], [place] and [place]. This disclosure is being madepursuant to the Care Everywhere program and may not contain all information available regarding this patient. Last updated 18.[facility] Allergies Active Allergy Reactions Criticality Noted Date [...] Active vitamine D3 (Cholecalciferol ) 250 MCG (64735 UT) capsule Take 1 (one) capsule by [...] Relevant to Health Maintenance Insurance [employer] [place] Care Teams Store Operations Associate Relationship Specialty Start Date End Date Camryn Chao DO [address] [facility] [address] [facility] [place] [address] PCP - General Family Medicine 01/15/25
--- OUTSIDE RECORDS SUMMARY | 2025-08-11 00:55 | XMS_ITS | Clinical Summary ---
Author Organization [facility] [address] Address [address] [place] [address] Care Team Providers Care Telemetry Tech Name Role Phone ChaoCamryn dahl Terra MAURO Primary Care Provider + Kevin Metcalf MD Unavailable Cortez Huerta MD Unavailable Soha Vega MD Unavailable [phone] Allergies Active Allergy Reactions Criticality Noted Date [...] mcg total) by mouth every evening Active uuvwd-M-gtxikq osidase (BEANO ORAL) Take 1 tablet by [...] Description 06/25/2025 8:00 AM CDT Office Visit [facility]) - [facility] Medicine ENT [address] [place] [address] Medical Office Building [address] [place] [address] Jessica Roberto MD Obstructive sleep apnea (adult) (pediatric) (Primary Dx); Intolerance of continuous positive airway pressure (CPAP) ventilation; BMI 36.0-36.9,adult 06/02/2025 7:30 AM CDT - 06/02/2025 8:[address] [facility] Operating Room [address] [place] [address] Jessica Roberto MD DRUG INDUCED SLEEP ENDOSCOPY 06/02/2025 7:26 AM CDT Anesthesia Event [facility] Operating Room [address] [place] [address] Iban Mcdonald Jr., MD Ifune, Catherine K., MD PhD 06/02/2025 5:35 AM CDT - 06/02/2025 8:52 AM CDT Hospital Encounter [facility] Operating Room [address] [place] [address] Jessica Roberto MD Obstructive sleep apnea (Primary [...] Hyperlipidemia Diabetes mellitus Osteoarthritis Cataract Anemia WPW (Fvhmf-Bevudlxyv-Jaupm syndrome) GERD (gastroesophageal reflu x disease) Vertigo Aortic stenosis CKD (chronic kidney disease) stage 3, GFR 30-59 ml/min ([facility]) baseline creat 1.3-1.4 Coronary artery disease Neuromuscular disorder Degenerative disc disease, Neuropathy. Sleep apnea Heart disease CHF (congestive heart failur e) ([facility]) early 2023 Type 2 diabetes mellitus Obstructive sleep apnea Family History Medical History Relation Name Comments No Known Problems Brother 1 No Known Problems Brother 2 Bladder Cancer Father 90 Cancer Father 90 Heart attack Father 90 Hypertension Father 90 Heart attack Mother 76 fatal [place] Sudden Mother 76 COPD Sister 64 Relation [...] or pharmacy Never 10/09/2023 [facility] Utilities Answer Date Recorded In the past 12 months has e Fragegg, oil, or water KRAFTWERK threatened to shut off services in your [...] How often do you attend chur or jain services? 1 to 4 times per year 09/06/2023 Do you belong to any clubs o r organizations such as scientology groups, unions, fraternal or athletic groups, or [...] in a custodial (including now)? No 09/06/2023 AUDIT-C Answer Date [...] file Legal Sex Female 9:23 AM DIRECTOR MARKETING ANALYTICS Gender Identity Not on file Sexual Orientation [...] 10/22, 04/19/2012 Medical Devices Implanted Type Area Chief Executive Device Identifier Shelf Expiration Date Model / Serial / Lot Lux Lifesciences Inspiris Resilia Leaflet Aortic Valve 23mm [id number] - [id number] - [id number] Implanted:Qty: 1 on 09/04/2023 by Cortez Huerta MD at [facility] Prosthetic Valve N/A: Aortic Valve Lux Lifesciences 04/29/2027 [id number] / [id number] / Giang Vascular Device Clsr Perclose Prostyle Sut-Mediatd Closure-Repair Sys 76558-37 - S0 - [id number] Implanted:Qty: 1 on 08/01/2023 by Alireza Negron MD at [facility] Vascular Closure Device Giang Vascular 04/20/2025 [id number] / 0 / [id number] Bard Peripheral Vascular Bard .25x.25in [place] Thk1.65mm Square Pledget Cardiovascular Ptfe [id number] - [id number] Implanted:Qty: 1 on 09/04/2023 by Cortez Huerta MD at [facility] N/A: Chest Bard Peripheral Vascular [id number] / / Arthrex Inc Device Closure Fibertape Sternal Cerclage Blunt Needle Ar-7289 - [id number] Implanted:Qty: 1 on 09/04/2023 by Cortez Huerta MD at [facility] N/A: Sternum Arthrex Inc 05/21/2028 AR-7289 / / [id number] Arthrex Inc Device Closure Fibertape Sternal Cerclage Blunt Needle Ar-7289 - [id number] Implanted:Qty: 1 on 09/04/2023 by Cortez Huerta MD at [facility] N/A: Sternum Arthrex Inc 09/20/2026 AR-7289 / / [id number] Procedures Procedure Name Priority Date/Time Associated Diagnosis [...] (HCC) HEMOGLOBIN A1C STAT 09/04/2023 9:48 AM DIRECTOR MARKETING ANALYTICS from Last 3 Months or Most Recently Relevant to Health Maintenance Results * POCT glucose (06/02/2025 7:43 AM CDT) Glucose, POC 160 70 - 199 mg/dL Blood 06/02/2025 7:43 AM CDT 06/02/2025 7:43 AM CDT Jessica Roberto MD LAB POCT ORDERABLES - DEVICE Final Result Performing Organization Address [facility] Co de Phone Number LYRIC JAQUEZ [address] [place] [address] * POCT glucose (06/02/2025 5:59 AM CDT) Glucose, POC 179 70 - 199 mg/dL Blood 06/02/2025 5:59 AM CDT 06/02/2025 5:59 AM CDT Jessica Roberto MD LAB POCT ORDERABLES - DEVICE Final Result Performing Organization Address [facility] Co de Phone Number LYRIC JAQUEZ [address] Department [place] [address] * (ABNORMAL) POCT lipid panel (03/10/2025 1:09 PM CDT) Pathologist [facility] Cholesterol, POC 145 <200 MG/DL HDL, POC [...] Result * (ABNORMAL) Basic metabolic panel (04/08/2024) [facility] SCRIBED Sodium 140 137 - 145 [...] * (ABNORMAL) Hemoglobin A1c (09/04/2023 9:48 AM DIRECTOR MARKETING ANALYTICS) [facility] Hgb A1C 9.2(H) 4.0 - 5.6 % [facility] Estimated Average Glucose 217 mg/dL [facility] Comment: The ADA recommends reporting an estimated Average Glucose (eAG) with all Hemoglobin A1c results using the equation derived from a study of 507 normal and diabetic adults. Minority populations were underrepresented and children were not included. (Diabetes Care 31:4181-2226, 2008). The eAG is not equivalent to a fasting glucose. Blood 09/04/2023 9:48 AM DIRECTOR MARKETING ANALYTICS 09/04/2023 9:59 AM DIRECTOR MARKETING ANALYTICS us Terra Gilmore NP LAB BLOOD ORDERABLES Final Resul t [facility] [address] Department [place] [address] from Last 3 Months or Most Recently Relevant to Health Maintenance Insurance [facility] H[facility]/PPO Address: [facility] [id number] [place] [phone] MEDICARE [employer] Member Subscriber Plan / Payer (Ef fective 2023-Present) Name:Jenna Mars Relation to Subscriber:Self Name:Jenna Mars Payer ID:[id number] Group ID:Not on file Type:[place] Address: [employer] [address] MED[employer] Member Subscriber Plan / Payer (Ef fective 2023-Present) Name:Jenna Mars Relation to Subscriber:Self Name:Jenna Mars Payer ID:[id number] Group ID:Not on file Type:[place] Address: [facility] [address] Advance Directives For more information, please contact: [phone] * Full Code (Latest Code Status on File) Date Activated Date Inactivated Comments 09/04/2023 2:59 PM 09/09/2023 3:12 PM Care Teams Telemetry Tech Relationship Specialty Start Date End Date Camryn Chao DO PCP - General Family Medicine 01/18/23 Kevin Metcalf MD [address] [place] [address] Referring Physician Cardiology 08/02/23 Cortez Huerta MD [address] [place] [address] Consulting Physician Cardiothoracic Surgery 08/02/23 Soha Vega MD [address] [place] [address] Endocrinology Diabetes & Metabolism 09/08/23
--- OUTSIDE RECORDS SUMMARY | 2025-08-11 00:55 | XMS_ITS | Clinical Summary ---
Author Organization [facility] Address [address] [place] [address] Phone Care Team Providers Care Risk Management Consultant Name Role Phone Carlos Alberto Oneil Primary Care Provider [phone] Allergies Active Allergy Reactions Criticality Noted Date [...] , 07/20/2020, 08/11/2019, Additional history exists Insurance [facility] Care Teams Risk Management Consultant Relationship Specialty Start Date End Date Carlos Alberto Oneil [address] [place] [address] PCP - General 04/26/22
--- NOTE | 2025-08-11 09:14 | WPDANESEPPF ---
Anes - Initial Pre Proc Eval Procedure: Operation Date: 08/11/25 10:30 Proposed Procedures p Excisional Biopsy Right Mammary Duct, Possible Total Duct Excision - Christi Madden MD Date/Time: 08/11/25 09:14 Surgeon: Christi Madden MD Pre Op Diagnosis: nipple discharge Patient Data Age: 64 Gender: F Height: 1.57 m Weight: 92 kg Allergies Allergy/AdvReac Type Severity Reaction Status Date / Time amoxicillin Allergy Unknown Rash Verified 08/11/25 09:12 diclofenac Allergy Unknown LIP Verified 08/11/25 09:12 SWELLING dicloxacillin Allergy Unknown lips swell Verified 08/11/25 09:12 naproxen Allergy Unknown LIP Verified 08/11/25 09:12 SWELLING Penicillins Allergy Unknown HIVES Verified 08/11/25 09:12 piroxicam (Feldene) Allergy Unknown lips swell Verified 08/11/25 09:12 lisinopril AdvReac Unknown Cough Verified 08/11/25 09:12 Home Medications ?Medication ?Instructions ?Recorded ?Confirmed ?Type acetaminophen 650 mg 1,300 mg PO Q8H PRN Pain 07/06/20 08/03/25 History tablet,extended release (Tylenol Arthritis Pain) vitamin B complex (B 1 tablet PO DAILY #90 tabs 07/19/21 08/03/25 Rx Complex-Vitamin B12 tablet) mecobalamin (vitamin B12) 1,000 1,000 mcg PO DAILY 11/01/22 08/03/25 History mcg chewable tablet blood sugar diagnostic (Contour #100 ea 06/29/23 08/03/25 Rx Next Test Strips) empagliflozin 25 mg tablet 25 mg PO QAM #90 tabs 07/24/23 08/03/25 Rx (Jardiance) atorvastatin 80 mg tablet 80 mg PO QHS 09/20/23 08/03/25 History omeprazole 20 mg capsule,delayed 20 mg PO DAILY 09/20/23 08/03/25 History release furosemide 20 mg tablet 20 mg PO QAM 12/04/23 08/03/25 History BPAP Equipment #1 ea 07/22/24 08/03/25 Rx spironolactone 25 mg tablet 25 mg PO DAILY #90 tabs 09/01/24 08/03/25 Rx BPAP Pressure #1 ea 09/11/24 08/03/25 Rx insulin lispro 100 unit/mL 12 unit subcut USEASDIRECTD 10/13/24 08/03/25 History subcutaneous pen blood-glucose sensor (FreeStyle 11/19/24 08/03/25 History Luba 3 Plus Sensor device) fenofibrate micronized 134 mg 134 mg PO QPM #90 caps 03/17/25 08/03/25 Rx capsule CPAP mask #1 ea 04/15/25 08/03/25 Rx Turmeric Glucosamine with Annemarie See Rx Instructions PO .COMPLEX 04/15/25 08/03/25 History cholecalciferol (vitamin D3) 25 1,000 unit PO DAILY 04/15/25 08/03/25 History mcg (1,000 unit) tablet ferrous gluconate 225 mg (27 mg 27 mg PO TID 04/15/25 08/03/25 History iron) tablet hydroxyzine HCl 50 mg tablet 50 mg PO ONCE PRN Itching 04/15/25 08/03/25 History insulin glargine 100 unit/mL (3 40 unit subcut QAM 04/15/25 08/03/25 History mL) subcutaneous pen (Lantus Solostar U-100 Insulin) magnesium 250 mg tablet 250 mg PO QHS 04/15/25 08/03/25 History methocarbamol 750 mg tablet 750 mg PO TID #30 tabs 05/16/25 08/03/25 Rx irbesartan 300 mg tablet 300 mg PO DAILY #90 tabs 06/01/25 08/03/25 Rx gabapentin 300 mg capsule 300 mg PO .COMPLEX #360 caps 06/17/25 08/03/25 Rx tirzepatide 7.5 mg/0.5 mL 7.5 mg subcut WEEKLY 07/13/25 08/03/25 History subcutaneous pen injector (Mounjaro) aspirin 325 mg tablet,delayed 325 mg PO DAILY 08/03/25 08/03/25 History release metoprolol tartrate 100 mg tablet 100 mg PO Q12H 08/03/25 08/03/25 History Patient hx anesthesia problems: none Family hx anesthesia problems: none Results Review: All pre-operative results and documents have been reviewed as part of the pre-operative evaluation. [facility] Past Medical History Medical History Hypertension Adenomatous colon polyp Vitamin B12 deficiency Chronic anemia Overactive bladder Gastroesophageal reflux disease Essential hypertension Osteoarthritis Diabetic peripheral neuropathy Nonrheumatic aortic valve stenosis Type 2 diabetes mellitus Mixed hyperlipidemia Chronic kidney disease, stage 3 Yvfxc-Hsbuipxlp-Scbnw syndrome Surgical History Surgical History H/O heart bypass surgery History of arthroscopy of left knee (01/2018) History of laparoscopic cholecystectomy (01/2009) History of hammertoe correction (08/2007) History of tubal ligation (1987) History of hysterectomy History of arthroplasty of right knee (01/2021) History of arthroplasty of left knee (08/2018) Family History Family History Father Family history of cardiovascular disease Diabetes mellitus Acute myocardial infarction Hypertension Cancer Mother Family history of cardiovascular disease Acute myocardial infarction, Onset Age: 76 Depression Family history of chronic obstructive pulmonary disease Sibling Hypertension Social History Social History Social History: Caffeine- herbal tea Surrogate medical decision maker: Maurilio Mars, spouse. Code status: Full code. Smoking status: Never smoker Second hand tobacco smoke exposure: No Alcohol intake: never Substance use: never Substance use type: does not use Do You Feel Safe in your Home?: Yes Lack of Transportation: No Lack of Food: Never True Current Housing: I Have Housing Concerned About Future Housing: No Difficulty Paying Gas/Electric Bills: No Difficulty Paying for Meds: No Currently Unemployed: No Education: Trade/Vocational Certificate Difficulty w/ Childcare or Family Care: No Living arrangements: with family Additional living arrangements comments: [facility] Gender identity (if verbalized by the patient): Female Spiritual care concerns: No Anes - Eval Final PreProcedure Day of Procedure 08/11/25 09:14 Patient weight: obese Heart: regular rate and rhythm Lungs: clear to auscultation Airway: Mallampati scale class II Neurological: alert and oriented Last oral intake: >/= 8 hours ASA classification: III Emergent: no Anesthetic plan: proceed Anesthesia type and monitoring: general LMA and standard monitoring Results Review: All pre-operative results and documents have been reviewed as part of the pre-operative evaluation. Informed Consent: The patient's anesthetic plan and its attendant risks and benefits were discussed with the patient/family/POA. Questions were solicited and answers provided to the satisfaction of the patient/family/POA.
[2025-08-11] MEDS: LACTATED RINGERS 1,000 ML 30 ML IV CONT (09:30)
--- NOTE | 2025-08-11 09:38 | WPDHPUPDATE1 ---
History and Physical Update Update Date/Time: 08/11/25 09:38 - Excisional biopsy of right mammary duct, possible total duct excision. History and Physical has been reviewed, including an updated exam of the patient. There are NO changes in the patient's condition. Risks, benefits, and alternatives have been discussed and questions answered. Patient agrees to proceed with procedure.
[2025-08-11] MEDS: ceFAZolin 2 GM in SODIUM CHLORIDE 0.9% IV 50 ML 100 ML IVPB (09:56)
[2025-08-11] MEDS: LIDOCAINE 1% LOCAL INJ 10 ML VIAL 5 ML INFILTRATE (10:14)
[2025-08-11] MEDS: BUPIVACAINE/EPINEPHRINE 0.5% 50 ML VIAL INFILTRATE (10:15)
--- NOTE | 2025-08-11 10:23 | S_PTH ---
PATIENT: Jenna Mars LOC: [facility] U#:[id number] AGE/SX: 64/F ROOM: RE08/11/[address]: Christi Madden MD : 1960 BED: DIS: 08/11/2025 SPEC #: [id number] RECD: 08/11/25 12:31 STATUS: ISIS REQ #: [id number] GODFREY: 08/11/25 10:[address]: Christi Madden DEPT: [facility] RECD BY: Beena Cannon ENTERED: 08/11/25 12:32 SP TYPE: Surgical OTHR DR: Camryn Chao DO Tissues: A - Breast Tissue Procedures: Hematoxylin and Eosin Stain Gross and Microscopic Level 4
--- NOTE | 2025-08-11 10:34 | W.PM.PROC2 ---
Procedure Note - Detailed Date of Procedure 08/11/25 Pre-op Diagnosis Pathological right nipple discharge Post-op Diagnosis Same Procedure Performed Right breast total duct excision Surgeon Christi Madden MD Anesthesia MAC Description of Procedure Patient was identified in the preoperative holding area brought to the operating room suite. She was laid supine in the OR table sequential compression devices were applied. The right chest area was prepped and draped in a sterile fashion. A small superior periareolar incision was made with a 15 blade and dissection was carried down through the subcutaneous tissue into the breast tissue towards the nipple. The central ducts were identified and excised EN bloc down to approximately 3 cm in length. The specimen was sent to pathology as a permanent specimen. The cavity was irrigated with saline hemostasis was assured. Several 2 0 Vicryl intraparenchymal sutures were placed to close the central cavity and decrease the risk of seroma. The deep dermal layer was then closed with 3-0 Vicryl interrupted suture followed by 4-0 Monocryl in a subcuticular fashion for the skin. Dermabond was applied followed by a surgical bra. Patient was awoken from anesthesia taken to the recovery area is stable condition. All needles, instruments, sponge counts were correct as reported by the operating room staff. Patient tolerated the procedure well with no immediate complications. Estimated Blood Loss 2 Pathology Yes Complications No immediate complications Condition Stable Disposition PACU [facility] Billing Surgery - Charge Forward: Surgery Billing (CPT 29682)
[2025-08-11] MEDS: oxyCODONE HCL (*CRX) 5 MG TAB IR PO (12:15)
== END 2025-08-11 12:46 | disposition home or self-care (01) ==
PROVIDERS: PCP Family Medicine; Visit Provider Surgery
PROC: (CPT 19120; principal; 2025-08-11 10:30)
DX: N64.89 Other specified disorders of breast (principal); I12.9 Hypertensive chronic kidney disease with stage 1 through stage 4 chronic kidney disease, or unspecified chronic kidney disease; E11.22 Type 2 diabetes mellitus with diabetic chronic kidney disease; N18.30 Chronic kidney disease, stage 3 unspecified; E11.42 Type 2 diabetes mellitus with diabetic polyneuropathy; E66.9 Obesity, unspecified; Z68.37 Body mass index [BMI] 37.0-37.9, adult
CPT/HCPCS: 19120; 82948; 88305; J0690; A9270; J1100; J2003; J2405; J2704; J7120

== ENCOUNTER 2025-09-02 13:04 | Outpatient (CLI) | payer MEDICARE, OTHER, SELFPAY ==
--- OUTSIDE RECORDS SUMMARY | 2010-02-02 09:30 | XMS_ITS | Continuity of Care Document ---
Author Organization [facility] Address [address] [facility] [address] [place] [address] Phone Care Team Providers Care Bus Dispatcher Interstate Name Role Phone Lio Maharaj Unavailable Unavailable Procedures Procedure Date Office/outpatient Visit, Est Office/outpatient Visit, Est Eye Exam & Treatment Advance Directives Directive Yes / No Effective Date File Name No Information Encounters Encounter Description Practice Location Reason(s) For Visit Diagnoses Date Provider Providers Copied on Encounter Office/outpat ient Visit, [facility], [address], [place], [place], [id number], [place] tel:[phone] [facility] No Information 4-201 0 Krishnasamy Lio. [address] [address], [place], [place], [facility], [place]. tel:[phone] Office/outpat ient Visit, [facility], [address], [place], [place], [id number], [place] tel:[phone] [facility] No Information 5-200 9 Krishnasamy Lio. [address] [facility] [address], [place], [address], [place]. tel:[phone] [facility], [address], [place], [place], [id number], [place] tel:[phone] [facility] No Information Dec- 0-200 8 Carol Ann Vaca. [address], [address], [place]. tel:[phone] Family History Family Member Type Diagnosis Age At Onset No Information Payers Payer name Insurance type Covered libertarian ID Authoriza tion(s) No Information Social History Type Description Quantity Date Captured Comments Sex Female Smoking Status No Information Chief Complaint And Reason For Visit No Information Reason For Referral Reason For Referral No Information History Of Present Illness Encounter Date Complaint History Of Prese nt Illness No Information Functional Status Date Functional Assessmen t No Information Instructions Date Instruction Additional Infor mation No Information Assessments Type Assessment Date No Information Patient Care Teams Name Effective Dates (start - stop) Status Members No Information
--- NOTE | 2025-09-02 13:00 | NEURO_ITS ---
Impression: # Known diabetic complains of left wrist discomfort. ? # Mild Carpal Tunnel syndrome bilaterally (sensory) ? # Right Ulnar Neuropathy. ? # Normal Needle/ EMG exam. Nerve Conduction Studies ?Stim Site NR Peak (ms) P-T Amp (?V) Site1 Site2 Delta-P (ms) Dist (cm) Sergio (m/s) Left Median Anti Sensory (2-3nd Digit) Wrist ? 3.7 27.6 Wrist 2-3nd Digit 3.7 14.0 38 Wrist ? 3.7 25.4 Wrist 2-3nd Digit 3.7 14.0 38 Right Median Anti Sensory (2-3nd Digit) Wrist ? 3.8 15.4 Wrist 2-3nd Digit 3.8 14.0 37 Wrist ? 3.9 15.2 Wrist 2-3nd Digit 3.8 14.0 37 Left Radial Anti Sensory (Base 1st Digit) Wrist ? 2.9 7.7 Wrist Base 1st Digit 2.9 0.0 Right Radial Anti Sensory (Base 1st Digit) Wrist ? 2.3 12.0 Wrist Base 1st Digit 2.3 0.0 Left Ulnar Anti Sensory (5th Digit) Wrist ? 2.4 20.0 Wrist 5th Digit 2.4 14.0 58 Right Ulnar Anti Sensory (5th Digit) Wrist ? 2.3 19.3 Wrist 5th Digit 2.3 14.0 61 ?Stim Site NR Onset (ms) O-P Amp (mV) Site1 Site2 Delta-0 (ms) Dist (cm) Sergio (m/s) Left Median Motor (Abd Poll Brev) Wrist ? 4.1 8.6 Elbow Wrist 6.0 30.0 50 Elbow ? 10.1 6.3 Right Median Motor (Abd Poll Brev) Wrist ? 4.4 3.3 Elbow Wrist 5.8 28.0 48 Elbow ? 10.2 3.0 Left Ulnar Motor (Abd Dig Minimi) Wrist ? 2.7 8.5 A Elbow Wrist 6.0 31.0 52 A Elbow ? 8.7 4.9 B Elbow Wrist 4.7 25.0 53 B Elbow ? 7.4 7.9 Right Ulnar Motor (Abd Dig Minimi) Wrist ? 2.3 8.5 A Elbow Wrist 5.4 26.0 48 A Elbow ? 7.7 7.6 B Elbow Wrist 4.4 20.0 45 B Elbow ? 6.7 7.2 F Wave Studies ?NR F-Lat (ms) L-R F-Lat (ms) Left Median (Mrkrs) (Abd Poll Brev) ? 32.50 0.25 Right Median (Mrkrs) (Abd Poll Brev) ? 32.75 0.25 Left Ulnar (Mrkrs) (Abd Dig Min) ? 33.05 2.58 Right Ulnar (Mrkrs) (Abd Dig Min) ? 30.46 2.58 Electromyography ?Side Muscle Nerve Root Ins Act Fibs Amp Dur Recrt Comment Right 1stDorInt Ulnar C8-T1 Nml Nml Nml Nml Nml Right Ext Indicis Radial (Post Int) C7-8 Nml Nml Nml Nml Nml Right Ext Digitorum Radial (Post Int) C7-8 Nml Nml Nml Nml Nml Right BrachioRad Radial C5-6 Nml Nml Nml Nml Nml Right PronatorTeres Median C6-7 Nml Nml Nml Nml Nml Right Abd Poll Brev Median C8-T1 Nml Nml Nml Nml Nml Right ABD Dig Min Ulnar C8-T1 Nml Nml Nml Nml Nml Right FlexPolLong Median (Ant Int) C7-8 Nml Nml Nml Nml Nml Right Abd Poll Long Radial (Post Int) C7-8 Nml Nml Nml Nml Nml Left 1stDorInt Ulnar C8-T1 Nml Nml Nml Nml Nml Left Ext Indicis Radial (Post Int) C7-8 Nml Nml Nml Nml Nml Left Ext Digitorum Radial (Post Int) C7-8 Nml Nml Nml Nml Nml Left BrachioRad Radial C5-6 Nml Nml Nml Nml Nml Left PronatorTeres Median C6-7 Nml Nml Nml Nml Nml Left Abd Poll Brev Median C8-T1 Nml Nml Nml Nml Nml Left ABD Dig Min Ulnar C8-T1 Nml Nml Nml Nml Nml Left FlexPolLong Median (Ant Int) C7-8 Nml Nml Nml Nml Nml Left Abd Poll Long Radial (Post Int) C7-8 Nml Nml Nml Nml Nml
--- OUTSIDE RECORDS SUMMARY | 2025-09-02 14:08 | XMS_ITS | Clinical Summary ---
Author Organization [facility] [address] Address [address] [place] [address] Care Team Providers Care Commercial Designer Name Role Phone ChaoElisa dahlbeth Terra MAURO Primary Care Provider + Kevin [...] (325 mg total) by mouth every morning 9 Active ferrous gluconate (FERGON) 240 mg (27 mg of elemental iron) tabletIndication s:Iron Deficiency Anemia Take 1 tablet (240 mg total) by mouth 3 (three) times a day with meals Active magnesium oxide (MAG-OX) 400 mg (241.3 mg elemental magnesium) tabletIndication s:hypomagnesemia Take 250 mg by mouth nightly Active [...] mcg total) by mouth every evening Active zhxvd-W-hijrlyba idase (BEANO ORAL) Take 1 tablet by [...] (25 mg total) by mouth every morning 3 Active irbesartan (AVAPRO) 75 mg tablet TAKE 1 TABLET BY MOUTH DAILY 90 tablet 3 4 Active furosemide (LASIX) 20 mg tabletIndication s:Status post aortic valve replacement Take 1 tablet (20 mg total) by mouth daily 90 tablet 1 04/25/202 5 Active Additional Information Patient taking differently:20 mg oralEvery morning, Informant: Self, Reported on 08/28/2025 UNABLE TO FIND Take 1 each by mouth daily Turmeric glucosamine with johan 2000mg Active Jardiance 25 mg tablet Take 1 tablet (25 mg total) by mouth every morning 3 Active Ozempic 2 mg/dose (8 mg/3 mL) pen injector injection Inject 2 mg under the skin every 7 days Q Sunday 5 Active acetaminophen ER (TYLENOL) 650 mg 8 hr tablet Take 2 tablets (1,300 mg total) by mouth 2 (two) times a day Active atorvastatin (LIPITOR) 80 mg tablet TAKE 1 TABLET BY MOUTH EVERY NIGHT 90 tablet 1 5 Active metoprolol (LOPRESSOR) 100 mg tablet TAKE 1 TABLET BY MOUTH TWICE DAILY 180 tablet 3 5 Active Active Problems Problem [...] severe 09/04/2023 Coronary artery disease invo lving [place] coronary artery of [place] heart without angina pectoris 08/28/2023 Left carotid bruit 05/07/2020 Nonrheumatic aortic valve stenosis 05/07/2020 Renal artery stenosis 02/12/2020 Chronic kidney disease 07/25/2019 Family history of coronary artery disease 2018 AV block 07/25/2019 Frequent PVCs 07/25/2019 Hypertension associated with diabetes 07/25/2019 Hyperlipidemia associated with type 2 diabetes chelle solis 07/25/2019 Encounters Date Type Department Care Team Description 08/28/2025 2:30 PM PIT CLERK Office Visit [facility] Cardiology at [address] [place] [address] Kevin Metcalf MD Coronary artery disease involving [place] coronary artery of [place] heart without angina pectoris (Primary Dx); Hyperlipidemia associated with type 2 diabetes mellitus (HCC); Hypertension associated with diabetes (HCC); Frequent PVCs; Status post aortic valve replacement 08/11/2025 Telephone [facility] [address] [place] [address] Medical Office Building [address] [place] [phone] Jessica Roberto MD 06/25/2025 8:00 AM CDT Office Visit [facility] [address] [place] [address] Medical Office Building [address] [place] [phone] Jessica Roberto MD Obstructive sleep apnea (adult) (pediatric) (Primary Dx); Intolerance of continuous positive airway pressure (CPAP) ventilation; BMI 36.0-36.9,adult 06/02/2025 7:30 AM CDT - 06/02/2025 8:00 AM CDT Surgery [facility] Operating Room [id number] [place] [address] Jessica Roberto MD DRUG INDUCED SLEEP ENDOSCOPY 06/02/2025 7:26 AM CDT Anesthesia Event [facility] Operating Room [id number] [place] [address] Iban Mcdonald Jr., MD Ifune, Catherine K., MD PhD 06/02/2025 5:35 AM CDT - 06/02/2025 8:52 AM CDT Hospital Encounter [facility] Operating Room [id number] [place] [address] Jessica Roberto MD Obstructive sleep apnea (Primary [...] Hyperlipidemia Diabetes mellitus Osteoarthritis Cataract Anemia WPW (Zuuhq-Pcargmhoi-Qjzpf syndrome) GERD (gastroesophageal reflu x disease) Vertigo Aortic stenosis CKD (chronic kidney disease) stage 3, GFR 30-59 ml/min ([facility]) baseline creat 1.3-1.4 Coronary artery disease Neuromuscular disorder Degenerative disc disease, Neuropathy. Sleep apnea Heart disease CHF (congestive heart failur e) ([facility]) early 2023 Type 2 diabetes mellitus Obstructive sleep apnea Family History Medical History Relation Name Comments No Known Problems Brother 1 No Known Problems Brother 2 Bladder Cancer Father 90 Cancer Father 90 Heart attack Father 90 Hypertension Father 90 Heart attack Mother 76 fatal NE Sudden Mother 76 COPD Sister 64 Relation [...] materials from doctor or pharmacy Never 10/09/2023 [facility] Utilities Answer Date Recorded In the past 12 months has e eSpace, gas, oil, or water [employer] ([employer]) threatened to shut off services in your [...] often do you attend chur ch or catholic services? 1 to 4 times per year [...] in a residential (including now)? No 09/06/2023 AUDIT-C Answer Date [...] on file Legal Sex Female 9:23 AM PIT CLERK Gender Identity Not on file Sexual Orientation Not on file Last Filed Vital Signs Vital Sign Reading Time Taken Comments Blood Pressure 116/60 08/28/2025 2:28 PM PIT CLERK Pulse 63 08/28/2025 2:28 PM PIT CLERK Temperature 36.6 C (97.9 F) 06/02/2025 8:25 AM CDT Respiratory Rate 18 06/02/2025 8:45 AM CDT Oxygen Saturation 98% 08/28/2025 2:28 PM PIT CLERK Inhaled Oxygen Concentration - - Weight 92.1 kg (203 lb) 08/28/2025 2:28 PM PIT CLERK Height 162.6 cm (5' 4) 08/28/2025 2:28 PM PIT CLERK Body Mass Index 34.84 08/28/2025 2:28 PM PIT CLERK Plan of Treatment Health Maintenance Due Date [...] 10/22, 04/19/2012 Medical Devices Implanted Type Area Pigment Grinder Device Identifier Shelf Expiration Date Model / Serial / Lot Lux Lifesciences Inspiris Resilia Leaflet Aortic Valve 23mm [id number] - [id number] - [id number] Implanted:Qty: 1 on 09/04/2023 by Cortez Huerta MD at [facility] Prosthetic Valve N/A: Aortic Valve Lux Lif[employer]iences 04/29/2027 [id number] / [id number] / Giang V[employer] Device Clsr Perclose Prostyle Sut-Mediatd Closure-Repair Sys 19453-23 - S0 - [id number] Implanted:Qty: 1 on 08/01/2023 by Alireza Negron MD at [facility] Vascular Closure Device [employer] 04/20/2025 [id number] / [id number] / [id number] Bard Peripheral Vascular Bard .25x.25in [place] Thk1.65mm Square P[place]get Cardiovascular Ptfe [id number] - [id number] Implanted:Qty: 1 on 09/04/2023 by Cortez Huerta MD at [facility] N/A: Chest Bard Peripheral Vascular [id number] / / [employer] Device Closure Fibertape Sternal Cerclage Blunt Needle Ar-[id number] - [id number] Implanted:Qty: 1 on 09/04/2023 by Cortez Huerta MD at [facility] N/A: Sternum [employer] Inc 05/21/2028 [id number] / / [id number] [employer] Device Closure Fibertape Sternal Cerclage Blunt Needle Ar-[id number] - [id number] Implanted:Qty: 1 on 09/04/2023 by Cortez Huerta MD at [facility] N/A: Sternum [employer] Inc 09/20/2026 AR-[id number] / / [id number] Procedures Procedure Name Priority Date/Time Associated Diagnosis Comments POCT GLUCOSE DEVICE Routine 06/02/2025 7 :43 AM CDT DRUG INDUCED SLEEP ENDOSCOPY. 06/02/2025 7:26 AM CDT Obstructive sleep apnea POCT GLUCOSE DEVICE Routine 06/02/2025 5 :59 AM CDT POCT LIPID PANEL Routine 03/10/2025 1:09 PM CDT Hyperlipidemia associated with type 2 diabetes mellitus (HCC) Coronary artery disease involving [place] coronary artery of [place] heart without angina pectoris BASIC METABOLIC PANEL Routine 04/08/2024 Hypertension associated with diabetes (HCC) HEMOGLOBIN A1C STAT 09/04/2023 9:48 AM PIT CLERK from Last 3 Months or Most Recently Relevant to Health Maintenance Results * POCT glucose (06/02/2025 7:43 AM CDT) Glucose, POC 160 70 - 199 mg/dL Blood 06/02/2025 7:43 AM CDT 06/02/2025 7:43 AM CDT Jessica Roberto MD LAB POCT ORDERABLES - DEVICE Final Result Performing Organization Address City[facility] Co de Phone Number LYRIC GISELE [address] [address] [employer] [place] [address] * POCT glucose (06/02/2025 5:59 AM CDT) Glucose, POC 179 70 - 199 mg/dL Blood 06/02/2025 5:59 AM CDT 06/02/2025 5:59 AM CDT Jessica Roberto MD LAB POCT ORDERABLES [place] [address] [address] [place] [address] * (ABNORMAL) POCT lipid panel (03/10/2025 1:09 [...] * (ABNORMAL) Hemoglobin A1c (09/04/2023 9:48 AM PIT CLERK) Hgb A1C 9.2(H) 4.0 - 5.6 % [facility] Estimated Average Glucose 217 mg/dL [facility] Comment: The ADA recommends reporting an estimated Average Glucose (eAG) with all Hemoglobin A1c results using the equation derived from a study of 507 normal and diabetic adults. Minority populations were underrepresented and children were not included. (Diabetes Care 31:7516-8937, 2008). The eAG is not equivalent to a fasting glucose. Blood 09/04/2023 9:48 AM PIT CLERK 09/04/2023 9:59 AM PIT CLERK Terra Gilmore SENIOR LEAD PROJECT MANAGER LAB BLOOD ORDERABLES Final Resul t LYRIC [facility] [address] Department [place] [address] from Last 3 Months or Most Recently Relevant to Health Maintenance Insurance [facility] HMO/PPO Address: [facility] [address] [place] [address] [employer]IC[employer] Member Subscriber Plan / Payer (Ef fective 2023-Present) Name:Jenna Mars Relation to Subscriber:Self Name:Jenna Mars Payer ID:[id number] Group ID:Not on file Type:[employer] Address: [facility] [address] [place] Advance Directives For more information, please contact: [phone] * Full Code (Latest Code Status on File) Date Activated Date Inactivated Comments 09/04/2023 2:59 PM 09/09/2023 3:12 PM Care Teams Commercial Designer Relationship Specialty Start Date End Date Camryn Chao DO PCP - General Family Medicine 01/18/23 Kevin Metcalf MD [address] [facility] [address] [place] [address] Referring Physician Cardiology 08/02/23 Cortez Huerta MD [address] [facility] [address] [place] [address] Consulting Physician Cardiothoracic Surgery 08/02/23 Soha Vega MD [address] [place] [address] Endocrinology Diabetes & Metabolism 09/08/23
--- OUTSIDE RECORDS SUMMARY | 2025-09-02 14:08 | XMS_ITS | Clinical Summary ---
Author Organization [facility] Leeannaestelle Bar[facility] Address [address] [address] Care Team Providers Care Print Production Coordinator Name Role Phone Glen Banks MD Primary Care Provider [phone] Allergies Active Allergy Reactions Criticality Noted Date [...] Flex Sig/CT Colonography Q 5 years 2003 RSV VACCINE (60+ or ) (1 - Risk 50-74 years 1-dose series) 2008 ZOSTER VACCINE (2 of 3) 06/14/2012 04/19/2012 DTAP/TDAP/TD VACCINES (2 - T d or Tdap) 04/19/2022 04/19/2012, 06/17/2002 OSTEOPOROSIS SCREENING 2023 INFLUENZA VACCINE (#1) 2025 , 07/20/2020, 08/11/2019, Additional history exists Insurance CHOICE [id number] Care Teams Print Production Coordinator Relationship Specialty Start Date End Date Glen Banks MD [address] [place] [id number] PCP - General Family Practice 04/06/22
--- OUTSIDE RECORDS SUMMARY | 2025-09-02 14:08 | XMS_ITS | Clinical Summary ---
Author Organization [email or web address] Address [address] [facility] [place] [address] Care Team Providers Care Chief Revenue Officer Name Role Phone Chao Camryn Juan MAURO Primary Care Provider [phone] Source Comments [email or web address],non-owned Affiliates and Associated Physician Practices is amultiple site organization consisting of ambulatory clinics and hospital sitesin [place], [place], [place] and [place]. This disclosure is being madepursuant to the Care Everywhere program and may not contain all information available regarding this patient. Last updated 18.[email or web address] Allergies Active Allergy Reactions Criticality Noted Date [...] Active vitamine D3 (Cholecalciferol ) 250 MCG (57488 UT) capsule Take 1 (one) capsule by [...] Most Recently Relevant to Health Maintenance [place] [address] MEDICARE PHYSICIANS MUTUAL SELF PAY NO INSURANCE Member Subscriber Plan / Payer (Ef fective for All Dates) Name:Olvera Jenna Member ID:Not on file Relation to Subscriber:Not on file Name:OLVERAJENNA Subscriber ID:Not on file (Home) Address: [address] [place] [id number] Payer ID:Not on file Group ID:Not on file Type:Self Pay Address: [place], [place] Care Teams Chief Revenue Officer Relationship Specialty Start Date End Date Camryn Chao DO [address] [place] [id number] PCP - General Family Medicine 01/15/25
--- OUTSIDE RECORDS SUMMARY | 2025-09-02 14:08 | XMS_ITS | Clinical Summary ---
Author Organization [facility] Address [address] [place] [phone] Phone Care Team Providers Care Excel Expert Name Role Phone Carlos Alberto Oneil Primary Care Provider [phone] Allergies Active Allergy Reactions Criticality Noted Date [...] , 07/20/2020, 08/11/2019, Additional history exists Insurance [facility] Care Teams Excel Expert Relationship Specialty Start Date End Date Carlos Alberto Oneil [address] [place] [address] PCP - General 04/26/22
== END 2025-09-02 13:05 | disposition home or self-care (01) ==
LOC: ANHNEURO 13:05
PROVIDERS: PCP Family Medicine; Visit Provider Plastic Surgery
DX: G56.03 Carpal tunnel syndrome, bilateral upper limbs (principal); G56.21 Lesion of ulnar nerve, right upper limb; E11.9 Type 2 diabetes mellitus without complications; M18.9 Osteoarthritis of first carpometacarpal joint, unspecified
CPT/HCPCS: 95886; 95911

== ENCOUNTER 2025-09-30 15:29 | Outpatient (CLI) | payer MEDICARE, OTHER, SELFPAY ==
[2025-09-30 15:59] LABS: Hematocrit 38.9 % (37.0-47.0); Hemoglobin 12.4 g/dL (12.0-15.0); Mean Corpuscular HGB Conc 31.9 g/dl (32-36); Mean Corpuscular Hemoglobin 30.3 pg (26-34); Mean Corpuscular Volume 95.1 fl (80-100); Platelet Count Result 337 k/mm3 (150-375); Red Blood Count 4.09 M/mm3 (4.2-5.4); White Blood Count 8.3 K/mm3 (4.5-10.0)
[2025-09-30 16:13] LABS: Total Protein Urine Random 8 mg/dL; Ur Ttl Prot Creatinine Ratio 0.30 mg/mg (0-0.20)
[2025-09-30 16:14] LABS: Albumin Level 4.5 g/dL (3.5-5.1); Anion Gap 6 mmol/L (4-12); Blood Urea Nitrogen 57 mg/dL (7-17); Calcium 9.7 mg/dL (8.4-10.2); Carbon Dioxide 28 mmol/L (22-30); Chloride 103 mmol/L (98-107); Estimated Glomerular Filt Rate 24; Glucose 114 mg/dL (65-110); Potassium 4.0 mmol/L (3.4-5.0); Sodium 137 mmol/L (137-145)
[2025-09-30 16:27] LABS: Parathyroid Intact 31.1 pg/mL (14.5-75.2)
--- OUTSIDE RECORDS SUMMARY | 2025-09-30 20:34 | XMS_ITS | Clinical Summary ---
Author Organization [facility] Address [address] [place] [address] Phone Care Team Providers Care Heavy Threader Name Role Phone Carlos Alberto Oneil Primary Care Provider [phone] Allergies Active Allergy Reactions Criticality Noted Date [...] , 07/20/2020, 08/11/2019, Additional history exists Insurance [facility] Care Teams Heavy Threader Relationship Specialty Start Date End Date Carlos Alberto Oneil [address] [place] [address] PCP - General 04/26/22
--- OUTSIDE RECORDS SUMMARY | 2025-09-30 20:34 | XMS_ITS | Clinical Summary ---
Author Organization [facility] Address [address] [place] [address] Care Team Providers Care Combine Inspector Name Role Phone Glen Banks MD Primary [...] 07/20/2020, 08/11/2019, Additional history exists Insurance [employer] [id number] Care Teams Combine Inspector Relationship Specialty Start Date End Date Glen Banks MD [address] [id number] PCP - General Family Practice 04/06/22
--- OUTSIDE RECORDS SUMMARY | 2025-09-30 20:34 | XMS_ITS | Clinical Summary ---
Author Organization [facility] [employer] Address [address] [facility] [place] [address] Care Team Providers Care Laminating Press Operator Name Role Phone Chao Camryn Juan MAURO Primary Care Provider [phone] Source Comments [facility] [employer]non-owned Affiliates and Associated Physician Practices is amultiple site organization consisting of ambulatory clinics and hospital sitesin [place], [place], [place]. This disclosure is being madepursuant to the Care Everywhere program and may not contain all information available regarding this patient. Last updated 18.[facility] [employer] Allergies Active Allergy Reactions Criticality Noted Date [...] Active vitamine D3 (Cholecalciferol ) 250 MCG (59651 UT) capsule Take 1 (one) capsule by [...] 50+ (1 of 1 - PCV) 2008 Respiratory Syncytial Virus (RSV) Vaccine Pt: or over 60 yrs (1 - Risk 50-74 years 1-dose series) 2008 ZOSTER VACCINE (1 of 2) 2008 COVID-19 VACCINE (2 - season) 2025 12/28/2020 [...] Most Recently Relevant to Health Maintenance [place] [address] [place] [address] MEDICARE PHYSICIANS MUTUAL SELF PAY NO INSURANCE Member Subscriber Plan / Payer (Ef fective for All Dates) Name:Olvera Jenna Member ID:Not on file Relation to Subscriber:Not on file Name:OLVERAJENNA Subscriber ID:Not on file (Home) Address: [address] [place] [id number] Payer ID:Not on file Group ID:Not on file Type:Self Pay Address: [place], [place] Care Teams Laminating Press Operator Relationship Specialty Start Date End Date Camryn Chao DO [address] [facility] [address] [place] [phone] PCP - General Family Medicine 01/15/25
--- OUTSIDE RECORDS SUMMARY | 2025-09-30 20:34 | XMS_ITS | Clinical Summary ---
Author Organization [facility] [address] Address [address] [place] [address] Care Team Providers Care Django Developer Name Role Phone ChaoCamryn dahl Terra MAURO Primary Care Provider + Kevin Metcalf MD Unavailable Cortez Huerta MD Unavailable Soha Vega MD Unavailable [phone] Allergies Active Allergy Reactions Criticality Noted Date [...] mg elemental magnesium) tabletIndicatio ns:hypomagnesem ia Take 250 mg by mouth nightly Active gabapentin (NEURONTIN) 300 mg capsule 3 (three) times a day 300mg in morning and at 2pm, 600mg at night 06/30/20 23 Active hydrOXYzine (ATARAX) 50 mg tablet Take 1 tablet (50 mg total) by mouth 4 (four) times a day as needed for itching Active omeprazole (PriLOSEC) 20 mg capsule Take 1 capsule (20 mg total) by mouth every morning Active vitamin b complex tablet Take 1 tablet by mouth daily Active cholecalciferol , vitamin D3, (VITAMIN D3 ORAL) Take 1,000 Int'l Units by mouth daily Active cyanocobalamin (vitamin B-12) 1,000 mcg tabletIndicatio ns:Prevention of Vitamin B12 Deficiency Take 1 tablet (1,000 mcg total) by mouth every evening Active uttnp-H-gahgmtc sidase (BEANO ORAL) Take 1 tablet by mouth 2 (two) times a day Active insulin glargine (LANTUS) 100 unit/mL (3 mL) pen for injection Inject 30 Units under the skin every morning 9 mL 1 09/08/20 23 Active pen needle, diabetic (Pen Needle) 32 gauge x 5/32 needle Use as directed once a day. 100 each 09/08/20 23 Active Contour Next Test Strips strip Use as directed up to four times a day. 100 each 1 09/08/20 23 Active insulin lispro (HumaLOG) 100 unit/mL pen [...] by mouth every morning 09/21/20 23 Active irbesartan (AVAPRO) 75 mg tablet TAKE 1 TABLET BY MOUTH DAILY 90 tablet 3 07/07/20 24 Active UNABLE TO FIND Take 1 each [...] BY MOUTH EVERY NIGHT 90 tablet 1 06/17/20 25 Active metoprolol (LOPRESSOR) 100 mg tablet TAKE 1 TABLET BY MOUTH TWICE DAILY 180 tablet 3 07/20/20 25 Active furosemide (LASIX) 20 mg tabletIndicatio ns:Status post aortic valve replacement TAKE 1 TABLET BY MOUTH DAILY 90 tablet 3 09/11/20 25 Active furosemide (LASIX) 20 mg tabletIndicatio ns:Status post aortic valve replacement Take 1 tablet (20 mg total) by mouth daily 90 tablet 1 02/14/20 25 025 Discontinued Active Problems Problem Noted Date [...] severe 09/04/2023 Coronary artery disease invo lving peoria coronary artery of peoria heart without angina pectoris 08/28/2023 Left carotid bruit 05/07/2020 Nonrheumatic aortic valve stenosis 05/07/2020 Renal artery stenosis 02/12/2020 Chronic kidney disease 07/25/2019 Family history of coronary artery disease 2018 AV block 07/25/2019 Frequent PVCs 07/25/2019 Hypertension associated with diabetes 07/25/2019 Hyperlipidemia associated with type 2 diabetes chelle solis 07/25/2019 Encounters Date Type Department Care Team Description 08/28/2025 2:30 PM COMPLETION SUPERVISOR Office Visit [facility] Cardiology at [address] [place] [address] Kevin Metcalf MD Coronary artery disease involving peoria coronary artery of peoria heart without angina pectoris (Primary Dx); Hyperlipidemia associated with type 2 diabetes mellitus (HCC); Hypertension associated with diabetes (HCC); Frequent PVCs; Status post aortic valve replacement 08/11/[address] [facility] Medicine ENT [address] [facility] Medical Office [address] [place] [address] Jessica Roberto MD from Last 3 Months Surgical History Surgery [...] Hyperlipidemia Diabetes mellitus Osteoarthritis Cataract Anemia WPW (Yjowi-Cdigbetzl-Uexgl syndrome) GERD (gastroesophageal reflu x disease) Vertigo Aortic stenosis CKD (chronic kidney disease) stage 3, GFR 30-59 ml/min ([facility]) baseline creat 1.3-1.4 Coronary artery disease Neuromuscular disorder Degenerative disc disease, Neuropathy. Sleep apnea Heart disease CHF (congestive heart failur e) ([facility]) early 2023 Type 2 diabetes mellitus Obstructive sleep apnea Family History Medical History Relation Name Comments No Known Problems Brother 1 No Known Problems Brother 2 Bladder Cancer Father 90 Cancer Father 90 Heart attack Father 90 Hypertension Father 90 Heart attack Mother 76 fatal [place] Sudden Mother 76 COPD Sister 64 Relation [...] materials from doctor or pharmacy Never 10/09/2023 [facility] Utilities Answer Date Recorded In the [...] often do you attend chur ch or voodoo services? 1 to 4 times per year 09/06/2023 Do you belong to any clubs o r organizations such as zoroastrian groups, unions, fraternal or athletic groups, or [...] a senior care (including now)? No 09/06/2023 AUDIT-C Answer Date [...] on file Legal Sex Female 9:23 AM COMPLETION SUPERVISOR Gender Identity Not on file Sexual Orientation Not on file Last Filed Vital Signs Vital Sign Reading Time Taken Comments Blood Pressure 116/60 08/28/2025 2:28 PM COMPLETION SUPERVISOR Pulse 63 08/28/2025 2:28 PM COMPLETION SUPERVISOR Temperature 36.6 C (97.9 F) 06/02/2025 8:25 AM CDT Respiratory Rate 18 06/02/2025 8:45 AM CDT Oxygen Saturation 98% 08/28/2025 2:28 PM COMPLETION SUPERVISOR Inhaled Oxygen Concentration - - Weight 92.1 kg (203 lb) 08/28/2025 2:28 PM COMPLETION SUPERVISOR Height 162.6 cm (5' 4) 08/28/2025 2:28 PM COMPLETION SUPERVISOR Body Mass Index 34.84 08/28/2025 2:28 PM COMPLETION SUPERVISOR Plan of Treatment Health Maintenance Due [...] 10/22, 04/19/2012 Medical Devices Implanted Type Area Soa Engineer Device Identifier Shelf Expiration Date Model / Serial / Lot [employer] Inspiris Resilia Leaflet Aortic Valve 23mm [id number] - [id number] - [id number] Implanted:Qty: 1 on 09/04/2023 by Cortez Huerta MD at [facility] Prosthetic Valve N/A: Aortic Valve [employer] 04/29/2027 [id number] / [id number] / [employer]ang V[employer] Device Clsr Perclose Prostyle Sut-Mediatd Closure-Repair Sys [id number] - S0 - [id number] Implanted:Qty: 1 on 08/01/2023 by Alireza Negron MD at [facility] Vascular Closure Device [employer] 04/20/2025 [id number] / [id number] / [id number] Bard Peripheral Vascular Bard .25x.25in [place] Thk1.65mm Square [place] Cardiovascular Ptfe [id number] - [id number] Implanted:Qty: 1 on 09/04/2023 by Cortez Huerta MD at [facility] N/A: Chest [employer] Peripheral Vascular [id number] / / [employer] Device Closure Fibertape Sternal Cerclage Blunt Needle Ar-7289 - [id number] Implanted:Qty: 1 on 09/04/2023 by Cortez Huerta MD at [facility] N/A: Sternum [employer] 05/21/2028 AR-7289 / / [id number] [employer] Device Closure Fibertape Sternal Cerclage Blunt Needle Ar-7289 - [id number] Implanted:Qty: 1 on 09/04/2023 by Cortez Huerta MD at [facility] N/A: Sternum [employer] 09/20/2026 AR-7289 / / [id number] Procedures Procedure Name Priority Date/Time Associated Diagnosis Comments POCT LIPID PANEL Routine 03/10/2025 1:09 PM CDT Hyperlipidemia associated with type 2 diabetes mellitus (HCC) Coronary artery disease involving peoria coronary artery of peoria heart without angina pectoris BASIC METABOLIC PANEL Routine 04/08/2024 Hypertension associated with diabetes (HCC) HEMOGLOBIN A1C STAT 09/04/2023 9:48 AM COMPLETION SUPERVISOR from Last 3 Months or Most Recently Relevant to Health Maintenance Results * (ABNORMAL) POCT lipid panel (03/10/2025 1:09 [...] * (ABNORMAL) Hemoglobin A1c (09/04/2023 9:48 AM COMPLETION SUPERVISOR) Hgb A1C 9.2(H) 4.0 - 5.6 % [facility] Estimated Average Glucose 217 mg/dL [facility] Comment: The ADA recommends reporting an estimated Average Glucose (eAG) with all Hemoglobin A1c results using the equation derived from a study of 507 normal and diabetic adults. Minority populations were underrepresented and children were not included. (Diabetes Care 31:7315-5738, 2008). The eAG is not equivalent to a fasting glucose. Blood 09/04/2023 9:48 AM COMPLETION SUPERVISOR 09/04/2023 9:59 AM COMPLETION SUPERVISOR Terra Gilmore NP LAB BLOOD ORDERABLES Final Resul t [facility] [address] Department [place] [address] from Last 3 Months or Most Recently Relevant to Health Maintenance Insurance [facility] MEDICARE [facility] MEDICARE PHYSICIANS [facility] [place] Advance Directives For more information, please contact: [phone] * Full Code (Latest Code Status on File) Date Activated Date Inactivated Comments 09/04/2023 2:59 PM 09/09/2023 3:12 PM Care Teams Django Developer Relationship Specialty Start Date End Date Camryn Chao DO PCP - General Family Medicine 01/18/23 Kevin Metcalf MD [address] [place] [id number] Referring Physician Cardiology 08/02/23 Cotrez Huerta MD [address] [place] [address] Consulting Physician Cardiothoracic Surgery 08/02/23 Soha Vega MD [address] [facility] [address] [place] [address] Endocrinology Diabetes & Metabolism 09/08/23
== END 2025-09-30 15:30 | disposition home or self-care (01) ==
PROVIDERS: PCP Family Medicine; Visit Provider Internal Medicine Nephrology
DX: N18.4 Chronic kidney disease, stage 4 (severe) (principal); I35.0 Nonrheumatic aortic (valve) stenosis
CPT/HCPCS: 36415; 80069; 82570; 83970; 84156; 85027; 99202; G0463